=== PATIENT | male | born 1945 | race Caucasian/White ===

== ENCOUNTER 2018-01-18 04:48 | Inpatient (IN) | payer MEDICARE, SELFPAY ==
[2018-01-18] VITALS (18 sets, daily range): BP systolic 97–192; BP diastolic 70–100; PULSE 67–89; RESP 18–28; TEMP 36.4–37.2; O2SAT 95–100; BMI 31.8; BMI 35.7
--- NOTE | 2018-01-18 04:58 | NURSING ---
pt not a good historian for medications neither is the family
[2018-01-18 05:01] LABS: Bedside Glucose 143 mg/dL (70-110)
--- NOTE | 2018-01-18 05:02 | RAD_ITS ---
STUDY: X-RAY CHEST REASON FOR EXAM: Male, 72 years old. Shortness of breath and cough. TECHNIQUE: Single AP portable view of the chest. COMPARISON: None. FINDINGS: There is interstitial prominence, suggesting mild CHF. There is no demonstrated pleural abnormality. There is mild cardiac enlargement. There are sternotomy wires. Normal mediastinum and maddie. Normal visualized pulmonary arteries. Normal visualized aortic arch and descending thoracic aorta. There are diffuse degenerative changes of the visualized thoracic spine. Normal visualized ribs, clavicles, and shoulders. There is no demonstrated abnormality of the visualized soft tissue structures of the upper abdomen. RAD/Chest 1 View IMPRESSION: Cardiomegaly with mild CHF. Electronically Signed: Kenny Quintero MD at 6:15 EST , Service support ,
--- NOTE | 2018-01-18 05:02 | EKG12_ITS ---
Test Reason : Blood Pressure : / mmHG Vent. Rate : 075 BPM Atrial Rate : 066 BPM P-R Int : 000 ms QRS Dur : 088 ms QT Int : 424 ms P-R-T Axes : 000 019 126 degrees QTc Int : 473 ms Atrial fibrillation with premature ventricular or aberrantly conducted complexes Nonspecific ST and T wave abnormality Abnormal ECG Confirmed by TARYN WILSON, MANSOOR ([id number]), scientific editor SAMIA KING ([id number] on 01/20/2018 2:03:52 PM Referred By: CANDICE Confirmed By:MANSOOR CENTENO MD
--- NOTE | 2018-01-18 05:02 | CT_ITS ---
STUDY: CT BRAIN WITHOUT CONTRAST REASON FOR EXAM: Male, 72 years old. Right-sided weakness and right arm tingling. Cough and shortness of breath. Elevated blood pressure. RADIATION DOSAGE (If Supplied By Facility): CTDIvol = ( 44.99 ) mGy, DLP = ( 745.49 ) mGycm TECHNIQUE: Transaxial CT imaging of the brain was performed without administration of intravenous contrast material. Individualized dose optimization techniques were used for this CT. COMPARISON: None. FINDINGS: Normal soft tissue structures. Normal calvarium. There is mild cerebral atrophy with widening of the extra-axial spaces and ventricular dilatation. There are areas of decreased attenuation within the white matter tracts of the supratentorial brain, consistent with microvascular disease changes. Normal basal ganglia and thalami. Normal brainstem. There is mild cerebellar atrophy. There is atherosclerotic calcification of the cavernous carotid arteries. There is no intracranial hemorrhage. There are no findings of an acute ischemic infarction. Normal visualized paranasal sinuses. CT/Brain/Head without Contrast IMPRESSION: Chronic involutional changes of the brain. No demonstrated acute intracranial process. Electronically Signed: Kenny Quintero MD at 5:41 EST , Service support ,
[2018-01-18 05:15] LABS: Absolute Lymphocyte Count 1.72 X10^3/ul (0.83-4.51); Absolute Neutrophil Count 3.1 X10^3/uL (2.0-7.7); Basophil# 0.02 X10^3/uL; Basophil% 0.4 % (0-1); Eosinophil# 0.02 X10^3/uL; Eosinophils% 0.4 % (0-5); Hematocrit 37.2 % (40-54); Hemoglobin 12.8 g/dl (13.0-16.5); Lymphocyte # 1.72 X10^3/ul (4.0); Mean Corp Hgb Conc 34.4 g/gl (32-36); Mean Corpuscular Hgb 34.4 pg (27.0-32.0); Mean Platelet Vol. 10.2 fl (6.2-12.0); Monocyte# 0.36 X10^3/uL; Monocyte% 6.9 % (0-10); Neutrophil # 3.09 X10^3/uL (2.7-7.7); Neutrophil % 59.1 % (47-70); Platelet Count 218 K/mm3 (150-450); RBC Distribution Width CV 13.3 % (11.6-14.6); RBC Distribution Width SD 46.5 fl (35.1-43.9); Red Blood Count 3.72 M/mm3 (4.6-6.2); White Blood Count 5.2 K/mm3 (4.4-11.0)
[2018-01-18 05:17] LABS: International Normalized Ratio 1.2; Prothrombin Time (Protime)PT. 14.6 SECONDS (11.7-14.9)
[2018-01-18 05:18] LABS: Partial Thromboplast Time 24.8 Seconds (24.1-36.2)
[2018-01-18 05:21] LABS: POSITIVE COUNT NO; POSITIVE DIFFERENTIAL NO; POSITIVE MORPHOLOGY NO
[2018-01-18 05:27] LABS: Anion Gap 11 (5-15); BUN 12 mg/dL (7-18); BUN/Creat Ratio 10.4 RATIO (10-20); Calcium,Total 8.8 mg/dL (8.5-10.1); Chloride 106 mmol/L (98-107); Creatinine, Serum 1.15 mg/dL (0.70-1.30); EST Glomerular Filtration Rate 67 mL/min (>60); Est Glom Filt Rate - Afr Amer 81 mL/min (>60); Glucose 169 mg/dL (74-106); Potassium 3.2 mmol/L (3.5-5.1); Sodium Level 142 mmol/L (136-145)
--- NOTE | 2018-01-18 06:06 | PCM.HP.STD ---
Problem List (1) Carotid arterial disease Status: Chronic Qualifiers: Laterality: unspecified laterality Qualified Code(s): I77.9 - Disorder of arteries and arterioles, unspecified (2) CAD (coronary artery disease) Status: Chronic Qualifiers: Coronary Disease-Associated Artery/Lesion type: unspecified vessel or lesion type [place] vs. transplanted heart: unspecified whether [place] or transplanted heart Associated angina: angina presence unspecified Qualified Code(s): I25.10 - Atherosclerotic heart disease of [place] coronary artery without angina pectoris (3) HTN (hypertension) Status: Chronic Qualifiers: Hypertension type: essential hypertension Qualified Code(s): I10 - Essential (primary) hypertension (4) HLD (hyperlipidemia) Status: Chronic Qualifiers: Hyperlipidemia type: unspecified Qualified Code(s): E78.5 - Hyperlipidemia, unspecified (5) Obesity (BMI 30.0-34.9) Status: Chronic (6) Right sided weakness Status: Acute (7) New onset atrial fibrillation Status: Acute (8) CHF (congestive heart failure) Status: Acute Qualifiers: Heart failure type: unspecified Heart failure chronicity: acute Qualified Code(s): I50.9 - Heart failure, unspecified History of Present Illness Date of Admission: 01/18/18 Chief Complaint: R sided weakness, paresthesias, recent increased dyspnea, orthopnea, BL LE edema. The patient is a 72 y/o M w/ PMHx: Carotid arterial disease s/p R CEA, CAD s/p CABG, HTN, HLD, Obesity who presents to the [facility] ED on 01/18/18 with history of onset right sided weakness with paresthesias lasted ~ 10 minutes with improvement starting at ~ 4:20 am with initially noted RLE weakness severe enough per daughter to have RLE drag. In the ED upon evaluation his NIH was 0 and remained 0 during ED work-up; however, hospitalist evaluation with concern for ongoing mild R sided weakness 4/5, sensation intact. Patient also noted ~ 1 week history of increased dyspnea, orthopnea, BL LE ankle to knee pitting edema not improving. He did have recent bronchitis ~ 2 weeks prior but this seemed to have somewhat improved. In the ED work-up included T 97.5, HR 70-80s, BP 173/83, RR 22, 98% on 2L NC, CBC w/ WBC 5.2, Hgb 12.8, Plts 218 without shift, coags normal, BMP w/ K 3.2, glucose 169, trop < 0.02, CT brain with no acute findings, EKG w/ apparent new onset rate controlled atrial fibrillation without acute evidence of ischemia, CXR with mild congested appearance. Past Medical History Past Medical History (Chronic Problems): Chronic Problems Carotid arterial disease (Chronic) CAD (coronary artery disease) (Chronic) HTN (hypertension) (Chronic) HLD (hyperlipidemia) (Chronic) Obesity (BMI 30.0-34.9) (Chronic) Allergies No Known Allergies Allergy (Verified 01/18/18 04:50) Home Medications: Ambulatory Orders Medication Instructions Recorded Aspirin [Aspir-Low] 81 mg PO DAILY 01/18/18 Atenolol [Tenormin (Beta Obdulio)] 50 mg PO DAILY 01/18/18 Losartan Potassium [Cozaar] 100 mg PO DAILY 01/18/18 Pravastatin [Pravachol] 80 mg PO DAILY 01/18/18 Surgical History: - - R CEA, CABG x 4. Psychiatric History: No pertinent psych hx Lives: Spouse/ Significant Other, With Family Smoking Status: Never smoker Tobacco Use: Non-smoker Alcohol: Rare Drugs: None - *Family History Maternal History Items: Stroke Paternal History Items: Heart Disease Review of Systems Constitutional: Reports: Malaise, Weakness, Weight Change, Fatigue. Denies: Chills, Fever HEENT: Denies: Head Aches, Sinus Congestion, Sinus Drainage Cardiovascular: Reports: Edema, Orthopnea. Denies: Chest Pain, Palpitations Respiratory: Reports: Cough, Shortness of Breath, Shortness of breath at rest, Shortness of breath upon exertion. Denies: Sputum production, Wheezing Gastrointestinal: Denies: Abdominal Pain, Nausea, Vomiting Genitourinary: Denies: Dysuria Musculoskeletal: Denies: Joint Pain, Joint Tenderness Skin: Denies: Rash, Wounds Neurological: Reports: Focal weakness, Numbness, Tingling Psychiatric: Denies: Anxiety, Depression, Homicidal Ideations, Suicidal Ideations Hematologic/ Lymphatic: Denies: Easy Bruising, Easy Bleeding VTE Information - Inpt Only VTE Present on Admission: No VTE Mechan Device Prophylaxis: SCD's VTE Pharm Prophylaxis ordered?: Yes Patient Problems: Active and Suspected Problems Right sided weakness (Acute) New onset atrial fibrillation (Acute) CHF (congestive heart failure) (Acute) Subjective: Seated upright in the ED bed, mildly increased RR, denies any acute complaint, notes nearly baseline R sided strength, daughter feels still mildly weak, sensation normalized. Objective: Physical Examination: General: awake, alert, oriented x 3 and cooperative, seated upright in the ED bed in no apparent distress. Skin: normal color, turgor, no icterus, cyanosis. HEENT: AT/NC, EOMI, PERRLA, mildly dry MM, no carotid bruits or JVD noted. Lungs: Diminished BS bases, mild crackles bases, increased RR, poor effort, no ronchi or wheezing. Heart: Irregular, normal rate; no gallop, rub audible. Abdomen: soft, obese, NTTP, ND, normal BS, no HSM; however, habitus makes examination difficult. Extremities: no cyanosis, clubbing, BL LE 3+ pitting edema pedal to knee. Neurological: patient awake, alert, oriented x 3; cognitive function intact; pupils equally reactive to light and accomodation; cranial nerves II-XII grossly normal, moving all 4 extremities, R Upper and Lower 4/5, mild RUE abnml FTN, sensation intact, negative babinski. Psychiatric: affect appears normal, no acute evidence of depressive or anxiety feelings. - Physical Exam Vital Signs Temp Pulse Resp BP Pulse Ox 97.5 F L 82 22 H 173/83 H 98 01/18/18 04:50 01/18/18 06:03 01/18/18 06:03 01/18/18 06:03 01/18/18 06:03 Oxygen Flow Rate 2 Oxygen Delivery Method Nasal Cannula Weight: 209 lb 14.081 oz Body Mass Index (BMI) 31.8 Finger Stick Blood Glucose 143 Laboratory Tests Past 24 Hrs 01/18/18 01/18/18 01/18/18 04:50 04:50 04:50 WBC 5.2 RBC 3.72 L Hgb 12.8 L Hct 37.2 L MCV 100.0 H MCH 34.4 H MCHC 34.4 RDW 13.3 RDW Differential 46.5 H Plt Count 218 MPV 10.2 Immature Gran % (Auto) 0.200 Neut % (Auto) 59.1 Lymph % (Auto) 33.0 [place] % (Auto) 6.9 Eos % (Auto) 0.4 Baso % (Auto) 0.4 Absolute Neuts (auto) 3.1 Absolute Lymphs (auto) 1.72 Total Counted Not Reportable PT 14.6 INR 1.2 APTT 24.8 Sodium 142 Potassium 3.2 L Chloride 106 Carbon Dioxide 25.0 Anion Gap 11 BUN 12 Creatinine 1.15 Estim Creat Clear Calc 57.00 Est GFR (MDRD) Af Amer 81 Est GFR (MDRD) Non-Af 67 BUN/Creatinine Ratio 10.4 Glucose 169 H Calcium 8.8 Troponin I < 0.02 POC Glucose 01/18/18 04:56 POC Glucose 143 H Assessment/Plan Active and Suspected Problems Right sided weakness (Acute) New onset atrial fibrillation (Acute) CHF (congestive heart failure) (Acute) The patient is a 72 y/o M w/ PMHx: Carotid arterial disease s/p R CEA, CAD s/p CABG, HTN, HLD, Obesity who presents to the [facility] ED on 01/18/18 with history of onset right sided weakness with paresthesias lasted ~ 10 minutes in addition to ~ 1 week history of increased dyspnea, orthopnea, BL LE ankle to knee pitting edema not improving. (1) R sided Weakness, Paresthesias concerning for TIA/CVA: Will admit to PCU, will obtain MRI Brain, MRA Head and Neck, ECHO, PT/OT/Speech/Nutrition evaluation per protocol. Will allow permissive HTN, maintain on asa-->plavix, statin w/ AM FLP, fall precautions. Mag, TSH pending. Fall precautions. (2) New onset, Paroxsymal atrial fibrillation: EKG in ED w/ atrial fibrillation, rate controlled. Will maintain on telemetry, obtain cardiac enzyme serial set, obtain magnesium level, obtain ECHO, obtain TSH level. CHADs scoring appropriate for anticoagulation start, will place on lovenox given also transition ASA-->plavix for TIA/CVA, pending MRI Brain as noted above. Given rate controlled and permissive HTN currently, defer rhythm/rate regimen until MRI obtained. Cardiology consulted, pending. (3) Suspected Acute Mild Decompensated CHF: CXR obtained in the ED w/ mild congestion, ongoing dyspnea, non-productive cough, orthopnea, BL LE edema. Will maintain on cardiac telemetry obtain cardiac enzyme series, obtain serial EKGs, given #1, will only administer IV lasix 40 mg x 1 and await MRI, if MRI negative would then plan to continue IV lasix diuresis, monitor I/Os, maintain on intake restriction, continue medical therapy w/ asa-->plavix as noted, statin, holding BP regimen as noted prior, once appropriate contionue BB, ACEI. Will obtain TSH and magnesium level. ECHO pending. Cardiology consulted, pending. (4) Hypertension: Permissive. (5) Hyperlipidemia: Continue home statin regimen. AM FLP. (6) CAD: s/p CABG, follows w/ Dr. Sweeney. Will continue asa-->plavix, statin, permissive HTN thus hold on BB. (7) Hyperglycemia: Admission glucose 169, HgbA1c pending. (8) Hypokalemia: Admission K+ 3.2, supplementation given, repeat level in AM. (9) Obesity: Weight loss and lifestyle changes encouraged. (10) DVT Prophylaxis: SCDs, lovenox therapeutic. Code Visit Inpatient E&M: 36792 Init Hosp L3
--- NOTE | 2018-01-18 06:18 | ED.DCSUM_ITS ---
- ER Visit Summary Date of Service: 01/18/18 Chief Complaint: [] Numbness right arm/leg History of Present Illness: The patient is a 72 M [] of sudden onset of numbness in the right arm/leg that started approximately 4:18 AM. He reports the symptoms lasted only a few minutes. His family at the bedside reports he had difficulty ambulating in those few minutes. He denies slurred speech. He reports the symptoms have completely resolved upon arrival. Does report a previous history of carotid endarterectomy, CABG, CAD, hypertension, cholesterol. Reports taking a daily aspirin. No other complaints at this time. Denies chest pain, shortness of breath, blurred vision, headache. Physical Examination: [] NIH score upon arrival: 0. Repeat NIH score 1 hour later: 0. Plus 5 out of 5 bilateral upper and lower muscle strength. Elderly male in no acute distress, cardiovascular exam is irregularly irregular consistent with a history of atrial fibrillation. Lungs are clear to auscultation. Abdomen is soft and nontender. No lower extremity edema. Test Results: [] EKG shows atrial fibrillation with a rate in the 70s. CT head negative. Chest x-ray negative. CBC, BMP within normal limits with exception of potassium slightly low 3.2. Troponin negative. INR 1.2. Emergency Department Course and Treatment: [] This patient is high risk for cerebrovascular accident and warrants admission for MRI to evaluate posterior circulation. Patient discussed with hospitalist. Patient will be admitted for further evaluation. Patient and patient's family counseled regarding diagnostic and laboratory findings and are amenable to admission. Treatment Plan: [] Admission, general medical floor. Disposition: [] Admit, stable Impression: [] TIA This note was generated with Teleport dictation software. It may contain incorrect words, spelling, and punctuation that were not noted in review of the chart prior to signing ED Disposition - Plan for ED Patient: Disposition: Acute Care Hospital [facility] Chief Complaint: Numb/Ting
--- NOTE | 2018-01-18 06:19 | HP.PCM_ITS ---
Problem List (1) Carotid arterial disease Status: Chronic Qualifiers: Laterality: unspecified laterality Qualified Code(s): I77.9 - Disorder of arteries and arterioles, unspecified (2) CAD (coronary artery disease) Status: Chronic Qualifiers: Coronary Disease-Associated Artery/Lesion type: unspecified vessel or lesion type [place] vs. transplanted heart: unspecified whether [place] or transplanted heart Associated angina: angina presence unspecified Qualified Code(s): I25.10 - Atherosclerotic heart disease of [place] coronary artery without angina pectoris (3) HTN (hypertension) Status: Chronic Qualifiers: Hypertension type: essential hypertension Qualified Code(s): I10 - Essential (primary) hypertension (4) HLD (hyperlipidemia) Status: Chronic Qualifiers: Hyperlipidemia type: unspecified Qualified Code(s): E78.5 - Hyperlipidemia , unspecified (5) Obesity (BMI 30.0-34.9) Status: Chronic (6) Right sided weakness Status: Acute (7) New onset atrial fibrillation Status: Acute (8) CHF (congestive heart failure) Status: Acute Qualifiers: Heart failure type: unspecified Heart failure chronicity: acute Qualified Code(s): I50.9 - Heart failure, unspecified History of Present Illness Date of Admission: 01/18/18 Chief Complaint: R sided weakness, paresthesias, recent increased dyspnea, orthopnea, BL LE edema. The patient is a 72 y/o M w/ PMHx: Carotid arterial disease s/p R CEA, CAD s/p CABG, HTN, HLD, Obesity who presents to the [facility] ED on 01/18/18 with history of onset right sided weakness with paresthesias lasted ~ 10 minutes with improvement starting at ~ 4:20 am with initially noted RLE weakness severe enough per daughter to have RLE drag. In the ED upon evaluation his NIH was 0 and remained 0 during ED work-up; however, hospitalist evaluation with concern for ongoing mild R sided weakness 4/5, sensation intact. Patient also noted ~ 1 week history of increased dyspnea, orthopnea, BL LE ankle to knee pitting edema not improving. He did have recent bronchitis ~ 2 weeks prior but this seemed to have somewhat improved. In the ED work-up included T 97.5, HR 70-80s, BP 173/83 , RR 22, 98% on 2L NC, CBC w/ WBC 5.2, Hgb 12.8, Plts 218 without shift, coags normal, BMP w/ K 3.2, glucose 169, trop < 0.02, CT brain with no acute findings , EKG w/ apparent new onset rate controlled atrial fibrillation without acute evidence of ischemia, CXR with mild congested appearance. Past Medical History Past Medical History (Chronic Problems): Chronic Problems Carotid arterial disease (Chronic) CAD (coronary artery disease) (Chronic) HTN (hypertension) (Chronic) HLD (hyperlipidemia) (Chronic) Obesity (BMI 30.0-34.9) (Chronic) Allergies No Known Allergies Allergy (Verified 01/18/18 04:50) Home Medications: Ambulatory Orders Medication Instructions Recorded Aspirin [Aspir-Low] 81 mg PO DAILY 01/18/18 Atenolol [Tenormin (Beta Obdulio)] 50 mg PO DAILY 01/18/18 Losartan Potassium [Cozaar] 100 mg PO DAILY 01/18/18 Pravastatin [Pravachol] 80 mg PO DAILY 01/18/18 Surgical History: - - R CEA, CABG x 4. Psychiatric History: No pertinent psych hx Lives: Spouse/ Significant Other, With Family Smoking Status: Never smoker Tobacco Use: Non-smoker Alcohol: Rare Drugs: None - *Family History Maternal History Items: Stroke Paternal History Items: Heart Disease Review of Systems Constitutional: Reports: Malaise, Weakness, Weight Change, Fatigue. Denies: Chills, Fever HEENT: Denies: Head Aches, Sinus Congestion, Sinus Drainage Cardiovascular: Reports: Edema, Orthopnea. Denies: Chest Pain, Palpitations Respiratory: Reports: Cough, Shortness of Breath, Shortness of breath at rest, Shortness of breath upon exertion. Denies: Sputum production, Wheezing Gastrointestinal: Denies: Abdominal Pain, Nausea, Vomiting Genitourinary: Denies: Dysuria Musculoskeletal: Denies: Joint Pain, Joint Tenderness Skin: Denies: Rash, Wounds Neurological: Reports: Focal weakness, Numbness, Tingling Psychiatric: Denies: Anxiety, Depression, Homicidal Ideations, Suicidal Ideations Hematologic/ Lymphatic: Denies: Easy Bruising, Easy Bleeding VTE Information - Inpt Only VTE Present on Admission: No VTE Mechan Device Prophylaxis: SCD's VTE Pharm Prophylaxis ordered?: Yes Patient Problems: Active and Suspected Problems Right sided weakness (Acute) New onset atrial fibrillation (Acute) CHF (congestive heart failure) (Acute) Subjective: Seated upright in the ED bed, mildly increased RR, denies any acute complaint, notes nearly baseline R sided strength, daughter feels still mildly weak, sensation normalized. Objective: Physical Examination: General: awake, alert, oriented x 3 and cooperative, seated upright in the ED bed in no apparent distress. Skin: normal color, turgor, no icterus, cyanosis. HEENT: AT/NC, EOMI, PERRLA, mildly dry MM, no carotid bruits or JVD noted. Lungs: Diminished BS bases, mild crackles bases, increased RR, poor effort, no ronchi or wheezing. Heart: Irregular, normal rate; no gallop, rub audible. Abdomen: soft, obese, NTTP, ND, normal BS, no HSM; however, habitus makes examination difficult. Extremities: no cyanosis, clubbing, BL LE 3+ pitting edema pedal to knee. Neurological: patient awake, alert, oriented x 3; cognitive function intact; pupils equally reactive to light and accomodation; cranial nerves II-XII grossly normal, moving all 4 extremities, R Upper and Lower 4/5, mild RUE abnml FTN, sensation intact, negative babinski. Psychiatric: affect appears normal, no acute evidence of depressive or anxiety feelings. - Physical Exam Vital Signs Temp Pulse Resp BP Pulse Ox 97.5 F L 82 22 H 173/83 H 98 01/18/18 04:50 01/18/18 06:03 01/18/18 06:03 01/18/18 06:03 01/18/18 06:03 Oxygen Flow Rate 2 Oxygen Delivery Method Nasal Cannula Weight: 209 lb 14.081 oz Body Mass Index (BMI) 31.8 Finger Stick Blood Glucose 143 Laboratory Tests Past 24 Hrs 01/18/18 01/18/18 01/18/18 04:50 04:50 04:50 WBC 5.2 RBC 3.72 L Hgb 12.8 L Hct 37.2 L MCV 100.0 H MCH 34.4 H MCHC 34.4 RDW 13.3 RDW Differential 46.5 H Plt Count 218 MPV 10.2 Immature Gran % (Auto) 0.200 Neut % (Auto) 59.1 Lymph % (Auto) 33.0 [place] % (Auto) 6.9 Eos % (Auto) 0.4 Baso % (Auto) 0.4 Absolute Neuts (auto) 3.1 Absolute Lymphs (auto) 1.72 Total Counted Not Reportable PT 14.6 INR 1.2 APTT 24.8 Sodium 142 Potassium 3.2 L Chloride 106 Carbon Dioxide 25.0 Anion Gap 11 BUN 12 Creatinine 1.15 Estim Creat Clear Calc 57.00 Est GFR (MDRD) Af Amer 81 Est GFR (MDRD) Non-Af 67 BUN/Creatinine Ratio 10.4 Glucose 169 H Calcium 8.8 Troponin I < 0.02 POC Glucose 01/18/18 04:56 POC Glucose 143 H Assessment/Plan Active and Suspected Problems Right sided weakness (Acute) New onset atrial fibrillation (Acute) CHF (congestive heart failure) (Acute) The patient is a 72 y/o M w/ PMHx: Carotid arterial disease s/p R CEA, CAD s/p CABG, HTN, HLD, Obesity who presents to the [facility] ED on 01/18/18 with history of onset right sided weakness with paresthesias lasted ~ 10 minutes in addition to ~ 1 week history of increased dyspnea, orthopnea, BL LE ankle to knee pitting edema not improving. (1) R sided Weakness, Paresthesias concerning for TIA/CVA: Will admit to PCU, will obtain MRI Brain, MRA Head and Neck, ECHO, PT/OT/Speech/Nutrition evaluation per protocol. Will allow permissive HTN, maintain on asa-->plavix, statin w/ AM FLP, fall precautions. Mag, TSH pending. Fall precautions. (2) New onset, Paroxsymal atrial fibrillation: EKG in ED w/ atrial fibrillation , rate controlled. Will maintain on telemetry, obtain cardiac enzyme serial set , obtain magnesium level, obtain ECHO, obtain TSH level. CHADs scoring appropriate for anticoagulation start, will place on lovenox given also transition ASA-->plavix for TIA/CVA, pending MRI Brain as noted above. Given rate controlled and permissive HTN currently, defer rhythm/rate regimen until MRI obtained. Cardiology consulted, pending. (3) Suspected Acute Mild Decompensated CHF: CXR obtained in the ED w/ mild congestion, ongoing dyspnea, non-productive cough, orthopnea, BL LE edema. Will maintain on cardiac telemetry obtain cardiac enzyme series, obtain serial EKGs, given #1, will only administer IV lasix 40 mg x 1 and await MRI, if MRI negative would then plan to continue IV lasix diuresis, monitor I/Os, maintain on intake restriction, continue medical therapy w/ asa-->plavix as noted, statin , holding BP regimen as noted prior, once appropriate contionue BB, ACEI. Will obtain TSH and magnesium level. ECHO pending. Cardiology consulted, pending. (4) Hypertension: Permissive. (5) Hyperlipidemia: Continue home statin regimen. AM FLP. (6) CAD: s/p CABG, follows w/ Dr. Sweeney. Will continue asa-->plavix, statin, permissive HTN thus hold on BB. (7) Hyperglycemia: Admission glucose 169, HgbA1c pending. (8) Hypokalemia: Admission K+ 3.2, supplementation given, repeat level in AM. (9) Obesity: Weight loss and lifestyle changes encouraged. (10) DVT Prophylaxis: SCDs, lovenox therapeutic. Code Visit Inpatient E&M: 57447 Init Hosp L3
--- NOTE | 2018-01-18 06:58 | MRI_ITS ---
STUDY: MRA NECK WITHOUT CONTRAST REASON FOR EXAM: Male, 72 years old. cva, rt sided weakness, n/t. TECHNIQUE: Source images were obtained, MIPs were performed. The study was performed unenhanced. COMPARISON: None. FINDINGS: Examination is degraded by motion artifact. RIGHT CAROTID ARTERIES: There is antegrade flow of the right common carotid artery (CCA). There is signal loss of the carotid bulb and proximal internal carotid artery. It is uncertain if this is secondary to motion artifact or atherosclerotic plaque resulting in stenosis. There is antegrade flow of the right internal carotid (ICA) artery. There is antegrade flow of the right external carotid artery (ECA). LEFT CAROTID ARTERIES: There is antegrade flow of the left common carotid artery (CCA). Normal left common carotid bulb. There is antegrade flow of the left internal carotid (ICA). There is antegrade flow of the left external carotid artery (ECA). VERTEBRAL ARTERIES: Normal antegrade flow within the bilateral vertebral arteries. MRI/MRA Neck without Contrast IMPRESSION: Motion degraded examination. Atherosclerotic plaque versus artifact. Further evaluation with sonography can be obtained. Electronically Signed: Marina Conn MD at 10:16 EST Tel , Service support ,
--- NOTE | 2018-01-18 06:58 | MRI_ITS ---
STUDY: MRA OF THE HEAD WITHOUT CONTRAST REASON FOR EXAM: Male, 72 years old. cva, rt sided weakness, n/t. TECHNIQUE: 3-D jajn-ft-rddnjk (TOF) imaging was performed with MIPs. The study was performed unenhanced. COMPARISON: None. FINDINGS: Normal bilateral petrous carotid arteries. Normal right cavernous carotid artery with a normal supraclinoid bifurcation. Normal left cavernous carotid artery with a normal supraclinoid bifurcation. 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 There is non-visualization of the right A1 segment of the anterior cerebral arteries consistent with either aplastic development or an occlusion. Normal left A1 segments of the anterior cerebral artery. Normal intact anterior communicating artery (ACOM). Normal bilateral A2 segments of the anterior cerebral arteries. Normal right M1 and M2 segments of the middle cerebral arteries, with a normal M1 bifurcation. Normal left M1 and M2 segments of the middle cerebral arteries, with a normal M1 bifurcation. Normal right posterior communicating artery (PCOM). Normal left posterior communicating artery (PCOM). Normal bilateral vertebral arteries. Normal basilar artery with a normal basilar bifurcation. The visualized bilateral superior cerebellar (SCA) arteries are normal. Normal bilateral P1, P2 and visualized P3 segments of the posterior cerebral arteries. There is no demonstrated aneurysm of the [place]. There is no major vessel occlusion or hemodynamically significant stenosis. There is no demonstrated abnormality of the visualized brain. MRI/MRA Head ONLY without Contrast IMPRESSION: No occlusion or significant stenosis. Variant anatomy. Electronically Signed: Marina Conn MD at 10:05 EST Tel , Service support ,
--- NOTE | 2018-01-18 06:58 | MRI_ITS ---
STUDY: MRI BRAIN WITHOUT CONTRAST REASON FOR EXAM: Male, 72 years old. cva, rt sided weakness, n/t. TECHNIQUE: Standardized multiplanar fat and water weighted pulse sequences were obtained. COMPARISON: CT of the head dated January 18, 2018 FINDINGS: There are foci of restricted diffusion involving the left centrum semiovale measuring up to 1 cm (diffusion image #22 series 4). There is globular signal on ADC map, consistent with acute infarction. Normal size of the ventricles and extra-axial spaces for the patient's age. There are a limited number of small white matter hyperintensities, distributed throughout the deep white matter tracts of the cerebral hemispheres, consistent with mild chronic white matter ischemic changes. Normal bilateral basal ganglia. Normal thalami. There is no extra-axial fluid accumulation. Normal flow voids within the major intracranial circulation suggesting patency by spin echo criteria. Normal sella turcica, pituitary gland, infundibular stalk, optic chiasm and hypothalamus. Normal tectal plate and pineal gland. Normal midbrain, laurel and medulla. Normal cerebellum. Normal basal cisterns. Normal bilateral temporal bones. Normal bilateral internal auditory canals. MRI/Brain without Contrast IMPRESSION: Acute left centrum semiovale infarction. N.B. : The above information has been verbally conveyed by Marina Conn MD to Aminata Quintana, Sukumar, on 01/18/2018 13:03:09 (ET). Electronically Signed: Marina Conn MD at 10:08 EST Tel , Service support , N.B. : The above information has been verbally conveyed by Marina Conn MD to mAinata Quintana, Sukumar, on 01/18/2018 13:03:09 (ET).
--- NOTE | 2018-01-18 06:58 | ECHOCS_ITS ---
Reason For Study: TIA/CVA Procedure This was a 2D Doppler, Color Flow transthoracic echocardiogram. The study was technically difficult. Contrast injection was performed. Exam performed portable in patient room. Left Ventricle Normal size and thickness. The estimated ejection fraction is 40-45 %. There are regional wall motion abnormalities as specified. Anterio-Basal: Mildly hypokinetic. Mid-Anterior : Severely Hypokinetic. Anterior Hollister : Akinetic. Inferior [place] : Akinetic. Right Ventricle Normal size and thickness. Normal systolic function. Atria The left atrium is severely enlarged. Normal right atrium. Normal atrial septum. Bubble contrast study negative for right to left interatrial shunt. Mitral Valve The mitral valve is structurally normal. No prolapse or stenosis seen. Mild (1+) mitral valve insufficiency. Tricuspid Valve Normal tricuspid valve. Trivial tricuspid valve insufficiency. Right ventricular systolic pressure estimated to be 63 mmHg. Moderate pulmonary hypertension. Aortic Valve Trisinus/trileaflet aortic valve. Mild focal aortic valve thickening. Pulmonic Valve Normal pulmonic valve. Trivial eccentric pulmonic valve insufficiency. Great Vessels Normal aortic root. Normal arch. Normal inferior vena cava. Inferior vena cava collapse with sniff. Pericardium/Pleural No pericardial effusion. Medication Performed a rapid injection of agitated mix of 9 cc saline and 1cc air to assess for atrial septal defect. Diluted definity 3.0ml given slow IV push to enhance endocardial definition. MMode/2D Measurements & Calculations LVIDd: 4.8 cm IVSd: 0.94 cm Ao root diam: 3.1 cm LVIDs: 3.7 cm LVPWd: 0.91 cm LA dimension: 4.8 cm FS: 23.3 % LAV(MOD-bp): 101.8 ml EDV(MOD-sp4): 82.3 ml EDV(MOD-sp2): 77.5 ml LAV(MOD-bp) Indexed: 48.9 ml/m2 ESV(MOD-sp4): 48.9 ml EF(MOD-sp2): 46.1 % LAV(MOD-sp2): 87.2 ml EF(MOD-sp4): 40.6 % LAV(MOD-sp4): 97.3 ml SV(MOD-sp4): 33.4 ml SV(MOD-sp2): 35.7 ml LA A4 area: 28.6 cm2 Doppler Measurements & Calculations MV E max milton: 123.7 cm/sec Ao V2 max: 111.9 cm/sec LV V1 max: 86.2 cm/sec Ao max P.0 mmHg LV V1 max P.0 mmHg PA V2 max: 194.1 cm/sec PI end-d milton: 133.3 cm/sec TR max milton: 338.6 cm/sec TR max P.9 mmHg Interpretation Summary The estimated ejection fraction is 40-45 %. There are regional wall motion abnormalities as specified. The left atrium is severely enlarged. Mild (1+) mitral valve insufficiency. Trivial tricuspid valve insufficiency. Right ventricular systolic pressure estimated to be 63 mmHg. Moderate pulmonary hypertension. Bubble contrast study negative for right to left interatrial shunt. Pt appears to be in atrial fibrillation. Compared to echo report dated 04/30/2005, LV function has gone from 55 to 40% with new evidence of antrerior/apical hypokinesis, as well as new moderate pulmonary HTN. The study was technically difficult. Ordering Physician: Sally Gates Referring Physician: Herson Terrell Performed By: Carly Vidal RDCS, RVT
[2018-01-18 07:37] LABS: Magnesium 1.9 mg/dL (1.6-2.6); Thyroid Stim Hormone (TSH) 1.88 uIU/mL (0.358-3.74)
[2018-01-18] MEDS: Enoxaparin 100 MG/ML Syringe SC ×2 (10:12→17:55)
[2018-01-18] MEDS: Furosemide 40 MG/4 ML Vial IV (10:12)
[2018-01-18] MEDS: Clopidogrel Bisulfate 75 MG Tablet PO (10:13)
[2018-01-18] MEDS: Pravastatin 80 MG Tablet PO (10:13)
[2018-01-18] MEDS: Famotidine 20 MG Tablet PO ×2 (10:13→20:38)
--- NOTE | 2018-01-18 10:46 | PCM.CONS.C ---
Problem List (1) Carotid arterial disease Status: Chronic Qualifiers: Laterality: unspecified laterality Qualified Code(s): I77.9 - Disorder of arteries and arterioles, unspecified (2) CAD (coronary artery disease) Status: Chronic Qualifiers: Coronary Disease-Associated Artery/Lesion type: unspecified vessel or lesion type [place] vs. transplanted heart: unspecified whether [place] or transplanted heart Associated angina: angina presence unspecified Qualified Code(s): I25.10 - Atherosclerotic heart disease of [place] coronary artery without angina pectoris (3) HTN (hypertension) Status: Chronic Qualifiers: Hypertension type: essential hypertension Qualified Code(s): I10 - Essential (primary) hypertension (4) HLD (hyperlipidemia) Status: Chronic Qualifiers: Hyperlipidemia type: unspecified Qualified Code(s): E78.5 - Hyperlipidemia, unspecified (5) Right sided weakness Status: Acute (6) New onset atrial fibrillation Status: Acute (7) CHF (congestive heart failure) Status: Acute Qualifiers: Heart failure type: unspecified Heart failure chronicity: acute Qualified Code(s): I50.9 - Heart failure, unspecified Reason for Consult Date of Consultation: 01/18/18 Reason for Consultation: Acute CVA, hypertension, hypercholesterolemia, coronary artery disease status post bypass surgery, atrial fibrillation. History of Present Illness: The patient is a 72 year old M with a history of hypertension, hypercholesterolemia, coronary artery disease status post multivessel bypass surgery in 1999 at the [facility] receiving a TIMBO to the LAD, and a saphenous vein graft to the PDA. He follows with Dr. Sweeney and was last seen in the office on 02/20/17 at that time he was doing relatively well. Apparently has no history of atrial fibrillation. Patient was doing well up until his day of admission when he developed right-sided tingling and numbness which has subsequently resolved with associated upper and lower extremity weakness which has not yet improved. Patient also complains of worsening lower extremity edema, shortness of breath, dyspnea on exertion which has been going on for the last several days to weeks. He also complains of being bloated and decreased appetite. He has had no change in his medications. Although the patient has no history of atrial fibrillation his telemetry has demonstrated atrial fibrillation with controlled ventricular response. CT scan of his brain on admission showed no overt changes. MRI today with results pending. Carotid ultrasound is pending. Cardiogram is pending. Currently the patient is stable, no acute distress, EKG on admission showed atrial fibrillation with controlled ventricular response, rare PVC, nonspecific ST and T-wave changes. [] Past Medical History Allergies/Adverse Reactions: Allergies No Known Allergies Allergy (Verified 01/18/18 04:50) Home Medications: Ambulatory Orders Medication Instructions Recorded Aspirin [Aspir-Low] 81 mg PO DAILY 01/18/18 Atenolol [Tenormin (Beta Obdulio)] 50 mg PO DAILY 01/18/18 Losartan Potassium [Cozaar] 100 mg PO DAILY 01/18/18 Pravastatin [Pravachol] 80 mg PO DAILY 01/18/18 Past Medical History (Chronic Problems): Chronic Problems Carotid arterial disease (Chronic) CAD (coronary artery disease) (Chronic) HTN (hypertension) (Chronic) HLD (hyperlipidemia) (Chronic) Obesity (BMI 30.0-34.9) (Chronic) Surgical History: - - R CEA, CABG x 4. Psychiatric History: No pertinent psych hx - *Family History Maternal History Items: Stroke Paternal History Items: Heart Disease Lives: Spouse/ Significant Other, With Family Smoking Status: Never smoker Tobacco Use: Non-smoker Alcohol: Rare Drugs: None Review of Systems - Review of Systems General: Denies: Fever, Night Sweats, Fatigue Cardiovascular: Reports: Shortness of Breath, Shortness of Breath with Exertion, Peripheral Edema. Denies: Chest Discomfort, Orthopnea, PND, Palpitations, Lightheadedness, Dizziness, Near Syncope, Syncope Respiratory: Denies: Cough, Sputum Production, Hemoptysis Gastrointestinal: Denies: Hematemesis, Hematochezia, Melena Genitourinary: Denies: Dysuria, Hematuria Skin: Denies: Rash Subjectve: Patient laying in bed, no acute distress. Objective: Vital Signs Temp Pulse Resp BP Pulse Ox 97.8 F 72 27 H 153/71 H 96 01/18/18 08:15 01/18/18 08:15 01/18/18 08:15 01/18/18 08:15 01/18/18 08:15 Oxygen Flow Rate 2 Oxygen Delivery Method Nasal Cannula Weight: 208 lb 1.862 oz Body Mass Index (BMI) 35.7 General: Awake, Alert, Oriented x 3 HEENT: PERRL, EOMI, Sclera Non Icteric Neck: Supple, Good ROM, No Lymph Node Enlargement Lungs: Clear to auscultation Cardiovascular: Irregular Rhythm, Normal S1, Normal S2, No Murmurs, No Rubs, No Gallops Vascular: No Carotid Bruits, Normal Femoral Pulses, Normal Radial Pulses, Normal Dorsalis Pedal Pulse, Normal Posterior Tibial Pulses Abdomen: Bowel Sounds Present, Soft, Non Tender, No HSM, No Organomegaly Extremities: No Cyanosis, No Clubbing, Bilateral Edema +1 Neurological: No Focal Motor or Sensory Deficit 01/18/18 09:50: Troponin I < 0.02 Rhythm: As above EKG: As above ECHO: Pending Stress Test: Pending Cardiac Cath: PCI: CT Surgery: Holter monitor: EPS: PPM: CXR: Chest CT Scan: Assessment/Plan 1. Atrial fibrillation: The patient apparently has had a CVA with right upper and lower extremity weakness, as well as numbness and tingling, with evidence of atrial fibrillation on his telemetry strip. He has had no chest pain but has evidence of heart failure on physical exam as well as by description of shortness of breath, dyspnea on exertion, and early satiety. I recommend the patient undergo a 2D echo with Doppler, to determine his LV function, and pulmonary pressures. In addition we are awaiting the results of his MRI/MRA and are awaiting guidance regarding his anticoagulation going forward. Given the patient's CVA and atrial fibrillation he will most likely require lifelong anticoagulation therapy. His most recent echocardiogram in 2004 showed normal LV function, with an EF of 55%, unable to quantitate RVSP at that time. 2. Coronary artery disease: Patient has had bypass surgery ?2 approximately 18 years ago, and has never had a repeat catheterization. Once the patient stabilized from a neurological standpoint I would recommend a non-walking nuclear stress test perhaps tomorrow. If this is grossly abnormal for ischemia, the patient may require diagnostic coronary angiogram. In the meantime we will continue his Plavix, Lovenox if okay with neurology, and would recommend starting him on either Coumadin or Eliquis. 3. Hyperlipidemia: Given the patient's risk factors, I recommend that he undergo a lipid profile. His LDL should be less than 70. He is currently taking pravastatin at this time. 4. Thank you very much for the opportunity to precipitate in the cardiac care of your patient. Patient time took place between 8 AM and 8:30 AM. Code Visit Inpatient E&M: 48056 Init Hosp L2
--- NOTE | 2018-01-18 10:59 | PCM.CONS.GEN ---
Reason for Consult Date of Consultation: 01/18/18 Reason for Consultation: cva History of Present Illness: The patient is a 72 year old M who awoke with right sided weakness, noted by his family. denies pain, no previous history of cva. per h&p:The patient is a 72 y/o M w/ PMHx: Carotid arterial disease s/p R CEA, CAD s/p CABG, HTN, HLD, Obesity who presents to the [facility] ED on 01/18/18 with history of onset right sided weakness with paresthesias lasted ~ 10 minutes with improvement starting at ~ 4:20 am with initially noted RLE weakness severe enough per daughter to have RLE drag. In the ED upon evaluation his NIH was 0 and remained 0 during ED work-up; however, hospitalist evaluation with concern for ongoing mild R sided weakness 4/5, sensation intact. Patient also noted ~ 1 week history of increased dyspnea, orthopnea, BL LE ankle to knee pitting edema not improving. He did have recent bronchitis ~ 2 weeks prior but this seemed to have somewhat improved. In the ED work-up included T 97.5, HR 70-80s, BP 173/83, RR 22, 98% on 2L NC, CBC w/ WBC 5.2, Hgb 12.8, Plts 218 without shift, coags normal, BMP w/ K 3.2, glucose 169, trop < 0.02, CT brain with no acute findings, EKG w/ apparent new onset rate controlled atrial fibrillation without acute evidence of ischemia, CXR with mild congested appearance. Past Medical History Past Medical History (Chronic Problems): Chronic Problems Carotid arterial disease (Chronic) CAD (coronary artery disease) (Chronic) HTN (hypertension) (Chronic) HLD (hyperlipidemia) (Chronic) Obesity (BMI 30.0-34.9) (Chronic) Allergies No Known Allergies Allergy (Verified 01/18/18 04:50) Home Medications: Ambulatory Orders Medication Instructions Recorded Aspirin [Aspir-Low] 81 mg PO DAILY 01/18/18 Atenolol [Tenormin (Beta Obdulio)] 50 mg PO DAILY 01/18/18 Losartan Potassium [Cozaar] 100 mg PO DAILY 01/18/18 Pravastatin [Pravachol] 80 mg PO DAILY 01/18/18 Surgical History: - - R CEA, CABG x 4. Psychiatric History: No pertinent psych hx Lives: Spouse/ Significant Other, With Family Smoking Status: Never smoker Tobacco Use: Non-smoker Alcohol: Rare Drugs: None - *Family History Maternal History Items: Stroke Paternal History Items: Heart Disease Review of Systems Constitutional: Denies: Chills, Fever, Weight Change HEENT: Denies: Head Aches, Sinus Congestion, Sinus Drainage Cardiovascular: Denies: Chest Pain, Palpitations Respiratory: Denies: Cough, Shortness of breath at rest, Sputum production Gastrointestinal: Denies: Abdominal Pain, Nausea, Vomiting Genitourinary: Denies: Dysuria Musculoskeletal: Denies: Joint Pain, Joint Tenderness Skin: Denies: Rash, Wounds Neurological: Denies: Numbness, Tingling, Focal weakness Psychiatric: Denies: Anxiety, Depression, Homicidal Ideations, Suicidal Ideations Hematologic/ Lymphatic: Denies: Easy Bruising, Easy Bleeding Patient Problems: Active and Suspected Problems Right sided weakness (Acute) New onset atrial fibrillation (Acute) CHF (congestive heart failure) (Acute) Objective: Mentation he is awake and alert. Oriented ?3 Mild dysarthria No field cut No facial asymmetry Right arm drifts Right sensory extinction Gait is severely ataxic NIH stroke scale score is 7 - Physical Exam Vital Signs Temp Pulse Resp BP Pulse Ox 36.6 C 72 27 H 153/71 H 96 01/18/18 08:15 01/18/18 08:15 01/18/18 08:15 01/18/18 08:15 01/18/18 08:15 Oxygen Flow Rate 2.5 Oxygen Delivery Method Nasal Cannula Weight: 94.4 kg Body Mass Index (BMI) 35.7 Laboratory Tests Past 24 Hrs 01/18/18 09:50 Troponin I < 0.02 Current Home Med List Medication Instructions Recorded Confirmed Type Aspirin [Aspir-Low] 81 mg PO DAILY 01/18/18 01/18/18 History Atenolol [Tenormin (Beta Obdulio)] 50 mg PO DAILY 01/18/18 01/18/18 History Losartan Potassium [Cozaar] 100 mg PO DAILY 01/18/18 01/18/18 History Pravastatin [Pravachol] 80 mg PO DAILY 01/18/18 01/18/18 History Current Medications Generic Name Dose Route Start Last Admin Trade Name Freq PRN Reason Stop Dose Admin Acetaminophen 650 mg 01/18/18 06:58 Tylenol PO Q4H PRN PRN Headache/Temp>99F Acetaminophen 650 mg 01/18/18 06:58 Tylenol RECTAL Q4H PRN PRN Headache/Temp>99F Acetaminophen 650 mg 01/18/18 06:58 Tylenol Liquid NG Q4H PRN PRN Headache/Temp>99F Al Hydroxide/Mg Hydroxide 30 ml 01/18/18 06:58 Mylanta Ii PO Q6H PRN PRN Gastric burning Clopidogrel Bisulfate 75 mg 01/18/18 10:00 01/18/18 10:13 Plavix PO 75 mg DAILY LEEANNA Administration Enoxaparin Sodium 100 mg 01/18/18 07:30 01/18/18 10:12 Lovenox 1 mg/kg (100 mg) 100 mg SC Administration Q12@0600,1800 LEEANNA Famotidine 20 mg 01/18/18 10:00 01/18/18 10:13 Pepcid PO 20 mg BID LEEANNA Administration Influenza Virus Vaccine Quadrival 0.5 ml 01/19/18 10:00 Fluarix/Fluzone IM 01/19/18 10:01 .ONCE ONE Labetalol HCl 10 mg 01/18/18 06:58 Trandate IV 01/19/18 06:59 Q10M PRN MAINTAIN SBP GOALS Magnesium Hydroxide 30 ml 01/18/18 06:58 Milk Of Magnesia PO DAILY PRN Constipation Ondansetron HCl 4 mg 01/18/18 06:58 Zofran IV Q8H PRN PRN NAUSEA Pravastatin Sodium 80 mg 01/18/18 10:00 01/18/18 10:13 Pravachol PO 80 mg DAILY LEEANNA Administration Promethazine HCl 12.5 mg 01/18/18 06:58 Phenergan (Ll) IV Q6H PRN PRN NAUSEA/VOMITING MRI was reviewed. This shows a acute left watershed distribution infarct. MRA reviewed. There is also carotid stenosis but on the source images this does not appear to be severe. Assessment/Plan Active and Suspected Problems Right sided weakness (Acute) New onset atrial fibrillation (Acute) CHF (congestive heart failure) (Acute) Due to left watershed distribution infarct, possible carotid stenosis although by the report this is on the right side. Agree with Plavix for now Echo CTA of the head and neck High-dose statin therapy Telemetry monitoring PT/OT Consider rehab
--- NOTE | 2018-01-18 11:09 | CON.PCM_ITS ---
Problem List (1) Carotid arterial disease Status: Chronic Qualifiers: Laterality: unspecified laterality Qualified Code(s): I77.9 - Disorder of arteries and arterioles, unspecified (2) CAD (coronary artery disease) Status: Chronic Qualifiers: Coronary Disease-Associated Artery/Lesion type: unspecified vessel or lesion type [place] vs. transplanted heart: unspecified whether [place] or transplanted heart Associated angina: angina presence unspecified Qualified Code(s): I25.10 - Atherosclerotic heart disease of [place] coronary artery without angina pectoris (3) HTN (hypertension) Status: Chronic Qualifiers: Hypertension type: essential hypertension Qualified Code(s): I10 - Essential (primary) hypertension (4) HLD (hyperlipidemia) Status: Chronic Qualifiers: Hyperlipidemia type: unspecified Qualified Code(s): E78.5 - Hyperlipidemia , unspecified (5) Right sided weakness Status: Acute (6) New onset atrial fibrillation Status: Acute (7) CHF (congestive heart failure) Status: Acute Qualifiers: Heart failure type: unspecified Heart failure chronicity: acute Qualified Code(s): I50.9 - Heart failure, unspecified Reason for Consult Date of Consultation: 01/18/18 Reason for Consultation: Acute CVA, hypertension, hypercholesterolemia, coronary artery disease status post bypass surgery, atrial fibrillation. History of Present Illness: The patient is a 72 year old M with a history of hypertension, hypercholesterolemia, coronary artery disease status post multivessel bypass surgery in 1999 at the [facility] receiving a TIMBO to the LAD, and a saphenous vein graft to the PDA. He follows with Dr. Sweeney and was last seen in the office on 02/20/17 at that time he was doing relatively well. Apparently has no history of atrial fibrillation. Patient was doing well up until his day of admission when he developed right- sided tingling and numbness which has subsequently resolved with associated upper and lower extremity weakness which has not yet improved. Patient also complains of worsening lower extremity edema, shortness of breath, dyspnea on exertion which has been going on for the last several days to weeks. He also complains of being bloated and decreased appetite. He has had no change in his medications. Although the patient has no history of atrial fibrillation his telemetry has demonstrated atrial fibrillation with controlled ventricular response. CT scan of his brain on admission showed no overt changes. MRI today with results pending. Carotid ultrasound is pending. Cardiogram is pending. Currently the patient is stable, no acute distress, EKG on admission showed atrial fibrillation with controlled ventricular response, rare PVC, nonspecific ST and T-wave changes. [] Past Medical History Allergies/Adverse Reactions: Allergies No Known Allergies Allergy (Verified 01/18/18 04:50) Home Medications: Ambulatory Orders Medication Instructions Recorded Aspirin [Aspir-Low] 81 mg PO DAILY 01/18/18 Atenolol [Tenormin (Beta Obdulio)] 50 mg PO DAILY 01/18/18 Losartan Potassium [Cozaar] 100 mg PO DAILY 01/18/18 Pravastatin [Pravachol] 80 mg PO DAILY 01/18/18 Past Medical History (Chronic Problems): Chronic Problems Carotid arterial disease (Chronic) CAD (coronary artery disease) (Chronic) HTN (hypertension) (Chronic) HLD (hyperlipidemia) (Chronic) Obesity (BMI 30.0-34.9) (Chronic) Surgical History: - - R CEA, CABG x 4. Psychiatric History: No pertinent psych hx - *Family History Maternal History Items: Stroke Paternal History Items: Heart Disease Lives: Spouse/ Significant Other, With Family Smoking Status: Never smoker Tobacco Use: Non-smoker Alcohol: Rare Drugs: None Review of Systems - Review of Systems General: Denies: Fever, Night Sweats, Fatigue Cardiovascular: Reports: Shortness of Breath, Shortness of Breath with Exertion , Peripheral Edema. Denies: Chest Discomfort, Orthopnea, PND, Palpitations, Lightheadedness, Dizziness, Near Syncope, Syncope Respiratory: Denies: Cough, Sputum Production, Hemoptysis Gastrointestinal: Denies: Hematemesis, Hematochezia, Melena Genitourinary: Denies: Dysuria, Hematuria Skin: Denies: Rash Subjectve: Patient laying in bed, no acute distress. Objective: Vital Signs Temp Pulse Resp BP Pulse Ox 97.8 F 72 27 H 153/71 H 96 01/18/18 08:15 01/18/18 08:15 01/18/18 08:15 01/18/18 08:15 01/18/18 08:15 Oxygen Flow Rate 2 Oxygen Delivery Method Nasal Cannula Weight: 208 lb 1.862 oz Body Mass Index (BMI) 35.7 General: Awake, Alert, Oriented x 3 HEENT: PERRL, EOMI, Sclera Non Icteric Neck: Supple, Good ROM, No Lymph Node Enlargement Lungs: Clear to auscultation Cardiovascular: Irregular Rhythm, Normal S1, Normal S2, No Murmurs, No Rubs, No Gallops Vascular: No Carotid Bruits, Normal Femoral Pulses, Normal Radial Pulses, Normal Dorsalis Pedal Pulse, Normal Posterior Tibial Pulses Abdomen: Bowel Sounds Present, Soft, Non Tender, No HSM, No Organomegaly Extremities: No Cyanosis, No Clubbing, Bilateral Edema +1 Neurological: No Focal Motor or Sensory Deficit 01/18/18 09:50: Troponin I < 0.02 Rhythm: As above EKG: As above ECHO: Pending Stress Test: Pending Cardiac Cath: PCI: CT Surgery: Holter monitor: EPS: PPM: CXR: Chest CT Scan: Assessment/Plan 1. Atrial fibrillation: The patient apparently has had a CVA with right upper and lower extremity weakness, as well as numbness and tingling, with evidence of atrial fibrillation on his telemetry strip. He has had no chest pain but has evidence of heart failure on physical exam as well as by description of shortness of breath, dyspnea on exertion, and early satiety. I recommend the patient undergo a 2D echo with Doppler, to determine his LV function, and pulmonary pressures. In addition we are awaiting the results of his MRI/MRA and are awaiting guidance regarding his anticoagulation going forward. Given the patient's CVA and atrial fibrillation he will most likely require lifelong anticoagulation therapy. His most recent echocardiogram in 2004 showed normal LV function, with an EF of 55%, unable to quantitate RVSP at that time. 2. Coronary artery disease: Patient has had bypass surgery ?2 approximately 18 years ago, and has never had a repeat catheterization. Once the patient stabilized from a neurological standpoint I would recommend a non-walking nuclear stress test perhaps tomorrow. If this is grossly abnormal for ischemia , the patient may require diagnostic coronary angiogram. In the meantime we will continue his Plavix, Lovenox if okay with neurology, and would recommend starting him on either Coumadin or Eliquis. 3. Hyperlipidemia: Given the patient's risk factors, I recommend that he undergo a lipid profile. His LDL should be less than 70. He is currently taking pravastatin at this time. 4. Thank you very much for the opportunity to precipitate in the cardiac care of your patient. Patient time took place between 8 AM and 8:30 AM. Code Visit Inpatient E&M: 57661 Init Hosp L2
--- NOTE | 2018-01-18 11:11 | CT_ITS ---
STUDY: CTA NECK WITH CONTRAST REASON FOR EXAM: Male, 72 years old. CVA, right sided weakness, hypertension, CHF, afib.. RADIATION DOSAGE (If Supplied By Facility): CTDIvol = ( 24.91 ) mGy, DLP = ( 823.77 ) mGycm TECHNIQUE: CT angiography with multi-detector data acquisition was performed from the aortic arch to the skull base following intravenous administration of 100mL ml of Isovue 370 contrast. MIP images were reconstructed from the axial data set. Post-processing of the angiographic images was performed, with multiplanar reformation and 3D reconstruction. Individualized dose optimization techniques were used for this CT. COMPARISON: None. FINDINGS: AORTIC ARCH: There is mild calcification of the aortic arch. RIGHT CAROTID ARTERIES: There is a patent distal CCA stent. There is mild atherosclerotic plaque formation with minimal narrowing of the right carotid bulb. There is mild atherosclerotic plaque formation of the origin of the right internal carotid artery with approximately 50% cross sectional diameter stenosis. Normal visualized cervical portion of the right internal carotid artery. Normal origin of the right external carotid artery (ECA). LEFT CAROTID ARTERIES: Normal left common carotid artery (CCA). There is moderate atherosclerotic plaque formation with moderate narrowing of the carotid bulb. There is moderate atherosclerotic plaque formation of the origin of the left internal carotid artery with an estimated stenosis of 50-69% stenosis. Normal visualized cervical portion of the left internal carotid artery. Normal origin of the left external carotid artery (ECA). VERTEBRAL ARTERIES: Normal bilateral vertebral arteries. CT/CTA Neck W/WO Contrast IMPRESSION: Right carotid stent. 50% stenosis of the right ICA. 50-69% stenosis of the left ICA. Electronically Signed: Marina Conn MD at 13:03 EST Tel , Service support ,
--- NOTE | 2018-01-18 11:12 | CDU_ITS ---
Reason For Study: CVA Rt. Velocities/BP Lt. Velocities/BP Prox CCA 96/21 cm/sec. Prox CCA 115/17 cm/sec. Mid CCA 77/13 cm/sec. Mid CCA 123/31 cm/sec. Dist CCA 83/14 cm/sec. Dist CCA 133/20 cm/sec. Prox ICA 146/30 cm/sec. Prox ICA 247/54 cm/sec. Mid ICA 111/21 cm/sec. Mid ICA 147/39 cm/sec. Dist ICA 69/21 cm/sec. Dist ICA 151/35 cm/sec. Rt. ICA/CCA = 1.9. Lt. ICA/CCA = 2.0. Prox ECA 296/22 cm/sec. Prox ECA 192/20 cm/sec. Rt. Vert. 65/10 cm/sec. Lt. Vert. 42/12 cm/sec. Right Extracranial There is heterogeneous, smooth atherosclerotic plaque noted in the right common carotid artery. There is heterogeneous, irregular atherosclerotic plaque noted in the right internal carotid artery. There is heterogeneous, irregular atherosclerotic plaque noted in the right external carotid artery. Antegrade flow is noted in the right vertebral artery. Left Extracranial There is intimal thickening but no significant atherosclerotic plaque noted in the left common carotid artery. There is heterogeneous, irregular atherosclerotic plaque noted in the left internal carotid artery. There is heterogeneous, irregular atherosclerotic plaque noted in the left external carotid artery. Antegrade flow is noted in the left vertebral artery. Procedure Carotid Duplex 68416. Technicqally difficult due to SOB and positioning during exam. Exam performed portable in patient room. Interpretation Summary Moderate (50-69%) stenosis right extracranial internal carotid. Severe (>70%) stenosis left extracranial internal carotid. Flow within the vertebral arteries is antegrade bilaterally. Elevated velocities within the right external carotid artery are suggestive of stenosis. Ordering Physician: Hao Felix Referring Physician: MANSOOR WEST Performed By: Miroslava Wilson RDCS, RVT
--- NOTE | 2018-01-18 11:12 | CT_ITS ---
STUDY: CTA OF THE BRAIN REASON FOR EXAM: Male, 72 years old. CVA, right sided weakness, hypertension, CHF, afib.. The RADIATION DOSAGE (If Supplied By Facility): CTDIvol = ( 24.91 ) mGy, DLP = ( 823.77 ) mGycm TECHNIQUE: CT angiography was performed with a multi-detector CT scanner. Data acquisition was obtained from the skull base through the vertex following intravenous administration of ml of . MIP images were reconstructed from the axial data set. Post-processing of the angiographic images was performed, with multiplanar reformation and 3D reconstruction. Individualized dose optimization techniques were used for this CT. COMPARISON: None. FINDINGS: Normal bilateral petrous carotid arteries. Normal right cavernous carotid artery with a normal supraclinoid bifurcation. Normal left cavernous carotid artery with a normal supraclinoid bifurcation. 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 There is non-visualization of the right A1 segment of the anterior cerebral arteries consistent with either aplastic development or an occlusion. Normal left A1 segments of the anterior cerebral artery. Normal intact anterior communicating artery (ACOM). Normal bilateral A2 segments of the anterior cerebral arteries. Normal right M1 and M2 segments of the middle cerebral arteries, with a normal M1 bifurcation. Normal left M1 and M2 segments of the middle cerebral arteries, with a normal M1 bifurcation. Normal right posterior communicating artery (PCOM). Normal left posterior communicating artery (PCOM). Normal bilateral vertebral arteries. Normal basilar artery with a normal basilar bifurcation. The visualized bilateral superior cerebellar (SCA) arteries are normal. Normal bilateral P1, P2 and visualized P3 segments of the posterior cerebral arteries. There is no demonstrated aneurysm of the [place] of [place]. There is no demonstrated abnormality of the visualized brain. CT/CTA Head W/WO Contrast IMPRESSION: No demonstrated aneurysm or hemodynamically significant stenosis. Electronically Signed: Marina Conn MD at 12:56 EST Tel , Service support ,
--- NOTE | 2018-01-18 12:16 | PN_ITS ---
Patient Problems: Active and Suspected Problems Right sided weakness (Acute) New onset atrial fibrillation (Acute) CHF (congestive heart failure) (Acute) Subjective: CC: Right-sided weakness This is 72-year-old male with history of coronary artery disease, TIA/CVA, essential hypertension and dyslipidemia who presented with right-sided weakness , brain MRI showed acute Acute left centrum semiovale, patient was also found to have atrial fibrillation ,his heart rate is under control. Patient reports no new symptoms. Vitals/I&O's: Vital Signs Temp Pulse Resp BP Pulse Ox 97.8 F 72 27 H 153/71 H 96 01/18/18 08:15 01/18/18 08:15 01/18/18 08:15 01/18/18 08:15 01/18/18 08:15 Oxygen Flow Rate 2.5 Oxygen Delivery Method Nasal Cannula Weight: 94.4 kg Body Mass Index (BMI) 35.7 General: Alert, Oriented x3 HEENT: Atraumatic Oral: Moist Mucosa Neck: Supple Lungs: Clear to auscultation, No rhonchi, No wheeze Cardiovascular: Regular rate, Normal S1, Normal S2 Abdomen: Bowel Sounds Present, Soft, Non Tender Neurological: Cranial nerves II-XII grossly intact, Deep Tendon Reflexes 2+/4 and Symmetrical, Motor Exam 5/5 strength throughout Psych/Mental Status: Normal Affect Laboratory Results 01/18/18 09:50: Troponin I < 0.02 Current Medications Acetaminophen (Tylenol) 650 mg PO Q4H PRN PRN PRN Reason: Headache/Temp>99F Acetaminophen (Tylenol) 650 mg RECTAL Q4H PRN PRN PRN Reason: Headache/Temp>99F Acetaminophen (Tylenol Liquid) 650 mg NG Q4H PRN PRN PRN Reason: Headache/Temp>99F Al Hydroxide/Mg Hydroxide (Mylanta Ii) 30 ml PO Q6H PRN PRN PRN Reason: Gastric burning Clopidogrel Bisulfate (Plavix) 75 mg PO DAILY [facility] Last Admin: 01/18/18 10:13 Dose: 75 mg Enoxaparin Sodium (Lovenox) 100 mg 1 mg/kg (100 mg) SC Q12@0600,1800 [facility] Last Admin: 01/18/18 10:12 Dose: 100 mg Famotidine (Pepcid) 20 mg PO BID [facility] Last Admin: 01/18/18 10:13 Dose: 20 mg Influenza Virus Vaccine Quadrival (Fluarix/Fluzone) 0.5 ml IM .ONCE ONE Stop: 01/19/18 10:01 Labetalol HCl (Trandate) 10 mg IV Q10M PRN PRN Reason: MAINTAIN SBP GOALS Stop: 01/19/18 06:59 Magnesium Hydroxide (Milk Of Magnesia) 30 ml PO DAILY PRN PRN Reason: Constipation Ondansetron HCl (Zofran) 4 mg IV Q8H PRN PRN PRN Reason: NAUSEA Pravastatin Sodium (Pravachol) 80 mg PO DAILY [facility] Last Admin: 01/18/18 10:13 Dose: 80 mg Promethazine HCl (Phenergan (Ll)) 12.5 mg IV Q6H PRN PRN PRN Reason: NAUSEA/VOMITING Assessment/Plan Active and Suspected Problems Right sided weakness (Acute) New onset atrial fibrillation (Acute) CHF (congestive heart failure) (Acute) 1. Right-sided weakness due to acute infarct; judi continue, Plavix , statin , PT/OT. 2. New onset, Paroxysmal atrial fibrillation; cardiogram has been ordered. The patient would need to be started on oral anticoagulation whenever okay with neurologist. 3. CAD s/p CABG; she reports no symptoms of angina or heart failure, will continue her cardioprotective medications as they are. 4. Essential hypertension; continue current medications without change. 5. Hyperlipidemia; he is on a statin. 6. Continue weight loss recommended. 7. Hypokalemia; the patient was given potassium chloride in the morning , we will repeat levels in a.m. 8. DVT prophylaxis with Lovenox. Code Visit Inpatient E&M: 53811 Subs Hosp L3
--- NOTE | 2018-01-18 12:40 | CASEMGMT ---
PT/OT told SW they recommend inpatient rehab unit. SW spoke with patient and his daughter, introduced self as well as role at [facility]. SW explained inpatient rehab unit briefly. Patient's was going to be coming in so he will talk with her about it. SW to check back. Plan; Possibly 4th floor rehab Diana DAVIS
[2018-01-18 13:25] LABS: Cholesterol 140 mg/dL (200); High Density Lipoprotein 34 mg/dL; Triglycerides 90 mg/dL; Very Low Density Lipoprotein 18 mg/dL (5-40)
--- NOTE | 2018-01-18 14:37 | CASEMGMT ---
SW spoke with patient's . She had some insurance questions. SW answered them as best as able. VERNON then discussed [facility] 4th floor rehab unit. She said they would be interested depending on what the insurance coverage. VERNON will work on checking insurance coverage. Diana MONTILLA MSW
[2018-01-19] VITALS (14 sets, daily range): BP systolic 134–146; BP diastolic 58–83; PULSE 60–105; RESP 18; TEMP 36.3–37; O2SAT 98–100; BMI 35.7
[2018-01-19] MEDS: Clopidogrel Bisulfate 75 MG Tablet PO (05:23)
--- NOTE | 2018-01-19 05:55 | EKG12_ITS ---
Test Reason : AM EKG Blood Pressure : / mmHG Vent. Rate : 082 BPM Atrial Rate : 080 BPM P-R Int : 000 ms QRS Dur : 096 ms QT Int : 408 ms P-R-T Axes : 000 020 168 degrees QTc Int : 476 ms Atrial fibrillation with premature ventricular or aberrantly conducted complexes ST & T wave abnormality, consider lateral ischemia Abnormal ECG When compared with ECG of 18-JAN-2018 04:57, MANUAL COMPARISON REQUIRED, DATA IS UNCONFIRMED Confirmed by MALVIN RUTHERFORD ([id number]), magazine editor SAMIA KING ([id number]) on 01/21/2018 3:17:23 PM Referred By: DR COTA Confirmed By:MALVIN RUTHERFORD
[2018-01-19 06:38] LABS: International Normalized Ratio 1.2; Prothrombin Time (Protime)PT. 14.8 SECONDS (11.7-14.9)
[2018-01-19 06:39] LABS: Hematocrit 36.5 % (40-54); Hemoglobin 12.3 g/dl (13.0-16.5); Mean Corp Hgb Conc 33.7 g/gl (32-36); Mean Corpuscular Hgb 34.1 pg (27.0-32.0); Mean Corpuscular Volume 101.1 fL (80-94); Mean Platelet Vol. 10.4 fl (6.2-12.0); Partial Thromboplast Time 31.4 Seconds (24.1-36.2); Platelet Count 187 K/mm3 (150-450); RBC Distribution Width CV 13.3 % (11.6-14.6); RBC Distribution Width SD 47.5 fl (35.1-43.9); Red Blood Count 3.61 M/mm3 (4.6-6.2); White Blood Count 4.1 K/mm3 (4.4-11.0)
[2018-01-19 06:47] LABS: Scan Indicated on CBC? Y/N NO
[2018-01-19 06:54] LABS: Anion Gap 8 (5-15); BUN 10 mg/dL (7-18); Calcium,Total 8.7 mg/dL (8.5-10.1); Chloride 104 mmol/L (98-107); Cholesterol 147 mg/dL (200); EST Glomerular Filtration Rate 78 mL/min (>60); Est Glom Filt Rate - Afr Amer 95 mL/min (>60); Estimated Creatinine Clearance 56.73 ml/min; Glucose 127 mg/dL (74-106); High Density Lipoprotein 34 mg/dL; Sodium Level 141 mmol/L (136-145); Triglycerides 97 mg/dL; Very Low Density Lipoprotein 19 mg/dL (5-40)
[2018-01-19] MEDS: Famotidine 20 MG Tablet PO ×2 (14:11→21:45)
[2018-01-19] MEDS: Pravastatin 80 MG Tablet PO (14:11)
--- NOTE | 2018-01-19 14:24 | STRESSREP_ITS ---
Stress Test Report Date: 01/19/2018 Procedure: Pharmacologic stress nuclear imaging study Indications: Atrial fibrillation; CAD Consent: Per the patient Procedure: The patient underwent pharmacologic (Regadenoson) evaluation with a peak heart rate of 127 bpm (85% predicted maximal heart rate) with a peak blood pressure 164/72 mmHg. The baseline ECG demonstrated atrial fibrillation. The peak pharmacologic ECG demonstrated no obvious ECG changes. There was an occasional PVC pretest, during infusion, and recovery. There was an isolated ventricular couplet during infusion and recovery. There was no complaint of chest discomfort during pharmacologic infusion or recovery. The examination was discontinued secondary to completion of protocol. Impression: 1. Pharmacologic (Regadenoson) evaluation 2. Peak pharmacologic ECG with no obvious ECG changes 3. Occasional PVC pretest, during infusion, and recovery 4. Isolated ventricular couplet during infusion and recovery 5. Nuclear images pending Myocardial perfusion imaging study: Technique: The patient was injected with 11.0 mCi of technetium 99m Cardiolite and subsequently rest SPECT Cardiolite nuclear imaging was obtained in the horizontal long, vertical long, and short axis views. The patient underwent pharmacologic (Regadenoson) evaluation with a peak heart rate of 127 bpm (85% predicted maximal heart rate) with a peak blood pressure 164/72 mmHg and the patient was injected with 33.9 mCi of technetium 99m Cardiolite and subsequently stress SPECT Cardiolite nuclear imaging was obtained in the horizontal long, vertical long, and short axis views. A gated Cardiolite study at peak stress was obtained. Interpretation: Rest and stress SPECT Cardiolite nuclear imaging status post realignment, normalization, and attenuation correction, demonstrates the appearance at rest of an area of diminished tracer uptake in the distal anterior and distal anteroseptal segments. Status post stress there is notation of additional diminished myocardial perfusion stress tracer uptake in portions of the mid anterior, mid anteroseptal, mid inferoseptal, and inferior apical segments. There are similar type findings on the resting and stress polar map images. There appears to be diminished end systolic thickening and brightening and diminished myocardial thickening and inward wall motion in portions of the apex. The gated Cardiolite study reports an LVEF of 52%. Impression: 1. Rest and stress SPECT current nuclear imaging demonstrate myocardial perfusion changes concerning for an area of stress-induced myocardial ischemia and portions of the mid anterior, mid anteroseptal, mid inferoseptal, and inferoapical segments per imposed upon an area potentially compatible with previous myocardial injury/infarction in portions of the distal anterior and distal anteroseptal segments. 2. The gated Cardiolite study reports an LVEF of 52%. This note was generated with [employer] Dictation software. Every effort was made to ensure accuracy, however, computerized paper reel operator mistakes may persist.
--- NOTE | 2018-01-19 16:09 | PN_ITS ---
Patient Problems: Active and Suspected Problems Right sided weakness (Acute) New onset atrial fibrillation (Acute) CHF (congestive heart failure) (Acute) Subjective: CC: Right-sided weakness This is 72-year-old male with history of coronary artery disease, TIA/CVA, essential hypertension and dyslipidemia who presented with right-sided weakness , brain MRI showed acute Acute left centrum semiovale, patient was also found to have atrial fibrillation ,his heart rate is under control. The patient underwent a stress test today did not reveal evidence of ischemia. He currently reports no chest pain shortness of breath or palpitations. Vitals/I&O's: Vital Signs Temp Pulse Resp BP Pulse Ox 97.4 F L 95 18 134/77 H 99 01/19/18 15:57 01/19/18 15:57 01/19/18 15:57 01/19/18 15:57 01/19/18 15:57 Oxygen Flow Rate 2 Oxygen Delivery Method Nasal Cannula Weight: 94.4 kg Body Mass Index (BMI) 35.7 Intake and Output for Last 24 Hours 01/17/18 01/18/18 01/19/18 23:59 23:59 23:59 Intake Total 730 / 730 400 / 400 Output Total 1800 / 1800 275 / 275 Balance -1070 / -1070 125 / 125 General: Alert, Oriented x3 Lungs: Clear to auscultation Cardiovascular: Regular rate, Normal S1, Normal S2 Abdomen: Bowel Sounds Present, Soft, Non Tender Extremities: No clubbing Skin: No rashes Neurological: Cranial nerves II-XII grossly intact, Neuro grossly intact, Motor Exam 5/5 strength throughout Psych/Mental Status: Normal Affect Laboratory Results 01/18/18 19:20: Troponin I 0.02 01/19/18 05:53: WBC 4.1 L, RBC 3.61 L, Hgb 12.3 L, Hct 36.5 L, MCV 101.1 H, MCH 34.1 H, MCHC 33.7, RDW 13.3, RDW Differential 47.5 H, Plt Count 187, MPV 10.4 01/19/18 05:53: Sodium 141, Potassium 3.0 L, Chloride 104, Carbon Dioxide 29.0, Anion Gap 8, BUN 10, Creatinine 1.00, Estim Creat Clear Calc 56.73, Est GFR ( MDRD) Af Amer 95, Est GFR (MDRD) Non-Af 78, BUN/Creatinine Ratio 10.0, Glucose 127 H, Calcium 8.7, Triglycerides 97, Cholesterol 147, LDL Cholesterol 94, VLDL Cholesterol 19, HDL Cholesterol 34 L 01/19/18 05:53: PT 14.8, INR 1.2, APTT 31.4 Current Medications Acetaminophen (Tylenol) 650 mg PO Q4H PRN PRN PRN Reason: Headache/Temp>99F Acetaminophen (Tylenol) 650 mg RECTAL Q4H PRN PRN PRN Reason: Headache/Temp>99F Acetaminophen (Tylenol Liquid) 650 mg NG Q4H PRN PRN PRN Reason: Headache/Temp>99F Al Hydroxide/Mg Hydroxide (Mylanta Ii) 30 ml PO Q6H PRN PRN PRN Reason: Gastric burning Clopidogrel Bisulfate (Plavix) 75 mg PO DAILY [facility] Last Admin: 01/19/18 05:23 Dose: 75 mg Enoxaparin Sodium (Lovenox) 100 mg 1 mg/kg (100 mg) SC Q12@0600,1800 [facility] Last Admin: 01/18/18 23:50 Dose: Not Given Famotidine (Pepcid) 20 mg PO BID [facility] Last Admin: 01/19/18 14:11 Dose: 20 mg Magnesium Hydroxide (Milk Of Magnesia) 30 ml PO DAILY PRN PRN Reason: Constipation Ondansetron HCl (Zofran) 4 mg IV Q8H PRN PRN PRN Reason: NAUSEA Pravastatin Sodium (Pravachol) 80 mg PO DAILY [facility] Last Admin: 01/19/18 14:11 Dose: 80 mg Promethazine HCl (Phenergan (Ll)) 12.5 mg IV Q6H PRN PRN PRN Reason: NAUSEA/VOMITING Assessment/Plan Active and Suspected Problems Right sided weakness (Acute) New onset atrial fibrillation (Acute) CHF (congestive heart failure) (Acute) 1. Right-sided weakness due to acute infarct; judi continue, Plavix , statin , PT/OT. 2. New onset, Paroxysmal atrial fibrillation; cardiogram has been ordered. The patient would need to be started on oral anticoagulation whenever okay with neurologist. 3. CAD s/p CABG; stress test that showed concerning for an area of stress- induced myocardial ischemia, will be evaluated by cardiology for left heart catheterization. 4. Essential hypertension; continue current medications. 5. Hyperlipidemia; he is on a statin. 6. Continue weight loss recommended. 7. Hypokalemia; this will be replaced with KCl as needed. 8. DVT prophylaxis with Lovenox. Code Visit Inpatient E&M: 31457 Subs Hosp L3
--- NOTE | 2018-01-19 17:22 | PCM.PN.CARD ---
Subjectve: Patient continues to improve, with marked improvement of his right upper and lower extremity weakness. Telemetry still maintains atrial fibrillation with rapid ventricular response. Stress test this morning demonstrated anterior ischemia. Brain MRI demonstrated Acute left centrum semiovale infarction. Carotid Dopplers demonstrated significant bilateral carotid obstruction. Objective: Vital Signs Temp Pulse Resp BP Pulse Ox 97.4 F L 105 H 18 134/77 H 99 01/19/18 15:57 01/19/18 16:00 01/19/18 15:57 01/19/18 15:57 01/19/18 15:57 Oxygen Flow Rate 2 Oxygen Delivery Method Nasal Cannula Weight: 208 lb 1.862 oz Body Mass Index (BMI) 35.7 Intake and Output for Last 24 Hours 01/17/18 01/18/18 01/19/18 23:59 23:59 23:59 Intake Total 730 / 730 400 / 400 Output Total 1800 / 1800 275 / 275 Balance -1070 / -1070 125 / 125 General: Awake, Alert, Oriented x 3 HEENT: PERRL, EOMI, Sclera Non Icteric Neck: Supple, Good ROM, No Lymph Node Enlargement Lungs: Clear to auscultation Cardiovascular: Irregular Rhythm, Normal S1, Normal S2, No Murmurs, No Rubs, No Gallops Vascular: No Carotid Bruits, Normal Femoral Pulses, Normal Radial Pulses, Normal Dorsalis Pedal Pulse, Normal Posterior Tibial Pulses Abdomen: Bowel Sounds Present, Soft, Non Tender, No HSM, No Organomegaly Extremities: No Cyanosis, No Clubbing, No edema Neurological: No Focal Motor or Sensory Deficit 01/18/18 19:20: Troponin I 0.02 01/19/18 05:53: WBC 4.1 L, RBC 3.61 L, Hgb 12.3 L, Hct 36.5 L, MCV 101.1 H, MCH 34.1 H, MCHC 33.7, RDW 13.3, RDW Differential 47.5 H, Plt Count 187, MPV 10.4 01/19/18 05:53: Sodium 141, Potassium 3.0 L, Chloride 104, Carbon Dioxide 29.0, Anion Gap 8, BUN 10, Creatinine 1.00, Est GFR (MDRD) Af Amer 95, Est GFR (MDRD) Non-Af 78, BUN/Creatinine Ratio 10.0, Glucose 127 H, Calcium 8.7, Triglycerides 97, Cholesterol 147, LDL Cholesterol 94, VLDL Cholesterol 19, HDL Cholesterol 34 L 01/19/18 05:53: PT 14.8, INR 1.2, APTT 31.4 Rhythm: EKG: ECHO: Significant anterior wall motion abnormality, RVSP of 62 mmHg consistent with at least moderate pulmonary hypertension, atrial fibrillation, LVEF of approximately 40-45%. Stress Test: Cardiac Cath: PCI: CT Surgery: Holter monitor: EPS: PPM: CXR: Chest CT Scan: Assessment/Plan 1. Atrial fibrillation: The patient apparently has had a CVA with right upper and lower extremity weakness, as well as numbness and tingling, with evidence of atrial fibrillation on his telemetry strip. He has had no chest pain but has evidence of heart failure on physical exam as well as by description of shortness of breath, dyspnea on exertion, and early satiety. Patient's echocardiogram demonstrates new anterior wall motion abnormality, with an EF around 40-45%, and at least moderate pulmonary hypertension with an RVSP of approximately 62 mmHg. In addition his brain MRI demonstrated acute CVA. In addition his stress test demonstrated possible anterior ischemia. Given the patient's CVA and atrial fibrillation he will most likely require lifelong anticoagulation therapy. His most recent echocardiogram in 2004 showed normal LV function, with an EF of 55%, unable to quantitate RVSP at that time. In addition his carotid ultrasounds demonstrate significant carotid disease despite his right CEA. Reconsultation with surgery may be indicated given his recent CVA. He may require either redo CEA on the right, or CEA on the left. 2. Coronary artery disease: Patient has had bypass surgery ?2 approximately 18 years ago, and has never had a repeat catheterization. Once the patient stabilized from a neurological standpoint, and given his abnormal stress test, he would require a diagnostic coronary angiogram with graft angiography. I would not recommend doing this until his CVA symptoms have completely resolved, perhaps in 3-4 weeks from now. In the meantime, assuming neurology agrees, we can transition him to baby aspirin and anticoagulation, or if concern over hemorrhagic transformation we can simply continue baby aspirin and Plavix for now. Given his atrial fibrillation he will most likely require long-term anticoagulation in the future. In the meantime we will continue his Plavix, Lovenox if okay with neurology, and would recommend starting him on either Coumadin or Eliquis. 3. Hyperlipidemia: Given the patient's risk factors, I recommend that he undergo a lipid profile. His LDL should be less than 70. He is currently taking pravastatin at this time. 4. Pulmonary hypertension: The patient has evidence of moderate LV dysfunction with pulmonary hypertension. Recommend starting Lasix 40 mg p.o. daily for afterload reduction, hypertension control, and decompression of his pulmonary hypertension. Hopefully this will improve his shortness of breath as well. In addition, recommend starting him on Cozaar 25 mg p.o. daily for afterload reduction and titrating up this as he tolerates it. Code Visit Inpatient E&M: 62054 Subs Hosp L2
[2018-01-19] MEDS: Furosemide 40 MG Tablet PO (17:46)
[2018-01-19] MEDS: Losartan Potassium 25 MG Tablet PO (17:47)
[2018-01-19] MEDS: Enoxaparin 100 MG/ML Syringe SC (17:48)
[2018-01-19] MEDS: Carvedilol 3.125 MG TABLET PO (21:45)
[2018-01-20] VITALS (13 sets, daily range): BP systolic 118–155; BP diastolic 75–86; PULSE 68–140; RESP 16–18; TEMP 36.6–37.2; O2SAT 98–99; BMI 35.7
[2018-01-20] MEDS: Enoxaparin 100 MG/ML Syringe SC ×2 (06:07→17:16)
[2018-01-20] MEDS: Carvedilol 3.125 MG TABLET PO ×2 (09:40→20:27)
[2018-01-20] MEDS: Famotidine 20 MG Tablet PO ×2 (09:41→20:27)
[2018-01-20] MEDS: Losartan Potassium 25 MG Tablet PO (09:41)
[2018-01-20] MEDS: Pravastatin 80 MG Tablet PO (09:41)
[2018-01-20] MEDS: Furosemide 40 MG Tablet PO (09:41)
[2018-01-20] MEDS: Clopidogrel Bisulfate 75 MG Tablet PO (09:41)
--- NOTE | 2018-01-20 10:58 | PCM.PN.NEU ---
Patient Problems: Active and Suspected Problems Right sided weakness (Acute) New onset atrial fibrillation (Acute) CHF (congestive heart failure) (Acute) Subjective: denies pain, doing well, po ok, no gi or gu complaints - Physical Exam General: Alert, Oriented x3, Cooperative, No apparent distress Neurological: Cranial nerves II-XII grossly intact, Deep Tendon Reflexes 2+/4 and Symmetrical, - - mild rue discoord Vital Signs Temp Pulse Resp BP Pulse Ox 37.0 C 98 16 142/78 H 98 01/20/18 08:00 01/20/18 08:00 01/20/18 08:00 01/20/18 08:00 01/20/18 08:00 Oxygen Flow Rate 1 Oxygen Delivery Method Room Air Weight: 90.4 kg Body Mass Index (BMI) 35.7 Intake and Output for Last 24 Hours 01/18/18 01/19/18 01/20/18 23:59 23:59 23:59 Intake Total 730 / 730 640 / 640 Output Total 1800 / 1800 775 / 775 425 / 425 Balance -1070 / -1070 -135 / -135 -425 / -425 cta reviewed, by my estimation he has less then 70% stenosis at left ica, no significant stenosis on right Current Medications Generic Name Dose Route Start Last Admin Trade Name Freq PRN Reason Stop Dose Admin Acetaminophen 650 mg 01/18/18 06:58 Tylenol PO Q4H PRN PRN Headache/Temp>99F Acetaminophen 650 mg 01/18/18 06:58 Tylenol RECTAL Q4H PRN PRN Headache/Temp>99F Acetaminophen 650 mg 01/18/18 06:58 Tylenol Liquid NG Q4H PRN PRN Headache/Temp>99F Al Hydroxide/Mg Hydroxide 30 ml 01/18/18 06:58 Mylanta Ii PO Q6H PRN PRN Gastric burning Carvedilol 3.125 mg 01/19/18 22:00 01/20/18 09:40 Coreg PO 3.125 mg BID LEEANNA Administration Clopidogrel Bisulfate 75 mg 01/18/18 10:00 01/20/18 09:41 Plavix PO 75 mg DAILY LEEANNA Administration Enoxaparin Sodium 100 mg 01/18/18 07:30 01/20/18 06:07 Lovenox 1 mg/kg (100 mg) 100 mg SC Administration Q12@0600,1800 [facility] Famotidine 20 mg 01/18/18 10:00 01/20/18 09:41 Pepcid PO 20 mg BID LEEANNA Administration Furosemide 40 mg 01/20/18 10:00 01/20/18 09:41 Lasix PO 40 mg DAILY LEEANNA Administration Losartan Potassium 25 mg 01/20/18 10:00 01/20/18 09:41 Cozaar PO 25 mg DAILY LEEANNA Administration Magnesium Hydroxide 30 ml 01/18/18 06:58 Milk Of Magnesia PO DAILY PRN Constipation Ondansetron HCl 4 mg 01/18/18 06:58 Zofran IV Q8H PRN PRN NAUSEA Pravastatin Sodium 80 mg 01/18/18 10:00 01/20/18 09:41 Pravachol PO 80 mg DAILY LEEANNA Administration Promethazine HCl 12.5 mg 01/18/18 06:58 Phenergan (Ll) IV Q6H PRN PRN NAUSEA/VOMITING Assessment/Plan Active and Suspected Problems Right sided weakness (Acute) New onset atrial fibrillation (Acute) CHF (congestive heart failure) (Acute) Due to left watershed distribution infarct, possible carotid stenosis although by the report this is on the right side. Agree with Plavix for now, [facility]ag [facility], previously on oac but unclear reason for discontinuation Echo: ef 40-45%, left atrium dilated, afib CTA of the head and neck: no significant stenosis on my review, carotid u/s velocities do not appear significant High-dose statin therapy Telemetry monitoring PT/OT Consider rehab: pt considering, lives with , one story,one step occasionally accesses basement.
--- NOTE | 2018-01-20 17:50 | PCM.PN.HOSP ---
Patient Problems: Active and Suspected Problems Right sided weakness (Acute) New onset atrial fibrillation (Acute) CHF (congestive heart failure) (Acute) Subjective: CC: Right-sided weakness This is 72-year-old male with history of coronary artery disease, TIA/CVA, essential hypertension and dyslipidemia who presented with right-sided weakness, brain MRI showed acute Acute left centrum semiovale, patient was also found to have atrial fibrillation ,his heart rate is under control. The patient underwent a stress test and it reveal evidence of ischemia. No acute events reported overnight, the patient reports no new symptoms. Vitals/I&O's: Vital Signs Temp Pulse Resp BP Pulse Ox 98.2 F 85 18 151/75 H 99 01/20/18 16:00 01/20/18 16:00 01/20/18 16:00 01/20/18 16:00 01/20/18 16:00 Oxygen Flow Rate 1 Oxygen Delivery Method Nasal Cannula Weight: 90.4 kg Body Mass Index (BMI) 35.7 Intake and Output for Last 24 Hours 01/18/18 01/19/18 01/20/18 23:59 23:59 23:59 Intake Total 730 / 730 640 / 640 360 / 360 Output Total 1800 / 1800 775 / 775 425 / 425 Balance -1070 / -1070 -135 / -135 -65 / -65 General: Alert, Oriented x3 HEENT: Atraumatic Oral: Moist Mucosa, Dry Mucosa Neck: Supple, No JVD Lungs: Clear to auscultation Cardiovascular: Regular rate Abdomen: Bowel Sounds Present, Soft Neurological: Motor Exam 5/5 strength throughout Current Medications Acetaminophen (Tylenol) 650 mg PO Q4H PRN PRN PRN Reason: Headache/Temp>99F Acetaminophen (Tylenol) 650 mg RECTAL Q4H PRN PRN PRN Reason: Headache/Temp>99F Acetaminophen (Tylenol Liquid) 650 mg NG Q4H PRN PRN PRN Reason: Headache/Temp>99F Al Hydroxide/Mg Hydroxide (Mylanta Ii) 30 ml PO Q6H PRN PRN PRN Reason: Gastric burning Carvedilol (Coreg) 3.125 mg PO BID [facility] Last Admin: 01/20/18 09:40 Dose: 3.125 mg Clopidogrel Bisulfate (Plavix) 75 mg PO DAILY [facility] Last Admin: 01/20/18 09:41 Dose: 75 mg Enoxaparin Sodium (Lovenox) 100 mg 1 mg/kg (100 mg) SC Q12@0600,1800 [facility] Last Admin: 01/20/18 17:16 Dose: 100 mg Famotidine (Pepcid) 20 mg PO BID [facility] Last Admin: 01/20/18 09:41 Dose: 20 mg Furosemide (Lasix) 40 mg PO DAILY [facility] Last Admin: 01/20/18 09:41 Dose: 40 mg Losartan Potassium (Cozaar) 25 mg PO DAILY [facility] Last Admin: 01/20/18 09:41 Dose: 25 mg Magnesium Hydroxide (Milk Of Magnesia) 30 ml PO DAILY PRN PRN Reason: Constipation Ondansetron HCl (Zofran) 4 mg IV Q8H PRN PRN PRN Reason: NAUSEA Pravastatin Sodium (Pravachol) 80 mg PO DAILY [facility] Last Admin: 01/20/18 09:41 Dose: 80 mg Promethazine HCl (Phenergan (Ll)) 12.5 mg IV Q6H PRN PRN PRN Reason: NAUSEA/VOMITING Assessment/Plan Active and Suspected Problems Right sided weakness (Acute) New onset atrial fibrillation (Acute) CHF (congestive heart failure) (Acute) 1. Right-sided weakness due to acute infarct; we will continue Plavix , statin , PT/OT. 2. New onset, Paroxysmal atrial fibrillation; will start on oral anticoagulation if hemorrhagic transformation is not a concern at this time. 3. CAD s/p CABG; stress test that showed concerning for an area of stress-induced myocardial ischemia, left heart catheterization after 4 weeks. 4. Essential hypertension; continue current medications. 5. Hyperlipidemia; he is on a statin. 6. Obesity; weight loss recommended. 7. Hypokalemia; this will be replaced with KCl as needed. 8. DVT prophylaxis with Lovenox. 9. disposition; to inpatient rehab pending precert. Code Visit Inpatient E&M: 47500 [facility] Hosp L2
--- NOTE | 2018-01-20 18:01 | PN_ITS ---
Patient Problems: Active and Suspected Problems Right sided weakness (Acute) New onset atrial fibrillation (Acute) CHF (congestive heart failure) (Acute) Subjective: CC: Right-sided weakness This is 72-year-old male with history of coronary artery disease, TIA/CVA, essential hypertension and dyslipidemia who presented with right-sided weakness , brain MRI showed acute Acute left centrum semiovale, patient was also found to have atrial fibrillation ,his heart rate is under control. The patient underwent a stress test and it reveal evidence of ischemia. No acute events reported overnight, the patient reports no new symptoms. Vitals/I&O's: Vital Signs Temp Pulse Resp BP Pulse Ox 98.2 F 85 18 151/75 H 99 01/20/18 16:00 01/20/18 16:00 01/20/18 16:00 01/20/18 16:00 01/20/18 16:00 Oxygen Flow Rate 1 Oxygen Delivery Method Nasal Cannula Weight: 90.4 kg Body Mass Index (BMI) 35.7 Intake and Output for Last 24 Hours 01/18/18 01/19/18 01/20/18 23:59 23:59 23:59 Intake Total 730 / 730 640 / 640 360 / 360 Output Total 1800 / 1800 775 / 775 425 / 425 Balance -1070 / -1070 -135 / -135 -65 / -65 General: Alert, Oriented x3 HEENT: Atraumatic Oral: Moist Mucosa, Dry Mucosa Neck: Supple, No JVD Lungs: Clear to auscultation Cardiovascular: Regular rate Abdomen: Bowel Sounds Present, Soft Neurological: Motor Exam 5/5 strength throughout Current Medications Acetaminophen (Tylenol) 650 mg PO Q4H PRN PRN PRN Reason: Headache/Temp>99F Acetaminophen (Tylenol) 650 mg RECTAL Q4H PRN PRN PRN Reason: Headache/Temp>99F Acetaminophen (Tylenol Liquid) 650 mg NG Q4H PRN PRN PRN Reason: Headache/Temp>99F Al Hydroxide/Mg Hydroxide (Mylanta Ii) 30 ml PO Q6H PRN PRN PRN Reason: Gastric burning Carvedilol (Coreg) 3.125 mg PO BID [facility] Last Admin: 01/20/18 09:40 Dose: 3.125 mg Clopidogrel Bisulfate (Plavix) 75 mg PO DAILY [facility] Last Admin: 01/20/18 09:41 Dose: 75 mg Enoxaparin Sodium (Lovenox) 100 mg 1 mg/kg (100 mg) SC Q12@0600,1800 [facility] Last Admin: 01/20/18 17:16 Dose: 100 mg Famotidine (Pepcid) 20 mg PO BID [facility] Last Admin: 01/20/18 09:41 Dose: 20 mg Furosemide (Lasix) 40 mg PO DAILY [facility] Last Admin: 01/20/18 09:41 Dose: 40 mg Losartan Potassium (Cozaar) 25 mg PO DAILY [facility] Last Admin: 01/20/18 09:41 Dose: 25 mg Magnesium Hydroxide (Milk Of Magnesia) 30 ml PO DAILY PRN PRN Reason: Constipation Ondansetron HCl (Zofran) 4 mg IV Q8H PRN PRN PRN Reason: NAUSEA Pravastatin Sodium (Pravachol) 80 mg PO DAILY [facility] Last Admin: 01/20/18 09:41 Dose: 80 mg Promethazine HCl (Phenergan (Ll)) 12.5 mg IV Q6H PRN PRN PRN Reason: NAUSEA/VOMITING Assessment/Plan Active and Suspected Problems Right sided weakness (Acute) New onset atrial fibrillation (Acute) CHF (congestive heart failure) (Acute) 1. Right-sided weakness due to acute infarct; we will continue Plavix , statin , PT/OT. 2. New onset, Paroxysmal atrial fibrillation; will start on oral anticoagulation if hemorrhagic transformation is not a concern at this time. 3. CAD s/p CABG; stress test that showed concerning for an area of stress- induced myocardial ischemia, left heart catheterization after 4 weeks. 4. Essential hypertension; continue current medications. 5. Hyperlipidemia; he is on a statin. 6. Obesity; weight loss recommended. 7. Hypokalemia; this will be replaced with KCl as needed. 8. DVT prophylaxis with Lovenox. 9. disposition; to inpatient rehab pending precert. Code Visit Inpatient E&M: [id number] [facility] Hosp L2
[2018-01-21] VITALS (9 sets, daily range): BP systolic 130–154; BP diastolic 77–84; PULSE 80–101; RESP 16–18; TEMP 36.8–36.9; O2SAT 95–98; BMI 35.7
[2018-01-21] MEDS: Enoxaparin 100 MG/ML Syringe SC (05:55)
--- NOTE | 2018-01-21 09:30 | CASEMGMT ---
VERNON spoke with patient's and told her the benefits for inpatient rehab unit. SW also told her the benefits for SNF. She spoke with her daughter and they do want inpatient rehab unit. VERNON then received a call from Shelley in rehab and patient was approved. Diana MONTILLA MSW
[2018-01-21] MEDS: Pravastatin 80 MG Tablet PO (09:46)
[2018-01-21] MEDS: Famotidine 20 MG Tablet PO (09:46)
[2018-01-21] MEDS: Losartan Potassium 25 MG Tablet PO (09:46)
[2018-01-21] MEDS: Carvedilol 3.125 MG TABLET PO (09:46)
[2018-01-21] MEDS: Clopidogrel Bisulfate 75 MG Tablet PO (09:46)
[2018-01-21] MEDS: Furosemide 40 MG Tablet PO (09:46)
--- NOTE | 2018-01-21 10:53 | PCM.PN.CARD ---
Subjectve: Patient continues to do well. No 24 hour events. Telemetry atrial fibrillation with controlled ventricular response. Objective: Vital Signs Temp Pulse Resp BP Pulse Ox 98.5 F 82 16 144/81 H 97 01/21/18 08:41 01/21/18 08:41 01/21/18 08:41 01/21/18 08:41 01/21/18 08:41 Oxygen Flow Rate 1 Oxygen Delivery Method Nasal Cannula Weight: 199 lb 4.766 oz Body Mass Index (BMI) 35.7 Intake and Output for Last 24 Hours 01/19/18 01/20/18 01/21/18 23:59 23:59 23:59 Intake Total 640 / 640 360 / 360 Output Total 775 / 775 550 / 550 200 / 200 Balance -135 / -135 -190 / -190 -200 / -200 General: Awake, Alert, Oriented x 3 HEENT: PERRL, EOMI, Sclera Non Icteric Neck: Supple, Good ROM, No Lymph Node Enlargement Lungs: Clear to auscultation Cardiovascular: Irregular Rhythm, Normal S1, Normal S2, No Murmurs, No Rubs, No Gallops Vascular: No Carotid Bruits, Normal Femoral Pulses, Normal Radial Pulses, Normal Dorsalis Pedal Pulse, Normal Posterior Tibial Pulses Abdomen: Bowel Sounds Present, Soft, Non Tender, No HSM, No Organomegaly Extremities: No Cyanosis, No Clubbing, No edema Neurological: No Focal Motor or Sensory Deficit Rhythm: EKG: ECHO: Stress Test: Cardiac Cath: PCI: CT Surgery: Holter monitor: EPS: PPM: CXR: Chest CT Scan: Assessment/Plan 1. Atrial fibrillation: The patient apparently has had a CVA with right upper and lower extremity weakness, as well as numbness and tingling, with evidence of atrial fibrillation on his telemetry strip. He has had no chest pain but has evidence of heart failure on physical exam as well as by description of shortness of breath, dyspnea on exertion, and early satiety. Patient's echocardiogram demonstrates new anterior wall motion abnormality, with an EF around 40-45%, and at least moderate pulmonary hypertension with an RVSP of approximately 62 mmHg. In addition his brain MRI demonstrated acute CVA. In addition his stress test demonstrated possible anterior ischemia. Given the patient's CVA and atrial fibrillation he will most likely require lifelong anticoagulation therapy. His most recent echocardiogram in 2004 showed normal LV function, with an EF of 55%, unable to quantitate RVSP at that time. In addition his carotid ultrasounds demonstrate significant carotid disease despite his right CEA. Reconsultation with surgery may be indicated given his recent CVA. He may require either redo CEA on the right, or CEA on the left. His heart rate is still not optimized, and would recommend increasing his Coreg to 6.25 mg p.o. twice daily. 2. Coronary artery disease: Patient has had bypass surgery ?2 approximately 18 years ago, and has never had a repeat catheterization. Once the patient stabilized from a neurological standpoint, and given his abnormal stress test, he would require a diagnostic coronary angiogram with graft angiography. I would not recommend doing this until his CVA symptoms have completely resolved, perhaps in 3-4 weeks from now. In the meantime, assuming neurology agrees, we can transition him to baby aspirin and anticoagulation, or if concern over hemorrhagic transformation we can simply continue baby aspirin and Plavix for now. Given his atrial fibrillation he will most likely require long-term anticoagulation in the future. In the meantime we will continue his Plavix, Lovenox if okay with neurology, and would recommend starting him on either Coumadin or Eliquis. She may be transferred to rehab center if indicated. 3. Hyperlipidemia: Given the patient's risk factors, I recommend that he undergo a lipid profile. His LDL should be less than 70. He is currently taking pravastatin at this time. 4. Pulmonary hypertension: The patient has evidence of moderate LV dysfunction with pulmonary hypertension. Recommend starting Lasix 40 mg p.o. daily for afterload reduction, hypertension control, and decompression of his pulmonary hypertension. Hopefully this will improve his shortness of breath as well. In addition, recommend starting him on Cozaar 25 mg p.o. daily for afterload reduction and titrating up this as he tolerates it. Code Visit Inpatient E&M: 49860 Subs Hosp L2
--- NOTE | 2018-01-21 12:24 | DCINST_ITS ---
- Discharge Diagnoses Current Active Problems: Current Active and Chronic Problems Carotid arterial disease (Chronic) CAD (coronary artery disease) (Chronic) HTN (hypertension) (Chronic) HLD (hyperlipidemia) (Chronic) Obesity (BMI 30.0-34.9) (Chronic) Right sided weakness (Acute) New onset atrial fibrillation (Acute) CHF (congestive heart failure) (Acute) You will use the following diet at home:: Calorie/Carbohydrate Controlled ( specify 1200, 1400, etc) Discharge Activity: Return to Normal Activity Allergies/Adverse Reactions: Allergies No Known Allergies Allergy (Verified 01/18/18 04:50) Medications to take at Discharge Amlodipine/Benazepril [Lotrel 10-20 MG Capsule] 1 capsule PO DAILY 01/18/18 Aspirin [Aspir-Low] 81 mg PO DAILY 01/18/18 Atenolol [Tenormin (beta obdulio)] 75 mg PO BID 01/18/18 Losartan Potassium [Cozaar] 100 mg PO DAILY 01/18/18 Pravastatin [Pravachol] 80 mg PO DAILY 01/18/18 Apixaban [Eliquis] 5 mg PO BID tablet 01/21/18 Carvedilol [Coreg (Beta Obdulio)] 6.25 mg PO BID tablet 01/21/18 Clopidogrel Bisulfate [Plavix] 75 mg PO DAILY tablet 01/21/18 Furosemide [Lasix] 40 mg PO DAILY tablet 01/21/18 Losartan Potassium [Cozaar] 25 mg PO DAILY tablet 01/21/18 Primary Care Physician: Herson Terrell MD [Primary Care Provider] - Within 2 Weeks Proposed Discharge Date: 01/21/18
--- NOTE | 2018-01-21 12:25 | DS.PCM_ITS ---
Discharge Date and Diagnosis Date of Admission: 01/18/18 Date of Discharge: 01/21/18 - Primary Discharge Diagnosis Active and Suspected Problems Right sided weakness (Acute) New onset atrial fibrillation (Acute) CHF (congestive heart failure) (Acute) - Secondary Discharge Diagnosis Chronic Problems Carotid arterial disease (Chronic) CAD (coronary artery disease) (Chronic) HTN (hypertension) (Chronic) HLD (hyperlipidemia) (Chronic) Obesity (BMI 30.0-34.9) (Chronic) Hospital Course and Treatment Summary of Care Provided: This is 72-year-old male with history of coronary artery disease, TIA/CVA, essential hypertension and dyslipidemia who presented with right-sided weakness , brain MRI showed acute Acute left centrum semiovale, patient was also found to have atrial fibrillation ,his heart rate is under control. The patient underwent a stress test and it reveal evidence of ischemia. Cardiology was consulted it was recommended for patient to undergo a left heart catheterization not earlier 4 weeks after his acute stroke. He is doing well in physical therapy and occupational therapy and was then discharged to inpatient rehabilitation for further management. 1. Right-sided weakness due to acute infarct; we will continue Plavix , statin , PT/OT. 2. New onset, Paroxysmal atrial fibrillation; started on on Eliquis. 3. CAD s/p CABG; stress test that showed concerning for an area of stress- induced myocardial ischemia, left heart catheterization after 4 weeks of his acute CVA. 4. Essential hypertension; controlled. 5. Hyperlipidemia; he is on a statin. 6. Obesity; weight loss recommended. 7. Hypokalemia; this was replaced with KCl as needed. Exam at the time of discharge; vital signs were stable. He was alert and oriented to time place and person. He did not appear to be any form of distress. S1 and S2 heard no murmur or gallop Lung exam was clear to auscultation with no adventitious sounds. Abdomen was soft nontender with normal bowel sounds. extremity exam did not reveal any edema, palpable pulses bilaterally. Neurologic exam was grossly intact. Discharge Diet: No Restrictions Discharge Activity: Return to Normal Activity Home Medications: Medications to take at Discharge Amlodipine/Benazepril [Lotrel 10-20 MG Capsule] 1 capsule PO DAILY 01/18/18 Aspirin [Aspir-Low] 81 mg PO DAILY 01/18/18 Atenolol [Tenormin (beta obdulio)] 75 mg PO BID 01/18/18 Pravastatin [Pravachol] 80 mg PO DAILY 01/18/18 Apixaban [Eliquis] 5 mg PO BID 01/21/18 Carvedilol [Coreg (Beta Obdulio)] 6.25 mg PO BID 01/21/18 Clopidogrel Bisulfate [Plavix] 75 mg PO DAILY 01/21/18 Furosemide [Lasix] 40 mg PO DAILY 01/21/18 Primary Care Physician: Herson Terrell MD [Primary Care Provider] - Within 2 Weeks Disposition: Inpt Rehab Unit/Facility Patient Condition:: Good Meaningful Use Info Meaningful Use Diagnoses (Choose all that apply): None applicable Code Visit Inpatient E&M: 88748 Disch Hosp
--- NOTE | 2018-01-21 12:57 | CASEMGMT ---
Physician completed orders for rehab. SW called patient's and left her a voice mail letting her know patient will be moved to Inpatient Rehab today. SW also left SW's phone number. All in agreement with d/c plan. Plan: [facility] 4th floor rehab unit Diana DAVIS
[2018-01-21] MEDS: APIXABAN 5 MG TABLET PO (13:17)
--- NOTE | 2018-01-21 13:31 | NURSING ---
Report given to Diana in Rehab
== END 2018-01-21 13:54 | DRG 65 ==
LOC: ED 06:19 → PCU 07:41
PROVIDERS: Admitting Provider Family Medicine; Emergency Provider Emergency Medicine; Family Provider Family Medicine; PCP Family Medicine; Visit Provider Internal Medicine
DX: I63.9 Cerebral infarction, unspecified (principal); G81.91 Hemiplegia, unspecified affecting right dominant side; I48.0 Paroxysmal atrial fibrillation; I27.20 Pulmonary hypertension, unspecified; I50.9 Heart failure, unspecified; I11.0 Hypertensive heart disease with heart failure; E66.9 Obesity, unspecified; E78.5 Hyperlipidemia, unspecified; Z68.34 Body mass index [BMI] 34.0-34.9, adult; I25.10 Atherosclerotic heart disease of native coronary artery without angina pectoris; Z95.1 Presence of aortocoronary bypass graft; E87.6 Hypokalemia; Z23 Encounter for immunization
CPT/HCPCS: 36415; 70450; 70496; 70498; 70544; 70547; 70551; 71045; 78452; 80048; 80061; 82962; 83036; 83735; 84443; 84484; 85025; 85027; 85610; 85730; 93005; 93017; 93306; 93880; 97110; 97116; 97162; 97166; 97530; 97802; 99285; A9500; Q9957; Q9967; 90686; A4216; C8929; J1940; J2785

== ENCOUNTER 2018-01-21 14:17 | Inpatient (IN) | payer MEDICARE, SELFPAY ==
[2018-01-21 15:06] VITALS: BP 141/74; PULSE 97; RESP 18; TEMP 36.9; O2SAT 98; BMI 34.2
--- NOTE | 2018-01-21 18:15 | NURSING ---
Aware of being a fall risk and must ask for staff assistance and verbalized understanding.
[2018-01-21 21:06] VITALS: BP 131/76; PULSE 87; RESP 18; TEMP 36.7; O2SAT 95
[2018-01-21] MEDS: Atenolol 50 MG Tablet 75 MG PO (21:08)
[2018-01-21] MEDS: Carvedilol 6.25 MG Tablet PO (21:09)
[2018-01-21] MEDS: Pravastatin 80 MG Tablet PO (21:09)
[2018-01-21] MEDS: APIXABAN 5 MG TABLET PO (21:09)
[2018-01-22 05:55] LABS: Hematocrit 34.7 % (40-54); Hemoglobin 11.9 g/dl (13.0-16.5); Mean Corp Hgb Conc 34.3 g/gl (32-36); Mean Corpuscular Hgb 34.1 pg (27.0-32.0); Mean Corpuscular Volume 99.4 fL (80-94); Mean Platelet Vol. 9.7 fl (6.2-12.0); Platelet Count 187 K/mm3 (150-450); RBC Distribution Width CV 12.9 % (11.6-14.6); RBC Distribution Width SD 44.7 fl (35.1-43.9); Red Blood Count 3.49 M/mm3 (4.6-6.2); White Blood Count 3.8 K/mm3 (4.4-11.0)
[2018-01-22 06:03] LABS: Scan Indicated on CBC? Y/N NO
[2018-01-22 06:11] LABS: Anion Gap 8 (5-15); BUN 11 mg/dL (7-18); BUN/Creat Ratio 13.1 RATIO (10-20); Chloride 102 mmol/L (98-107); Cholesterol 131 mg/dL (200); Creatinine, Serum 0.84 mg/dL (0.70-1.30); EST Glomerular Filtration Rate 96 mL/min (>60); Est Glom Filt Rate - Afr Amer 116 mL/min (>60); Estimated Creatinine Clearance 67.54 ml/min; Glucose 123 mg/dL (74-106); High Density Lipoprotein 30 mg/dL; Magnesium 1.7 mg/dL (1.6-2.6); Sodium Level 140 mmol/L (136-145); Triglycerides 113 mg/dL; Very Low Density Lipoprotein 23 mg/dL (5-40)
[2018-01-22 07:04] VITALS: O2SAT 97
[2018-01-22 08:30] VITALS: BP 143/82; PULSE 79; RESP 16; TEMP 36.6; O2SAT 98
[2018-01-22] MEDS: Furosemide 40 MG Tablet PO (08:30)
[2018-01-22] MEDS: Aspirin E.C. 81 MG Tablet PO (08:30)
[2018-01-22] MEDS: Carvedilol 6.25 MG Tablet PO ×2 (08:30→20:35)
[2018-01-22] MEDS: Losartan Potassium 25 MG Tablet PO (08:30)
[2018-01-22] MEDS: Atenolol 50 MG Tablet 75 MG PO ×2 (08:30→20:35)
[2018-01-22] MEDS: Clopidogrel Bisulfate 75 MG Tablet PO (08:31)
[2018-01-22] MEDS: amLODIPine 10 MG Tablet PO (08:31)
[2018-01-22] MEDS: Lisinopril 20 MG Tablet PO (08:32)
[2018-01-22] MEDS: APIXABAN 5 MG TABLET PO ×2 (08:32→20:35)
--- NOTE | 2018-01-22 09:07 | HP.PCM.COS_ITS ---
Addendum entered and electronically signed by Boo Stephens MD 01/22/18 11: 27: Code Visit Patient interviewed and examined. Agree with nurse practitioner notes and plan. He is improved at this point, on examination his gait is stable and going right sided discoordination. Agree with plan as below. Original Note: <Boo Stephens - Last Filed: 01/22/18 11:26> History of Present Illness The patient is a 72 year old M [] Past Medical History Past Medical History (Chronic Problems): Chronic Problems Carotid arterial disease (Chronic) CAD (coronary artery disease) (Chronic) HTN (hypertension) (Chronic) HLD (hyperlipidemia) (Chronic) Obesity (BMI 30.0-34.9) (Chronic) Allergies No Known Allergies Allergy (Verified 01/18/18 04:50) Home Medications: Ambulatory Orders Medication Instructions Recorded Amlodipine/Benazepril [Lotrel 1 capsule PO DAILY 01/18/18 10-20 MG Capsule] Aspirin [Aspir-Low] 81 mg PO DAILY 01/18/18 Atenolol [Tenormin (beta obdulio)] 75 mg PO BID 01/18/18 Pravastatin [Pravachol] 80 mg PO DAILY 01/18/18 Apixaban [Eliquis] 5 mg PO BID 01/21/18 Carvedilol [Coreg (Beta Obdulio)] 6.25 mg PO BID 01/21/18 Clopidogrel Bisulfate [Plavix] 75 mg PO DAILY 01/21/18 Furosemide [Lasix] 40 mg PO DAILY 01/21/18 - Physical Exam Vital Signs Temp Pulse Resp BP Pulse Ox 36.6 C 79 16 143/82 H 98 01/22/18 08:30 01/22/18 08:30 01/22/18 08:30 01/22/18 08:30 01/22/18 08:30 Oxygen Delivery Method Room Air Weight: 90.5 kg Body Mass Index (BMI) 34.2 Finger Stick Blood Glucose 143 Intake and Output for Last 24 Hours 01/20/18 01/21/18 01/22/18 23:59 23:59 23:59 Intake Total 480 / 480 240 / 240 Output Total 475 / 475 Balance 5 / 5 240 / 240 Laboratory Tests Past 24 Hrs 01/22/18 01/22/18 05:20 05:20 WBC 3.8 L RBC 3.49 L Hgb 11.9 L Hct 34.7 L MCV 99.4 H MCH 34.1 H MCHC 34.3 RDW 12.9 RDW Differential 44.7 H Plt Count 187 MPV 9.7 Sodium 140 Potassium 3.0 L Chloride 102 Carbon Dioxide 30.0 Anion Gap 8 BUN 11 Creatinine 0.84 Estim Creat Clear Calc 67.54 Est GFR (MDRD) Af Amer 116 Est GFR (MDRD) Non-Af 96 BUN/Creatinine Ratio 13.1 Glucose 123 H Calcium 8.0 L Phosphorus 3.0 Magnesium 1.7 Triglycerides 113 Cholesterol 131 LDL Cholesterol 78 VLDL Cholesterol 23 HDL Cholesterol 30 L <Nimo Frero - Last Filed: 01/22/18 17:27> History of Present Illness Date of Admission: 01/21/18 Chief Complaint: CVA This is 72-year-old old right-handed male who was admitted to the rehab unit for rehabilitation after suffering a left watershed distribution infarct. He has a history of coronary artery disease, TIA/CVA, essential hypertension and dyslipidemia who presented with right-sided weakness, brain MRI showed acute Acute left centrum semiovale, patient was also found to have atrial fibrillation , his heart rate is currently under control on Coreg, he was started on Eliquis in addition to the Plavix and ASA. The patient underwent a stress test and it reveal evidence of ischemia. Cardiology was consulted it was recommended for patient to undergo a left heart catheterization not earlier than 4 weeks after his acute stroke. Echocardiogram demonstrates new anterior wall motion abnormality, with an EF around 40-45%, and at least moderate pulmonary hypertension with an RVSP of approximately 62 mmHg. He lives with his in a one story, with one step to get into the house, he occasionally accesses the basement. He is previously completely functionally independent and is admitted to the rehab unit in order to restore his previous level of functional independence. Past Medical History Allergies No Known Allergies Allergy (Verified 01/18/18 04:50) Surgical History: - - R CEA, CABG x 4. Psychiatric History: No pertinent psych hx Lives: Spouse/ Significant Other Smoking Status: Never smoker Alcohol: Occasional Drugs: None - *Family History Maternal History Items: Stroke Paternal History Items: Heart Disease Review of Systems Constitutional: Denies: Chills, Fever, Weight Change HEENT: Denies: Head Aches, Sinus Congestion, Sinus Drainage Cardiovascular: Denies: Chest Pain, Palpitations Respiratory: Denies: Cough, Shortness of breath at rest, Sputum production Gastrointestinal: Denies: Abdominal Pain, Nausea, Vomiting Genitourinary: Denies: Dysuria Musculoskeletal: Denies: Joint Pain, Joint Tenderness Skin: Denies: Rash, Wounds Neurological: Denies: Numbness, Tingling, Focal weakness Psychiatric: Denies: Anxiety, Depression, Homicidal Ideations, Suicidal Ideations Hematologic/ Lymphatic: Denies: Easy Bruising, Easy Bleeding VTE Information - Inpt Only VTE Present on Admission: No VTE Mechan Device Prophylaxis: SCD's, Knee High LEXI Hose VTE Pharm Prophylaxis ordered?: Yes - Physical Exam General: Alert, Oriented x3, Cooperative HEENT: Atraumatic, PERRLA, EOMI, Normocephalic Neck: Supple, No JVD, Negative Carotid Bruits Lungs: Clear to auscultation, Normal air movement Cardiovascular: Regular rate, No murmurs Abdomen: Bowel Sounds Present, Soft, Non Tender Extremities: No edema, Capillary Refill Less than 3 Seconds Skin: No rashes, No breakdown Musculoskeletal: No Tenderness to Palpation of Joints or Extremities, - - Mild weakness on the right upper extremity Neurological: Cranial nerves II-XII grossly intact, Neuro grossly intact Psych/Mental Status: Normal Affect, Appropriate, Alert and oriented to time, place, person, mood and affect Vital Signs Temp Pulse Resp BP Pulse Ox 97.9 F 79 16 143/82 H 98 01/22/18 08:30 01/22/18 08:30 01/22/18 08:30 01/22/18 08:30 01/22/18 08:30 Oxygen Delivery Method Room Air Weight: 90.5 kg Body Mass Index (BMI) 34.2 Finger Stick Blood Glucose 143 Intake and Output for Last 24 Hours 01/20/18 01/21/18 01/22/18 23:59 23:59 23:59 Intake Total 480 / 480 240 / 240 Output Total 475 / 475 Balance 5 / 5 240 / 240 Laboratory Tests Past 24 Hrs 01/22/18 01/22/18 05:20 05:20 WBC 3.8 L RBC 3.49 L Hgb 11.9 L Hct 34.7 L MCV 99.4 H MCH 34.1 H MCHC 34.3 RDW 12.9 RDW Differential 44.7 H Plt Count 187 MPV 9.7 Sodium 140 Potassium 3.0 L Chloride 102 Carbon Dioxide 30.0 Anion Gap 8 BUN 11 Creatinine 0.84 Estim Creat Clear Calc 67.54 Est GFR (MDRD) Af Amer 116 Est GFR (MDRD) Non-Af 96 BUN/Creatinine Ratio 13.1 Glucose 123 H Calcium 8.0 L Phosphorus 3.0 Magnesium 1.7 Triglycerides 113 Cholesterol 131 LDL Cholesterol 78 VLDL Cholesterol 23 HDL Cholesterol 30 L Active Medications Amlodipine Besylate (Norvasc) 10 mg PO DAILY [facility] Last Admin: 01/22/18 08:31 Dose: 10 mg Apixaban (Eliquis) 5 mg PO BID [facility] Last Admin: 01/22/18 08:32 Dose: 5 mg [facility] Admin: 01/22/18 08:30 Dose: 81 mg Atenolol (Tenormin (Beta Obdulio)) 75 mg PO BID [facility] Last Admin: 01/22/18 08:30 Dose: 75 mg Bisacodyl (Dulcolax) 10 mg RECTAL .PRN X 1 PRN PRN Reason: Constipation Carvedilol (Coreg) 6.25 mg PO BID [facility] Last Admin: 01/22/18 08:30 Dose: 6.25 mg Clopidogrel Bisulfate (Plavix) 75 mg PO DAILY [facility] Last Admin: 01/22/18 08:31 Dose: 75 mg Furosemide (Lasix) 40 mg PO DAILY [facility] Last Admin: 01/22/18 08:30 Dose: 40 mg Lisinopril (Zestril) 20 mg PO DAILY [facility] Last Admin: 01/22/18 08:32 Dose: 20 mg Losartan Potassium (Cozaar) 25 mg PO DAILY [facility] Last Admin: 01/22/18 08:30 Dose: 25 mg Magnesium Hydroxide (Milk Of Magnesia) 30 ml PO .PRN X 1 PRN PRN Reason: Constipation Pravastatin Sodium (Pravachol) 80 mg PO QHS [facility] Last Admin: 01/21/18 21:09 Dose: 80 mg Senna/Docusate Sodium (Senokot-S, Amisha-Colace) 2 tablet PO BID [facility] Last Admin: 01/22/18 08:30 Dose: Not Given Assessment/Plan 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 Goal of rehab is spiritism of prior level of functional independence. Plan: - Physical therapy for gait and balance - Occupational Therapy for ADLs - Speech therapy - As needed analgesics - Bowel protocol - Stroke prevention on ASA, Statin Plavix and Eliquis which started yesterday afternoon, will obtain CT head - DVT prophylaxis: SCDs, ASA, Eliquis - Hypertension: Stable with good control, Keep BP < 130/80 mmHg - Echo cardiogram => demonstrates new anterior wall motion abnormality, with an EF around 40-45%, and at least moderate pulmonary hypertension with an RVSP of approximately 62 mmHg. - Hyperlipidemia; continue statin at 80mg. - New onset, Paroxysmal atrial fibrillation; started on on Eliquis. - CAD s/p CABG; stress test that showed concerning for an area of stress- induced myocardial ischemia, left heart catheterization s/p 4 weeks after his acute CVA. - Hypokalemia 2/2 Lasix, started on 40meq potassium recheck K+ in three days
--- NOTE | 2018-01-22 10:13 | CT_ITS ---
STUDY: CT BRAIN WITHOUT CONTRAST REASON FOR EXAM: Male, 72 years old. History of stroke. RADIATION DOSAGE (If Supplied By Facility): CTDIvol = ( 44.99 ) mGy, DLP = ( 745.49 ) mGycm TECHNIQUE: Transaxial CT imaging of the brain was performed without administration of intravenous contrast material. Individualized dose optimization techniques were used for this CT. COMPARISON: 01/18/2018. FINDINGS: Normal soft tissue structures. Normal calvarium. There is mild cerebral atrophy with widening of the extra-axial spaces and ventricular dilatation. There is a small low-density area in the left centrum semiovale corresponding to the known infarct in this region. Normal basal ganglia and thalami. Normal brainstem. Normal cerebellum. There is no intracranial hemorrhage. Normal visualized paranasal sinuses. CT/Brain/Head without Contrast IMPRESSION: Small infarct in the left centrum semiovale. No evidence of bleeding. Electronically Signed: Quang Banks MD at 10:16 EST Tel , Service support ,
--- NOTE | 2018-01-22 11:25 | PCM.RU.PYE ---
Admission Information Status Changes from Prescreening?: No changes Identified Actual Problem List:: Mobility Impaired, Self Care Deficit, Diabetes, Hyperglycemia, BP, Hypertension, Ineffect.D/C Plan r/t Psy Potential Problem List:: DVT, Bleeding, Infection, UTI, Aspiration, Falls, Skin Integrity, Depression Risk of Complications DVT: LMWH, LEXI Hose, Sequential Compression Device Bleeding: Monitor Lab Values, Nursing to Teach Precautions for anti-coagulation therapy., Wound, if applicable, to be assessed every shift., Stroke patients assessed for lethargy or change in status. Infection: Clinical Staff to Monitor for S/S of infection:, S/S of infection include fever, redness, warmth, etc. Urinary Tract Infection: Monitor for frequency, burning, discomfort, or incontinence., Nursing will obtain urine sample for urinalysis and C&S when ordered. Aspiration: Clinical staff will monitor for coughing, drooling, congestion., Speech will evaluate swallowing and dsyphasia., Nursing will monitor patient swallowing during meals. Falls: Patient will be evaluated for Fall Precautions, Patient will be placed on Fall Precautions as indicated per protocol. Skin Breakdown: Nursing will assess skin daily using assessment tool., Nursing will place on Skin Breakdown Precautions as indicated. Pain: Clinical staff will assess patient's pain level per protocol., Medications will be given, if needed, and the pain level reassessed., Other methods: Massage, distraction, decrease stimulus, etc. used PRN. Plan of Care Patient requires physician specializing in physical medicine and rehab oversight to provide close medical supervision of rehab issues including: Pain Management, Sleep Problems, Bowel and Bladder, Medical and co-morbidity Management, DVT prophylaxis, Rehabilitation Leadership, Coordination of treatment team Patient needs Physical Therapy: For a minimum of 1 hour, At least 5 out of 7 days Patient needs Physical Therapy to improve:: Mobility, Mobility, Mobility, Strengthening, Transfers, Stretching, ROM, Endurance, Stairs, Gait, Balance Patient needs Occupational Therapy: For a minimum of 1 hour, At least 5 out of 7 days Patient needs Occupational Therapy to improve ADL's incl.: Eating, Grooming, Bathing, Dressing, Toileting, Toilet transfers, Community Reintegration, Higher functioning activities, Household tasks, Adaptive Equipment, Splinting, Other activities as determined Patient requires 24/ Rehabilitation Nursing for: Pain Issues, Identifying and preventing risk factors, Monitoring and reporting current medical conditions, Assisting with ambulation, transfer, and all ADL's, Teaching patients about disease process and medications, Family teaching, Providing safe environment, Bowel and Bladder Issues, Skin integrity, Medication Management Patient needs Research Affiliate/ Case Management for: Discharge Planning, Arranging Home Equipment or Services, Family Interventions Patient needs Dietary and Nutrition Services for: Adequate Nutrition, Nutritional Supplements, Nutritional Education Goals Patient will remain: free from falls, or injury at time of discharge. Patient will perform bed mobility at: MOD I level of assist. Patient will complete transfers from bed to chair at: MOD I level of assist. Patient will ambulate: 100 feet, with MOD I assist, with LRD Patient will complete upper body dressing at: MOD I level of assist. Patient will complete lower body dressing at: MOD I level of assist. Patient will complete toileting at: MOD I level of assist. Patient will perform bathing at: MOD I level of assist. Patient will complete grooming at: MOD I level of assist. Patient will complete home management skills at: MOD I level of assist. Patient will achieve: 12 stairs, at MOD I assist Patient will have pain level of: of 3 or less Patient's skin will: remain intact, free from infection. Patient will receive: adequate nutrition. Discharge Planning Pt Prognosis for Sig. Practical Improv. w/in Reasonable Time: Good Anticipated D/C Destination: Home with Outpt Therapy Was Preadmission Assessment Accurate?: Yes
--- NOTE | 2018-01-22 11:55 | CASEMGMT ---
Social Work Spoke with patient in room. Patient aware that team meeting has been changed to Thursday versus due to patient insurance update being due on 01/27/18. This social service liaison notifying patient spouse of change in team meeting days as well. Support given. Diana GUTIERREZ, AUTOMATION CONTROL INTEGRATOR
--- NOTE | 2018-01-22 16:56 | PN_ITS ---
Objective: CC: s/p CVA This is 72-year-old male with history of coronary artery disease, TIA/CVA, essential hypertension and dyslipidemia who discharged from the acute care to inpatient rehabilitation after he presented with right-sided weakness and found to acute Acute left centrum semiovale, patient was also found to have atrial fibrillation ,his heart rate is under control. The patient underwent a stress test and it reveal evidence of ischemia. He is doing well at the rehab unit undergoing physical and outpatient therapy. Vitals/I&O's: Vital Signs Temp Pulse Resp BP Pulse Ox 97.9 F 79 16 143/82 H 98 01/22/18 08:30 01/22/18 08:30 01/22/18 08:30 01/22/18 08:30 01/22/18 08:30 Oxygen Delivery Method Room Air Weight: 90.5 kg Body Mass Index (BMI) 34.2 Finger Stick Blood Glucose 143 Intake and Output for Last 24 Hours 01/20/18 01/21/18 01/22/18 23:59 23:59 23:59 Intake Total 480 / 480 240 / 240 Output Total 475 / 475 Balance 5 / 5 240 / 240 General: Alert, Oriented x3 HEENT: Atraumatic Oral: Moist Mucosa Neck: Supple, No JVD Lungs: Clear to auscultation Cardiovascular: Regular rate, Normal S1, Normal S2 Abdomen: Bowel Sounds Present Extremities: No clubbing Neurological: Cranial nerves II-XII grossly intact Laboratory Results 01/22/18 05:20: WBC 3.8 L, RBC 3.49 L, Hgb 11.9 L, Hct 34.7 L, MCV 99.4 H, MCH 34.1 H, MCHC 34.3, RDW 12.9, RDW Differential 44.7 H, Plt Count 187, MPV 9.7 01/22/18 05:20: Sodium 140, Potassium 3.0 L, Chloride 102, Carbon Dioxide 30.0, Anion Gap 8, BUN 11, Creatinine 0.84, Estim Creat Clear Calc 67.54, Est GFR ( MDRD) Af Amer 116, Est GFR (MDRD) Non-Af 96, BUN/Creatinine Ratio 13.1, Glucose 123 H, Calcium 8.0 L, Phosphorus 3.0, Magnesium 1.7, Triglycerides 113, Cholesterol 131, LDL Cholesterol 78, VLDL Cholesterol 23, HDL Cholesterol 30 L Current Medications Amlodipine Besylate (Norvasc) 10 mg PO DAILY [facility] Last Admin: 01/22/18 08:31 Dose: 10 mg Apixaban (Eliquis) 5 mg PO BID [facility] Last Admin: 01/22/18 08:32 Dose: 5 mg Aspirin (Ecotrin) 81 mg PO DAILYCM [facility] Last Admin: 01/22/18 08:30 Dose: 81 mg Atenolol (Tenormin (Beta Obdulio)) 75 mg PO BID [facility] Last Admin: 01/22/18 08:30 Dose: 75 mg Bisacodyl (Dulcolax) 10 mg RECTAL .PRN X 1 PRN PRN Reason: Constipation Carvedilol (Coreg) 6.25 mg PO BID [facility] Last Admin: 01/22/18 08:30 Dose: 6.25 mg Clopidogrel Bisulfate (Plavix) 75 mg PO DAILY [facility] Last Admin: 01/22/18 08:31 Dose: 75 mg Furosemide (Lasix) 40 mg PO DAILY [facility] Last Admin: 01/22/18 08:30 Dose: 40 mg Lisinopril (Zestril) 20 mg PO DAILY [facility] Last Admin: 01/22/18 08:32 Dose: 20 mg Losartan Potassium (Cozaar) 25 mg PO DAILY [facility] Last Admin: 01/22/18 08:30 Dose: 25 mg Magnesium Hydroxide (Milk Of Magnesia) 30 ml PO .PRN X 1 PRN PRN Reason: Constipation Potassium Chloride (K-Dur) 40 meq PO DAILYCM [facility] Last Admin: 01/22/18 12:36 Dose: 40 meq Pravastatin Sodium (Pravachol) 80 mg PO QHS [facility] Last Admin: 01/21/18 21:09 Dose: 80 mg Assessment/Plan 1. Right-sided weakness due to acute CVA; we will continue Plavix , statin , PT /OT. 2. New onset, Paroxysmal atrial fibrillation; he is on a beta-obdulio for rate control and Eliquis for stroke prevention. 3. CAD s/p CABG; stress test that showed concerning for an area of stress- induced myocardial ischemia, left heart catheterization after 4 weeks. 4. Essential hypertension; continue current medications. 5. Hyperlipidemia; he is on a statin. 6. Obesity; weight loss recommended. 7. Hypokalemia; this will be replaced with KCl as needed. 8. DVT prophylaxis ; he is on Eliquis.
[2018-01-22 20:33] VITALS: BP 125/65; PULSE 71; RESP 18; TEMP 36.8; O2SAT 98
[2018-01-22] MEDS: Pravastatin 80 MG Tablet PO (20:35)
[2018-01-23 07:08] VITALS: O2SAT 98
[2018-01-23 10:00] VITALS: BP 145/78; PULSE 57; RESP 17; TEMP 36.9; O2SAT 95
[2018-01-23] MEDS: APIXABAN 5 MG TABLET PO ×2 (10:47→21:40)
[2018-01-23] MEDS: Aspirin E.C. 81 MG Tablet PO (10:47)
[2018-01-23] MEDS: Atenolol 50 MG Tablet 75 MG PO ×2 (10:48→21:39)
[2018-01-23] MEDS: Losartan Potassium 25 MG Tablet PO (10:48)
[2018-01-23] MEDS: Lisinopril 20 MG Tablet PO (10:48)
[2018-01-23] MEDS: Carvedilol 6.25 MG Tablet PO ×2 (10:48→21:40)
[2018-01-23] MEDS: Furosemide 40 MG Tablet PO (10:48)
[2018-01-23] MEDS: Clopidogrel Bisulfate 75 MG Tablet PO (10:53)
[2018-01-23] MEDS: amLODIPine 10 MG Tablet PO (10:54)
[2018-01-23 11:41] VITALS: BMI 34.2
[2018-01-23 20:35] VITALS: BP 143/66; PULSE 69; RESP 16; TEMP 36.8; O2SAT 96
[2018-01-23 21:08] VITALS: BMI 34.2
[2018-01-23] MEDS: Pravastatin 80 MG Tablet PO (21:40)
[2018-01-24 07:02] VITALS: O2SAT 99
[2018-01-24 07:32] VITALS: BP 159/73; PULSE 67; RESP 16; O2SAT 99
[2018-01-24] MEDS: Aspirin E.C. 81 MG Tablet PO (07:36)
[2018-01-24] MEDS: Atenolol 50 MG Tablet 75 MG PO ×2 (07:36→20:24)
[2018-01-24] MEDS: Furosemide 40 MG Tablet PO (07:38)
[2018-01-24] MEDS: APIXABAN 5 MG TABLET PO ×2 (07:38→20:23)
[2018-01-24] MEDS: Lisinopril 20 MG Tablet PO (07:38)
[2018-01-24] MEDS: Clopidogrel Bisulfate 75 MG Tablet PO (07:38)
[2018-01-24] MEDS: Carvedilol 6.25 MG Tablet PO ×2 (07:38→20:23)
[2018-01-24] MEDS: amLODIPine 10 MG Tablet PO (07:38)
[2018-01-24] MEDS: Losartan Potassium 25 MG Tablet PO (07:40)
--- NOTE | 2018-01-24 10:49 | NURSING ---
patient ambulated supervision level without device > 150 ft this shift multiple times.
[2018-01-24 11:01] VITALS: BMI 34.2
--- NOTE | 2018-01-24 12:53 | PN.NEURO_ITS ---
Subjective: No complaints. Doing well. Family members are present. Tolerating therapies. No GI or complaints. - Physical Exam General: Alert, Oriented x3, Cooperative HEENT: Atraumatic, PERRLA, EOMI, Normocephalic Neck: Supple, No JVD, Negative Carotid Bruits Lungs: Clear to auscultation, Normal air movement Cardiovascular: Regular rate, No murmurs Abdomen: Bowel Sounds Present, Soft, Non Tender Extremities: No edema, Capillary Refill Less than 3 Seconds Skin: No rashes, No breakdown Musculoskeletal: No Tenderness to Palpation of Joints or Extremities Neurological: Cranial nerves II-XII grossly intact Psych/Mental Status: Normal Affect, Appropriate Vital Signs Temp Pulse Resp BP Pulse Ox 36.8 C 67 16 159/73 H 99 01/23/18 20:35 01/24/18 07:32 01/24/18 07:32 01/24/18 07:32 01/24/18 07:32 Oxygen Delivery Method Room Air Weight: 90.5 kg Body Mass Index (BMI) 34.2 Finger Stick Blood Glucose 143 Intake and Output for Last 24 Hours 01/22/18 01/23/18 01/24/18 23:59 23:59 23:59 Intake Total 480 / 480 1000 / 1000 560 / 560 Balance 480 / 480 1000 / 1000 560 / 560 Current Medications Generic Name Dose Route Start Last Admin Trade Name Freq PRN Reason Stop Dose Admin Amlodipine Besylate 10 mg 01/22/18 10:00 01/24/18 07:38 Norvasc PO 10 mg DAILY [facility] Administration Apixaban 5 mg 01/21/18 22:00 01/24/18 07:38 Eliquis PO 5 mg BID [facility] Administration Aspirin 81 mg 01/22/18 08:00 01/24/18 07:36 Ecotrin PO 81 mg DAILYCM [facility] Administration Atenolol 75 mg 01/21/18 22:00 01/24/18 07:36 Tenormin (Beta Obdulio) PO 75 mg BID [facility] Administration Bisacodyl 10 mg 01/21/18 17:02 Dulcolax RECTAL .PRN X 1 PRN Constipation Carvedilol 6.25 mg 01/21/18 22:00 01/24/18 07:38 Coreg PO 6.25 mg BID [facility] Administration Clopidogrel Bisulfate 75 mg 01/22/18 10:00 01/24/18 07:38 Plavix PO 75 mg DAILY [facility] Administration Furosemide 40 mg 01/22/18 10:00 01/24/18 07:38 Lasix PO 40 mg DAILY [facility] Administration Lisinopril 20 mg 01/22/18 10:00 01/24/18 07:38 Zestril PO 20 mg DAILY [facility] Administration Losartan Potassium 25 mg 01/22/18 10:00 01/24/18 07:40 Cozaar PO 25 mg DAILY [facility] Administration Magnesium Hydroxide 30 ml 01/21/18 17:02 Milk Of Magnesia PO .PRN X 1 PRN Constipation Potassium Chloride 40 meq 01/22/18 10:15 01/24/18 07:36 K-Dur PO 40 meq DAILYCM [facility] Administration Pravastatin Sodium 80 mg 01/21/18 22:00 01/23/18 21:40 Pravachol PO 80 mg QHS [facility] Administration Assessment/Plan 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 Goal of rehab is latter day of prior level of functional independence. Plan: - Physical therapy for gait and balance - Occupational Therapy for ADLs - Speech therapy - As needed analgesics - Bowel protocol - Stroke prevention on ASA, Statin Plavix and Eliquis which started yesterday afternoon, will obtain CT head. 01/24: CT negative by her report for bleed - DVT prophylaxis: SCDs, ASA, Eliquis - Hypertension: Stable with good control, Keep BP < 130/80 mmHg - Echo cardiogram => demonstrates new anterior wall motion abnormality, with an EF around 40-45%, and at least moderate pulmonary hypertension with an RVSP of approximately 62 mmHg. - Hyperlipidemia; continue statin at 80mg. - New onset, Paroxysmal atrial fibrillation; started on on Eliquis. - CAD s/p CABG; stress test that showed concerning for an area of stress- induced myocardial ischemia, left heart catheterization s/p 4 weeks after his acute CVA. - Hypokalemia 2/2 Lasix, started on 40meq potassium recheck K+ in three days
[2018-01-24 20:11] VITALS: BP 155/65; PULSE 67; RESP 18; TEMP 36.3; O2SAT 99
[2018-01-24] MEDS: Pravastatin 80 MG Tablet PO (20:24)
--- NOTE | 2018-01-24 20:45 | NURSING ---
Pt requested early bedtime and early HS meds to enable uninterupted rest.
[2018-01-25 06:11] LABS: Anion Gap 8 (5-15); BUN 14 mg/dL (7-18); BUN/Creat Ratio 13.9 RATIO (10-20); Chloride 103 mmol/L (98-107); Creatinine, Serum 1.01 mg/dL (0.70-1.30); EST Glomerular Filtration Rate 77 mL/min (>60); Est Glom Filt Rate - Afr Amer 94 mL/min (>60); Estimated Creatinine Clearance 56.17 ml/min; Glucose 136 mg/dL (74-106); Sodium Level 140 mmol/L (136-145)
[2018-01-25] MEDS: Lisinopril 20 MG Tablet PO (08:13)
[2018-01-25] MEDS: APIXABAN 5 MG TABLET PO ×2 (08:14→20:27)
[2018-01-25] MEDS: Losartan Potassium 25 MG Tablet PO (08:14)
[2018-01-25] MEDS: Clopidogrel Bisulfate 75 MG Tablet PO (08:14)
[2018-01-25] MEDS: amLODIPine 10 MG Tablet PO (08:14)
[2018-01-25] MEDS: Aspirin E.C. 81 MG Tablet PO (08:14)
[2018-01-25] MEDS: Carvedilol 6.25 MG Tablet PO ×2 (08:14→20:26)
[2018-01-25] MEDS: Furosemide 40 MG Tablet PO (08:14)
[2018-01-25 08:16] VITALS: BP 151/74; PULSE 60; RESP 16; TEMP 36.8; O2SAT 99
[2018-01-25 10:52] VITALS: BMI 34.2
--- NOTE | 2018-01-25 11:00 | CASEMGMT ---
Team meeting held. Patient present as well as patient family. Collaborating with team, discharge date has been set for 01/27/18. Patient plans to discharge home with spouse. Therapy not recommending any continued therapy services but are providing patient with a home exercise program. Patient family plans to provide transportation home for patient at time of discharge. Patient currently not utilizing any durable medical equipment at this time. Support given. Proposed discharge date: 01/27/18 PLAN: Discharge home with family. Diana GUTIERREZ, PROCESS AUTOMATION ENGINEER
--- NOTE | 2018-01-25 12:48 | PCM.PN.NEU ---
Subjective: Staffed in Team meeting. Family at bedside. With Physical therapy, the patient is able to walk greater than 400 feet, with out a cane or walker. He is able to stand and transfer from the bed to the bedside recliner at stand by assist. With Occupational therapy, he is supervision for personal care, he continues to have some mild coordination issues with his right hand, it is improving. Will be discharged on Saturday 01/27 without outpatient Physical therapy and Occupational therapy, will be given exercises to do at home. Will have follow up appointment with a Vascular Surgeon, a Reinforcing Steel Machine Operator and Neurologist on discharge. - Physical Exam General: Alert, Oriented x3, Cooperative HEENT: Atraumatic, PERRLA, EOMI, Normocephalic Neck: Supple, No JVD, Negative Carotid Bruits Lungs: Clear to auscultation, Normal air movement Cardiovascular: Regular rate, No murmurs Abdomen: Bowel Sounds Present, Soft, Non Tender Extremities: No edema, Capillary Refill Less than 3 Seconds Skin: No rashes, No breakdown Musculoskeletal: No Tenderness to Palpation of Joints or Extremities Neurological: Cranial nerves II-XII grossly intact Psych/Mental Status: Normal Affect, Appropriate Vital Signs Temp Pulse Resp BP Pulse Ox 98.2 F 60 16 151/74 H 99 01/25/18 08:16 01/25/18 08:16 01/25/18 08:16 01/25/18 08:16 01/25/18 08:16 Oxygen Delivery Method Room Air Weight: 90.5 kg Body Mass Index (BMI) 34.2 Finger Stick Blood Glucose 143 Intake and Output for Last 24 Hours 01/23/18 01/24/18 01/25/18 23:59 23:59 23:59 Intake Total 1000 / 1000 560 / 560 260 / 260 Balance 1000 / 1000 560 / 560 260 / 260 Laboratory Tests Past 24 Hrs 01/25/18 05:15 Sodium 140 Potassium 4.0 Chloride 103 Carbon Dioxide 29.0 Anion Gap 8 BUN 14 Creatinine 1.01 Estim Creat Clear Calc 56.17 Est GFR (MDRD) Af Amer 94 Est GFR (MDRD) Non-Af 77 BUN/Creatinine Ratio 13.9 Glucose 136 H Calcium 9.0 Active Medications Amlodipine Besylate (Norvasc) 10 mg PO DAILY [facility] Last Admin: 01/25/18 08:14 Dose: 10 mg Apixaban (Eliquis) 5 mg PO BID [facility] Last Admin: 01/25/18 08:14 Dose: [facility] Last Admin: 01/25/18 08:14 Dose: 81 mg Atenolol (Tenormin (Beta Obdulio)) 75 mg PO BID [facility] Last Admin: 01/25/18 11:08 Dose: Not Given Bisacodyl (Dulcolax) 10 mg RECTAL .PRN X 1 PRN PRN Reason: Constipation Carvedilol (Coreg) 6.25 mg PO BID [facility] Last Admin: 01/25/18 08:14 Dose: 6.25 mg Furosemide (Lasix) 40 mg PO DAILY [facility] Last Admin: 01/25/18 08:14 Dose: 40 mg Lisinopril (Zestril) 20 mg PO DAILY [facility] Last Admin: 01/25/18 08:13 Dose: 20 mg Losartan Potassium (Cozaar) 25 mg PO DAILY [facility] Last Admin: 01/25/18 08:14 Dose: 25 mg Magnesium Hydroxide (Milk Of Magnesia) 30 ml PO .PRN X 1 PRN PRN Reason: Constipation Potassium Chloride (K-Dur) [facility] Last Admin: 01/25/18 08:14 Dose: 40 meq Pravastatin Sodium (Pravachol) 80 mg PO QHS [facility] Last Admin: 01/24/18 20:24 Dose: 80 mg Assessment/Plan 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 Goal of rehab is gnosticist of prior level of functional independence. Plan: - Physical therapy for gait and balance - Occupational Therapy for ADLs - Speech therapy - As needed analgesics - Bowel protocol - Stroke prevention on ASA, Statin, and Eliquis - DVT prophylaxis: SCDs, Garry mejia, Eliquis - Hypertension: Stable with good control, Keep BP < 130/80 mmHg - Echo cardiogram => demonstrates new anterior wall motion abnormality, with an EF around 40-45%, and at least moderate pulmonary hypertension with an RVSP of approximately 62 mmHg. - Hyperlipidemia; continue statin at 80mg. - New onset, Paroxysmal atrial fibrillation; started on on Eliquis. - CAD s/p CABG; stress test that showed concerning for an area of stress-induced myocardial ischemia, left heart catheterization s/p 4 weeks after his acute CVA. - Hypokalemia 01/01 Lasix, started on 40meq potassium recheck K+ in three days - Discharge home on 01/27
--- NOTE | 2018-01-25 12:59 | PN.NEURO_ITS ---
Subjective: Staffed in Team meeting. Family at bedside. With Physical therapy, the patient is able to walk greater than 400 feet, with out a cane or walker. He is able to stand and transfer from the bed to the bedside recliner at stand by assist. With Occupational therapy, he is supervision for personal care, he continues to have some mild coordination issues with his right hand, it is improving. Will be discharged on Saturday 01/27 without outpatient Physical therapy and Occupational therapy, will be given exercises to do at home. Will have follow up appointment with a Vascular Surgeon, a Rim Roller Operator and Neurologist on discharge. - Physical Exam General: Alert, Oriented x3, Cooperative HEENT: Atraumatic, PERRLA, EOMI, Normocephalic Neck: Supple, No JVD, Negative Carotid Bruits Lungs: Clear to auscultation, Normal air movement Cardiovascular: Regular rate, No murmurs Abdomen: Bowel Sounds Present, Soft, Non Tender Extremities: No edema, Capillary Refill Less than 3 Seconds Skin: No rashes, No breakdown Musculoskeletal: No Tenderness to Palpation of Joints or Extremities Neurological: Cranial nerves II-XII grossly intact Psych/Mental Status: Normal Affect, Appropriate Vital Signs Temp Pulse Resp BP Pulse Ox 98.2 F 60 16 151/74 H 99 01/25/18 08:16 01/25/18 08:16 01/25/18 08:16 01/25/18 08:16 01/25/18 08:16 Oxygen Delivery Method Room Air Weight: 90.5 kg Body Mass Index (BMI) 34.2 Finger Stick Blood Glucose 143 Intake and Output for Last 24 Hours 01/23/18 01/24/18 01/25/18 23:59 23:59 23:59 Intake Total 1000 / 1000 560 / 560 260 / 260 Balance 1000 / 1000 560 / 560 260 / 260 Laboratory Tests Past 24 Hrs 01/25/18 05:15 Sodium 140 Potassium 4.0 Chloride 103 Carbon Dioxide 29.0 Anion Gap 8 BUN 14 Creatinine 1.01 Estim Creat Clear Calc 56.17 Est GFR (MDRD) Af Amer 94 Est GFR (MDRD) Non-Af 77 BUN/Creatinine Ratio 13.9 Glucose 136 H Calcium 9.0 Active Medications Amlodipine Besylate (Norvasc) 10 mg PO DAILY [facility] Last Admin: 01/25/18 08:14 Dose: 10 mg Apixaban (Eliquis) 5 mg PO BID [facility] Last Admin: 01/25/18 08:14 Dose: 5 mg [facility] Admin: 01/25/18 08:14 Dose: 81 mg Atenolol (Tenormin (Beta Obdulio)) 75 mg PO BID [facility] Last Admin: 01/25/18 11:08 Dose: Not Given Bisacodyl (Dulcolax) 10 mg RECTAL .PRN X 1 PRN PRN Reason: Constipation Carvedilol (Coreg) 6.25 mg PO BID [facility] Last Admin: 01/25/18 08:14 Dose: 6.25 mg Furosemide (Lasix) 40 mg PO DAILY [facility] Last Admin: 01/25/18 08:14 Dose: 40 mg Lisinopril (Zestril) 20 mg PO DAILY [facility] Last Admin: 01/25/18 08:13 Dose: 20 mg Losartan Potassium (Cozaar) 25 mg PO DAILY [facility] Last Admin: 01/25/18 08:14 Dose: 25 mg Magnesium Hydroxide (Milk Of Magnesia) 30 ml PO .PRN X 1 PRN PRN Reason: Constipation Potassium Chloride (K-Dur) [facility] Last Admin: 01/25/18 08:14 Dose: 40 meq Pravastatin Sodium (Pravachol) 80 mg PO QHS [facility] Last Admin: 01/24/18 20:24 Dose: 80 mg Assessment/Plan 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 Goal of rehab is taoism of prior level of functional independence. Plan: - Physical therapy for gait and balance - Occupational Therapy for ADLs - Speech therapy - As needed analgesics - Bowel protocol - Stroke prevention on ASA, Statin, and Eliquis - DVT prophylaxis: SCDs, Garry mejia, Eliquis - Hypertension: Stable with good control, Keep BP < 130/80 mmHg - Echo cardiogram => demonstrates new anterior wall motion abnormality, with an EF around 40-45%, and at least moderate pulmonary hypertension with an RVSP of approximately 62 mmHg. - Hyperlipidemia; continue statin at 80mg. - New onset, Paroxysmal atrial fibrillation; started on on Eliquis. - CAD s/p CABG; stress test that showed concerning for an area of stress- induced myocardial ischemia, left heart catheterization s/p 4 weeks after his acute CVA. - Hypokalemia 01/01 Lasix, started on 40meq potassium recheck K+ in three days - Discharge home on 01/27
[2018-01-25 19:48] VITALS: BMI 34.2
[2018-01-25 20:09] VITALS: BP 142/74; PULSE 75; RESP 18; TEMP 36.9; O2SAT 97
[2018-01-25] MEDS: Pravastatin 80 MG Tablet PO (20:28)
[2018-01-26 07:26] VITALS: BP 153/76; PULSE 67; RESP 17; TEMP 36.6; O2SAT 99
[2018-01-26] MEDS: Losartan Potassium 50 MG Tablet PO (07:44)
[2018-01-26] MEDS: APIXABAN 5 MG TABLET PO ×2 (07:44→21:20)
[2018-01-26] MEDS: amLODIPine 10 MG Tablet PO (07:44)
[2018-01-26] MEDS: Carvedilol 6.25 MG Tablet PO (07:45)
[2018-01-26] MEDS: Aspirin E.C. 81 MG Tablet PO (07:45)
[2018-01-26] MEDS: Furosemide 40 MG Tablet PO (07:45)
[2018-01-26 10:35] VITALS: BMI 34.2
--- NOTE | 2018-01-26 16:28 | PCM.PN.HOSP ---
Subjective: Patient with no acute events since last evaluation per self and per nursing report. He is progressing well with physical therapy and both himself and family note intention for discharge to home, per his report likely tomorrow. He notes his strength has nearly returned to baseline although he still has some mild residual upper extremity weakness and mild R hand coordination issues but this has continued to improve. Patient denies fevers, chills, nausea, emesis, abdominal pain, chest pain or dyspnea. Objective: Physical Examination: General: awake, alert, oriented x 3 and cooperative, seated upright in bedside chair, in no apparent distress. Skin: normal color, turgor, no icterus, cyanosis. HEENT: AT/NC, EOMI, PERRLA, MMM. Lungs: CTA bilaterally, moderate effort, mild decrease BL bases, no rales, ronchi or wheezing. Heart: Regular rate and rhythm; no gallop, rub audible. Abdomen: soft, obese, NTTP, ND. Extremities: no cyanosis, clubbing, or edema. Neurological: patient awake, alert, oriented x 3; cognitive function intact; pupils equally reactive to light and accomodation; cranial nerves II-XII grossly normal, moving all 4 extremities, sensation intact, mild RUE 4/5 otherwise strength improved, preserved. Psychiatric: affect appears normal, no acute evidence of depressive or anxiety feelings. Vitals/I&O's: Vital Signs Temp Pulse Resp BP Pulse Ox 97.8 F 67 17 153/76 H 99 01/26/18 07:26 01/26/18 07:26 01/26/18 07:26 01/26/18 07:26 01/26/18 07:26 Oxygen Delivery Method Room Air Weight: 199 lb 8.293 oz Body Mass Index (BMI) 34.2 Finger Stick Blood Glucose 143 Intake and Output for Last 24 Hours 01/24/18 01/25/18 01/26/18 23:59 23:59 23:59 Intake Total 560 / 560 760 / 760 Balance 560 / 560 760 / 760 Current Medications Amlodipine Besylate (Norvasc) 10 mg PO DAILY [facility] Last Admin: 01/26/18 07:44 Dose: 10 mg Apixaban (Eliquis) 5 mg PO BID [facility] Last Admin: 01/26/18 07:44 Dose: 5 mg [facility] ([facility]) [facility] Last Admin: 01/26/18 07:45 Dose: 81 mg Bisacodyl (Dulcolax) 10 mg RECTAL .PRN X 1 PRN PRN Reason: Constipation Carvedilol (Coreg) 12.5 mg PO BID [facility] Furosemide (Lasix) 40 mg PO DAILY [facility] Last Admin: 01/26/18 07:45 Dose: 40 mg Losartan Potassium (Cozaar) 50 mg PO DAILY [facility] Last Admin: 01/26/18 07:44 Dose: 50 mg Magnesium Hydroxide (Milk Of Magnesia) 30 ml PO .PRN X 1 PRN PRN Reason: Constipation Potassium Chloride (K-Dur) [facility] Last Admin: 01/26/18 07:45 Dose: 40 meq Pravastatin Sodium (Pravachol) 80 mg PO QHS [facility] Last Admin: 01/25/18 20:28 Dose: 80 mg Assessment/Plan The patient is a 72 y/o M w/ PMHx: Carotid arterial disease s/p R CEA, CAD s/p CABG, HTN, HLD, Obesity who presents to the [facility] Acute Rehabilitation on 01/21/18 following history of initial ED presentation on 01/18/18 with history of onset right sided weakness with paresthesias lasted ~ 10 minutes with improvement starting at ~ 4:20 am with initially noted RLE weakness severe enough per daughter to have RLE drag secondary to eventually noted acute left centrum semiovale infarction. (1) R sided Weakness, Paresthesias concerning for TIA/CVA: MRI Brain w/ acute left centrum semiovale infarction, MRA Head unremarkable, MRA neck with motion artifact notable w/ follow-up CTA Neck w/ R carotid stent present with 50% stenosis of the R ICA and 50-69% on of the L ICA and BL Carotid US w/ moderate (50-69%) stenosis right extracranial internal carotid, severe (>70%) stenosis left extracranial internal carotid, vertebral arteries antegrade bilaterally, elevated velocities within the right external carotid artery are suggestive of stenosis. Patient continued on treatment with aspirin, plavix as well as eliquis, statin and BP regimen. PT, OT continued. Planned discharge to home likely on 01/27/18. (2) Recent, New Onset, Paroxsymal atrial fibrillation: Maintain on regimen atenolol, eliquis continued. Given CAD and new onset atrial fibrillation, cardiac stress testing recently preformed during inpatient admission w/ abnormal stress testing with plan for follow-up cardiac catheterization, noted from prior Cardiology note in 4 weeks following discharge, but likely once Neurology amenable. (3) Hypertension: Maintain on regimen Norvasc, Coreg, Lasix, losartan. Will need repeat BMP with PCP secondary to noted hypokalemia. (4) Hyperlipidemia: Continue home statin regimen. (5) CAD: s/p CABG, follows w/ Dr. Sweeney, maintained on asa, plavix, statin, BB. (6) Obesity: Weight loss and lifestyle changes encouraged. (7) Pulmonary HTN: Recent ECHO w/ new anterior wall motion abnormality, EF around 40-45%, moderate pulmonary hypertension with an RVSP of approximately 62 mmHg. (8) DVT Prophylaxis: SCDs, eliquis. Code Visit Inpatient E&M: 89412 Subs Hosp L2
--- NOTE | 2018-01-26 16:40 | PN_ITS ---
Subjective: Patient with no acute events since last evaluation per self and per nursing report. He is progressing well with physical therapy and both himself and family note intention for discharge to home, per his report likely tomorrow. He notes his strength has nearly returned to baseline although he still has some mild residual upper extremity weakness and mild R hand coordination issues but this has continued to improve. Patient denies fevers, chills, nausea, emesis , abdominal pain, chest pain or dyspnea. Objective: Physical Examination: General: awake, alert, oriented x 3 and cooperative, seated upright in bedside chair, in no apparent distress. Skin: normal color, turgor, no icterus, cyanosis. HEENT: AT/NC, EOMI, PERRLA, MMM. Lungs: CTA bilaterally, moderate effort, mild decrease BL bases, no rales, ronchi or wheezing. Heart: Regular rate and rhythm; no gallop, rub audible. Abdomen: soft, obese, NTTP, ND. Extremities: no cyanosis, clubbing, or edema. Neurological: patient awake, alert, oriented x 3; cognitive function intact; pupils equally reactive to light and accomodation; cranial nerves II-XII grossly normal, moving all 4 extremities, sensation intact, mild RUE 4/5 otherwise strength improved, preserved. Psychiatric: affect appears normal, no acute evidence of depressive or anxiety feelings. Vitals/I&O's: Vital Signs Temp Pulse Resp BP Pulse Ox 97.8 F 67 17 153/76 H 99 01/26/18 07:26 01/26/18 07:26 01/26/18 07:26 01/26/18 07:26 01/26/18 07:26 Oxygen Delivery Method Room Air Weight: 199 lb 8.293 oz Body Mass Index (BMI) 34.2 Finger Stick Blood Glucose 143 Intake and Output for Last 24 Hours 01/24/18 01/25/18 01/26/18 23:59 23:59 23:59 Intake Total 560 / 560 760 / 760 Balance 560 / 560 760 / 760 Current Medications Amlodipine Besylate (Norvasc) 10 mg PO DAILY [facility] Last Admin: 01/26/18 07:44 Dose: 10 mg Apixaban (Eliquis) 5 mg PO BID [facility] Last Admin: 01/26/18 07:44 Dose: 5 mg [facility] Admin: 01/26/18 07:45 Dose: 81 mg Bisacodyl (Dulcolax) 10 mg RECTAL .PRN X 1 PRN PRN Reason: Constipation Carvedilol (Coreg) 12.5 mg PO BID [facility] Furosemide (Lasix) 40 mg PO DAILY [facility] Last Admin: 01/26/18 07:45 Dose: 40 mg Losartan Potassium (Cozaar) 50 mg PO DAILY [facility] Last Admin: 01/26/18 07:44 Dose: 50 mg Magnesium Hydroxide (Milk Of Magnesia) 30 ml PO .PRN X 1 PRN PRN Reason: Constipation Potassium Chloride (K-Dur) [facility] Last Admin: 01/26/18 07:45 Dose: 40 meq Pravastatin Sodium (Pravachol) 80 mg PO QHS [facility] Last Admin: 01/25/18 20:28 Dose: 80 mg Assessment/Plan The patient is a 72 y/o M w/ PMHx: Carotid arterial disease s/p R CEA, CAD s/p CABG, HTN, HLD, Obesity who presents to the [facility] Acute Rehabilitation on 01/21/18 following history of initial ED presentation on 01/18/18 with history of onset right sided weakness with paresthesias lasted ~ 10 minutes with improvement starting at ~ 4:20 am with initially noted RLE weakness severe enough per daughter to have RLE drag secondary to eventually noted acute left centrum semiovale infarction. (1) R sided Weakness, Paresthesias concerning for TIA/CVA: MRI Brain w/ acute left centrum semiovale infarction, MRA Head unremarkable, MRA neck with motion artifact notable w/ follow-up CTA Neck w/ R carotid stent present with 50% stenosis of the R ICA and 50-69% on of the L ICA and BL Carotid US w/ moderate ( 50-69%) stenosis right extracranial internal carotid, severe (>70%) stenosis left extracranial internal carotid, vertebral arteries antegrade bilaterally, elevated velocities within the right external carotid artery are suggestive of stenosis. Patient continued on treatment with aspirin, plavix as well as eliquis , statin and BP regimen. PT, OT continued. Planned discharge to home likely on . (2) Recent, New Onset, Paroxsymal atrial fibrillation: Maintain on regimen atenolol, eliquis continued. Given CAD and new onset atrial fibrillation, cardiac stress testing recently preformed during inpatient admission w/ abnormal stress testing with plan for follow-up cardiac catheterization, noted from prior Cardiology note in 4 weeks following discharge, but likely once Neurology amenable. (3) Hypertension: Maintain on regimen Norvasc, Coreg, Lasix, losartan. Will need repeat BMP with PCP secondary to noted hypokalemia. (4) Hyperlipidemia: Continue home statin regimen. (5) CAD: s/p CABG, follows w/ Dr. Sweeney, maintained on asa, plavix, statin, BB. (6) Obesity: Weight loss and lifestyle changes encouraged. (7) Pulmonary HTN: Recent ECHO w/ new anterior wall motion abnormality, EF around 40-45%, moderate pulmonary hypertension with an RVSP of approximately 62 mmHg. (8) DVT Prophylaxis: SCDs, eliquis. Code Visit Inpatient E&M: 30894 Subs Hosp L2
[2018-01-26 20:52] VITALS: BP 132/67; PULSE 73; RESP 24; TEMP 36.6; O2SAT 97
[2018-01-26] MEDS: Carvedilol 12.5 MG Tablet PO (21:20)
[2018-01-26] MEDS: Pravastatin 80 MG Tablet PO (21:20)
[2018-01-27 05:00] VITALS: BMI 34.2
[2018-01-27] MEDS: Furosemide 40 MG Tablet PO (08:40)
[2018-01-27] MEDS: amLODIPine 10 MG Tablet PO (08:40)
[2018-01-27] MEDS: Losartan Potassium 50 MG Tablet PO (08:40)
[2018-01-27] MEDS: Carvedilol 12.5 MG Tablet PO (08:41)
[2018-01-27] MEDS: APIXABAN 5 MG TABLET PO (08:41)
[2018-01-27] MEDS: Aspirin E.C. 81 MG Tablet PO (08:41)
--- NOTE | 2018-01-27 08:43 | PCM.RU.DC ---
Rehab Discharge Summary DATE OF ADMISSION: 01/21/18 DATE OF DISCHARGE: 01/27/18 - Rehab Diagnosis CVA Discharge Diet: No Restrictions Discharge Activity: May Not Drive, May Shower, May Take a Tub Bath, Use Walker Weight Bearing Status: Weight bearing as tolerated Call your doctor if you observe: Fever of 101 or Higher, Coldness, Increased Pain, Numbness or Tingling, Change in Color, Inability to urinate, Inability to have a bowel movement, Using more than one pad per hour, Shortness of breath, Dizziness, Fainting spells, Swelling in the ankles, Chest pain, Prolonged hiccoughing, Increased palpitations (irregular heartbeat), Calf discomfort, Uncontrolled pain Home Medications: Medications to take at Discharge Aspirin [Aspir-Low] 81 mg PO DAILY 01/18/18 Amlodipine [Norvasc] 10 mg PO DAILY #30 tab 01/27/18 Apixaban [Eliquis] 5 mg PO BID #60 tab 01/27/18 Carvedilol [Coreg (Beta Obdulio)] 12.5 mg PO BID #60 tab 01/27/18 Furosemide [Lasix] 40 mg PO DAILY #30 tab 01/27/18 Losartan Potassium [Cozaar] 50 mg PO DAILY #30 tab 01/27/18 Potassium Chloride [K-Dur] 40 meq PO DAILYCM #30 tab 01/27/18 Pravastatin [Pravachol] 80 mg PO DAILY #30 tab 01/27/18 Following Prescrptions Were Given to Patient: Amlodipine [Norvasc] 10 mg PO DAILY #30 tab Furosemide [Lasix] 40 mg PO DAILY #30 tab Losartan Potassium [Cozaar] 50 mg PO DAILY #30 tab Potassium Chloride [K-Dur] 40 meq PO DAILYCM #30 tab Pravastatin [Pravachol] 80 mg PO DAILY #30 tab Apixaban [Eliquis] 5 mg PO BID #60 tab Carvedilol [Coreg (Beta Obdulio)] 12.5 mg PO BID #60 tab Primary Care Physician: Herson Terrell MD [Primary Care Provider] - Please Follow Up With: Melvi bucio neurology Please Follow Up With: Dr Bravo Please Follow Up With: Dr Sweeney Disposition: Home Minutes spent on discharge:: 40 Patient Condition:: Good Rehab Course This is 72-year-old old right-handed male who was admitted to the rehab unit for rehabilitation after suffering a left watershed distribution infarct. He has a history of coronary artery disease, TIA/CVA, essential hypertension and dyslipidemia who presented with right-sided weakness, brain MRI showed acute Acute left centrum semiovale, patient was also found to have atrial fibrillation, his heart rate is currently under control on Coreg, he was started on Eliquis in addition to the Plavix and ASA. The patient underwent a stress test and it reveal evidence of ischemia. Cardiology was consulted it was recommended for patient to undergo a left heart catheterization not earlier than 4 weeks after his acute stroke. Echocardiogram demonstrates new anterior wall motion abnormality, with an EF around 40-45%, and at least moderate pulmonary hypertension with an RVSP of approximately 62 mmHg. With Physical therapy, the patient is able to walk greater than 400 feet, with out a cane or walker. He is able to stand and transfer from the bed to the bedside recliner at stand by assist. With Occupational therapy, he is supervision for personal care, he continues to have some mild coordination issues with his right hand, it is improving. Will be discharged on Saturday 01/27 without outpatient Physical therapy and Occupational therapy, will be given exercises to do at home. Will have follow up appointment with a Vascular Surgeon, a Utilization Specialist and Neurologist on discharge. Meaningful Use Info Meaningful Use Diagnoses (Choose all that apply): Ischemic CVA - CVA Therapy Assessed for PT,OT and/or ST?: Yes - Ischemic Stroke Antithrombotic order at d/c?: Yes Dx of Atrial fib/flutter?: Yes Anticoagulant at discharge?: Yes Statins at discharge?: Yes Primary Dx Acute Ischemic CVA?: Yes IV tPA ordered during stay?: No Reason IV t-PA not ordered: Medical Contraindication
--- NOTE | 2018-01-27 08:48 | PCM.DC ---
- Discharge Diagnoses Reason(s) for Visit for Discharge Instructions: CVA You will use the following diet at home:: Regular, Cardiac Your food should be the consistency of: Regular Your liquids should be the consistency of: Regular/Thin Discharge Activity: May Not Drive, May Shower, May Take a Tub Bath, Use Walker Weight Bearing Status: Weight bearing as tolerated Call your doctor if you observe: Fever of 101 or Higher, Coldness, Increased Pain, Numbness or Tingling, Change in Color, Inability to urinate, Inability to have a bowel movement, Using more than one pad per hour, Shortness of breath, Dizziness, Fainting spells, Swelling in the ankles, Chest pain, Prolonged hiccoughing, Increased palpitations (irregular heartbeat), Calf discomfort, Uncontrolled pain Allergies/Adverse Reactions: Allergies No Known Allergies Allergy (Verified 01/18/18 04:50) Medications to take at Discharge Aspirin [Aspir-Low] 81 mg PO DAILY 01/18/18 Amlodipine [Norvasc] 10 mg PO DAILY #30 tab 01/27/18 Apixaban [Eliquis] 5 mg PO BID #60 tab 01/27/18 Carvedilol [Coreg (Beta Obdulio)] 12.5 mg PO BID #60 tab 01/27/18 Furosemide [Lasix] 40 mg PO DAILY #30 tab 01/27/18 Losartan Potassium [Cozaar] 50 mg PO DAILY #30 tab 01/27/18 Potassium Chloride [K-Dur] 40 meq PO DAILYCM #30 tab 01/27/18 Pravastatin [Pravachol] 80 mg PO DAILY #30 tab 01/27/18 The following prescriptions were given: Amlodipine [Norvasc] 10 mg PO DAILY #30 tab Furosemide [Lasix] 40 mg PO DAILY #30 tab Losartan Potassium [Cozaar] 50 mg PO DAILY #30 tab Potassium Chloride [K-Dur] 40 meq PO DAILYCM #30 tab Pravastatin [Pravachol] 80 mg PO DAILY #30 tab Apixaban [Eliquis] 5 mg PO BID #60 tab Carvedilol [Coreg (Beta Obdulio)] 12.5 mg PO BID #60 tab Primary Care Physician: Herson Terrell MD [Primary Care Provider] - Please Follow Up With: Melvi bucio neurology Please Follow Up With: Dr Bravo Please Follow Up With: Dr Sweeney Proposed Discharge Date: 01/27/18
[2018-01-27 08:49] VITALS: BP 146/71; PULSE 82; RESP 16; TEMP 37.1; O2SAT 100
[2018-01-27 15:00] VITALS: BMI 34.2
--- NOTE | 2018-01-27 17:00 | NURSING ---
DC instruct given to patient and family and verbalized understanding.
[2018-01-27 17:45] VITALS: BP 146/71; PULSE 82; RESP 16; TEMP 37.1; O2SAT 100
--- NOTE | 2018-01-28 15:30 | CASEMGMT ---
Insurance Notified insurance of patient discharge date on 01/27/18. Auth#[id number] Diana GUTIERREZ, [employer]INEERING [employer]
== END 2018-01-27 17:00 | disposition home or self-care (01) | DRG 57 ==
PROVIDERS: Nurse Practitioner Acute Care; Admitting Provider Psychiatry & Neurology Neurology; Family Provider Family Medicine; PCP Family Medicine; Visit Provider Family Medicine
DX: I69.351 Hemiplegia and hemiparesis following cerebral infarction affecting right dominant side (principal); I27.20 Pulmonary hypertension, unspecified; I48.0 Paroxysmal atrial fibrillation; E66.9 Obesity, unspecified; E78.5 Hyperlipidemia, unspecified; I10 Essential (primary) hypertension; I25.10 Atherosclerotic heart disease of native coronary artery without angina pectoris; Z95.1 Presence of aortocoronary bypass graft; Z68.34 Body mass index [BMI] 34.0-34.9, adult; Z71.3 Dietary counseling and surveillance; Z79.01 Long term (current) use of anticoagulants; Z79.02 Long term (current) use of antithrombotics/antiplatelets; Z79.899 Other long term (current) drug therapy; Z79.82 Long term (current) use of aspirin
CPT/HCPCS: 36415; 70450; 80048; 80061; 83735; 84100; 85027; 92523; 97110; 97112; 97116; 97162; 97166; 97530; 97535; 97802; H0035; H2012; 90832

== ENCOUNTER → 2018-06-07 13:20 | Outpatient (CLI) | payer MEDICARE, SELFPAY ==
--- NOTE | 2018-06-07 13:22 | STEWCON_ITS ---
Reason For Study: Arrhythmia Stress Results Protocol: Dobutamine Stress Echo Maximum Predicted HR: 149 bpm Target HR: 127 bpm% Maximum Pre dicted HR: 85 % DurationHeart Rate Stage (mm:ss) (bpm) BPComm ent Baseline 81 145/77 No Chest Pain; Definity 2.5 ML Diluted Given Throughout Test DSE 10 MCG 3:00 81 145/77No Chest Pain DSE 20 MCG 3:00 10 9 172/75No Chest Pain DSE 30 MCG 3:00 11 6 184/102No Chest Pain DSE 40 MCg 2:02 12 7 197/111No Chest Pain Recovery 98 147/84 No Chest Pain Stress Duration: 11:02 mm:ss Maximum Stress HR: 127 bpmME TS: 1 Baseline Echocardiogram Findings Stress Echo Wall motion Data Resting WMIntermediate WMStress WM Resting Wall Motion Wall Motion Stress Mid-Anterior : Severely Mid-Anterior : Hypokinetic. Hypokinetic. Ejection Fraction 45 %. Rest of thewalls globally hypokinetic. Ejection Fraction 40 %. EKG Data Atrial fibrillation with rate of 87. The patient was titrated from 10 mcg to a maximum of 40 mcg of dobutamine during the stress. The maximum heart rate attained was 146 beats per minute. This was 97% of maximum predicted heart rate. During dobutamine infusion, there were no ST or T wave changes noted to suggest ischemia. At peak infusion, upsloping ST changes only were noted, which did not meet the criteria for ischemia. The peak blood pressure was 197/111. No arrhythmias noted. No clinical angina was noted. Interpretation Summary Abnormal resting LV systolic function with EF 45% and hypokinetic. Nonstenotic valves. With stress, the LV size decreased and all segments augmented normally. The LVEF increased from 40% to 45%. Conclusion: Exercise the anterior wall appeared to be more hypokinetic with dobutamine infusion and the inferior wall did not appear to augment as normally. Mildly abnormal dobutamine stress echo with mild anterior and inferior ischemia. Atrial fibrillation noted. Hypertensive response to dobutamine infusion. Ordering Physician: Ángel Sweeney Referring Physician: Ángel Sweeney Performed By: Carly Vidal, EDA, RVT
== END ==
PROVIDERS: Family Provider Family Medicine; PCP Family Medicine; Visit Provider Internal Medicine Cardiovascular Disease
DX: I49.9 Cardiac arrhythmia, unspecified (principal); Z95.1 Presence of aortocoronary bypass graft
CPT/HCPCS: 93017; 93350; J7030; Q9957; A4216; C8928

== ENCOUNTER → 2018-06-14 07:02 | Day surgery (SDC) | payer MEDICARE, SELFPAY ==
[2018-06-10 08:12] LABS: Absolute Lymphocyte Count 1.38 X10^3/ul (0.83-4.51); Absolute Neutrophil Count 3.2 X10^3/uL (2.0-7.7); Basophil# 0.01 X10^3/uL; Basophil% 0.2 % (0-1); Eosinophil# 0.12 X10^3/uL; Eosinophils% 2.4 % (0-5); Hematocrit 40.4 % (40-54); Hemoglobin 14.3 g/dl (13.0-16.5); Lymphocyte # 1.38 X10^3/ul (4.0); Lymphocyte % 27.7 % (19-41); Mean Corp Hgb Conc 35.4 g/gl (32-36); Mean Corpuscular Hgb 35.5 pg (27.0-32.0); Mean Corpuscular Volume 100.2 fL (80-94); Mean Platelet Vol. 10.7 fl (6.2-12.0); Monocyte# 0.28 X10^3/uL; Monocyte% 5.6 % (0-10); Neutrophil # 3.19 X10^3/uL (2.7-7.7); Neutrophil % 63.9 % (47-70); POSITIVE COUNT NO; POSITIVE DIFFERENTIAL NO; POSITIVE MORPHOLOGY NO; Platelet Count 155 K/mm3 (150-450); RBC Distribution Width CV 12.2 % (11.6-14.6); RBC Distribution Width SD 43.7 fl (35.1-43.9); Red Blood Count 4.03 M/mm3 (4.6-6.2)
[2018-06-10 08:30] LABS: Anion Gap 6 (5-15); BUN 24 mg/dL (7-18); BUN/Creat Ratio 20.9 RATIO (10-20); Calcium,Total 8.6 mg/dL (8.5-10.1); Chloride 105 mmol/L (98-107); Creatinine, Serum 1.15 mg/dL (0.70-1.30); EST Glomerular Filtration Rate 67 mL/min (>60); Est Glom Filt Rate - Afr Amer 80 mL/min (>60); Glucose 156 mg/dL (74-106); Potassium 4.6 mmol/L (3.5-5.1); Sodium Level 139 mmol/L (136-145)
[2018-06-10 08:39] LABS: International Normalized Ratio 1.1; Prothrombin Time (Protime)PT. 14.1 SECONDS (11.7-14.9)
[2018-06-10 08:40] LABS: Partial Thromboplast Time 26.9 Seconds (24.1-36.2)
[2018-06-11 10:11] VITALS: BMI 36.0
--- NOTE | 2018-06-14 09:14 | CL.D_ITS ---
Patient Name: HOLLIE ODEN Study Date: 06/14/2018 Performing: Ángel Sweeney MD Ht: 64.17 inches 163 cm : 1945 Wt: 209.44 lbs 95 kg Age: 72 Gender: male BSA: 2 PROCEDURE(S) PERFORMED LC10-TES/COR/LV/CABG CLINICAL PROFILE AND INDICATIONS Indications: Other Heart Failure: None Stress/Imaging Stress Echocardiogram: Yes Result: Positive Intermediate RiskStress Echocardiogram : Positive Intermediate Risk Angina Classification Anginal Classification w/in 2 Weeks: No symptoms CAD Presentations: Symptom unlikely to be ischemic. CONCLUSIONS Patent bypass grafts with the left internal mammary artery to the left circumflex artery patent and t he right internal mammary artery to the left anterior descending artery patent. The saphenous vein g raft to the circumflex right posterolateral vessel is patent with moderate disease but is immobile an d appears to be attached to the pericardium. RECOMMENDATIONS Medical therapy DESCRIPTION OF PROCEDURE The patient arrived to the procedure lab. The risks and benefits of the procedure as well as a full d escription of our services here and current unavailability of surgical backup were fully explained to the patient and/or their significant other prior to the catheterization. The Timeout was completed, verifying the correct patient and procedure. The patient's procedural site was prepped and draped in the usual fashion. Local anesthetic was given subcutaneously to right radial region with Lidocaine 2% . Using a modified Seldinger technique, arterial access was obtained via the right radial artery, a 6 Fr sheath was inserted. Saphenous Vein graft to the RPDA selective angiography was performed in mult iple views using a 5 Fr. 4.0 [place] catheter. Right Coronary Artery selective angiography was then per formed in multiple views using a 5 Fr. 4.0 [place] catheter. Left Coronary Artery selective angiography was performed in multiple views using a 5 Fr. 4.0 [place] catheter. Left internal mammary artery graft to the Circumflex selective angiography was performed in multiple views using a 5 Fr. IM catheter. R ight internal mammary artery graft to the LAD selective angiography was performed in multiple views u sing a 5 Fr. IM catheter. Left Ventriculography was performed in [place] projection using a 5 Fr. Pig[place] catheter. LV to AO pullback pressures were then recorded.The arterial sheath was pulled and a TR Ban d was applied for hemostasis CORONARY ANGIOGRAPHY DOMINANCE: Right Dominant LEFT HEART ASSESSMENT Left Ventricular Ejection Fraction: by LV Gram 45 % Depressed Left Ventricular systolic function LEFT MAIN: Angiographically normal LEFT ANTERIOR DECENDING ARTERY: PROX LAD: is occluded CIRCUMFLEX ARTERY: MID CIRC: Mild luminal irregularities OM 1: Proximal - Mild luminal irregularities OTHER LCX BRANCH: Sidebranch of the first obtuse marginal branch is patent Sidebranch of the first ob tuse marginal branch is patent RIGHT CORONARY ARTERY: is occluded GRAFTS: MACIEL graft to the 2nd OM is patent TIMBO graft to the LAD is patent Saphenous Vein graft to the Acute Marginal has a mid lesion of 65 % COMPLICATIONS No Complications PROCEDURE MEDICATIONS Fentanyl 50 mcg IV Versed 1 mg IV Versed 1 mg IV Oxygen: 2 L/min via nasal cannula Heparin diluted in 23cc Heparinized saline. Patient given 10cc IA of this solution. 06/14/2018 08:11: 43 Verapamil 2.5mg, Ntg 100mcgs, 2000 units of Heparin diluted in 23cc Heparinized saline. Patient give n 10cc IA of this solution. 06/14/2018 08:11:43 SUMMARY OF HEMODYNAMIC DATA Time AIR REST ECG 07:49:30 AO 117/65 (87) SA 08:13:31 LV 145/6, 15 08:36:58 LV 129/2, 14 08:37:06 LV 121/7, 15 08:38:26 LVp 126/7, 15 08:38:35 AOp 129/56 (84) 08:38:40 Signed By Ángel Sweeney MD On 06/14/2018 09:17:57 Signed By Ángel Sweeney MD On 06/14/2018 09:13:47 Ángel Sweeney MD
== END ==
PROVIDERS: Family Provider Family Medicine; PCP Family Medicine; Visit Provider Internal Medicine Cardiovascular Disease
DX: I27.21 Secondary pulmonary arterial hypertension (principal); I48.1 Persistent atrial fibrillation; I50.22 Chronic systolic (congestive) heart failure; I43 Cardiomyopathy in diseases classified elsewhere; I63.9 Cerebral infarction, unspecified; I25.10 Atherosclerotic heart disease of native coronary artery without angina pectoris; I77.9 Disorder of arteries and arterioles, unspecified; I10 Essential (primary) hypertension; E78.5 Hyperlipidemia, unspecified; Z95.1 Presence of aortocoronary bypass graft
CPT/HCPCS: 36415; 80048; 85025; 85610; 85730; 93459; 99152; 99153; J7040; Q9967; C1769; C1894

== ENCOUNTER → 2019-05-31 09:32 | Outpatient (CLI) | payer BC, SELFPAY ==
[2018-11-19 09:50] VITALS: BMI 36.7
[2019-05-31 12:24] LABS: Anion Gap 8 (5-15); BUN 26 mg/dL (7-18); BUN/Creat Ratio 23.4 RATIO (10-20); Chloride 107 mmol/L (98-107); Cholesterol 156 mg/dL (200); Creatinine, Serum 1.11 mg/dL (0.70-1.30); EST Glomerular Filtration Rate 69 mL/min (>60); Est Glom Filt Rate - Afr Amer 84 mL/min (>60); Glucose 131 mg/dL (74-106); High Density Lipoprotein 40 mg/dL; Potassium 4.2 mmol/L (3.5-5.1); Sodium Level 144 mmol/L (136-145); Triglycerides 65 mg/dL; Very Low Density Lipoprotein 13 mg/dL (5-40)
[2019-05-31 13:00] LABS: Hepatitis C Antibody Non-Reactive (Nonreactive)
[2019-06-01 10:16] LABS: Hemoglobin A1c 6.6 % (4.2-6.3)
== END ==
PROVIDERS: Family Provider Family Medicine; PCP Family Medicine; Referring Provider Family Medicine; Visit Provider Family Medicine
DX: Z00.00 Encounter for general adult medical examination without abnormal findings (principal); E78.5 Hyperlipidemia, unspecified; R73.09 Other abnormal glucose
CPT/HCPCS: 36415; 80048; 80061; 83036; 86803

== ENCOUNTER → 2019-08-26 09:46 | Outpatient (CLI) | payer MEDICARE, SELFPAY ==
[2018-11-19 09:50] VITALS: BMI 36.7
--- NOTE | 2019-08-26 09:59 | CDU_ITS ---
Rt. Velocities/BP Lt. Velocities/BP Prox CCA 88/13 cm/sec. Prox CCA 89/19 cm/sec. Mid CCA 74/13 cm/sec. Mid CCA 74/16 cm/sec. Dist CCA 79/19 cm/sec. Dist CCA 79/14 cm/sec. Prox ICA 1748/37 cm/sec. Prox ICA 239/58 cm/sec. Mid ICA 71/18 cm/sec. Mid ICA 125/23 cm/sec. Dist ICA 78/20 cm/sec. Dist ICA 129/31 cm/sec. Rt. ICA/CCA = 2.0. Lt. ICA/CCA = 2.7. Prox ECA 289/20 cm/sec. Prox ECA 135/16 cm/sec. Rt. Vert. 32/4 cm/sec. Lt. Vert. 62/21 cm/sec. Right Extracranial There is heterogeneous, smooth atherosclerotic plaque noted in the right common carotid artery. There is heterogeneous, irregular atherosclerotic plaque noted in the right internal carotid artery. There is heterogeneous, irregular atherosclerotic plaque noted in the right external carotid artery. Antegrade flow is noted in the right vertebral artery. There is heterogeneous, irregular atherosclerotic plaque noted in the right bulb. Left Extracranial There is heterogeneous, irregular atherosclerotic plaque noted in the left common carotid artery. There is heterogeneous, irregular atherosclerotic plaque noted in the left internal carotid artery. There is heterogeneous, irregular atherosclerotic plaque noted in the left external carotid artery. Antegrade flow is noted in the left vertebral artery. There is heterogeneous, irregular atherosclerotic plaque noted in the left bulb. Procedure Carotid Duplex [id number]. Exam performed in department. Interpretation Summary Moderate (50-69%) stenosis right extracranial internal carotid. Moderate (50-69%) stenosis left extracranial internal carotid. Flow within the vertebral arteries is antegrade bilaterally. The veolcity in right ICA is 178/37 cm/s. Ordering Physician: Jessica Polk Referring Physician: Jessica Polk Performed By: Miroslava Wilson, EDA, RVT
== END ==
PROVIDERS: Family Provider Family Medicine; PCP Family Medicine; Referring Provider Clinical Nurse Specialist Acute Care; Visit Provider Clinical Nurse Specialist Acute Care
DX: I65.23 Occlusion and stenosis of bilateral carotid arteries (principal)
CPT/HCPCS: 93880

== ENCOUNTER → 2019-12-23 12:37 | Outpatient (CLI) | payer MEDICARE, SELFPAY ==
[2019-12-16 15:01] VITALS: BMI 36.7
--- NOTE | 2019-12-23 12:40 | CT_ITS ---
STUDY: CTA NECK WITH CONTRAST REASON FOR EXAM: Male, 74 years old. BILAT CAROTID STENOSIS on US. Prior rt carotid endarterectomy, CABG and CVA RADIATION DOSAGE (If Supplied By Facility): CTDIvol = ( 28.10 ) mGy, DLP = ( 668.16 ) mGycm TECHNIQUE: CT angiography with multi-detector data acquisition was performed from the aortic arch to the skull base following intravenous administration of Isovue 370 100ml. MIP images were reconstructed from the axial data set. Post-processing of the angiographic images was performed, with multiplanar reformation and 3D reconstruction. Individualized dose optimization techniques were used for this CT. COMPARISON: Comparison is made with prior study dated January 18, 2018. FINDINGS: AORTIC ARCH: There is atherosclerotic calcific plaque formation of the aortic arch and great vessels arising from the aortic arch, without a hemodynamically significant stenosis. Atherosclerotic plaque formation at the origin of the left common carotid artery left subclavian artery. RIGHT CAROTID ARTERIES: Normal right common carotid artery (CCA). Normal right common carotid bulb. There is moderate atherosclerotic plaque formation of the origin of the right internal carotid artery with an estimated stenosis of 50-69% stenosis. Normal visualized cervical portion of the right internal carotid artery. Normal origin of the right external carotid artery (ECA). LEFT CAROTID ARTERIES: Normal left common carotid artery (CCA). Normal left common carotid bulb. There is severe atherosclerotic plaque formation of the origin of the left internal carotid artery with a near complete occlusion. Normal visualized cervical portion of the left internal carotid artery. Normal origin of the left external carotid artery (ECA). VERTEBRAL ARTERIES: Normal bilateral vertebral arteries. CT/CTA Neck W/WO Contrast IMPRESSION: Greater than 80% stenosis at the origin of the left internal carotid artery due to calcific plaque. 50-60% stenosis at the origin of the right internal carotid artery. Electronically Signed: Sandeep Leong, at 13:41 EST , Service support ,
[2019-12-23 12:55] LABS: CREATININE FINGERSTICK 0.8 mg/dL (0.70-1.30); EGFR FINGERSTICK > 60.0000 mL/min (>60)
== END ==
PROVIDERS: PCP Family Medicine; Referring Provider Surgery; Visit Provider Surgery
DX: I65.23 Occlusion and stenosis of bilateral carotid arteries (principal)
CPT/HCPCS: 70498; Q9967

== ENCOUNTER 2020-04-02 05:22 | Inpatient (IN) | payer MEDICARE, SELFPAY ==
[2019-12-27 14:01] VITALS: BMI 34.3
--- NOTE | 2020-03-21 08:30 | EKG12_ITS ---
Test Reason : PRE-OP Blood Pressure : / mmHG Vent. Rate : 063 BPM Atrial Rate : 394 BPM P-R Int : 000 ms QRS Dur : 092 ms QT Int : 410 ms P-R-T Axes : 000 066 086 degrees QTc Int : 419 ms Atrial fibrillation Nonspecific ST abnormality Abnormal ECG Confirmed by MALVIN RUTHERFORD ([id number]), photographic editor SAMIA KING ([id number]) on 03/30/2020 10:32:33 AM Referred By: Nakul Humphreys Confirmed By:MALVIN RUTHERFORD
[2020-03-21 09:11] LABS: Hematocrit 38.4 % (40-54); Hemoglobin 12.9 g/dL (13.0-16.5); Mean Corp Hgb Conc 33.6 g/dL (32-36); Mean Corpuscular Hgb 34.2 pg (27.0-32.0); Mean Corpuscular Volume 101.9 fL (80-94); Mean Platelet Vol. 10.2 fl (6.2-12.0); Platelet Count 157 K/mm3 (150-450); RBC Distribution Width CV 13.2 % (11.6-14.6); RBC Distribution Width SD 49.6 fl (35.1-43.9); Red Blood Count 3.77 M/mm3 (4.6-6.2); White Blood Count 4.2 K/mm3 (4.4-11.0)
[2020-03-21 09:24] LABS: Hemoglobin A1c 6.4 % (4.2-6.3)
[2020-03-21 09:25] LABS: Anion Gap 4 (5-15); BUN 20 mg/dL (7-18); BUN/Creat Ratio 17.1 RATIO (10-20); Calcium,Total 9.1 mg/dL (8.5-10.1); Chloride 106 mmol/L (98-107); Creatinine, Serum 1.17 mg/dL (0.70-1.30); EST Glomerular Filtration Rate 65 mL/min (>60); Est Glom Filt Rate - Afr Amer 79 mL/min (>60); Glucose 139 mg/dL (74-106); Potassium 4.6 mmol/L (3.5-5.1); Sodium Level 140 mmol/L (136-145)
--- NOTE | 2020-03-21 10:05 | PCM.HP.BLA ---
Problem List (1) Carotid arterial disease Status: Chronic History and Physical Date of Admission: 03/22/20 [facility] [address] [place] [address] OFFICE VISIT Date of Service: 03/21/20 MR#:[id number] Name: HOLLIE ODEN Rep #:[id number] :1945 Provider:Renata Bruno PA-C Age/Sex: 74/M Location: [facility] Status:Signed Intake Vital Signs 03/21/20 Height 5 ft 5.5 in 03/21/20 Weight: 205 lb 8 oz 03/21/20 BMI 33.6 03/21/20 BP 178/78 H 03/21/20 Blood Pressure Location Rt brachial 03/21/20 Position Sitting 03/21/20 Respiration 18 03/21/20 Pulse 70 03/21/20 Pulse Oximetry (%) 99 Intake Visit Reasons: update h&p L CEA 3- Chief Complaint: left CEA Alarm Signaler Required: No Is patient in pain?: No Allergies atorvastatin [From Lipitor] Adverse Reaction (Severe, Verified 03/21/20 08:08) Myalgias rosuvastatin [From Crestor] Adverse Reaction (Severe, Verified 03/21/20 08:08) Myalgias Medications Apixaban [Eliquis] 5 mg PO BID #60 tab 01/27/18 [Rx Confirmed 03/21/20] aspirin 81 mg tablet,delayed release 81 mg PO QDAY 06/09/18 [History Confirmed 03/21/20] metformin 500 mg tablet 500 mg PO DAILY 12/16/19 [History Confirmed 03/21/20] Carvedilol 25 mg PO BID 03/20/20 [History Confirmed 03/21/20] Furosemide 40 mg PO BID 03/20/20 [History Confirmed 03/21/20] Losartan Potassium 100 mg PO QDAY 03/20/20 [History Confirmed 03/21/20] Potassium Chloride 40 meq PO DAILY 03/20/20 [History Confirmed 03/21/20] Pravastatin Sodium 80 mg PO QHS 03/20/20 [History Confirmed 03/21/20] [facility] Medical History Secondary pulmonary arterial hypertension (Chronic) Persistent atrial fibrillation (Chronic) Chronic systolic (congestive) heart failure (Chronic) Cardiomyopathy in disease classified elsewhere (Chronic) CVA (cerebral vascular accident) (Chronic) Atherosclerotic heart disease of [place] coronary artery without angina pectoris (Chronic) Carotid arterial disease (Chronic) HTN (hypertension) (Chronic) HLD (hyperlipidemia) (Chronic) Obesity (BMI 30.0-34.9) (Chronic) Positive colorectal cancer screening using Cologuard test (Acute) Right sided weakness (Inactive) Surgical History Hx of tonsillectomy (Resolved) History of left heart catheterization (Chronic 06/14/18) Presence of aortocoronary bypass graft (Chronic 02/13/00) History of right-sided carotid endarterectomy (Acute) Family History Mother Breast cancer Hypertension Grandmother Heart disease Father Heart disease Hypertension Social History (Updated 03/21/20 @ 10:03 by Renata Bruno PA-C) Smoking Status: Never smoker alcohol intake: current alcohol intake frequency: holidays/special occasions only caffeine: Yes Type: coffee Number of servings: 3 HPI HPI Surgical H&P: Yes HPI: HOLLIE ODEN, is a 74 M who presents to the office today for an update history and physical. Patient was treated for bronchitis which postponed his surgery. Patient denies shortness of breath and chest pain. Patient denies recent hospitalizations. He is scheduled to undergo carotid surgery tomorrow. Patient's previous history per Dr. Humphreys: HOLLIE ODEN is a 74 M who presents to the office today for surgical consultation regarding a history of left hemispheric CVA December 2017. The patient had right upper and lower extremity weakness which gradually improved with therapy. On January 18, 2018 the patient had CTA of the neck which at that point suggested that there was a patent distal right common carotid stent and 50% narrowing of the right internal carotid. A carotid duplex exam in January 18 did not make comment regarding a stent. The patient was being evaluated for colonoscopy in the history of extracranial carotid disease was reiterated. A more recent carotid duplex exam August 28, 2019 suggests 50 to 69% stenosis of the right internal carotid and greater than 70% stenosis of the left internal carotid. Again no history of right carotid stenting is made but there is a suggested history of right carotid endarterectomy. The patient had a CTA of the carotids performed at [facility] on December 23, 2019. There is felt to be 50 to 69% stenosis of the right internal carotid. There is felt to be greater than 80% stenosis of the left internal carotid. It is for this reason the patient is referred for consultation. He denies orthostasis. He leads a very sedentary life. He denies chest pain no shortness of breath. He does not do a lot of ambulation. He denies any focal neurologic changes. Denies any focal visual changes. He is on Eliquis both for cardiac disease atrial fibrillation and his history of stroke. Although he had a left hemispheric event likely origin from the left carotid December 2017 he did not have intervention the carotid at that time [facility] [address] [place] [address] CTA Neck W/WO Contrast MR#: [id number] Name: HOLLIE ODEN [facility] #:[id number] : 1945M 74 From: Sandeep Leong MD PCP:Herson Terrell MD Status:REG CLI Study:CTA Neck W/WO Contrast Date of Exam:12/23/19 Exam#[id number] Ordering Dr: Bill Jackson MD STUDY: CTA NECK WITH CONTRAST REASON FOR EXAM: Male, 74 years old. BILAT CAROTID STENOSIS on US. Prior rt carotid endarterectomy, CABG and CVA RADIATION DOSAGE (If Supplied By Facility): CTDIvol = ( 28.10 ) mGy, DLP = ( 668.16 ) mGycm TECHNIQUE: CT angiography with multi-detector data acquisition was performed from the aortic arch to the skull base following intravenous administration of Isovue 370 100ml. MIP images were reconstructed from the axial data set. Post-processing of the angiographic images was performed, with multiplanar reformation and 3D reconstruction. Individualized dose optimization techniques were used for this CT. COMPARISON: Comparison is made with prior study dated January 18, 2018. FINDINGS: AORTIC ARCH: There is atherosclerotic calcific plaque formation of the aortic arch and great vessels arising from the aortic arch, without a hemodynamically significant stenosis. Atherosclerotic plaque formation at the origin of the left common carotid artery left subclavian artery. RIGHT CAROTID ARTERIES: Normal right common carotid artery (CCA). Normal right common carotid bulb. There is moderate atherosclerotic plaque formation of the origin of the right internal carotid artery with an estimated stenosis of 50-69% stenosis. Normal visualized cervical portion of the right internal carotid artery. Normal origin of the right external carotid artery (ECA). LEFT CAROTID ARTERIES: Normal left common carotid artery (CCA). Normal left common carotid bulb. There is severe atherosclerotic plaque formation of the origin of the left internal carotid artery with a near complete occlusion. Normal visualized cervical portion of the left internal carotid artery. Normal origin of the left external carotid artery (ECA). VERTEBRAL ARTERIES: Normal bilateral vertebral arteries. CT/CTA Neck W/WO Contrast IMPRESSION: Greater than 80% stenosis at the origin of the left internal carotid artery due to calcific plaque. 50-60% stenosis at the origin of the right internal carotid artery. Electronically Signed: Sandeep Leong, at 13:41 EST , Service support , [facility] [address] [place] [id number] Carotid Duplex Ultrasound 08/26/19 1010 MR#: [id number] Name:HOLLIE ODEN [facility] #:[id number] : 1945 74From:Pedro Metzger MD Attending Dr: Jessica Polk, CNSStatus: REG CLI Ordering Dr: Jessica Polk SCREENING TECH-CDate: 08/26/19 Location:[facility]ex: Admitted: Rt. Velocities/BP Lt. Velocities/BP Prox CCA 88/13 cm/sec. Prox CCA 89/19 cm/sec. Mid CCA 74/13 cm/sec. Mid CCA 74/16 cm/sec. Dist CCA 79/19 cm/sec. Dist CCA 79/14 cm/sec. Prox ICA 1748/37 cm/sec. Prox ICA 239/58 cm/sec. Mid ICA 71/18 cm/sec. Mid ICA 125/23 cm/sec. Dist ICA 78/20 cm/sec. Dist ICA 129/31 cm/sec. Rt. ICA/CCA = 2.0. Lt. ICA/CCA = 2.7. Prox ECA 289/20 cm/sec. Prox ECA 135/16 cm/sec. Rt. Vert. 32/4 cm/sec. Lt. Vert. 62/21 cm/sec. Right Extracranial There is heterogeneous, smooth atherosclerotic plaque noted in the right common carotid artery. There is heterogeneous, irregular atherosclerotic plaque noted in the right internal carotid artery. There is heterogeneous, irregular atherosclerotic plaque noted in the right external carotid artery. Antegrade flow is noted in the right vertebral artery. There is heterogeneous, irregular atherosclerotic plaque noted in the right bulb. Left Extracranial There is heterogeneous, irregular atherosclerotic plaque noted in the left common carotid artery. There is heterogeneous, irregular atherosclerotic plaque noted in the left internal carotid artery. There is heterogeneous, irregular atherosclerotic plaque noted in the left external carotid artery. Antegrade flow is noted in the left vertebral artery. There is heterogeneous, irregular atherosclerotic plaque noted in the left bulb. Procedure Carotid Duplex 35846. Exam performed in department. Interpretation Summary Moderate (50-69%) stenosis right extracranial internal carotid. Moderate (50-69%) stenosis left extracranial internal carotid. Flow within the vertebral arteries is antegrade bilaterally. The veolcity in right ICA is 178/37 cm/s. Ordering Physician: Jessica Polk Referring Physician: Jessica Polk Performed By: Miroslava Wilson, ALICIACS, RVT 08/27/191730 Date Pedro Metzger MD CC: ADULT EDUCATION MANAGER Jessica Polk; Herson Terrell MD ~ Date Dictated:08/26/19 1010 Date Transcribed: 08/27/191730 ROS General General: No weight change, appetite, fatigue, colon cancer, breast cancer or weakness HEENT HEENT: No difficulty swallowing, eye injury, eye surgery, swollen glands or hoarseness Endo Endocrine: No thyroid disease, diabetes mellitus, thyroid cancer, Hair loss, heat intolerance or cold intolerance Skin Skin: No rash or changing moles Breast Breast: No left breast lump, right breast lump, nipple discharge, breast pain, abnormal mammogram, abnormal US or breast enlargement Musc Musculoskeletal: No back problems, arthritis, rheumatoid arthritis, gout or joint pain Cardio Cardiovascular: Yes high blood pressure, heart attack and heart stent; no murmur, pacemaker, heart disease, atrial fibrillation, palpitations, shortness of breat with exertion or chest pain Psych Psychiatric: No depression, anxiety or hearing voices Resp Respiratory: No shortness of breath, No sleep apnea, No cough, No COPD, No asthma, No emphysema, No wheezing Gastro Gastrointestinal: No abdominal pain, No nausea or vomiting, No diarrhea, No constipation, No blood in stool, Yes acid reflux, No hemorrhoids, No ulcers, No gallbladder problem, No black,tarry stools Kashif Hematologic: No blood thinners, No blood disorders, No bleeding, No anemia, No blood clots Neuro Neurologic: No weakness Exam Const General: cooperative, healthy appearing, comfortable, no acute distress [facility] Head: normal to inspection Eyes General: appearance normal, both eyes and all related structures Neck Neck: normal visual inspection Neck mass: No Chest Breast Palpation: No nipple discharge Resp Effort & Inspection: normal respiratory effort Auscultation: clear to auscultation bilaterally Cardio Rate: regular rate Rhythm: regular rhythm Heart Sounds: no murmurs GI Inspection: normal to inspection, obesity Palpation: soft Auscultation: normal bowel sounds Skin General: no rashes or lesions noted Neuro General: no focal motor deficits, CN's II-XI intact bilaterally Extrem General: normal to inspection Psych Appearance: grossly normal Affect: normal affect Assessment & Plan Problems 1. Stenosis of left carotid artery I65.[address] Humphreys will plan to perform a left carotid endarterectomy with bovine patch angioplasty. Patient will hold his Eliquis for 48 hours pre-op and continue his aspirin. Patient has been holding his Eliquis since yesterday. Patient has had the opportunity to ask and have questions answered. Patient verbally understands and agrees with the plan. Essential Procedure Criteria Procedure Essential: Yes Criteria Note: On 02/14/2020 the [facility] ([facility]) Public Order signed by [facility] Director Jessi Roberts M.D., regarding the Management of Non-Essential Surgeries and Procedures for the purpose of preserving Personal Protective Equipment (PPE) and critical hospital capacity and resources within [place] went into effect as of 02/15/2020 at 5:00PM. According to the [facility] Public Order: This action will remain in full force and effect until the State of Emergency declared by the Governor no longer exists or the Director of the [facility] rescinds or modifies this Order.. This [facility] order stated all non-essential or elective surgeries and procedures that utilize PPE should be delayed unless there is undue risk to the current or future health of a patient. After reviewing the aforementioned [facility] Public Order and the patients clinical case, I have determined that the scheduled procedure meets the criteria to go forward. Risk to Patient if Procedure Delayed: Threat to patient's life if surgery or procedure is not performed
--- NOTE | 2020-03-21 17:44 | NURSING ---
Patient notified via phone call to verify that pt has been made aware surgery is cancelled. Female who answered pt's phone states that she received a phone call from Dr Sweeney's office that said surgery is cancelled bc pt needs to see heart doctor first. Female said she called Dr Humphreys's office and spoke with Belen regarding Patel's office's message. pt is aware his surgery is cancelled per female who answered pt's phone.
[2020-03-22 08:50] VITALS: BMI 33.4
[2020-03-24] MEDS: Lactated Ringers 1,000 ML 15 ML IV (07:00)
[2020-04-02] VITALS (24 sets, daily range): BP systolic 87–147; BP diastolic 41–71; PULSE 37–85; RESP 16–22; TEMP 36.1–36.9; O2SAT 95–100; BMI 33.3
--- NOTE | 2020-04-02 | PLAQ_PTH ---
PATIENT: HOLLIE ODEN LOC: [facility] U#:[id number] AGE/SX: 74/M ROOM: [facility] RE04/02/[address]: Dr. Annie Martinez MD : 1945 BED: 1 DIS: 04/03/2020 SPEC #: [id number] RECD: 04/02/20 10:16 STATUS: RAJANI SUHAS #: [id number] IAN: 04/02/20 00:[address]: Nakul Humphreys DEPT: SURGICAL PATHOLOGY RECD BY: Teofilo Powell ENTERED: 04/02/20 12:53 SP TYPE: PLAQUE OTHR DR: Dr. Herson Terrell MD Tissues: PLAQUE Procedures: Decalcification bone/plaque Surgery Specimen Level III HEADER OPERATION: Left carotid endarterectomy with patch angioplasty PRE-OP DIAGNOSIS: Stenosis of left carotid artery I65.22 TISSUE SUBMITTED: Left carotid artery plaque MICROSCOPIC DIAGNOSIS Left carotid plaque, endarterectomy: Calcified atheromatous plaque consistent with severe stenosis. AM:fredo 04/04/20 GROSS DESCRIPTION Received in fixative is one container labeled with the patient's name and designated left carotid artery plaque. The specimen consists of a previously opened tubular piece of kumar-yellow, indurated tissue measuring 2 cm in length and up to 1 cm in diameter. It appears to be almost completely obliterated. Also present in the container is a detached piece of kumar-yellow, indurated tissue measuring 2 x 0.3 x 0.1 cm. The larger piece of tissue cuts with gritty sensation. The entire specimen is submitted in one cassette after decalcification. / SJ:fredo 04/02/20 TC:5 CPT: 88457, 87083
[2020-04-02 06:06] LABS: Bedside Glucose 150 mg/dL (70-110)
[2020-04-02] MEDS: Lactated Ringers 1,000 ML 15 ML IV ×3 (06:20→11:41)
--- NOTE | 2020-04-02 06:31 | HP.PCM_ITS ---
Problem List (1) Carotid artery stenosis Status: Chronic Qualifiers: Laterality: left Qualified Code(s): I65.22 - Occlusion and stenosis of left carotid artery Comment: Left CEA History and Physical Date of Admission: 04/02/20 Intake Visit Reasons: update h&p L CEA 02-20 Chief Complaint: left CEA Lead Performance Support Analyst Required: No Is patient in pain?: No Allergies atorvastatin [From Lipitor] Adverse Reaction (Severe, Verified 03/21/20 08:08) Myalgias rosuvastatin [From Crestor] Adverse Reaction (Severe, Verified 03/21/20 08:08) Myalgias Medications Apixaban [Eliquis] 5 mg PO BID #60 tab 01/27/18 [Rx Confirmed 03/21/20] aspirin 81 mg tablet,delayed release 81 mg PO QDAY 06/09/18 [History Confirmed 03/21/20] metformin 500 mg tablet 500 mg PO DAILY 12/16/19 [History Confirmed 03/21/20] Carvedilol 25 mg PO BID 03/20/20 [History Confirmed 03/21/20] Furosemide 40 mg PO BID 03/20/20 [History Confirmed 03/21/20] Losartan Potassium 100 mg PO QDAY 03/20/20 [History Confirmed 03/21/20] Potassium Chloride 40 meq PO DAILY 03/20/20 [History Confirmed 03/21/20] Pravastatin Sodium 80 mg PO QHS 03/20/20 [History Confirmed 03/21/20] [facility] Medical History Secondary pulmonary arterial hypertension (Chronic) Persistent atrial fibrillation (Chronic) Chronic systolic (congestive) heart failure (Chronic) Cardiomyopathy in disease classified elsewhere (Chronic) CVA (cerebral vascular accident) (Chronic) Atherosclerotic heart disease of [place] coronary artery without angina pectoris (Chronic) Carotid arterial disease (Chronic) HTN (hypertension) (Chronic) HLD (hyperlipidemia) (Chronic) Obesity (BMI 30.0-34.9) (Chronic) Positive colorectal cancer screening using Cologuard test (Acute) Right sided weakness (Inactive) Surgical History Hx of tonsillectomy (Resolved) History of left heart catheterization (Chronic 06/14/18) Presence of aortocoronary bypass graft (Chronic 02/13/00) History of right-sided carotid endarterectomy (Acute) Family History Mother Breast cancer Hypertension Grandmother Heart disease Father Heart disease Hypertension Social History (Updated 03/21/20 @ 10:03 by Renata Bruno PA-C) Smoking Status: Never smoker alcohol intake: current alcohol intake frequency: holidays/special occasions only caffeine: Yes Type: coffee Number of servings: 3 HPI HPI Surgical H&P: Yes HPI: HOLLIE ODEN is a 74 M who presents to the office today for an update history and physical. Patient was treated for bronchitis which postponed his parrish rgery. Patient denies shortness of breath and chest pain. Patient denies recent hospitalizations. He is scheduled to undergo carotid surgery tomorrow. Patient's previous history per Dr. Humphreys: HOLLIE ODEN is a 74 M who presents to the office today for surgical consultation regarding a history of left hemispheric CVA December 2017. The patient had right upper and lower extremity weakness which gradually improved with therapy. On January 18, 2018 the patient had CTA of the neck which at that point suggested that there was a patent distal right common carotid stent and 50% narrowing of the right internal carotid. A carotid duplex exam in January 18 did not make comment regarding a stent. The patient was being evaluated for colonoscopy in the history of extracranial carotid disease was reiterated. A more recent carotid duplex exam August 28, 2019 suggests 50 to 69% stenosis of the right internal carotid and greater than 70% stenosis of the left internal carotid. Again no history of right carotid stenting is made but there is a suggested history of right carotid endarterectomy. The patient had a CTA of the carotids performed at the [facility] 2019. There is felt to be 50 to 69% stenosis of the right internal carotid. There is felt to be greater than 80% stenosis of the left internal carotid. It is for this reason the patient is referred for consultation. He denies orthostasis. He leads a very sedentary life. He denies chest pain no shortness of breath. He does not do a lot of ambulation. He denies any focal neurologic changes. Denies any focal visual changes. He is on Eliquis both for cardiac disease atrial fibrillation and his history of stroke. Although he had a left hemispheric event likely origin from the left carotid December 2017 he did not have intervention the carotid at that time [facility] Imaging Services [address] [place] [address] CTA Neck W/WO Contrast MR#: [id number] Name: HOLLIE ODEN [facility] #:[id number] : 7M 74 From: Sandeep Leong MD PCP:Herson Terrell MD Status:REG CLI Study:CTA Neck W/WO Contrast Date of Exam:12/23/19 Exam#[id number] Ordering Dr: Bill Jackson MD STUDY: CTA NECK WITH CONTRAST REASON FOR EXAM: Male, 74 years old. BILAT CAROTID STENOSIS on US. Prior rt carotid endarterectomy, CABG and CVA RADIATION DOSAGE (If Supplied By Facility): CTDIvol = ( 28.10 ) mGy, DLP = ( 668.16 ) mGycm TECHNIQUE: CT angiography with multi-detector data acquisition was performed from the aortic arch to the skull base following intravenous administration of Isovue 370 100ml. MIP images were reconstructed from the axial data set. Post-processing of the angiographic images was performed, with multiplanar reformation and 3D reconstruction. Individualized dose optimization techniques were used for this CT. COMPARISON: Comparison is made with prior study dated January 18, 2018. FINDINGS: AORTIC ARCH: There is atherosclerotic calcific plaque formation of the aortic arch and great vessels arising from the aortic arch, without a hemodynamically significant stenosis. Atherosclerotic plaque formation at the origin of the left common carotid artery left subclavian artery. RIGHT CAROTID ARTERIES: Normal right common carotid artery (CCA). Normal right common carotid bulb. There is moderate atherosclerotic plaque formation of the origin of the right internal carotid artery with an estimated stenosis of 50-69% stenosis. Normal visualized cervical portion of the right internal carotid artery. Normal origin of the right external carotid artery (ECA). LEFT CAROTID ARTERIES: Normal left common carotid artery (CCA). Normal left common carotid bulb. There is severe atherosclerotic plaque formation of the origin of the left internal carotid artery with a near complete occlusion. Normal visualized cervical portion of the left internal carotid artery. Normal origin of the left external carotid artery (ECA). VERTEBRAL ARTERIES: Normal bilateral vertebral arteries. CT/CTA Neck W/WO Contrast IMPRESSION: Greater than 80% stenosis at the origin of the left internal carotid artery due to calcific plaque. 50-60% stenosis at the origin of the right internal carotid artery. Electronically Signed: Sandeep Dang, at 13:41 EST , Service support , [facility] Cardiovascular Services [address] [place] [address] [place] [address] Carotid Duplex Ultrasound 08/26/19 1010 MR#: [id number] Name:HOLLIE ODEN [facility] #:[id number] : 1945 74From:Pedro Metzger MD Attending Dr: Jessica Polk, CNSStatus: REG CLI Ordering Dr: Jessica Polk LUMBER KILN OPERATOR-CDate: 08/26/19 [facility]: Admitted: Rt. Velocities/BP Lt. Velocities/BP Prox CCA 88/13 cm/sec. Prox CCA 89/19 cm/sec. Mid CCA 74/13 cm/sec. Mid CCA 74/16 cm/sec. Dist CCA 79/19 cm/sec. Dist CCA 79/14 cm/sec. Prox ICA 1748/37 cm/sec. Prox ICA 239/58 cm/sec. Mid ICA 71/18 cm/sec. Mid ICA 125/23 cm/sec. Dist ICA 78/20 cm/sec. Dist ICA 129/31 cm/sec. Rt. ICA/CCA = 2.0. Lt. ICA/CCA = 2.7. Prox ECA 289/20 cm/sec. Prox ECA 135/16 cm/sec. Rt. Vert. 32/4 cm/sec. Lt. Vert. 62/21 cm/sec. Right Extracranial There is heterogeneous, smooth atherosclerotic plaque noted in the right common carotid artery. There is heterogeneous, irregular atherosclerotic plaque noted in the right internal carotid artery. There is heterogeneous, irregular atherosclerotic plaque noted in the right external carotid artery. Antegrade flow is noted in the right vertebral artery. There is heterogeneous, irregular atherosclerotic plaque noted in the right bulb. Left Extracranial There is heterogeneous, irregular atherosclerotic plaque noted in the left common carotid artery. There is heterogeneous, irregular atherosclerotic plaque noted in the left internal carotid artery. There is heterogeneous, irregular atherosclerotic plaque noted in the left external carotid artery. Antegrade flow is noted in the left vertebral artery. There is heterogeneous, irregular atherosclerotic plaque noted in the left bulb. Procedure Carotid Duplex [id number]. Exam performed in department. Interpretation Summary Moderate (50-69%) stenosis right extracranial internal carotid. Moderate (50- 69%) stenosis left extracranial internal carotid. Flow within the vertebral arteries is antegrade bilaterally. The veolcity in right ICA is 178/37 cm/s. Ordering Physician: Jessica Polk Referring Physician: Jessica Polk Performed By: Miroslava Wilson, EDA, RVT 08/27/191730 Date Pedro Metzger MD CC: WATCH REPAIRER Jessica Polk; Herson Terrell MD ~ Date Dictated:08/26/19 1010 Date Transcribed: 08/27/191730 ROS General General: No weight change, appetite, fatigue, colon cancer, breast cancer or weakness HEENT HEENT: No difficulty swallowing, eye injury, eye surgery, swollen glands or hoarseness Endo Endocrine: No thyroid disease, diabetes mellitus, thyroid cancer, Hair loss, heat intolerance or cold intolerance Skin Skin: No rash or changing moles Breast Breast: No left breast lump, right breast lump, nipple discharge, breast pain, abnormal mammogram, abnormal US or breast enlargement Musc Musculoskeletal: No back problems, arthritis, rheumatoid arthritis, gout or joint pain Cardio Cardiovascular: Yes high blood pressure, heart attack and heart stent; no murmur, pacemaker, heart disease, atrial fibrillation, palpitations, sh ortness of breat with exertion or chest pain Psych Psychiatric: No depression, anxiety or hearing voices Resp Respiratory: No shortness of breath, No sleep apnea, No cough, No COPD, No asthma, No emphysema, No wheezing Gastro Gastrointestinal: No abdominal pain, No nausea or vomiting, No diarrhea, No constipation, No blood in stool, Yes acid reflux, No hemorrhoids, No ulcers, No gallbladder problem, No black,tarry stools Kashif Hematologic: No blood thinners, No blood disorders, No bleeding, No anemia, No blood clots Neuro Neurologic: No weakness Exam Const General: cooperative, healthy appearing, comfortable, no acute distress HENMT Head: normal to inspection Eyes General: appearance normal, both eyes and all related structures Neck Neck: normal visual inspection Neck mass: No Chest Breast Palpation: No nipple discharge Resp Effort & Inspection: normal respiratory effort Auscultation: clear to auscultation bilaterally Cardio Rate: regular rate Rhythm: regular rhythm Heart Sounds: no murmurs GI Inspection: normal to inspection, obesity Palpation: soft Auscultation: normal bowel sounds Skin General: no rashes or lesions noted Neuro General: no focal motor deficits, CN's II-XI intact bilaterally Extrem General: normal to inspection Psych Appearance: grossly normal Affect: normal affect Assessment & Plan Problems 1. Stenosis of left carotid artery I65.[address] Humphreys will plan to perform a left carotid endarterectomy with bovine patch angioplasty. Patient will hold his Eliquis for 48 hours pre-op and continue his aspirin. Patient has been holding his Eliquis since yesterday. Patient has had the opportunity to ask and have questions answered. Patient verbally understands and agrees with the plan. Essential Procedure Criteria Procedure Essential: Yes Criteria Note: On 02/14/2020 the [place] Department of Health ([facility]) Public Order signed by [facility] Director Jessi Roberts M.D., regarding the Management of Non-Es sential Surgeries and Procedures for the purpose of preserving Personal Protective Equipment (PPE) and critical hospital capacity and resources within [place] went into effect as of 02/15/2020 at 5:00PM. According to the [facility] Public Order: This action will remain in full force and effect until the State of Emergency declared by the Governor no longer exists or the Director of the [facility] rescinds or modifies this Order.. This [facility] order stated all non-essential or elective surgeries and procedures that utilize PPE should be delayed unless there is undue risk to the current or future health of a patient. After reviewing the aforementioned [facility] Public Order and the patients clinical case, I have determined that the scheduled procedure meets the criteria to go forward. Risk to Patient if Procedure Delayed: Threat to patient's life if surgery or procedure is not performed 03/21/20 1008 <Electronically signed by Renata mathis PA-C> Date _ Renata Bruno PA-C I have re-examined the patient. There are no clinical changes since date of exam. Essential Procedure Criteria Procedure Essential: Yes Criteria Note: On 02/14/2020 the [place] Department of [facility] ([facility]) Public Order signed by [facility] Director Jessi Roberts M.D., regarding the Management of Non- Essential Surgeries and Procedures for the purpose of preserving Personal Protective Equipment (PPE) and critical hospital capacity and resources within [place] went into effect as of 02/15/2020 at 5:00PM. According to the [facility] Public Order: This action will remain in full force and effect until the State of Emergency declared by the Governor no longer exists or the Director of the [facility] rescinds or modifies this Order.. This [facility] order stated all non-essential or elective surgeries and procedures that utilize PPE should be delayed unless there is undue risk to the current or future health of a patient. After reviewing the aforementioned [facility] Public Order and the patients clinical case, I have determined that the scheduled procedure meets the criteria to go forward. Risk to Patient if Procedure Delayed: Risk of rapidly worsening to severe symptoms if delayed
--- NOTE | 2020-04-02 06:36 | DCINST_ITS ---
Discharge Diet: Light diet - advance as tolerated - if you have questions about your diet instructions, please talk to you doctor. Discharge Activity: May Not Drive - for 1 week or while taking narcotic pain medicine. May shower in (days): 3 - May shower on Thursday Lifting Restrictions: 10 pounds Call your doctor if your incision/area has: Continuous Slow Oozing, Sudden Increased Bleeding, Increased Pain/ Swelling, Increased Redness, Foul Smelling Discharge Call your doctor if you observe: Fever of 101 or Higher Suture Line Care: Avoid Pulling/Pushing, Avoid Pinching/Bending Additional Dressing/Incision Instructions:: Leave steri-strips in place for 1 week. You may cover the incision with gauze and tape if there is any irritation from clothing Allergies/Adverse Reactions: Allergies atorvastatin [From Lipitor] Adverse Reaction (Severe, Verified 04/02/20 05:39) Myalgias rosuvastatin [From Crestor] Adverse Reaction (Severe, Verified 04/02/20 05:39) Myalgias Medications to take at Discharge Apixaban [Eliquis] 5 mg PO BID #60 tab 01/27/18 aspirin 81 mg tablet,delayed release 81 mg PO QDAY 06/09/18 metformin 500 mg tablet 500 mg PO DAILY 12/16/19 Carvedilol 25 mg PO BID 03/20/20 Furosemide 40 mg PO BID 03/20/20 Losartan Potassium 100 mg PO QDAY 03/20/20 Potassium Chloride 40 meq PO DAILY 03/20/20 Pravastatin Sodium 80 mg PO QHS 03/20/20 Amlodipine Besylate 2.5 mg PO DAILY 04/02/20 Primary Care Physician: Herson Terrell MD [Primary Care Provider] - Test Results: Test results from this visit will be discussed in further detail at your follow- up appointment, if applicable. Please Follow Up With: Nakul Humphreys MD - [phone] When: Call to make an appointment to be seen in about 10 days.
--- NOTE | 2020-04-02 06:38 | OP.PCM_ITS ---
Problem List (1) Carotid artery stenosis Status: Chronic Qualifiers: Laterality: left Qualified Code(s): I65.22 - Occlusion and stenosis of left carotid artery Comment: Left CEA Report of Operation Date of Procedure: 04/02/20 Pre-Operative Diagnosis: Symptomatic critical stenosis left extracranial internal carotid Post-Operative Diagnosis: Same Surgery/Procedure Performed:: Right radial arterial line placement. Left carotid endarterectomy with bovine patch angioplasty Description of Surgical Findings:: Timeout and informed consent was obtained. At the bedside Tim test was performed. This demonstrated adequate ulnar flow. Wrist was gently extended prepped with Betadine. Under ultrasound guidance 1% lidocaine was used as local anesthetic. A 20-gauge Arrow Angiocath cath kit was under ultrasound guidance advanced into the artery and then with Seldinger wire advancement easily advanced. It was secured to the skin with 3-0 silk. Was attached to the pressure tubing. OpSite dressing and Sahara wrap applied. Good waveform was obtained. The patient tolerated the procedure well with minimal blood loss no apparent complication. He was subsequently taken to the operating room for planned definitive surgery. Timeout and informed consent was obtained. The patient was taken to the o perating placed supine on the table and underwent general endotracheal intubation anesthesia. The left neck was sterilely prepped and draped. Ancef 2 g were given intravenously preoperatively. An oblique incision was made along the anterior border the sternocleidomastoid. Sharp dissection was. Down through the subcutaneous tissues. Sharp and blunt dissection was used to identify the common carotid internal carotid and external carotid arteries. This was rather tedious because of the patient's size of his neck and depth of the vessels. However I was able to get circumferential control of the internal carotid place Dacron tape and Celia tourniquet. Circumferential control of the common carotid and a Ramesh tie of Dacron tape. Circumferential control of the external carotid with a vessel loop and of the superior thyroid with a Ramesh tie of 3-0 Vicryl. The patient received 9000 units of heparin weight-based. After adequate circulating time peripheral vascular clamps were placed on the internal carotid common carotid and external carotid. A 11 blade was used to make arteriotomy this was very difficult to the calcific nature of the disease. I used a large Ramesh scissors to cut through the plaque. I was placing a #10 USCI style shunt and upon releasing internal carotid clamp there was huge amount of backflow. With that in mind elected not to shunt. Did an endarterectomy of the layer of the external elastic lamina. The plaque was sharply transected proximally at the common carotid it was feathered at the internal carotid and a inversion endarterectomy was performed of the external carotid. Further debris was carefully removed with fine forceps. A single tacking suture was placed apically at the internal carotid with 7-0 Prolene. A 0.8 x 8 cm bovine patch wa s utilized. Shape to form and then a patch angioplasty created with a running 6-0 Prolene. Prior to completion there was continued great antegrade flow from the common carotid good antegrade retrograde flow from the internal and external carotids. The vessel was irrigated the patch angioplasty was completed several repair sutures of 7-0 Prolene were required initial clamps were released from th e external carotid common carotid and find the internal carotid. Total clamp time was 45 minutes. Protamine was given to a total of 30 mg. ACT monitoring was used during the procedure and was checked at the completion of the procedure for reversal. Was good flow. Cerebral oximetry had remained stable throughout particularly with correction of blood pressure during the procedure. The wound was closed with a deep layer of running 3-0 Vicryl. The skin edges approximate the running septic or 5-0 Vicryl. The debra-incisional areas anesthetized with 0.5% Marcaine a total 10 cc. Steri-Strips Telfa and OpSite dressings applied. Sponge and instrument and needle counts were reported to the surgeon to be correct. The patient was allowed to wake on the table and was felt to be neurologically intact. He was taken to the recovery area in satisfactory condition without apparent complication. Specimen plaque. Drains none. Blood loss 300 cc. Nakul Humhpreys M.D., F.A.C.S. Type of Anesthesia:: General Anesthesiologist: Federica Izaguirre
[2020-04-02] MEDS: Cefazolin 2 GM in 0.9% Normal Saline 100 ML IV (07:12)
[2020-04-02] MEDS: Heparin Injection (Vial) 5,000 UNIT/ML VIAL 5000 UNIT (09:10)
[2020-04-02] MEDS: Bupivacaine Mpf 0.5% 30 ML VIAL (09:27)
[2020-04-02 09:35] LABS: ACT Activated Clotting Time 131 sec (74-137)
[2020-04-02 09:35] LABS: ACT Activated Clotting Time 197 sec (74-137)
[2020-04-02 09:41] LABS: ACT Activated Clotting Time 131 sec (74-137)
[2020-04-02 10:41] LABS: Bedside Glucose 143 mg/dL (70-110)
--- NOTE | 2020-04-02 13:38 | NURSING ---
called and talked to Kendra [employer] about pt's heartrate. aware per her pt would dip into 30's with coughing fit then come back up. states gave primary RN bedside report regarding heartrate. Aware primary RN paging Dr. Humphreys
--- NOTE | 2020-04-02 13:48 | EKG12_ITS ---
Test Reason : A-FIB, FE Blood Pressure : / mmHG Vent. Rate : 052 BPM Atrial Rate : 288 BPM P-R Int : 000 ms QRS Dur : 098 ms QT Int : 564 ms P-R-T Axes : 000 031 052 degrees QTc Int : 524 ms Atrial fibrillation Nonspecific T wave abnormality Prolonged QT Abnormal ECG When compared with ECG of 21-MAR-2020 08:48, Nonspecific T wave abnormality now evident in Anterolateral leads QT has lengthened Confirmed by ETELVINA WILSON, TUCKER ([id number]), order editor SAMIA KING ([id number]) on 04/03/2020 11:37:32 AM Referred By: Nakul Humphreys Confirmed By:TUCKER MAIN MD
--- NOTE | 2020-04-02 14:02 | NURSING ---
supervisor ovens called for PCU bed
[2020-04-02 14:05] LABS: Bedside Glucose 162 mg/dL (70-110)
--- NOTE | 2020-04-02 14:11 | NURSING ---
updated on transfer to u
--- NOTE | 2020-04-02 14:22 | PCM.CONS.GEN ---
Problem List (1) Carotid artery stenosis Status: Chronic Qualifiers: Laterality: left Qualified Code(s): I65.22 - Occlusion and stenosis of left carotid artery Comment: Left CEA (2) H/O coronary artery bypass surgery Status: Chronic Comment: CABG x 4 TIMBO-LAD, MACIEL-Inf branch Lat Cx, Sequential SVG-RV Marginal branch and PDA 02/13/2000 (3) Secondary pulmonary arterial hypertension Status: Chronic (4) Persistent atrial fibrillation Status: Chronic (5) Chronic systolic (congestive) heart failure Status: Chronic (6) Cardiomyopathy in disease classified elsewhere Status: Chronic (7) Essential (primary) hypertension Status: Chronic (8) CVA (cerebral vascular accident) Status: Chronic Qualifiers: CVA mechanism: embolism Precerebral and cerebral artery: carotid artery Laterality of affected vessel: left Qualified Code(s): 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 History of Present Illness: The patient is a 74 year old M with past medical history as mentioned above underwent elective left carotid endarterectomy for left carotid artery stenosis and postoperatively, his heart rate went down to 30s and I was asked to see this patient in consultation for medical management. 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 Apart from mild dizziness earlier, patient had no other symptoms. At this time, he denied any symptoms. He denied dizziness, lightheadedness, chest pain or shortness of breath. No significant neck pain at the surgical site. His blood pressure has been stable. He does have a history of chronic atrial fibrillation and he has been on Coreg for rate control and on Eliquis for anticoagulation. He had a history of type 2 diabetes mellitus which seemed to be under control with metformin, hemoglobin A1c was 6.4% last month. He had a history of hypertension which has been under control with Norvasc, Coreg and Lasix. At this time, patient is afebrile, heart rate has been around 50s, goes down to 40s, blood pressure stable, pulse ox is 98% on 3 L. Preoperative routine blood work done on March 21, 2020 and was unremarkable. EKG done at this time and revealed atrial fibrillation, heart rate has been in the 40s, A. fib pause for about 3 seconds. Patient remained asymptomatic. Past Medical History Past Medical History (Chronic Problems): Chronic Problems (Last Updated 03/21/20 @ 15:59 by Lillian Durand) Carotid artery stenosis (Chronic) Left CEA Atherosclerotic heart disease of [place] coronary artery without angina pectoris (Chronic) CABG x 4 TIMBO-LAD, MACIEL-Inf branch Lat Cx, Sequential SVG-RV Marginal branch and PDA 02/13/2000 H/O coronary artery bypass surgery (Chronic 02/13/00) CABG x 4 TIBMO-LAD, MACIEL-Inf branch Lat Cx, Sequential SVG-RV Marginal branch and PDA 02/13/2000 Secondary pulmonary arterial hypertension (Chronic) Persistent atrial fibrillation (Chronic) Chronic systolic (congestive) heart failure (Chronic) Cardiomyopathy in disease classified elsewhere (Chronic) Essential (primary) hypertension (Chronic) CVA (cerebral vascular accident) (Chronic) 01/18/2018 HLD (hyperlipidemia) (Chronic) Medical History: Medical History (Last Updated 03/21/20 @ 15:59 by Lillian Durand) Carotid artery stenosis (Chronic) I65.29 Left CEA Atherosclerotic heart disease of [place] coronary artery without angina pectoris (Chronic) I25.10 CABG x 4 TIMBO-LAD, MACIEL-Inf branch Lat Cx, Sequential SVG-RV Marginal branch and PDA 02/13/2000 Secondary pulmonary arterial hypertension (Chronic) I27.21 Persistent atrial fibrillation (Chronic) I48.1 Chronic systolic (congestive) heart failure (Chronic) I50.22 Cardiomyopathy in disease classified elsewhere (Chronic) I43 Essential (primary) hypertension (Chronic) I10 CVA (cerebral vascular accident) (Chronic) I63.9 01/18/2018 HLD (hyperlipidemia) (Chronic) E78.5 Obesity (BMI 30.0-34.9) E66.9 Positive colorectal cancer screening using Cologuard test R19.5 Right sided weakness (Inactive) R53.1 Allergies atorvastatin [From Lipitor] Adverse Reaction (Severe, Verified 04/02/20 05:39) Myalgias rosuvastatin [From Crestor] Adverse Reaction (Severe, Verified 04/02/20 05:39) Myalgias Home Medications: Ambulatory Orders Medication Instructions Recorded Apixaban [Eliquis] 5 mg PO BID #60 tab 01/27/18 aspirin 81 mg tablet,delayed 81 mg PO QDAY 06/09/18 release metformin 500 mg tablet 500 mg PO DAILY 12/16/19 Carvedilol 25 mg PO BID 03/20/20 Furosemide 40 mg PO BID 03/20/20 Losartan Potassium 100 mg PO QDAY 03/20/20 Potassium Chloride 40 meq PO DAILY 03/20/20 Pravastatin Sodium 80 mg PO QHS 03/20/20 Amlodipine Besylate 2.5 mg PO DAILY 04/02/20 Surgical History: Surgical History (Last Updated 04/02/20 @ 14:[address] Sapna Baca MD) H/O coronary artery bypass surgery (Chronic) Onset Date: 02/13/00 Z95.1 CABG x 4 TIMBO-LAD, MACIEL-Inf branch Lat Cx, Sequential SVG-RV Marginal branch and PDA 02/13/2000 History of right-sided carotid endarterectomy Z98.890 History of left heart catheterization Onset Date: 06/14/18 Z98.890 [facility] January 2000 @ [facility] prior to CABG Hx of tonsillectomy Z90.89 Surgical History: - - R CEA, CABG x 4. Psychiatric History: No pertinent psych hx Smoking Status: Never smoker Tobacco Use: Non-smoker - *Family History Maternal Family History: Family History (Last Reviewed 04/02/20 @ 14:[address] Sapna Baca MD) Mother Breast cancer Hypertension Grandmother Heart disease Father Heart disease Hypertension History Items: Stroke Paternal Family History: Family History (Last Reviewed 04/02/20 @ 14:[address] Sapna Baca MD) Mother Breast cancer Hypertension Grandmother Heart disease Father Heart disease Hypertension History Items: Heart Disease Review of Systems Constitutional: Denies: Anorexia, Chills, Fever, Weakness Eyes: Denies: Blurred vision, Double vision, Drainage, Redness HEENT: Denies: Difficulty Hearing, Ear Pain, Eye Pain, Nasal Congestion, Sore Throat Cardiovascular: Denies: Chest Pain, Chest Pressure, Chest Tightness, Heaviness, Light Headedness, Palpitations, Syncope Respiratory: Denies: Cough, Pleuritic Pain, Shortness of Breath, Sputum production, Wheezing Gastrointestinal: Denies: Abdominal Pain, Constipation, Diarrhea, Nausea, Vomiting Genitourinary: Denies: Dysuria, Frequency, Hematuria Musculoskeletal: Denies: Arm Pain, Back Pain, Foot Pain Skin: Denies: Dryness, Rash Neurological: Denies: Balance problems, Double vision, Change in Speech, Slurred speech, Headaches, Incoordination Psychiatric: Denies: Anxiety, Depression Endocrine: Denies: Change in Body Habitus, Polydipsia, Polyuria Patient Problems: Active and Suspected Problems (Last Updated 03/21/20 @ 15:59 by Lillian Durand) Bradycardia (Acute) Status post left carotid endarterectomy (Acute) - Physical Exam Vitals/I&O's: Vital Signs Temp Pulse Resp BP Pulse Ox 97.0 F L 50 L 16 121/60 H 98 04/02/20 13:42 04/02/20 14:04 04/02/20 13:42 04/02/20 13:42 04/02/20 13:42 Oxygen Flow Rate (L/min) 3 Oxygen Delivery Method Nasal Cannula Weight: 206 lb 5.643 oz Body Mass Index (BMI) 33.3 Finger Stick Blood Glucose 143 Intake and Output for Last 24 Hours 03/31/20 04/01/20 04/02/20 23:59 23:59 23:59 Intake Total 2109 Balance 2109 General: Alert, Oriented x3, Cooperative, No apparent distress HEENT: Atraumatic, PERRLA, EOMI, Normocephalic Oral: Moist Mucosa, No Gingival or Mucosal Lesions/ Ulcerations Neck: Supple, No JVD, Negative Carotid Bruits, Trachea Midline, Thyroid Normal Size and Texture Lungs: Clear to auscultation, Normal air movement, No rhonchi, No wheeze, No rales, Diminished Cardiovascular: Normal S1, Normal S2, PMI Normal, Bradycardic, Irregular Rate Abdomen: Bowel Sounds Present, Soft, Non Tender, Non-Distended, No Hepato-splenomegaly Extremities: No clubbing, No cyanosis, No edema Skin: No rashes, No breakdown Lymphatic: No Cervical, Supraclavicular, or Inguinal Adenopathy Neurological: Cranial nerves II-XII grossly intact, Motor Exam 5/5 strength throughout Psych/Mental Status: Normal Affect, Appropriate, Alert and oriented to time, place, person, mood and affect Laboratory Results 04/02/20 05:51: POC Glucose 150 H 04/02/20 06:35: Activated Clotting Time 131 04/02/20 08:44: Activated Clotting Time 197 H 04/02/20 09:21: Activated Clotting Time 131 04/02/20 10:32: POC Glucose 143 H 04/02/20 13:54: POC Glucose 162 H Current Medications Acetaminophen (Tylenol) 325 - 650 mg PO Q4H PRN PRN PRN Reason: Pain Score 1-10/10 or Headache Hydrocodone Bitart/Acetaminophen (Arthur 5mg-325mg) 1 - 2 tablet PO Q6H PRN PRN PRN Reason: Pain Score 1-10/10 Amlodipine Besylate (Norvasc) 2.5 mg PO DAILY [facility] Aspirin (Ecotrin) 81 mg PO DAILYCM [facility] Furosemide (Lasix) 40 mg PO BIDLX [facility] Lactated Ringer's () 1,000 mls @ 15 mls/hr IV .Q48H [facility] Last Admin: 04/02/20 11:41 Dose: 15 mls/hr Documented by: Nitroglycerin/Dextrose () 25 mg in 250 mls @ 3 mls/hr CONT INF .[id number] [facility]; Protocol Last Admin: 04/02/20 06:50 Dose: Not Given Documented by: Cefazolin Sodium () 1 gm in 50 mls @ 150 mls/hr IV Q8H [facility] Stop: 04/02/20 23:19 Losartan Potassium (Cozaar) 100 mg PO DAILY [facility] Metformin HCl (Glucophage) 500 mg PO DAILYCM [facility] Morphine Sulfate () 2 - 4 mg IV Q1H PRN PRN PRN Reason: Pain Score 1-10/10 Morphine Sulfate () 2 - 4 mg IV Q1H PRN PRN PRN Reason: PAIN SCORE 1-10/10 Potassium Chloride (K-Dur) 40 meq PO DAILY [facility] Pravastatin Sodium (Pravachol) 80 mg PO QHS [facility] Sodium Chloride () 10 - 40 ml IV UD PRN PRN Reason: SALINE FLUSH Assessment/Plan All Active Problems (Last Updated 03/21/20 @ 15:59 by Lillian Durand) Bradycardia (Acute) Status post left carotid endarterectomy (Acute) This is a 74 years old male patient underwent elective left carotid endarterectomy today and postoperatively, heart rate went down to 30s and found to have A. fib pause on telemetry and I am seeing this patient in consultation for medical management. #1 bradycardia/A. fib pause: EKG and telemetry reviewed. He did have a pause of 2 to 3 seconds. Heart rate has been in the 40s to 50s, goes down to 30s. He is asymptomatic. Blood pressure stable. Patient has been on Coreg 25 mg p.o. twice daily for history of chronic A. fib. Plan: Transfer to PCU, stat CBC, BMP, TSH, serum magnesium, troponin x1, will give 1 dose of IV glucagon, cardiology consult, hold Coreg. #2 status post left carotid endarterectomy: Postoperative day 0. Patient is on IV cefazolin for perioperative prophylaxis. General surgeon is managing. #3 chronic atrial fibrillation: Plan as above, check serum electrolytes, hold Coreg, keep holding Eliquis for now. #4 CAD status post CABG: Stable, no chest pain. EKG revealed no acute, changes. Continue aspirin and statins, hold Coreg as above. #5 chronic systolic CHF: Clinically stable, compensated. Continue aspirin, Lasix and losartan, hold Coreg as above. #6 type 2 diabetes mellitus: ADA diet, Accu-Cheks, insulin sliding scale, continue metformin. #7 hypertension: Blood pressure stable, continue Norvasc, losartan and Lasix. #8 hyperlipidemia: Continue statins. #9 DVT prophylaxis: SCDs. This note was generated with [employer] dictation software. It may contain incorrect words, spelling, and punctuation that were not noted in checking the note before signing. Inpatient E&M: 20804 Init Hosp L2
[2020-04-02 14:41] LABS: Absolute Lymphocyte Count 0.66 X10^3/uL (0.83-4.51); Absolute Neutrophil Count 6.5 X10^3/uL (2.0-7.7); Eosinophil# 0.01 X10^3/uL; Eosinophils% 0.1 % (0-5); Hematocrit 35.5 % (40-54); Hemoglobin 11.8 g/dL (13.0-16.5); Lymphocyte # 0.66 X10^3/ul (4.0); Lymphocyte % 8.9 % (19-41); Mean Corp Hgb Conc 33.2 g/dL (32-36); Mean Corpuscular Hgb 35.2 pg (27.0-32.0); Mean Platelet Vol. 10.4 fl (6.2-12.0); Monocyte# 0.28 X10^3/uL; Monocyte% 3.8 % (0-10); NRBC Flagged by Analyzer 0 % (0-5); Neutrophil # 6.46 X10^3/uL (2.7-7.7); Neutrophil % 86.8 % (47-70); Platelet Count 121 K/mm3 (150-450); RBC Distribution Width CV 13.6 % (11.6-14.6); Red Blood Count 3.35 M/mm3 (4.6-6.2); White Blood Count 7.4 K/mm3 (4.4-11.0)
--- NOTE | 2020-04-02 15:01 | PN_ITS ---
Progress Note Earlier I was notified via the PACU that the patient had met criteria for discharge. He spent 3 hours postoperatively. I was instructed that vital signs and neurologic status were stable. I was instructed there was no neck swelling. Minutes after the patient arrived to third floor I was notified by nursing staff that the patient was significantly bradycardic albeit asymptomatic. I immediately asked Dr. Baca to see the patient. He agreed that the patient should be moved to PCU. He felt that the patient may be on too much chronic b eta-manuelito therapy. The patient was subsequently soon after arrival to the third floor transferred to PCU. I appreciate the ongoing medical care. Nakul Humphreys M.D., F.A.C.S. STROKE Vital Signs/Narrative: Vital Signs Temp Pulse Pulse Resp BP BP Pulse Ox 04/02/20 14:45 22 H 99 04/02/20 14:28 98.4 F 52 L 16 116/71 96 04/02/20 14:04 50 L 04/02/20 13:42 97.0 F L 55 L 16 121/60 H 98 04/02/20 12:51 97.2 F L 58 L 16 107/55 L 100 04/02/20 12:30 62 16 116/52 L 96 04/02/20 12:15 56 L 16 116/54 L 99 04/02/20 12:08 45 L 116/53 L 04/02/20 12:00 46 L 16 126/41 H 97 04/02/20 11:45 56 L 16 121/51 H 99 04/02/20 11:30 60 16 117/58 L 100 04/02/20 11:15 46 L 16 115/53 L 100
[2020-04-02 15:04] LABS: BUN 19 mg/dL (7-18); Creatinine, Serum 1.18 mg/dL (0.70-1.30); Glucose 165 mg/dL (74-106)
[2020-04-02 15:05] LABS: Anion Gap 6 (5-15); BUN/Creat Ratio 16.1 RATIO (10-20); Calcium,Total 8.6 mg/dL (8.5-10.1); Chloride 109 mmol/L (98-107); EST Glomerular Filtration Rate 64 mL/min (>60); Est Glom Filt Rate - Afr Amer 78 mL/min (>60); Estimated Creatinine Clearance 50.31 ml/min; Potassium 4.2 mmol/L (3.5-5.1); Sodium Level 141 mmol/L (136-145); Thyroid Stim Hormone (TSH) 2.27 uIU/mL (0.358-3.74)
--- NOTE | 2020-04-02 15:12 | CON.PCM_ITS ---
Reason for Consult Date of Consultation: 04/02/20 Reason for Consultation: Evaluation of heart rate History of Present Illness: The patient is a 74 year old M with a history of coronary artery bypass surgery with a left internal mammary artery to the obtuse marginal branch, right inte rnal mammary artery to the left anterior descending artery, and saphenous vein graft to the acute marginal branch. He has a history of chronic persistent atrial fibrillation, hypertension, hyperlipidemia, status post cerebrovascular accident in December 2017. He underwent a left carotid endarterectomy today. He had been seen for and was cleared for vascular surgery. His EKG preoperatively had demonstrated atrial fibrillation with a controlled ventricular response rate. It appears that while he was in the PACU he developed atrial fibrillation with a slow ventricular response rate. He was asymptomatic. There were no pauses noted over 3 seconds. He had no syncopal or presyncopal episodes no palpitations no lightheadedness. The hospitalist was called to see the patient and cardiology was called to admit the patient. He has been asymptomatic. His EKG was reviewed. [] Past Medical History Allergies/Adverse Reactions: Allergies atorvastatin [From Lipitor] Adverse Reaction (Severe, Verified 04/02/20 05:39) Myalgias rosuvastatin [From Crestor] Adverse Reaction (Severe, Verified 04/02/20 05:39) Myalgias Home Medications: Ambulatory Orders Medication Instructions Recorded Apixaban [Eliquis] 5 mg PO BID #60 tab 01/27/18 aspirin 81 mg tablet,delayed 81 mg PO QDAY 06/09/18 release metformin 500 mg tablet 500 mg PO DAILY 12/16/19 Carvedilol 25 mg PO BID 03/20/20 Furosemide 40 mg PO BID 03/20/20 Losartan Potassium 100 mg PO QDAY 03/20/20 Potassium Chloride 40 meq PO DAILY 03/20/20 Pravastatin Sodium 80 mg PO QHS 03/20/20 Amlodipine Besylate 2.5 mg PO DAILY 04/02/20 Past Medical History (Chronic Problems): Chronic Problems (Last Updated 03/21/20 @ 15:59 by Lillian Durand) Carotid artery stenosis (Chronic) Left CEA Atherosclerotic heart disease of [place] coronary artery without angina pectoris (Chronic) CABG x 4 TIMBO-LAD, MACIEL-Inf branch Lat Cx, Sequential SVG-RV Marginal branch and PDA 02/13/2000 H/O coronary artery bypass surgery (Chronic 02/13/00) CABG x 4 TIMBO-LAD, MACIEL-Inf branch Lat Cx, Sequential SVG-RV Marginal branch and PDA 02/13/2000 Secondary pulmonary arterial hypertension (Chronic) Persistent atrial fibrillation (Chronic) Chronic systolic (congestive) heart failure (Chronic) Cardiomyopathy in disease classified elsewhere (Chronic) Essential (primary) hypertension (Chronic) CVA (cerebral vascular accident) (Chronic) 01/18/2018 HLD (hyperlipidemia) (Chronic) Surgical History: - - R CEA, CABG x 4. Psychiatric History: No pertinent psych hx - *Family History Maternal Family History: Family History (Last Reviewed 04/02/20 @ 14:[address] Sapna Baca MD) Mother Breast cancer Hypertension Grandmother Heart disease Father Heart disease Hypertension History Items: Stroke Paternal Family History: Family History (Last Reviewed 04/02/20 @ 14:[address] Sapna Baca MD) Mother Breast cancer Hypertension Grandmother Heart disease Father Heart disease Hypertension History Items: Heart Disease Smoking Status: Never smoker Tobacco Use: Non-smoker Alcohol: None Drugs: None Review of Systems - Review of Systems General: Denies: Fever, Night Sweats, Fatigue HEENT: Denies: Vision Change Cardiovascular: Denies: Chest Discomfort, Shortness of Breath, Orthopnea, PND, Peripheral Edema, Palpitations, Lightheadedness, Dizziness, Near Syncope, Syncope Respiratory: Denies: Cough, Sputum Production, Hemoptysis Gastrointestinal: Denies: Hematemesis, Hematochezia, Melena Genitourinary: Denies: Dysuria, Hematuria Muscoloskeletal: Denies: Myalgias Skin: Denies: Rash Neurological: Denies: Dizziness Psychiatric: Denies: Anxiety Endocrine: Denies: Heat Intolerance Hematologic/ Lymphatic: Denies: Anemia Subjectve: Pleasant gentleman in no distress Objective: Vital Signs Temp Pulse Resp BP Pulse Ox 98.4 F 52 L 22 H 116/71 99 04/02/20 14:28 04/02/20 14:28 04/02/20 14:45 04/02/20 14:28 04/02/20 14:45 Oxygen Flow Rate (L/min) 3 Oxygen Delivery Method Nasal Cannula Weight: 206 lb 5.643 oz Body Mass Index (BMI) 33.3 Finger Stick Blood Glucose 143 Intake and Output for Last 24 Hours 03/31/20 04/01/20 04/02/20 23:59 23:59 23:59 Intake Total 2109 Balance 2109 General: Awake, Alert, Oriented x 3 HEENT: PERRL, EOMI, Sclera Non Icteric Neck: Supple, Good ROM, No Lymph Node Enlargement, - - Left carotid endarterectomy scar Lungs: Clear to auscultation Cardiovascular: Irregular Rhythm, Normal S1, Normal S2, No Murmurs, No Rubs, No Gallops Vascular: No Carotid Bruits, Normal Femoral Pulses, Normal Radial Pulses, Normal Dorsalis Pedal Pulse, Normal Posterior Tibial Pulses Abdomen: Bowel Sounds Present, Soft, Non Tender, No HSM, No Organomegaly Extremities: No Cyanosis, No Clubbing, No edema Musculoskeletal: No Erythema Skin: No Rashes Lymphatic: No Lymph Node Enlargement Neurological: No Focal Motor or Sensory Deficit Psych/Mental Status: Appropriate 04/02/20 14:30: WBC 7.4, RBC 3.35 L, Hgb 11.8 L, Hct 35.5 L, MCV 106.0 H, MCH 35.2 H, MCHC 33.2, Plt Count 121 L, MPV 10.4, Immature Gran % (Auto) 0.400, Neut % (Auto) 86.8 H, Lymph % (Auto) 8.9 L, [place] % (Auto) 3.8, Eos % (Auto) 0.1, Baso % (Auto) 0.0, Absolute Neuts (auto) 6.5, Nucleated RBC % 0 04/02/20 14:30: Sodium 141, Potassium 4.2, Chloride 109 H, Carbon Dioxide 26.0, Anion Gap 6, BUN 19 H, Creatinine 1.18, Est GFR (MDRD) Af Amer 78, Est GFR (MDRD) Non-Af 64, BUN/Creatinine Ratio 16.1, Glucose 165 H, Calcium 8.6, Magnesium 2.0 04/02/20 14:30: Troponin I < 0.015 Rhythm: EKG: Atrial fibrillation with a controlled ventricular response rate Assessment/Plan 1. Atrial fibrillation with a slow ventricular response rate * He does have a history of chronic persistent atrial fibrillation. His ventricular response rate was slow postoperatively. He was asymptomatic. The above is likely secondary to medication including beta-manuelito as well as vagal effect. * I would recommend that we temporarily hold his beta-manuelito and this can be resumed in the morning. He has previously been asymptomatic. * Anticoagulation can be resumed as deemed appropriate by the vascular surgeon * 2. Hypertension * His blood pressure is under good control and I would not recommend that we make any changes. * The beta-manuelito will be temporarily reduced * 3. Coronary artery disease * He does have a history of coronary artery disease status post coronary bypass surgery. He has not had any cardiac symptomatology. The plan will be to continue him on the same medications with no changes * * 4. Hyperlipidemia * He does have a history of hyperlipidemia and will continue with aggressive risk factor modification. * Thank you for allowing me to participate in the care of your patient. Please don't hesitate to call if any issues arise.
[2020-04-02] MEDS: Glucagon 1 MG/ML Syringe IV (16:08)
[2020-04-02] MEDS: Cefazolin 1 GM/50 ML BAG IV ×2 (16:08→22:21)
--- NOTE | 2020-04-02 16:08 | PCM.PN.BLA ---
Progress Note Appreciate assistance by and Dr Sweeney Patient was again seen and evaluated. Appears to be neurologically stable. Left neck is supple. Alterations in medications noted to be prescribed. He is having some urinary retention. We will check with bladder ultrasound to see if he requires a straight catheterization which may assist with heart rate. Will observe patient overnight. Hopeful discharge tomorrow. Will reconsider starting his Eliquis tomorrow as well. Nakul Humphreys M.D., F.A.C.S. STROKE Vital Signs/Narrative: Vital Signs Temp Pulse Resp BP Pulse Ox 04/02/20 14:45 22 H 99 04/02/20 14:28 98.4 F 52 L 16 116/71 96 04/02/20 14:04 50 L 04/02/20 13:42 97.0 F L 55 L 16 121/60 H 98 04/02/20 12:51 97.2 F L 58 L 16 107/55 L 100 04/02/20 12:30 62 16 116/52 L 96 04/02/20 12:15 56 L 16 116/54 L 99
--- NOTE | 2020-04-02 16:14 | EKG12_ITS ---
Test Reason : DYSRHYTHMIA Blood Pressure : / mmHG Vent. Rate : 043 BPM Atrial Rate : 340 BPM P-R Int : 000 ms QRS Dur : 098 ms QT Int : 462 ms P-R-T Axes : 000 022 149 degrees QTc Int : 390 ms Atrial fibrillation Nonspecific ST and T wave abnormality Abnormal ECG When compared with ECG of 21-MAR-2020 08:48, T wave inversion more evident in Anterolateral leads Confirmed by MALVIN RUTHERFORD ([id number]), editor trade journal BERTHA OCASIO ([id number]) on 04/05/2020 3:21:03 PM Referred By: Nakul Humphreys Confirmed By:MALVIN RUTHERFORD
[2020-04-02] MEDS: Insulin Lispro 100 UNIT/ML INSULN.PEN SC ×2 (16:16→21:24)
[2020-04-02] MEDS: Furosemide 40 MG Tablet PO (16:17)
[2020-04-02] MEDS: Aspirin E.C. 81 MG Tablet PO (16:19)
[2020-04-02 16:26] LABS: Bedside Glucose 165 mg/dL (70-110)
[2020-04-02] MEDS: Pravastatin 80 MG Tablet PO (21:24)
[2020-04-02 21:31] LABS: Bedside Glucose 179 mg/dL (70-110)
[2020-04-02] MEDS: 0.9% Saline Lock 10 ML Syringe IV (22:22)
[2020-04-03 03:00] VITALS: PULSE 64
[2020-04-03 05:21] VITALS: BP 140/59; PULSE 75; RESP 16; TEMP 36.7; O2SAT 99
--- NOTE | 2020-04-03 06:47 | PCM.PN.SRG ---
Patient Problems: Active and Suspected Problems (Last Updated 03/21/20 @ 15:59 by Lillian Durand) Bradycardia (Acute) Status post left carotid endarterectomy (Acute) Subjective: Patient is alert without acute distress. He states that he has not been out of bed since his surgery. He denies any weakness or sensation loss of either upper extremity. His neck is comfortable. He states that he required straight cathing x2 but on his third attempt he feels that he is voiding more normally - Physical Exam Vitals/I&O's: Vital Signs Temp Pulse Resp BP Pulse Ox 98.0 F 75 16 140/59 H 99 04/03/20 05:21 04/03/20 05:21 04/03/20 05:21 04/03/20 05:21 04/03/20 05:21 Oxygen Flow Rate (L/min) 3 Oxygen Delivery Method Room Air Weight: 206 lb 5.643 oz Body Mass Index (BMI) 33.3 Finger Stick Blood Glucose 143 Intake and Output for Last 24 Hours 04/01/20 04/02/20 04/03/20 23:59 23:59 23:59 Intake Total 2759.75 / 2759.75 100 / 100 Output Total 750 / 750 225 / 225 Balance 2009.75 / 2008.75 -125 / -125 General: Alert, Oriented x3, Cooperative, No apparent distress Neck: - - Left neck is very supple, incision is clean and dry Lungs: Clear to auscultation, Normal air movement Neurological: Cranial nerves II-XII grossly intact Laboratory Results 04/02/20 06:35: Activated Clotting Time 131 04/02/20 08:44: Activated Clotting Time 197 H 04/02/20 09:21: Activated Clotting Time 131 04/02/20 10:32: POC Glucose 143 H 04/02/20 13:54: POC Glucose 162 H 04/02/20 14:30: WBC 7.4, RBC 3.35 L, Hgb 11.8 L, Hct 35.5 L, MCV 106.0 H, MCH 35.2 H, MCHC 33.2, RDW Std Deviation 52.0 H, RDW Coeff of Natasha 13.6, Plt Count 121 L, MPV 10.4, Immature Gran % (Auto) 0.400, Neut % (Auto) 86.8 H, Lymph % (Auto) 8.9 L, [place] % (Auto) 3.8, Eos % (Auto) 0.1, Baso % (Auto) 0.0, Absolute Neuts (auto) 6.5, Absolute Lymphs (auto) 0.66 L, Nucleated RBC % 0 04/02/20 14:30: Sodium 141, Potassium 4.2, Chloride 109 H, Carbon Dioxide 26.0, Anion Gap 6, BUN 19 H, Creatinine 1.18, Estim Creat Clear Calc 50.31, Est GFR (MDRD) Af Amer 78, Est GFR (MDRD) Non-Af 64, BUN/Creatinine Ratio 16.1, Glucose 165 H, Calcium 8.6, Magnesium 2.0, TSH 2.27 04/02/20 14:30: Troponin I < 0.015 04/02/20 16:16: POC Glucose 165 H 04/02/20 21:23: POC Glucose 179 H Current Medications Acetaminophen (Tylenol) 325 - 650 mg PO Q4H PRN PRN PRN Reason: Pain Score 1-10/10 or Headache Hydrocodone Bitart/Acetaminophen ([place] 5mg-325mg) 1 - 2 tablet PO Q6H PRN PRN PRN Reason: Pain Score 1-10/10 Amlodipine Besylate (Norvasc) 2.5 mg PO DAILY [facility] Last Admin: 04/02/20 16:19 Dose: 81 mg Documented by: Furosemide (Lasix) 40 mg PO BIDLX [facility] Last Admin: 04/02/20 16:17 Dose: 40 mg Documented by: Nitroglycerin/Dextrose () 25 mg in 250 mls @ 3 mls/hr CONT INF .[id number] [facility]; Protocol Last Admin: 04/02/20 06:50 Dose: Not Given Documented by: Sodium Chloride () 250 mls @ 15 mls/hr IV .[id number] PRN PRN Reason: Saline Flush Sodium Chloride () 250 mls @ 15 mls/hr IV .[id number] PRN PRN Reason: Additional IVPB Infusion Insulin Human Lispro (Humalog Kwikpen (Bkc)) 0 unit SC [facility]; Protocol Last Admin: 04/02/20 21:24 Dose: 1 u Documented by: Losartan Potassium (Cozaar) 100 mg PO DAILY [facility] Morphine Sulfate () 2 - 4 mg IV Q1H PRN PRN PRN Reason: Pain Score 1-10/10 Morphine Sulfate () 2 - 4 mg IV Q1H PRN PRN PRN Reason: PAIN SCORE 1-10/10 Potassium Chloride (K-Dur) 40 meq PO DAILY [facility] Pravastatin Sodium (Pravachol) 80 mg PO QHS [facility] Last Admin: 04/02/20 21:24 Dose: 80 mg Documented by: Sodium Chloride () 10 - 40 ml IV UD PRN PRN Reason: SALINE FLUSH Last Admin: 04/02/20 22:22 Dose: 10 ml Documented by: Sodium Chloride () 10 - 40 ml IV UD PRN PRN Reason: SALINE FLUSH Medical Necessity - Tobacco Use Smoking Status: Never smoker Tobacco Use: Non-smoker Assessment/Plan All Active Problems (Last Updated 03/21/20 @ 15:59 by Lillian Durand) Bradycardia (Acute) Status post left carotid endarterectomy (Acute) Need to mobilize patient. Pending hospitalist and cardiology review would anticipate discharge today from a surgical standpoint. Appreciate the assistance. Nakul Humphreys M.D., F.A.C.S.
[2020-04-03 06:56] LABS: Bedside Glucose 119 mg/dL (70-110)
[2020-04-03 07:18] VITALS: PULSE 61
[2020-04-03 09:52] VITALS: BP 129/47; PULSE 67; RESP 16; TEMP 36.7; O2SAT 95
[2020-04-03] MEDS: metFORMIN HCl 500 MG Tablet PO (09:54)
[2020-04-03] MEDS: Furosemide 40 MG Tablet PO (09:54)
[2020-04-03] MEDS: Aspirin E.C. 81 MG Tablet PO (09:54)
[2020-04-03] MEDS: Losartan Potassium 100 MG Tablet PO (09:56)
[2020-04-03] MEDS: APIXABAN 5 MG TABLET PO (09:59)
--- NOTE | 2020-04-03 11:39 | CASEMGMT ---
LEVI BUSTILLOS assessment: Phone interview with patient for initial transition planning/care coordination assessment. LEVI BUSTILLOS introduced self and role at [facility], pt voices understanding and consents to assessment at this time. Pt is A/Ox4 at this time and answers all questions appropriately at this time. Care providers, pharmacy, and demographics verified at this time. Presentation: Carotid artery stenosis Admitting dx: Left carotid endarterectomy PCP: Nidhi Specialists: Patel, cardio; Petr, surgeon Preferred Pharmacy: [facility] Insurance: [facility] Prescription Benefit: [employer] Living Will/HPOA: Pt states does not have LW/HPOA and declines AD info at this time. LNOK: Yu Bee, ; Vanessa Bee, daughter Living Arrangements: Pt states lives with in 1 story home and states no concerns at home at this time. Pt states is independent with ADL's. Transportation: Pt states drives self or his /daughter drive and states no transportation concerns at this time. DME/HHC: Pt states has a cane(does not use) and walk in shower. Pt states no need for any further DME at this time. Pt states no hx of HHC or SNF in the past. Pt states no concerns with going home at time of discharge. Pt states is retired. Pt states does not smoke cigarettes, but does occasionally drink ETOH. Pt voices no further concerns/needs at this time. CM to follow for any further discharge planning/needs. Advised pt to ask for CM if any further questions/concerns/needs arise, voices understanding. Pt Goal: Home Plan[place] LEVI BUSTILLOS
--- NOTE | 2020-04-03 11:52 | PN.CARD_ITS ---
Subjectve: Patient seen and evaluated. Objective: Vital Signs Temp Pulse Resp BP Pulse Ox 98.0 F 67 16 129/47 H 95 04/03/20 09:52 04/03/20 09:52 04/03/20 09:52 04/03/20 09:52 04/03/20 09:52 Oxygen Flow Rate (L/min) 3 Oxygen Delivery Method Room Air Weight: 206 lb 5.643 oz Body Mass Index (BMI) 33.3 Finger Stick Blood Glucose 143 Intake and Output for Last 24 Hours 04/01/20 04/02/20 04/03/20 23:59 23:59 23:59 Intake Total 2759.75 / 2759.75 100 / 100 Output Total 750 / 750 225 / 225 Balance 2008.75 / 75 -125 / -125 General: Awake, Alert, Oriented x 3 HEENT: PERRL, EOMI, Sclera Non Icteric Neck: Supple, Good ROM, No Lymph Node Enlargement Lungs: Clear to auscultation Cardiovascular: Irregular Rhythm, Normal S1, Normal S2, No Murmurs, No Rubs, No Gallops Vascular: No Carotid Bruits, Normal Femoral Pulses, Normal Radial Pulses, Normal Dorsalis Pedal Pulse, Normal Posterior Tibial Pulses Abdomen: Bowel Sounds Present, Soft, Non Tender, No HSM, No Organomegaly Extremities: No Cyanosis, No Clubbing, No edema Musculoskeletal: No Erythema Skin: No Rashes Lymphatic: No Lymph Node Enlargement Neurological: No Focal Motor or Sensory Deficit Psych/Mental Status: Appropriate 04/02/20 14:30: WBC 7.4, RBC 3.35 L, Hgb 11.8 L, Hct 35.5 L, MCV 106.0 H, MCH 35.2 H, MCHC 33.2, Plt Count 121 L, MPV 10.4, Immature Gran % (Auto) 0.400, Neut % (Auto) 86.8 H, Lymph % (Auto) 8.9 L, [place] % (Auto) 3.8, Eos % (Auto) 0.1, Baso % (Auto) 0.0, Absolute Neuts (auto) 6.5, Nucleated RBC % 0 04/02/20 14:30: Sodium 141, Potassium 4.2, Chloride 109 H, Carbon Dioxide 26.0, Anion Gap 6, BUN 19 H, Creatinine 1.18, Est GFR (MDRD) Af Amer 78, Est GFR (MDRD) Non-Af 64, BUN/Creatinine Ratio 16.1, Glucose 165 H, Calcium 8.6, Magnesium 2.0 04/02/20 14:30: Troponin I < 0.015 Rhythm: EKG: ECHO: Stress Test: Cardiac Cath: PCI: CT Surgery: Holter monitor: EPS: PPM: CXR: Chest CT Scan: Medical Necessity - Tobacco Use Smoking Status: Never smoker Tobacco Use: Non-smoker Assessment/Plan 1. Atrial fibrillation with a slow ventricular response rate * He does have a history of chronic persistent atrial fibrillation. His ventricular response rate was slow postoperatively. He was asymptomatic. The above is likely secondary to medication including beta-manuelito as well as vagal effect. * I would recommend that we temporarily reduce his beta-manuelito and discharge him. He has previously been asymptomatic. * Anticoagulation can be resumed as deemed appropriate by the vascular surgeon * 2. Hypertension * His blood pressure is under good control and I would not recommend that we make any changes. * The beta-manuelito will be temporarily reduced * 3. Coronary artery disease * He does have a history of coronary artery disease status post coronary bypass surgery. He has not had any cardiac symptomatology. The plan will be to continue him on the same medications with no changes * * 4. Hyperlipidemia * He does have a history of hyperlipidemia and will continue with aggressive risk factor modification. * Thank you for allowing me to participate in the care of your patient. Please don't hesitate to call if any issues arise. * * From the cardiovascular standpoint the patient can be discharged today.
--- NOTE | 2020-04-03 12:02 | PN_ITS ---
Patient Problems: Active and Suspected Problems (Last Updated 03/21/20 @ 15:59 by Lillian Durand) Bradycardia (Acute) Status post left carotid endarterectomy (Acute) Subjective: Patient seen and examined. He has no complaints this morning. He had left carotid endarterectomy yesterday and was noted to be bradycardic after surgery. Hospitalist service and cardiology were consulted. Bradycardia was thought to be medication induced as well as vagal induced. His carvedilol was held. Review of stems otherwise negative. Heart rate noted to be normalized now and is in the 70s today. Has been in the 70s overnight as well. Vitals/I&O's: Vital Signs Temp Pulse Resp BP Pulse Ox 98.0 F 67 16 129/47 H 95 04/03/20 09:52 04/03/20 09:52 04/03/20 09:52 04/03/20 09:52 04/03/20 09:52 Oxygen Flow Rate (L/min) 3 Oxygen Delivery Method Room Air Weight: 206 lb 5.643 oz Body Mass Index (BMI) 33.3 Finger Stick Blood Glucose 143 Intake and Output for Last 24 Hours 04/01/20 04/02/20 04/03/20 23:59 23:59 23:59 Intake Total 2759.75 / 2759.75 100 / 100 Output Total 750 / 750 225 / 225 Balance 2008.75 / 2008.75 -125 / -125 General: Alert, Oriented x3, Cooperative, No apparent distress HEENT: Atraumatic, PERRLA, EOMI, Normocephalic Oral: Moist Mucosa Neck: Supple, No JVD, Negative Carotid Bruits Lungs: Clear to auscultation, Normal air movement, No rhonchi, No wheeze, No rales Cardiovascular: Regular rate, Regular Rhythm, Normal S1, Normal S2, No murmurs Abdomen: Bowel Sounds Present, Soft, Non Tender, Non-Distended, No Hepato- splenomegaly Extremities: No clubbing, No cyanosis, No edema, Capillary Refill Less than 3 Seconds Skin: - - dressing over left carotid surgical site. Musculoskeletal: No Tenderness to Palpation of Joints or Extremities Lymphatic: No Cervical, Supraclavicular, or Inguinal Adenopathy Neurological: Cranial nerves II-XII grossly intact, Neuro grossly intact, Motor Exam 5/5 strength throughout Psych/Mental Status: Normal Affect, Appropriate, Alert and oriented to time, place, person, mood and affect Laboratory Results 04/02/20 13:54: POC Glucose 162 H 04/02/20 14:30: WBC 7.4, RBC 3.35 L, Hgb 11.8 L, Hct 35.5 L, MCV 106.0 H, MCH 35.2 H, MCHC 33.2, RDW Std Deviation 52.0 H, RDW Coeff of Natasha 13.6, Plt Count 121 L, MPV 10.4, Immature Gran % (Auto) 0.400, Neut % (Auto) 86.8 H, Lymph % (Auto) 8.9 L, [place] % (Auto) 3.8, Eos % (Auto) 0.1, Baso % (Auto) 0.0, Absolute Neuts (auto) 6.5, Absolute Lymphs (auto) 0.66 L, Nucleated RBC % 0 04/02/20 14:30: Sodium 141, Potassium 4.2, Chloride 109 H, Carbon Dioxide 26.0, Anion Gap 6, BUN 19 H, Creatinine 1.18, Estim Creat Clear Calc 50.31, Est GFR (MDRD) Af Amer 78, Est GFR (MDRD) Non-Af 64, BUN/Creatinine Ratio 16.1, Glucose 165 H, Calcium 8.6, Magnesium 2.0, TSH 2.27 04/02/20 14:30: Troponin I < 0.015 04/02/20 16:16: POC Glucose 165 H 04/02/20 21:23: POC Glucose 179 H 04/03/20 06:49: POC Glucose 119 H Current Medications Acetaminophen (Tylenol) 325 - 650 mg PO Q4H PRN PRN PRN Reason: Pain Score 1-10/10 or Headache Hydrocodone Bitart/Acetaminophen ([place] 5mg-325mg) 1 - 2 tablet PO Q6H PRN PRN PRN Reason: Pain Score 1-10/10 Amlodipine Besylate (Norvasc) 2.5 mg PO DAILY [facility] Last Admin: 04/03/20 10:08 Dose: Not Given Documented by: Apixaban (Eliquis) 5 mg PO BID [facility] Last Admin: 04/03/20 09:59 Dose: 5 mg Documented by: [facility] Last Admin: 04/03/20 09:54 Dose: 81 mg Documented by: Carvedilol (Coreg) 12.5 mg PO BID [facility] Furosemide (Lasix) 40 mg PO BIDLX [facility] Last Admin: 04/03/20 09:54 Dose: 40 mg Documented by: Sodium Chloride () 250 mls @ 15 mls/hr IV .[id number] PRN PRN Reason: Saline Flush Sodium Chloride () 250 mls @ 15 mls/hr IV .[id number] PRN PRN Reason: Additional IVPB Infusion Insulin Human Lispro (Humalog Kwikpen (Bkc)) 0 unit SC [facility]; Protocol Last Admin: 04/03/20 12:01 Dose: Not Given Documented by: Losartan Potassium (Cozaar) 100 mg PO DAILY [facility] Last Admin: 04/03/20 09:56 Dose: 100 mg Documented by: Met[facility] ([facility]ucophage) [facility] Last Admin: 04/03/20 09:54 Dose: 500 mg Documented by: Morphine Sulfate () 2 - 4 mg IV Q1H PRN PRN PRN Reason: Pain Score 1-10/10 Morphine Sulfate () 2 - 4 mg IV Q1H PRN PRN PRN Reason: PAIN SCORE 1-10/10 Potassium Chloride (K-Dur) 40 meq PO DAILY [facility] Last Admin: 04/03/20 09:54 Dose: 40 meq Documented by: Pravastatin Sodium (Pravachol) 80 mg PO QHS [facility] Last Admin: 04/02/20 21:24 Dose: 80 mg Documented by: Sodium Chloride () 10 - 40 ml IV UD PRN PRN Reason: SALINE FLUSH Last Admin: 04/02/20 22:22 Dose: 10 ml Documented by: Sodium Chloride () 10 - 40 ml IV UD PRN PRN Reason: SALINE FLUSH Sodium Chloride () 10 - 40 ml IV UD PRN PRN Reason: SALINE FLUSH STROKE Vital Signs/Narrative: Vital Signs Temp Pulse Resp BP Pulse Ox 04/03/20 09:52 98.0 F 67 16 129/47 H 95 Medical Necessity - Tobacco Use Smoking Status: Never smoker Tobacco Use: Non-smoker Assessment/Plan All Active Problems (Last Updated 03/21/20 @ 15:59 by Lillian Durand) Bradycardia (Acute) Status post left carotid endarterectomy (Acute) 1. Bradycardia * Likely medication induced and also vasovagal effect. Heart rate went as low as the 30s done in PACU. * Heart rate now in the 60s and 70s. Discussed with cardiology, home dose of carvedilol 25 mg twice daily to be reduced to 12.5 mg twice daily. * fall precautions * troponins x 3 wre negative. * 2. Carotid artery stenosis * Status post carotid endarterectomy. Today's postop day 0. Was on IV cefazolin for perioperative prophylaxis. * vascular surgery on board. * 3. Chronic afib: rate controlled. Carvedilol reduced to 12.5mg bid from 25mg bid. 4. CAD s/p CABG: on aspirin and statins as well as Coreg 5. Type 2 diabetes mellitus: on metformin. ISS. Accuchecks ACHS 6. Hypertension: controlled. On norvasc, losartan and lasix 7. Hyperlipidemia: on statin. 8. HFrEF; not in exacerbation. On on lasix and losartan as well as coreg. DVT prophylaxis; SCDs. Disposition: patient ok to be discharged from hospitalist standpoint on reduced dose of Coreg Inpatient E&M: [id number] Subs Hosp L2
[2020-04-03 12:10] LABS: Bedside Glucose 116 mg/dL (70-110)
[2020-04-03 13:53] VITALS: BP 152/64; PULSE 65; RESP 14; TEMP 36.8; O2SAT 96
== END 2020-04-03 15:06 | disposition home or self-care (01) | DRG 38 ==
LOC: ACINP 05:26 → MS3 11:35 → PCU 14:26
PROVIDERS: Hospitalist; Admitting Provider Surgery; PCP Family Medicine; Referring Provider Surgery; Visit Provider Student in an Organized Health Care Education/Training Program
PROC: 03HY32Z Insertion of Monitoring Device into Upper Artery, Percutaneous Approach (ICD-10-PCS; CPT 35301; principal; 2020-04-02 07:10)
DX: I65.23 Occlusion and stenosis of bilateral carotid arteries (principal); I50.22 Chronic systolic (congestive) heart failure; I48.19 Other persistent atrial fibrillation; I25.10 Atherosclerotic heart disease of native coronary artery without angina pectoris; I11.0 Hypertensive heart disease with heart failure; E78.5 Hyperlipidemia, unspecified; R00.1 Bradycardia, unspecified; E11.9 Type 2 diabetes mellitus without complications; Z79.84 Long term (current) use of oral hypoglycemic drugs; Z79.899 Other long term (current) drug therapy; Z86.73 Personal history of transient ischemic attack (TIA), and cerebral infarction without residual deficits; Z95.1 Presence of aortocoronary bypass graft; Z79.01 Long term (current) use of anticoagulants
CPT/HCPCS: 36415; 80048; 82962; 83036; 83735; 84443; 84484; 85025; 85027; 85347; 88304; 88311; 93005; 99251; J7040; J7120; A4216; G0463; J1610; J2405

== ENCOUNTER → 2020-04-18 07:07 | Outpatient (CLI) | payer MEDICARE, SELFPAY ==
[2020-04-02 13:42] VITALS: BMI 33.3
[2020-04-18 10:53] LABS: Cholesterol 169 mg/dL (200); High Density Lipoprotein 44 mg/dL; Triglycerides 89 mg/dL; Very Low Density Lipoprotein 18 mg/dL (5-40)
== END ==
PROVIDERS: PCP Family Medicine; Referring Provider Family Medicine; Visit Provider Family Medicine
DX: E78.5 Hyperlipidemia, unspecified (principal)
CPT/HCPCS: 36415; 80061

== ENCOUNTER → 2020-04-30 08:46 | Outpatient (CLI) | payer MEDICARE, SELFPAY ==
[2020-04-02 13:42] VITALS: BMI 33.3
--- NOTE | 2020-04-30 08:47 | CDUL_ITS ---
Reason For Study: S/P LCEA 04/02/2020 Lt. Velocities/BP Prox CCA 139.9/30.3 cm/sec. Mid CCA 119.8/21.2 cm/sec. Dist CCA 98.4/19.9 cm/sec. Prox ICA 138.0/39.3 cm/sec. Mid ICA 146.9/34.9 cm/sec. Dist ICA 133.7/34.9 cm/sec. Lt. ICA/CCA = 146.9/139.9=1.0. Prox ECA 42.8/16.4 cm/sec. Lt. Vert. 42.8/16.4 cm/sec. Left Extracranial There is intimal thickening but no significant atherosclerotic plaque noted in the left common carotid artery. There is heterogeneous, smooth atherosclerotic plaque noted in the left internal carotid artery. There is homogeneous, smooth atherosclerotic plaque noted in the left external carotid artery. Antegrade flow is noted in the left vertebral artery. Procedure Carotid Duplex [id number]. The exam was diagnostic. Exam performed in department. Interpretation Summary Post operative changes left carotid bulb and proximal internal carotid artery Velocities within the proximal left common carotid are mildly elevated. Velocities mildly elevated within the left mid internal carotid though visually very patent. 50-69% stenosis right internal carotid based upon velocity evaluation but <50% based upon ratio. Improved from 08/26/19 <50% stenosis left internal carotid Patent, antegrade left vertebral Ordering Physician: Nakul Humphreys Referring Physician: Herson Terrell Performed By: Carly Vidal, EDA, RVT
== END ==
PROVIDERS: PCP Family Medicine; Referring Provider Surgery; Visit Provider Surgery
DX: Z48.812 Encounter for surgical aftercare following surgery on the circulatory system (principal)
CPT/HCPCS: 93882

== ENCOUNTER 2020-10-23 08:04 | Day surgery (SDC) | payer MEDICARE, SELFPAY ==
[2020-09-21 12:43] VITALS: BMI 32.8
[2020-10-23] VITALS (7 sets, daily range): BP systolic 109–154; BP diastolic 62–71; PULSE 63–78; RESP 16; TEMP 36.3–36.9; O2SAT 100; BMI 33.2
[2020-10-23] MEDS: Lactated Ringers 1,000 ML 100 ML IV (08:51)
[2020-10-23 09:00] LABS: Bedside Glucose 139 mg/dL (70-110)
--- NOTE | 2020-10-23 09:00 | HP_ITS ---
Intake Vital Signs 09/21/20 Height 5 ft 5.5 in 09/21/20 Weight: 200 lb 09/21/20 BP 150/82 H 09/21/20 Blood Pressure Location Rt brachial 09/21/20 Position Sitting 09/21/20 Respiration 18 09/21/20 Pulse 85 09/21/20 Pulse Source Monitor 09/21/20 Temp 97.7 F L 09/21/20 Temp Source Temporal 09/21/20 Pulse Oximetry (%) 98 09/21/20 Oxygen Delivery Method room air Intake Visit Reasons: CSCOPE Chief Complaint: c-scope consult Heel Boom Operator Required: No Accompanied by: Is patient in pain?: No Allergies atorvastatin [From Lipitor] Adverse Reaction (Severe, Verified 09/21/20 12:44) Myalgias rosuvastatin [From Crestor] Adverse Reaction (Severe, Verified 09/21/20 12:44) Myalgias Medications aspirin 81 mg tablet,delayed release 81 mg PO QDAY 06/09/18 [History Confirmed 09/21/20] metformin 500 mg tablet 500 mg PO DAILY 12/16/19 [History Confirmed 09/21/20] Losartan Potassium 100 mg PO QDAY 03/20/20 [History Confirmed 09/21/20] furosemide 40 mg tablet 40 mg PO BID #180 tab 05/09/20 [Rx Confirmed 09/21/20] carvedilol 12.5 mg tablet 12.5 mg PO BID #180 tab 05/14/20 [Rx Confirmed 09/21/20] apixaban 5 mg tablet 5 mg PO BID #180 tab 06/04/20 [Rx Confirmed 09/21/20] pravastatin 80 mg tablet 80 mg PO QHS #90 tab 06/04/20 [Rx Confirmed 09/21/20] potassium chloride 20 mEq tablet,extended release(part/cryst) 40 meq PO DAILY #180 tab 07/02/20 [Rx Confirmed 09/21/20] amlodipine 5 mg tablet 5 mg PO DAILY #90 tab 08/28/20 [Rx Confirmed 09/21/20] [facility] Medical History Longstanding persistent atrial fibrillation (Chronic) 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) Chronic systolic (congestive) heart failure (Chronic) Cardiomyopathy in disease classified elsewhere (Chronic) CVA (cerebral vascular accident) (Chronic 01/18/18) Essential (primary) hypertension (Chronic) HLD (hyperlipidemia) (Chronic) Carotid artery stenosis (Chronic) Obesity (BMI 30.0-34.9) (Chronic) Positive colorectal cancer screening using Cologuard test (Chronic) Right sided weakness (Inactive) Surgical History H/O coronary artery bypass surgery (Chronic 02/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 Bill Jackson MD) Smoking Status: Never smoker alcohol intake: current alcohol intake frequency: holidays/special occasions only caffeine: Yes Type: coffee Number of servings: 3 HPI HPI HPI: HOLLIE ODEN, is a 75 M who presents to the office today for HPI HPI Surgical H&P: Yes HPI: HOLLIE ODEN, is a 75 M who presents to the office today for Positive Cologuard. The patient reports that his epigastric pain that he had before is gone. The patient was seen for positive Cologuard back in November and then underwent carotid stenosis endarterectomy. Patient reports he is doing well with no gross blood in his stool. He is not having any abdominal pain. He would like to have his colonoscopy performed. Patient has never had a colonoscopy in the past. ROS General General: No weight change, appetite, fatigue, colon cancer, breast cancer or weakness HEENT HEENT: No difficulty swallowing, eye injury, eye surgery, swollen glands or hoarseness Endo Endocrine: Yes diabetes mellitus; no thyroid disease, thyroid cancer, Hair loss, heat intolerance or cold intolerance Skin Skin: No rash or changing moles Breast Breast: No left breast lump, right breast lump, nipple discharge, breast pain, abnormal mammogram, abnormal US or breast enlargement Musc Musculoskeletal: No back problems, arthritis, rheumatoid arthritis, gout or joint pain Cardio Cardiovascular: Yes heart disease, atrial fibrillation and high blood pressure; no murmur, pacemaker, heart attack, heart stent, palpitations, shortness of breat with exertion or chest pain Psych Psychiatric: No depression, anxiety or hearing voices Resp Respiratory: No shortness of breath, No sleep apnea, No cough, No COPD, No asthma, No emphysema, No wheezing Gastro Gastrointestinal: No abdominal pain, No nausea or vomiting, Yes diarrhea, No constipation, No blood in stool, Yes acid reflux, No hemorrhoids, Yes ulcers, No gallbladder problem, No black,tarry stools Kashif Hematologic: Yes blood thinners, No blood disorders, No bleeding, No anemia, No blood clots Neuro Neurologic: No system reviewed and no additional complaints, except as docu, No as per HPI, No abnormal walking, No abnormal hearing, No abnormal movements, No abnormal speech, No behavioral changes, No burning sensations, No confusion, No seizure-like activity, No unsteadiness, No dizziness, No localized weakness, No frequent falls, No headache(s), No lack of coordination, No loss of vision, No memory loss, No numbness, No other visual disturbances, No radiating pain, No restless legs, No sensory deficit, No fainting, No tingling, No tremor(s), No weakness, Yes other (stroke) Exam Const General: cooperative Orientation: alert, oriented x3 Chest Breast Palpation: No nipple discharge Resp Effort & Inspection: normal respiratory effort Auscultation: clear to auscultation bilaterally Cardio Rate: regular rate Rhythm: regular rhythm Heart Sounds: no murmurs GI Inspection: non-distended Palpation: soft, nontender Assessment & Plan Problems 1. Positive colorectal cancer screening using DNA-based stool test R19.5 Plan The patient had a positive Cologuard test back in November but was unable to have colonoscopy due to carotid disease. He had a carotid endarterectomy which is well-healed. He reports no blood in stool or abdominal pain. He is never had a colonoscopy. I recommend a colonoscopy to evaluate after the positive Cologuard test. Patient will stop his Eliquis for 2 days prior to the procedure. I explained endoscopy in detail to the patient. I explained the risks including but not limited to stroke or heart attack with anesthesia, perforation of the GI tract, bleeding, infection. I explained that any of these could necessitate further emergency surgery. The patient understands and all questions were answered sufficiently. The patient wishes to proceed with procedure. We discussed the current risks associated with COVID-19. While it is understood that there is a community spread of COVID-19, the risk of sid COVID-19 while at [facility] ([facility]) is very low; however, the risk cannot be completely mitigated because of the community spread of the disease. We discussed in detail the risk of exposure to and/or potential harm posed by the COVID-19 virus with having a surgery/procedure at this time versus the risk of delaying the surgery/procedure. It is not possible to know either the risk of delaying the surgery or procedure or chance of getting an infection with perfect accuracy, but a joint decision was made to proceed at this time with the scheduled surgery/procedure as indicated on the consent form. Patient was notified that we will need to comply with any screening or testing [facility] wishes to perform or that surgery may be delayed for any positive results. Bill Jackson MD Pager: [facility] [address] [place] [address], [address] [place] [address] Office: Orders Orders: Colonoscopy Today R19.5 Coding Level of Care Code Off vis,est,level 3 Diagnoses Positive colorectal cancer screening using DNA-based stool test R19.5 I have re-examined the patient. There are no clinical changes since date of exam.
--- NOTE | 2020-10-23 09:30 | COLBX_PTH ---
PATIENT: HOLLIE ODEN LOC: EN U#:[id number] AGE/SX: 75/M ROOM: RE10/23/[address]: Dr. Bill Jackson MD : 1945 BED: DIS: 10/23/2020 SPEC #: [id number] RECD: 10/23/20 12:17 STATUS: RAJANI SUHAS #: [id number] IAN: 10/23/20 09:[address]: Bill Jackson DEPT: SURGICAL PATHOLOGY RECD BY: Stephany Oro ENTERED: 10/23/20 13:02 SP TYPE: COLON BX OTHR DR: Dr. Herson Terrell MD Tissues: A - Transverse colon B - Ascending colon C - Descending colon Procedures: Surgery Specimen Level IV HEADER OPERATION: Colonoscopy PRE-OP DIAGNOSIS: Positive colorectal cancer screening TISSUE SUBMITTED: A - Transverse polyp, B - Ascending polyp, C - Descending polyp MICROSCOPIC DIAGNOSIS A. Transverse colon polyp, biopsy: Fragments of tubular adenoma. B. Ascending colon polyp, biopsy: Fragments of tubular adenoma. Fragments of fecal material. C. Descending colon polyp, biopsy: Tubular adenoma. Fragments of fecal material. SJ:fredo 10/24/20 MICROSCOPIC DESCRIPTION Slides are reviewed. GROSS DESCRIPTION A - Received in fixative is one container labeled with the patient's name and designated transverse polyp. The specimen consists of multiple irregular fragments of light kumar soft tissue that in aggregate measure 1.5 x 1 x 0.1 cm. The specimen is totally submitted in one cassette. B - Received in fixative is one container labeled with the patient's name and designated ascending polyp. The specimen consists of multiple irregular fragments of light kumar soft tissue that in aggregate measure 1.5 x 1 x 0.2 cm. The specimen is totally submitted in one cassette. C - Received in fixative is one container labeled with the patient's name and designated descending polyp. The specimen consists of multiple irregular fragments of light kumar soft tissue that in aggregate measure 2 x 0.5 x 0.1 cm. The specimen is totally submitted in one cassette. / AM:fredo 10/23/20 TC:1 CPT: 07616 x3
--- NOTE | 2020-10-23 10:12 | OP.COLON_ITS ---
Patient Name: Jaspreet Bee Procedure Date: 10/23/2020 9:37 AM Date of : 1945 Age: 75 Procedure: Colonoscopy Indications: Positive Cologuard test Providers: Bill Jackson MD Referring MD: Herson Terrell MD Medicines: Monitored Anesthesia Care Patient Profile: This is a 75 year old male. Refer to note in patient chart for documentation of history and physical. Last Colonoscopy: none. The patient's first colonoscopy is today. Complications: No immediate complications. Estimated blood loss: Minimal. Procedure: Pre-Anesthesia Assessment: - Prior to the procedure, a History and Physical was performed, and patient medications and allergies were reviewed. The patient's tolerance of previous anesthesia was also reviewed. The risks and benefits of the procedure and the sedation options and risks were discussed with the patient. All questions were answered, and informed consent was obtained. Prior Anticoagulants: The patient has taken Eliquis (apixaban), last dose was 2 days prior to procedure. After reviewing the risks and benefits, the patient was deemed in satisfactory condition to undergo the procedure. After I obtained informed consent, the scope was passed under direct vision. Throughout the procedure, the patient's blood pressure, pulse, and oxygen saturations were monitored continuously. The pediatric colonoscope was introduced through the anus and advanced to the cecum, identified by appendiceal orifice and ileocecal valve. The colonoscopy was performed without difficulty. The patient tolerated the procedure well. The quality of the bowel preparation was good. Scope In: 9:50:09 AM Scope Withdrawal Time 0 hours 4 minutes 41 seconds Scope Out: 10:08:10 AM Total Procedure Duration Time 0 hours 18 minutes 1 second Findings: Three polyps were found in the descending colon, transverse colon and ascending colon. These polyps were removed with a hot snare. Resection and retrieval were complete. Multiple small-mouthed diverticula were found in the sigmoid colon. The exam was otherwise without abnormality on direct and retroflexion views. Impression: - Three polyps in the descending colon, in the transverse colon and in the ascending colon, removed with a hot snare. Resected and retrieved. - Diverticulosis in the sigmoid colon. - The examination was otherwise normal on direct and retroflexion views. Recommendation: - Discharge patient to home. - Resume previous diet. - Continue present medications. - Resume Eliquis (apixaban) at prior dose tomorrow. - Await pathology results. - Repeat colonoscopy in 3 years for surveillance. Procedure Code(s): --- Professional --- 00296, Colonoscopy, flexible; with removal of tumor(s), polyp(s), or other lesion(s) by snare technique Diagnosis Code(s): --- Professional --- D12.4, Benign neoplasm of descending colon D12.3, Benign neoplasm of transverse colon (hepatic flexure or splenic flexure) D12.2, Benign neoplasm of ascending colon R19.5, Other fecal abnormalities K57.30, Diverticulosis of large intestine without perforation or abscess without bleeding CPT copyright 2017 [employer]. All rights reserved. The codes documented in this report are preliminary and upon cpc coder review may be revised to meet current compliance requirements. Bill Jackson MD 10/23/2020 10:12:13 AM This report has been signed electronically. Number of Addenda: 0 Note Initiated On: 10/23/2020 9:37 AM
--- NOTE | 2020-10-23 10:12 | OP.CCLET_ITS ---
10/23/2020 Herson Terrell MD [address] [place] [address] Re : Colonoscopy procedure for Jaspreet Bee Dear Dr. Terrell This procedure was performed on Friday, October 23, 2020. My impressions and recommendations are as follows: Impressions : - Three polyps in the descending colon, in the transverse colon and in the ascending colon, removed with a hot snare. Resected and retrieved. - Diverticulosis in the sigmoid colon. - The examination was otherwise normal on direct and retroflexion views. Recommendations : - Discharge patient to home. - Resume previous diet. - Continue present medications. - Resume Eliquis (apixaban) at prior dose tomorrow. - Await pathology results. - Repeat colonoscopy in 3 years for surveillance. My findings are described in the full procedure note, which is enclosed. If I can be of further assistance, please feel free to contact me at Doctor phone number(s): , Work: . Sincerely, Bill Jackson MD 10/23/2020 10:12:13 AM This report has been signed electronically.
== END 2020-10-23 10:57 | disposition home or self-care (01) ==
LOC: EN 08:05 → AC 08:05
PROVIDERS: PCP Family Medicine; Referring Provider Family Medicine; Visit Provider Surgery
PROC: 0DJD8ZZ Inspection of Lower Intestinal Tract, Via Natural or Artificial Opening Endoscopic (ICD-10-PCS; CPT 45378; principal; 2020-10-23 09:25)
DX: D12.2 Benign neoplasm of ascending colon (principal); D12.3 Benign neoplasm of transverse colon; D12.4 Benign neoplasm of descending colon; K57.30 Diverticulosis of large intestine without perforation or abscess without bleeding; E11.9 Type 2 diabetes mellitus without complications; I10 Essential (primary) hypertension; I48.91 Unspecified atrial fibrillation; Z79.01 Long term (current) use of anticoagulants; Z79.82 Long term (current) use of aspirin; Z79.84 Long term (current) use of oral hypoglycemic drugs; Z20.828 Contact with and (suspected) exposure to other viral communicable diseases; Z79.899 Other long term (current) drug therapy
CPT/HCPCS: 45385; 82962; 87426; 88305; J7120; J2405

== ENCOUNTER → 2020-11-28 09:25 | Outpatient (CLI) | payer MEDICARE, SELFPAY ==
[2020-10-23 08:27] VITALS: BMI 33.2
[2020-11-28 12:54] LABS: Anion Gap 2 (5-15); BUN 19 mg/dL (7-18); BUN/Creat Ratio 17.3 RATIO (10-20); Chloride 110 mmol/L (98-107); Cholesterol 137 mg/dL (200); EST Glomerular Filtration Rate 70 mL/min (>60); Est Glom Filt Rate - Afr Amer 84 mL/min (>60); Glucose 124 mg/dL (74-106); High Density Lipoprotein 38 mg/dL; Potassium 4.1 mmol/L (3.5-5.1); Sodium Level 141 mmol/L (136-145); Triglycerides 50 mg/dL; Very Low Density Lipoprotein 10 mg/dL (5-40)
== END ==
PROVIDERS: PCP Family Medicine; Referring Provider Family Medicine; Visit Provider Family Medicine
DX: I10 Essential (primary) hypertension (principal)
CPT/HCPCS: 36415; 80048; 80061

== ENCOUNTER → 2021-04-05 08:37 | Outpatient (CLI) | payer MEDICARE, SELFPAY ==
[2021-02-08 08:29] VITALS: BMI 33.3
--- NOTE | 2021-04-05 08:42 | CDU_ITS ---
Reason For Study: Postop Bilateral Carotids Rt. Velocities/BP Lt. Velocities/BP Prox CCA 80/14 cm/sec. Prox CCA 127/19 cm/sec. Mid CCA 92/13 cm/sec. Mid CCA 101/17 cm/sec. Dist CCA 77/12 cm/sec. Dist CCA 97/9 cm/sec. Prox ICA 197/43 cm/sec. Prox ICA 105/25 cm/sec. Mid ICA 90/23 cm/sec. Mid ICA 97/31 cm/sec. Dist ICA 78/17 cm/sec. Dist ICA 104/24 cm/sec. Rt. ICA/CCA = 2.1. Lt. ICA/CCA = 1.0. Prox ECA 308/22 cm/sec. Prox ECA 88/10 cm/sec. Rt. Vert. 61/7 cm/sec. Lt. Vert. 60/17 cm/sec. Right Extracranial There is heterogeneous, irregular atherosclerotic plaque noted in the right common carotid artery. There is heterogeneous, irregular atherosclerotic plaque noted in the right internal carotid artery. There is no significant atherosclerotic plaque noted in the right external carotid artery. Antegrade flow is noted in the right vertebral artery. Left Extracranial There is homogeneous, smooth atherosclerotic plaque noted in the left common carotid artery. There is homogeneous, smooth atherosclerotic plaque noted in the left internal carotid artery. There is heterogeneous, irregular atherosclerotic plaque noted in the left external carotid artery. Antegrade flow is noted in the left vertebral artery. Procedure Carotid Duplex 40636. This is a Carotid Duplex examination using B-mode, color flow and specral Doppler. Exam performed in department. VL/Carotid Duplex Ultrasound Interpretation Summary Irregular calcific plaque right carotid bulb and proximal internal carotid enrique ry with 50 to 69% stenosis of the internal carotid artery Greater than 50% stenosis right external carotid artery Post operative changes left carotid bulb and proximal internal carotid artery w ith less than 50% stenosis of the internal carotid artery Less than 50% stenosis left external carotid artery Patent and antegrade vertebrals bilaterally Improvement on the left and no change on the right from a previous examination of August 26, 2019 Ordering Physician: Nakul Humphreys Referring Physician: Herson Terrell Performed By: Tracy Adamson RDCS, RVT
== END ==
PROVIDERS: PCP Family Medicine; Visit Provider Surgery
DX: Z48.812 Encounter for surgical aftercare following surgery on the circulatory system (principal); I65.29 Occlusion and stenosis of unspecified carotid artery
CPT/HCPCS: 93880

== ENCOUNTER → 2021-05-23 10:22 | Outpatient (CLI) | payer MEDICARE, SELFPAY ==
[2021-02-08 08:29] VITALS: BMI 33.3
[2021-05-23 12:22] LABS: Anion Gap 6 (5-15); BUN 23 mg/dL (7-18); BUN/Creat Ratio 17.8 RATIO (10-20); Calcium,Total 9.3 mg/dL (8.5-10.1); Chloride 105 mmol/L (98-107); Cholesterol 160 mg/dL (200); Creatinine, Serum 1.29 mg/dL (0.70-1.30); EST Glomerular Filtration Rate 58 mL/min (>60); Est Glom Filt Rate - Afr Amer 70 mL/min (>60); Glucose 135 mg/dL (74-106); High Density Lipoprotein 40 mg/dL; Potassium 4.4 mmol/L (3.5-5.1); Sodium Level 140 mmol/L (136-145); Triglycerides 58 mg/dL; Very Low Density Lipoprotein 12 mg/dL (5-40)
[2021-05-23 12:34] LABS: Microalbumin,Random Urine 5.1 mg/L (NO RANGE EST.); Microalbumin:Creatinine Ratio 28.4 mg/g CRE (<30 mg/g CRE)
== END ==
PROVIDERS: PCP Family Medicine; Referring Provider Family Medicine; Visit Provider Family Medicine
DX: E11.9 Type 2 diabetes mellitus without complications (principal)
CPT/HCPCS: 36415; 80048; 80061; 82043; 82570

== ENCOUNTER → 2021-05-27 10:09 | Outpatient (CLI) | payer MEDICARE, SELFPAY ==
[2021-05-27 05:42] VITALS: BMI 33.3
--- NOTE | 2021-05-27 10:10 | VDLE_ITS ---
Reason For Study: Bilateral leg swelling RIGHT LEFT GSV is normal. Left GSV harvested. CFV is compressible, spontaneous, phasic, CFV is compressible, spontaneous, phasic, competent and demonstrates normal competent, and demonstrates normal augmentation. augmentation. FV is compressible, spontaneous, phasic, FV is compressible, spontaneous, phasic, competent and demonstrates normal competent and demonstrates normal augmentation. augmentation. POP V is compressible, spontaneous, phasic, POP V is compressible, spontaneous, phasic, competent and demonstrates normal competent and demonstrates normal augmentation. augmentation. T/P Trunk is compressible. T/P Trunk is compressible. PTV is compressible. PTV is compressible. RT PerV is compressible. LT PerV is compressible. Procedure This is a venous duplex using B-mode, color flow and spectral Doppler. Exam performed in department. A preliminary report was called and/or faxed to Petr's RN. VL/Venous Duplex US - Ralph Extrem Interpretation Summary No evidence for acute deep venous thrombosis bilateral lower extremities Patent and compressible right great saphenous vein Surgically harvested left great saphenous vein Ordering Physician: Nakul Humphreys Referring Physician: Herson Terrell Performed By: Tamar Pennington RVT and Student
== END ==
PROVIDERS: PCP Family Medicine; Referring Provider Surgery; Visit Provider Surgery
DX: R22.43 Localized swelling, mass and lump, lower limb, bilateral (principal)
CPT/HCPCS: 93970

== ENCOUNTER 2021-06-24 19:46 | Inpatient (IN) | payer MEDICARE, SELFPAY ==
[2021-05-27 05:42] VITALS: BMI 33.3
[2021-06-24] VITALS (9 sets, daily range): BP systolic 123–158; BP diastolic 58–72; PULSE 79–92; RESP 20–25; TEMP 36.7–38.1; O2SAT 84–98; BMI 29.2; BMI 37.1
--- NOTE | 2021-06-24 20:16 | RAD_ITS ---
STUDY: X-RAY CHEST REASON FOR EXAM: Male, 75 years old. Shortness of breath TECHNIQUE: PA and lateral views of the chest. COMPARISON: Comparison is made with prior examination of 01/18/2018. FINDINGS: EKG electrodes are seen. There now is evidence of dense consolidation in the right middle lobe. Underlying mass lesion cannot be excluded. There is no demonstrated pleural abnormality. Sternal cerclage wires and vascular clips are present from a prior sternotomy and coronary artery bypass graft procedure (CABG). Mild cardiomegaly. Normal mediastinum and maddie. Normal visualized pulmonary arteries. There is atherosclerotic calcification of the aortic arch with tortuosity. There are diffuse degenerative changes of the visualized thoracic spine. Normal visualized ribs, clavicles, and shoulders. There is no demonstrated abnormality of the visualized soft tissue structures of the upper abdomen. RAD/Chest PA and Lateral IMPRESSION: Dense consolidation in the right middle lobe. CT scan is recommended for further evaluation to rule out possible underlying mass lesion. Electronically Signed: Sandeep Leong MD at 20:41 EDT , Service support ,
[2021-06-24 20:38] LABS: Lactic Acid 1.9 mmol/L (0.4-1.9)
--- NOTE | 2021-06-24 20:46 | EKG12_ITS ---
Test Reason : FEVER Blood Pressure : / mmHG Vent. Rate : 095 BPM Atrial Rate : 214 BPM P-R Int : 000 ms QRS Dur : 086 ms QT Int : 338 ms P-R-T Axes : 000 026 110 degrees QTc Int : 424 ms Atrial fibrillation Cannot rule out Inferior infarct , age undetermined Abnormal ECG Confirmed by TARYN WILSON, MANSOOR ([id number]), commissioning editor MARITZA TELLEZ ([id number]) on 06/27/2021 10:00:43 AM Referred By: Confirmed By:MANSOOR CENTENO MD
--- NOTE | 2021-06-24 20:47 | EX.ED.DYSGE1 ---
HPI History of Present Illness Chief Complaint: Fever Informant: patient and spouse/S.O. Narrative Narrative: 75-year-old male presents to the emergency room with fever and cough. Patient states he had a slight cough for the past several days but acutely got worse today. He notes a fever of up to 102 but that was after he mowed the lawn. He did not take anything for the fever. Triage temperature 100.6. He notes the cough is occasionally productive. He notes rattling in the chest. He did have some diarrhea which has resolved. No vomiting. He is on apixaban. [facility] Medical History (Updated 06/24/21 @ 20:[address] Hao Rodriguez, DO) Atherosclerotic heart disease of [place] coronary artery without angina pectoris Cardiomyopathy in disease classified elsewhere Carotid artery stenosis Chronic systolic (congestive) heart failure CVA (cerebral vascular accident) (01/18/18) Essential (primary) hypertension HLD (hyperlipidemia) Longstanding persistent atrial fibrillation Obesity (BMI 30.0-34.9) Positive colorectal cancer screening using Cologuard test Right sided weakness Secondary pulmonary arterial hypertension Home Medications metformin 500 mg tablet 500 mg PO DAILY 12/16/19 [History Last Taken 06/23/21] losartan 100 mg PO DAILY 03/20/20 [History Last Taken 06/24/21] amlodipine 5 mg tablet 5 mg PO DAILY #90 tab 08/28/20 [Rx Last Taken 06/24/21] aspirin 81 mg tablet,delayed release 81 mg PO DAILY 02/08/21 [History Last Taken 06/24/21] pravastatin 80 mg tablet 80 mg PO QHS #90 tab 05/31/21 [Rx Last Taken 06/23/21] albuterol sulfate 2 puff INHALATION Q4H PRN PRN 06/24/21 [History Last Taken 06/24/21] apixaban 5 mg tablet 5 mg PO BID #180 tab 06/24/21 [Rx Last Taken 06/24/21] carvedilol 12.5 mg PO BID 06/24/21 [History Last Taken 06/24/21] furosemide 40 mg PO BID 06/24/21 [History Last Taken 06/24/21] potassium chloride 20 mEq tablet,extended release(part/cryst) 40 meq PO DAILY #180 tab 06/24/21 [Rx Last Taken 06/24/21] Allergy/AdvReac Type Severity Reaction Status Date / Time atorvastatin [From Lipitor] AdvReac Severe Myalgias Verified 05/27/21 09:26 rosuvastatin [From Crestor] AdvReac Severe Myalgias Verified 05/27/21 09:26 Family History Mother Breast cancer Hypertension Grandmother Heart disease Father Heart disease Hypertension Surgical History H/O coronary artery bypass surgery (02/13/00) History of left heart catheterization (06/14/18) History of left-sided carotid endarterectomy (04/02/20) History of right-sided carotid endarterectomy (2000) Hx of tonsillectomy Social History Smoking Status: Never smoker alcohol intake: current alcohol intake frequency: holidays/special occasions only caffeine: Yes Type: coffee Number of servings: 3 ROS ROS ED Constitutional Constitutional ED: Reports chills and fever(s); Denies weight loss Eyes Eyes: Denies change in vision or diplopia ENT ENT ED: Denies ear pain, rhinorrhea or sore throat Cardiovascular Cardiovascular: Denies chest pain, orthopnea, palpitations or racing heartbeat Respiratory/Chest Respiratory/Chest: Reports cough, dyspnea and dyspnea on exertion; Denies orthopnea Gastrointestinal Gastrointestinal: Reports diarrhea; Denies abdominal pain, nausea or vomiting Genitourinary Genitourinary ED: Denies dysuria, hematuria or urinary frequency Musculoskeletal Musculoskeletal: Reports myalgias; Denies arthralgias Integumentary Denies abscess or rash Neurologic Neurologic: Denies headache(s) or weakness Psychiatric Psychiatric: Denies anxiety, depression, suicidal ideation or suicidal thoughts Endocrine Endocrinology: Denies polydipsia, polyphagia or polyuria Allergic/Immunologic Allergic/Immunologic ED: Denies mouth swelling, tongue swelling or urticaria EXAM Physical Exam Const Vital Signs: 06/24/21 19:47 06/24/21 19:49 06/24/21 20:06 Temperature 100.6 F H 100.6 F H Temperature Source Temporal Temporal Pulse Rate 92 92 Respiratory Rate 20 H 20 H 23 H Respiratory Effort Respiratory Pattern Blood Pressure 158/72 H 158/72 H Blood Pressure Mean 100 100 Pulse Ox 89 89 84 Oxygen Delivery Method Room Air Room Air Room Air Oxygen Flow Rate (L/min) 2 06/24/21 20:07 06/24/21 21:02 Temperature Temperature Source Pulse Rate 90 Respiratory Rate 22 H Respiratory Effort Short of Breath Respiratory Pattern Normal Blood Pressure Blood Pressure Mean Pulse Ox Oxygen Delivery Method Oxygen Flow Rate (L/min) Positive well nourished and well developed General Appearance ED: well developed HEENT Reports normocephalic, head/scalp atraumatic and moist mucous membranes Eyes PERRL and EOMs intact bilaterally Neck no lymphadenopathy, supple and no JVD Resp normal respiratory effort Resp Narrative: Patient has audible rhonchi Auscultation: rhonchi Cardio regular rate and no murmurs Rate: tachycardic GI normal to inspection, nondistended, normoactive bowel sounds and non-tender Palpation: soft Back/Spine no CVA tenderness and normal ROM Extremity normal to inspection General Extremety ED: Negative for edema General Extremity: Negative for edema Neuro oriented x3 and CN's II-XII intact bilaterally Sensorium / Orientation: alert Motor Exam: strength 5/5 throughout Psych mental status grossly normal Mood & Affect: Negative for depressed or tearful Skin no rashes or lesions noted and no wounds MDM MDM MDM Narrative Medical decision making narrative: My interpretation of the 2 view chest x-ray is infiltrate of the right middle lobe. Blood cultures were obtained. He received Rocephin and azithromycin as well as breathing treatments. Lactic acid is normal 1.9. Creatinine 1.14. Troponin 43. Patient is hypoxic on room air. White count 8.2. Plan will be admission into the hospital for further care Lab Data Attestation: I reviewed the patient's lab results. Labs: Laboratory Results - last 24 hr 06/24/21 06/24/21 06/24/21 20:00 20:00 20:00 WBC 8.2 RBC 3.73 L Hgb 12.7 L Hct 38.3 L MCV 102.7 H MCH 34.0 H MCHC 33.2 RDW Std Deviation 47.4 H RDW Coeff of Natasha 12.7 Plt Count 158 MPV 11.0 Immature Gran % (Auto) 0.200 Neut % (Auto) 88.6 H Lymph % (Auto) 5.4 L [place] % (Auto) 5.7 Eos % (Auto) 0.0 Baso % (Auto) 0.1 Absolute Neuts (auto) 7.2 Absolute Lymphs (auto) 0.44 L Nucleated RBC % 0 Differential Comment SCANNED PT INR APTT Sodium 135 L Potassium 3.4 L Chloride 103 Carbon Dioxide 23.0 Anion Gap 9 BUN 19 H Creatinine 1.14 Estim Creat Clear Calc 58.70 Est GFR (MDRD) Af Amer 81 Est GFR (MDRD) Non-Af 67 BUN/Creatinine Ratio 16.7 Glucose 188 H Lactic Acid 1.9 Calcium 9.2 Total Bilirubin 2.10 H AST 29 ALT 37 Alkaline Phosphatase 125 H Troponin I High Sens 43.0 Total Protein 7.6 Albumin 3.6 Globulin 4.0 Albumin/Globulin Ratio 0.9 06/24/21 21:10 WBC RBC Hgb Hct MCV MCH MCHC RDW Std Deviation RDW Coeff of Natasha Plt Count MPV Immature Gran % (Auto) Neut % (Auto) Lymph % (Auto) [place]verse % (Auto) Eos % (Auto) Baso % (Auto) Absolute Neuts (auto) Absolute Lymphs (auto) Nucleated RBC % Differential Comment PT 17.6 H INR 1.5 APTT 27.0 Sodium Potassium Chloride Carbon Dioxide Anion Gap BUN Creatinine Estim Creat Clear Calc Est GFR (MDRD) Af Amer Est GFR (MDRD) Non-Af BUN/Creatinine Ratio Glucose Lactic Acid Calcium Total Bilirubin AST ALT Alkaline Phosphatase Troponin I High Sens Total Protein Albumin Globulin Albumin/Globulin Ratio Radiography Diagnostic Testing: Radiology Impression Chest X-Ray 06/24/21 20:16 IMPRESSION: Dense consolidation in the right middle lobe. CT scan is recommended for further evaluation to rule out possible underlying mass lesion. Electronically Signed: Sandeep Leong MD at 20:41 EDT , Service support , EKG Initial EKG: Attestation: I personally reviewed and interpreted this EKG as follows: Comments: EKG demonstrates atrial fibrillation at a rate of 95. No concerning features of ACS or ectopy noted Discharge Plan Dx/Rx/DC Orders Clinical Impression: Pneumonia Disposition Disposition: Acute Care Hospital [facility]
[2021-06-24] MEDS: Albuterol 2.5 MG/3 ML VIAL.NEB. INHALATION (21:00)
[2021-06-24] MEDS: Ipratropium/Albuterol Sulfate 3 ML AMPUL.NEB INHALATION (21:00)
[2021-06-24] MEDS: Acetaminophen 500 MG Tablet 1000 MG PO (21:17)
[2021-06-24 21:19] LABS: Absolute Lymphocyte Count 0.44 X10^3/uL (0.83-4.51); Absolute Neutrophil Count 7.2 X10^3/uL (2.0-7.7); Basophil# 0.01 X10^3/uL; Basophil% 0.1 % (0-1); Hematocrit 38.3 % (40-54); Hemoglobin 12.7 g/dL (13.0-16.5); Lymphocyte # 0.44 X10^3/ul (0.83-4.51); Lymphocyte % 5.4 % (19-41); Mean Corp Hgb Conc 33.2 g/dL (32-36); Mean Corpuscular Volume 102.7 fL (80-94); Monocyte# 0.47 X10^3/uL; Monocyte% 5.7 % (0-10); NRBC Flagged by Analyzer 0 % (0-5); Neutrophil # 7.24 X10^3/uL (2.7-7.7); Neutrophil % 88.6 % (47-70); POSITIVE DIFFERENTIAL YES; Platelet Count 158 K/mm3 (150-450); RBC Distribution Width CV 12.7 % (11.6-14.6); RBC Distribution Width SD 47.4 fl (35.1-43.9); Red Blood Count 3.73 M/mm3 (4.6-6.2); White Blood Count 8.2 K/mm3 (4.4-11.0)
[2021-06-24] MEDS: Ceftriaxone 1 GM/50 ML BAG IV (21:20)
[2021-06-24 21:28] LABS: International Normalized Ratio 1.5; Prothrombin Time (Protime)PT. 17.6 SECONDS (11.7-14.9)
[2021-06-24 21:47] LABS: ALB/GLOB Ratio 0.9 RATIO (0.9-2.4); AST(SGOT) 29 U/L (15-37); Alanine Aminotransfer ALT/SGPT 37 U/L (16-61); Albumin, Serum 3.6 g/dL (3.2-5.0); Alkaline Phosphatase 125 U/L (45-117); Anion Gap 9 (5-15); BUN 19 mg/dL (7-18); BUN/Creat Ratio 16.7 RATIO (10-20); Calcium,Total 9.2 mg/dL (8.5-10.1); Chloride 103 mmol/L (98-107); Creatinine, Serum 1.14 mg/dL (0.70-1.30); EST Glomerular Filtration Rate 67 mL/min (>60); Est Glom Filt Rate - Afr Amer 81 mL/min (>60); Glucose 188 mg/dL (74-106); Potassium 3.4 mmol/L (3.5-5.1); Protein, Total 7.6 g/dL (6.4-8.2); Sodium Level 135 mmol/L (136-145)
[2021-06-24 21:49] LABS: Differential Comment SCANNED; Differential Indicated SCAN CRITERIA MET
--- NOTE | 2021-06-24 22:11 | HP.PCM.HOS_ITS ---
HPI - General General Date of Admission: 06/24/21 HPI Narrative HOLLIE ODEN, is a 75 M with a significant history of CAD status post CABG; hypertension; congestive heart failure who presents to emergency department with 1 day history of a persistent shortness of breath. Associated with his symptom is cough which is occasionally productive for sputum. Further he has rattling in his chest. On the day of presentation, he went to the urgent care where his temperature was found to be 102.8 Fahrenheit. Further he reports nausea and vomiting. Reportedly his symptoms really started about 4 days ago with sinus drainage. He reports anorexia. Patient received a second dose of [employer] / [email or web address] vaccination in January 2021. [facility] Medical History Atherosclerotic heart disease of [place] coronary artery without angina pectoris Cardiomyopathy in disease classified elsewhere Carotid artery stenosis Chronic systolic (congestive) heart failure CVA (cerebral vascular accident) (01/18/18) Essential (primary) hypertension HLD (hyperlipidemia) Longstanding persistent atrial fibrillation Obesity (BMI 30.0-34.9) Positive colorectal cancer screening using Cologuard test Right sided weakness Secondary pulmonary arterial hypertension Home Medications metformin 500 mg tablet 500 mg PO DAILY 12/16/19 [History Last Taken 06/23/21] losartan 100 mg PO DAILY 03/20/20 [History Last Taken 06/24/21] amlodipine 5 mg tablet 5 mg PO DAILY #90 tab 08/28/20 [Rx Last Taken 06/24/21] aspirin 81 mg tablet,delayed release 81 mg PO DAILY 02/08/21 [History Last Taken 06/24/21] pravastatin 80 mg tablet 80 mg PO QHS #90 tab 05/31/21 [Rx Last Taken 06/23/21] albuterol sulfate 2 puff INHALATION Q4H PRN PRN 06/24/21 [History Last Taken 06/24/21] apixaban 5 mg tablet 5 mg PO BID #180 tab 06/24/21 [Rx Last Taken 06/24/21] carvedilol 12.5 mg PO BID 06/24/21 [History Last Taken 06/24/21] furosemide 40 mg PO BID 06/24/21 [History Last Taken 06/24/21] potassium chloride 20 mEq tablet,extended release(part/cryst) 40 meq PO DAILY #180 tab 06/24/21 [Rx Last Taken 06/24/21] Allergy/AdvReac Type Severity Reaction Status Date / Time atorvastatin [From Lipitor] AdvReac Severe Myalgias Verified 05/27/21 09:26 rosuvastatin [From Crestor] AdvReac Severe Myalgias Verified 05/27/21 09:26 Family History Mother Breast cancer Hypertension Grandmother Heart disease Father Heart disease Hypertension Surgical History H/O coronary artery bypass surgery (02/13/00) History of left heart catheterization (06/14/18) History of left-sided carotid endarterectomy (04/02/20) History of right-sided carotid endarterectomy (2000) Hx of tonsillectomy Social History Smoking Status: Never smoker alcohol intake: current alcohol intake frequency: holidays/special occasions only caffeine: Yes Type: coffee Number of servings: 3 ROS ROS Narrative Constitutional: Reports anorexia. Report generalized weakness. Denies change in weight Eyes: Denies blurry vision, change in eye color, change in vision, discharge from eye(s), double vision, erythema, eye pain, loss of vision or other HEENT: Denies abnormal hearing, dysphagia, ear pain, epistaxis, headache(s), hearing loss. Denies sore throat. Reports rhinorrhea. Cardiovascular: Denies chest pain. Denies orthopnea and paroxysmal nocturnal dyspnea Respiratory/Chest: Reports cough with occasional sputum production. Reports shortness of breath. Gastrointestinal: Denies abdominal pain, coffee ground emesis, constipation, diarrhea, dyspepsia, hematemesis, hematochezia,. Reports nausea and vomiting. Genitourinary: Denies burning urination, difficulty urinating, dysuria, hem aturia, nocturia, urinary frequency, urinary hesitancy, urinary incontinence, urinary urgency or other Musculoskeletal: Denies arthralgias, back pain, joint pain, joint stiffness, joint swelling, myalgias, neck pain or other Neurologic: Denies abnormal gait, abnormal speech, confusion, disequilibrium, dizziness, focal weakness, headache(s), numbness, paresthesias, seizure-like activity, seizures, syncope, tingling, tremor(s) or other Psychiatric: Denies anxiety, depression, homicidal ideation, suicidal ideation or other Endocrinology: Denies change in body appearance, cold intolerance, excessive sweating, heat intolerance, polydipsia, polyuria or other Hematologic/Lymphatic: Denies anemia, easy bleeding, easy bruising, lymphadenopathy or other Integumentary: Denies ulcer on buttocks. Allergic/Immunologic: Denies rhinitis, hives, eczema, asthma or other Vital Signs Vital Signs Vital Signs: 06/24/21 19:47 06/24/21 19:49 06/24/21 20:06 Temperature 100.6 F H 100.6 F H Temperature Source Temporal Temporal Pulse Rate 92 92 Respiratory Rate 20 H 20 H 23 H Respiratory Effort Respiratory Pattern Blood Pressure 158/72 H 158/72 H Blood Pressure Mean 100 100 Pulse Ox 89 89 84 Oxygen Delivery Method Room Air Room Air Room Air Oxygen Flow Rate (L/min) 2 06/24/21 20:07 06/24/21 21:02 06/24/21 22:01 Temperature 99.5 F H Temperature Source Oral Pulse Rate 90 79 Respiratory Rate 22 H 25 H Respiratory Effort Short of Breath Respiratory Pattern Normal Blood Pressure 132/59 H Blood Pressure Mean 83 Pulse Ox 94 Oxygen Delivery Method Oxygen Flow Rate (L/min) 06/24/21 22:04 Temperature 99.5 F H Temperature Source Oral Pulse Rate 79 Respiratory Rate 25 H Respiratory Effort Respiratory Pattern Blood Pressure 132/59 H Blood Pressure Mean 83 Pulse Ox 94 Oxygen Delivery Method Oxygen Flow Rate (L/min) Weight Weight: 92.533 kg Body Mass Index (BMI) 29.2 Physical Exam Narrative Physical exam: General: Well-nourished, well-developed, no acute distress Head: Normocephalic, atraumatic, no tenderness Eyes: PERRLA, EOMI ENT, no trauma, moist mucous membranes, no rhinorrhea Neck: Nontender, full range of motion, no spinal tenderness, deformities, step- off CVS: Irregularly irregular rate and rhythm. Respiratory: Tachypnea. Rhonchi wheezes and crackles. Abdomen: Soft, nontender, nondistended, normal bowel sounds, no masses : Deferred Back: Nontender, no CVA tenderness, no midline spinal tenderness, deformities, step-offs Extremities: Nontender full range of motion, no trauma Skin: Diaphoretic. Normal color, no trauma, abrasions Neuro: Alert, oriented, cranial nerves II through XII grossly intact. Psychiatry: Normal mood. Normal affect. Not depressed. Not anxious. Results Lab / Micro Data Result Diagrams: 06/24/21 20:00 06/24/21 20:00 Labs: Laboratory Results - last 24 hr 06/24/21 20:00: Lactic Acid 1.9 06/24/21 20:00: WBC 8.2, RBC 3.73 L, Hgb 12.7 L, Hct 38.3 L, MCV 102.7 H, MCH 34.0 H, MCHC 33.2, RDW Std Deviation 47.4 H, RDW Coeff of Natasha 12.7, Plt Count 158, MPV 11.0, Immature Gran % (Auto) 0.200, Neut % (Auto) 88.6 H, Lymph % (Auto) 5.4 L, [place] % (Auto) 5.7, Eos % (Auto) 0.0, Baso % (Auto) 0.1, Absolute Neuts (auto) 7.2, Absolute Lymphs (auto) 0.44 L, Nucleated RBC % 0, Differential Comment SCANNED 06/24/21 20:00: Sodium 135 L, Potassium 3.4 L, Chloride 103, Carbon Dioxide 23.0, Anion Gap 9, BUN 19 H, Creatinine 1.14, Estim Creat Clear Calc 58.70, Est GFR (MDRD) Af Amer 81, Est GFR (MDRD) Non-Af 67, BUN/Creatinine Ratio 16.7, Glucose 188 H, Calcium 9.2, Total Bilirubin 2.10 H, AST 29, ALT 37, Alkaline Phosphatase 125 H, Troponin I High Sens 43.0, Total Protein 7.6, Albumin 3.6, Globulin 4.0, Albumin/Globulin Ratio 0.9 06/24/21 21:10: PT 17.6 H, INR 1.5, APTT 27.0 Micro: Microbiology 06/24/21 21:00 Mucosa - Nasopharyngeal Influenza Types A,B Direct FA (GARY) - Final Radiology Impression Chest X-Ray 06/24/21 20:16 IMPRESSION: Dense consolidation in the right middle lobe. CT scan is recommended for further evaluation to rule out possible underlying mass lesion. Electronically Signed: Sandeep Leong MD at 20:41 EDT , Service support , Assessment & Plan Assessment/Plan (1) Severe sepsis: (2) Pneumonia: QUALIFIERS: Laterality: right Lung location: upper lobe of lung Pneumonia type: due to unspecified organism Qualified Code(s): J18.9 - Pneumonia, unspecified organism (3) Leg swelling: PLAN: Severe sepsis secondary to pneumonia CXR T: T-max of 100.6 Fahrenheit at the hospital and 102.8 Fahrenheit at the urgent care. Tachycardia with heart rate of more than 90; Tachypnea with respiratory rate of monitor Lactic acid: 1.9 Severe sepsis criteria: A bilirubin of more than 2 Blood culture obtained at emergent department expanding Blood culture ?2 is pending Impression of chest x-ray by radiology: Chest x-ray: Dense consolidation in the right middle lobe. CT scan is recommended for further evaluation to rule out possible underlying mass lesion. Actual chest x-ray image was independently visualized and agree radiologist interpretation. Consider further imaging after treatment of pneumonia. Respiratory Gram stain and culture pending Antibiotics: Received ceftriaxone and azithromycin emergency department continue DuoNeb scheduled. Albuterol as needed Legionella antigen screen and Strep antigen ordered. Review of ED labs showed mildly elevated alkaline phosphatase. Trend CBC and CMP Bilateral leg swelling Right worse than left. Reported patient has been evaluated outpatient. Lasix continued Diabetes mellitus Patient with hyperglycemia on presentation Metformin held Accu-Chek QA [facility] with correction scale insulin ordered. Hypertension Blood pressure is stable in regard to his age Amlodipine; carvedilol; losartan and lasix continued. Trend blood pressure and adjust blood pressure medications. Persistent A. fib Eliquis continued DVT Prophylaxis: Eliquis as above. Charges/Coding Visit Charges Inpatient E&M: 39915 Init Hosp L3
[2021-06-24 22:19] LABS: Probe Check PASS; Specimen Processing Control PASS
[2021-06-24] MEDS: 0.9% Normal Saline 1,000 ML 50 ML IV (22:28)
[2021-06-24] MEDS: Furosemide 40 MG Tablet PO (23:33)
[2021-06-24] MEDS: Pravastatin 80 MG Tablet PO (23:33)
[2021-06-24] MEDS: APIXABAN 5 MG TABLET PO (23:33)
[2021-06-24] MEDS: Carvedilol 12.5 MG Tablet PO (23:33)
[2021-06-24] MEDS: Insulin Lispro 100 UNIT/ML INSULN.PEN SC (23:43)
[2021-06-25] VITALS (14 sets, daily range): BP systolic 126–155; BP diastolic 55–88; PULSE 53–95; RESP 18–20; TEMP 36.4–37.1; O2SAT 96–100
[2021-06-25] LABS: Bedside Glucose 252 mg/dL (70-110)
[2021-06-25 06:24] LABS: Absolute Lymphocyte Count 0.88 X10^3/uL (0.83-4.51); Absolute Neutrophil Count 7.4 X10^3/uL (2.0-7.7); Basophil# 0.01 X10^3/uL; Basophil% 0.1 % (0-1); Hematocrit 34.5 % (40-54); Hemoglobin 11.5 g/dL (13.0-16.5); Lymphocyte # 0.88 X10^3/ul (0.83-4.51); Mean Corp Hgb Conc 33.3 g/dL (32-36); Mean Corpuscular Hgb 33.7 pg (27.0-32.0); Mean Corpuscular Volume 101.2 fL (80-94); Mean Platelet Vol. 10.7 fl (6.2-12.0); Monocyte# 0.43 X10^3/uL; Monocyte% 4.9 % (0-10); NRBC Flagged by Analyzer 0 % (0-5); Neutrophil # 7.41 X10^3/uL (2.7-7.7); Neutrophil % 84.7 % (47-70); POSITIVE MORPHOLOGY YES; Platelet Count 130 K/mm3 (150-450); RBC Distribution Width SD 47.6 fl (35.1-43.9); Red Blood Count 3.41 M/mm3 (4.6-6.2); White Blood Count 8.8 K/mm3 (4.4-11.0)
[2021-06-25 06:27] LABS: Differential Indicated SCAN CRITERIA MET
[2021-06-25] MEDS: Insulin Lispro 100 UNIT/ML INSULN.PEN SC (06:34)
[2021-06-25 06:41] LABS: Bedside Glucose 160 mg/dL (70-110)
[2021-06-25] MEDS: Ipratropium/Albuterol Sulfate 3 ML AMPUL.NEB INHALATION ×4 (07:18→19:16)
[2021-06-25 07:59] LABS: ALB/GLOB Ratio 0.8 RATIO (0.9-2.4); AST(SGOT) 25 U/L (15-37); Alanine Aminotransfer ALT/SGPT 31 U/L (16-61); Albumin, Serum 3.1 g/dL (3.2-5.0); Alkaline Phosphatase 94 U/L (45-117); Anion Gap 9 (5-15); BUN 20 mg/dL (7-18); Calcium,Total 9.1 mg/dL (8.5-10.1); Chloride 104 mmol/L (98-107); Creatinine, Serum 1.11 mg/dL (0.70-1.30); EST Glomerular Filtration Rate 69 mL/min (>60); Est Glom Filt Rate - Afr Amer 83 mL/min (>60); Estimated Creatinine Clearance 45.09 ml/min; Globulin 3.8 g/dL (2.2-4.2); Glucose 172 mg/dL (74-106); Potassium 3.7 mmol/L (3.5-5.1); Protein, Total 6.9 g/dL (6.4-8.2); Sodium Level 138 mmol/L (136-145)
[2021-06-25] MEDS: Potassium Chloride Oral Tablet 20 MEQ 40 MEQ PO (08:31)
[2021-06-25] MEDS: Aspirin E.C. 81 MG Tablet PO (08:31)
[2021-06-25] MEDS: Carvedilol 12.5 MG Tablet PO ×2 (08:32→21:33)
[2021-06-25] MEDS: Losartan Potassium 100 MG Tablet PO (08:32)
[2021-06-25] MEDS: APIXABAN 5 MG TABLET PO ×2 (08:32→21:33)
[2021-06-25] MEDS: Furosemide 40 MG Tablet PO ×2 (08:32→17:52)
[2021-06-25] MEDS: amLODIPine 5 MG Tablet PO (08:33)
[2021-06-25] MEDS: Ceftriaxone 1 GM/50 ML BAG IV ×2 (09:55→21:34)
[2021-06-25] MEDS: 0.9% Saline Lock 10 ML Syringe IV ×3 (09:55→21:38)
[2021-06-25 11:15] LABS: Bedside Glucose 161 mg/dL (70-110)
--- NOTE | 2021-06-25 12:55 | CASEMGMT ---
LEVI BUSTILLOS assessment: Face to Face with patient for initial transition planning/care coordination assessment. LEVI BUSTILLOS introduced self and role at [facility], pt voices understanding and consents to assessment. Pt is sitting up in chair in no distress on room air. Pt is A/Ox4 and answers all questions appropriately. Care providers, pharmacy, and demographics verified. Presentation: Pt c/o cough/SOB/fever, audible crackles Admitting dx: Severe sepsis PCP: Nidhi Specialists: Patel, cardio; Petr, surgeon Preferred Pharmacy: [facility] Insurance: [facility] Prescription Benefit: [facility] Living Will/HPOA: Pt states does not have LW/HPOA but would like AD info. AD info provided to pt/. LNOK: Yu Bee, ; Vanessa Bee, daughter Living Arrangements: Pt states lives with and daughter in 1 story home with basement and states no concerns at home. Pt states is independent with ADL's. Transportation: Pt states drives self and states no transportation concerns. DME/HHC: Pt states no current DME or need for any further DME. Pt states no hx of HHC or SNF. Pt states no concerns with going home at time of discharge. Pt is retired. Pt states does not smoke cigarettes but does occasionally drink ETOH. Pt states no further concerns/needs. CM to follow for any further discharge planning/needs. Advised pt to ask for CM if any further questions/concerns/needs arise, voices understanding. Pt Goal: Home Plan[place] LEVI BUSTILLOS
--- NOTE | 2021-06-25 13:49 | PCM.PN.HOSP ---
Subjective Subjective Doing well, feels much better than yesterday. Breathing little bit easier. Objective Data Objective Data Vital Signs: Vital Signs Temp Pulse Resp BP Pulse Ox 98.0 F 60 20 H 133/60 H 100 06/25/21 08:45 06/25/21 11:12 06/25/21 11:12 06/25/21 08:45 06/25/21 08:46 Oxygen Flow Rate (L/min) 2 Oxygen Delivery Method Room Air Weight: 203 lb 4.259 oz Body Mass Index (BMI) 37.1 Intake & Output: Intake and Output for Last 24 Hours 06/24/21 06/25/21 06/26/21 03:59 03:59 03:59 Intake Total 381.67 / 381.67 725 / 725 Output Total 150 / 150 Balance 231.67 / 231.67 725 / 725 Medical Nutrition Assessment Dietitian: Nutrition Therapy Diagnosis Start: 06/25/21 13:45 Freq: Status: Active Protocol: Document 06/25/21 13:45 AG (Rec: 06/25/21 13:45 AG [id number]) Nutrition Malnutrition Evidence of Malnutrition Exists No Intake Problem Decreased Nutrient Needs (specify) Etiology (sodium) r/t CHF Signs/Symptoms as evidenced by BLE pitting 2+ edema. Status Active Problem Recommendation Dietitian Recommendations/Changes cardiac, 1800 calorie, consistent carbohydrate diet. Lab / Micro Data Result Diagrams: 06/25/21 05:34 06/25/21 05:34 Labs: Laboratory Results - last 24 hr 06/24/21 20:00: Lactic Acid 1.9 06/24/21 20:00: WBC 8.2, RBC 3.73 L, Hgb 12.7 L, Hct 38.3 L, MCV 102.7 H, MCH 34.0 H, MCHC 33.2, RDW Std Deviation 47.4 H, RDW Coeff of Natasha 12.7, Plt Count 158, MPV 11.0, Immature Gran % (Auto) 0.200, Neut % (Auto) 88.6 H, Lymph % (Auto) 5.4 L, Sequoyah % (Auto) 5.7, Eos % (Auto) 0.0, Baso % (Auto) 0.1, Absolute Neuts (auto) 7.2, Absolute Lymphs (auto) 0.44 L, Nucleated RBC % 0, Differential Comment SCANNED 06/24/21 20:00: Sodium 135 L, Potassium 3.4 L, Chloride 103, Carbon Dioxide 23.0, Anion Gap 9, BUN 19 H, Creatinine 1.14, Estim Creat Clear Calc 58.70, Est GFR (MDRD) Af Amer 81, Est GFR (MDRD) Non-Af 67, BUN/Creatinine Ratio 16.7, Glucose 188 H, Calcium 9.2, Total Bilirubin 2.10 H, AST 29, ALT 37, Alkaline Phosphatase 125 H, Troponin I High Sens 43.0, Total Protein 7.6, Albumin 3.6, Globulin 4.0, Albumin/Globulin Ratio 0.9 06/24/21 21:10: PT 17.6 H, INR 1.5, APTT 27.0 06/24/21 21:13: COVID-19 ([facility]TEO) Negative 06/24/21 23:39: POC Glucose 252 H 06/25/21 05:34: WBC 8.8, RBC 3.41 L, Hgb 11.5 L, Hct 34.5 L, MCV 101.2 H, MCH 33.7 H, MCHC 33.3, RDW Std Deviation 47.6 H, RDW Coeff of Natasha 13.0, Plt Count 130 L, MPV 10.7, Immature Gran % (Auto) 0.300, Neut % (Auto) 84.7 H, Lymph % (Auto) 10.0 L, Sequoyah % (Auto) 4.9, Eos % (Auto) 0.0, Baso % (Auto) 0.1, Absolute Neuts (auto) 7.4, Absolute Lymphs (auto) 0.88, Nucleated RBC % 0 06/25/21 05:34: Sodium 138, Potassium 3.7, Chloride 104, Carbon Dioxide 25.0, Anion Gap 9, BUN 20 H, Creatinine 1.11, Estim Creat Clear Calc 45.09, Est GFR (MDRD) Af Amer 83, Est GFR (MDRD) Non-Af 69, BUN/Creatinine Ratio 18.0, Glucose 172 H, Calcium 9.1, Total Bilirubin 1.30 H, AST 25, ALT 31, Alkaline Phosphatase 94, Total Protein 6.9, Albumin 3.1 L, Globulin 3.8, Albumin/Globulin Ratio 0.8 L 06/25/21 06:32: POC Glucose 160 H 06/25/21 11:09: POC Glucose 161 H Micro: Microbiology 06/24/21 20:00 Blood Culture (Wb) - Anticubital Left - Final Streptococcus pneumoniae 06/24/21 20:00 Blood Culture (Wb) - Anticubital Left Blood Culture - Preliminary 06/24/21 19:55 Urine, Clean Catch Legionella Antigen - Final 06/24/21 19:55 Urine, Clean Catch Streptococcus pneumoniae Antigen (M - Final 06/24/21 21:00 Mucosa - Nasopharyngeal Influenza Types A,B Direct FA (GARY) - Final Radiography Diagnostic Testing: Radiology Impression Chest X-Ray 06/24/21 20:16 IMPRESSION: Dense consolidation in the right middle lobe. CT scan is recommended for further evaluation to rule out possible underlying mass lesion. Electronically Signed: Sandeep Leong MD at 20:41 EDT , Service support , Physical Exam Const alert, oriented x3 and no apparent distress General Appearance: cooperative HEENT moist oral mucous membranes Head and Scalp: normocephalic Eyes PERRL, EOMs intact bilaterally and conjunctivae normal Neck supple and no JVD Resp normal respiratory effort, no retractions, no use of accessory muscles and clear to auscultation bilaterally Auscultation: Negative for crackles, rales, rhonchi or wheezes Cardio regular rate, regular rhythm, S1 normal heart sound, S2 normal heart sound and no murmurs GI soft to palpation, non-tender and non-distended; Negative for hepatosplenomegaly Extremity General Extremity: edema; Negative for clubbing or cyanosis Skin no rashes or lesions noted Neuro no focal motor deficits and no sensory deficits noted Psych affect normal Appearance: appropriate Assessment & Plan Assessment/Plan (1) Severe sepsis: (2) Pneumonia: QUALIFIERS: Pneumonia type: due to unspecified organism Laterality: right Lung location: upper lobe of lung Qualified Code(s): J18.9 - Pneumonia, unspecified organism (3) Leg swelling: PLAN: 1. Severe sepsis secondary to pneumococcal pneumonia with pneumococcal bacteremia -PCR and his blood culture with strep pneumonia, strep urine antigen however was negative -Discontinue azithromycin and continue with Rocephin repeat blood culture to check for clearance -If second blood culture is negative plan for discharge on oral antibiotics for 10 to 14-day course 2. HTN/bilateral leg swelling/persistent A. fib -Blood pressure is stable -Continue with his home blood pressure medications -Continue with Lasix continue with Eliquis 3. DM2 -Hold home Metformin -Accu-Cheks AC at bedtime -SSI, will make adjustments as necessary DVT: Eliqudebora Charges/Coding Visit Charges Inpatient E&M: 58882 Subs Hosp L2
[2021-06-25 16:11] LABS: Bedside Glucose 132 mg/dL (70-110)
[2021-06-25] MEDS: Pravastatin 80 MG Tablet PO (21:33)
[2021-06-25 21:45] LABS: Bedside Glucose 136 mg/dL (70-110)
[2021-06-26] VITALS (7 sets, daily range): BP systolic 127–172; BP diastolic 57–81; PULSE 67–90; RESP 18–20; TEMP 36.2–36.9; O2SAT 94–98
[2021-06-26 06:50] LABS: Absolute Lymphocyte Count 1.09 X10^3/uL (0.83-4.51); Absolute Neutrophil Count 5.7 X10^3/uL (2.0-7.7); Basophil# 0.01 X10^3/uL; Basophil% 0.1 % (0-1); Eosinophil# 0.01 X10^3/uL; Eosinophils% 0.1 % (0-5); Hematocrit 34.4 % (40-54); Hemoglobin 11.6 g/dL (13.0-16.5); Lymphocyte # 1.09 X10^3/ul (0.83-4.51); Lymphocyte % 15.3 % (19-41); Mean Corp Hgb Conc 33.7 g/dL (32-36); Mean Corpuscular Volume 100.9 fL (80-94); Mean Platelet Vol. 10.7 fl (6.2-12.0); Monocyte# 0.29 X10^3/uL; Monocyte% 4.1 % (0-10); NRBC Flagged by Analyzer 0 % (0-5); Neutrophil # 5.69 X10^3/uL (2.7-7.7); Neutrophil % 80.1 % (47-70); Platelet Count 151 K/mm3 (150-450); RBC Distribution Width CV 12.9 % (11.6-14.6); RBC Distribution Width SD 47.8 fl (35.1-43.9); Red Blood Count 3.41 M/mm3 (4.6-6.2); White Blood Count 7.1 K/mm3 (4.4-11.0)
[2021-06-26 07:00] LABS: Bedside Glucose 134 mg/dL (70-110)
[2021-06-26 07:09] LABS: Anion Gap 6 (5-15); BUN 20 mg/dL (7-18); BUN/Creat Ratio 21.4 RATIO (10-20); Calcium,Total 8.9 mg/dL (8.5-10.1); Chloride 103 mmol/L (98-107); Creatinine, Serum 0.94 mg/dL (0.70-1.30); EST Glomerular Filtration Rate 84 mL/min (>60); Est Glom Filt Rate - Afr Amer 101 mL/min (>60); Estimated Creatinine Clearance 53.24 ml/min; Glucose 137 mg/dL (74-106); Potassium 3.4 mmol/L (3.5-5.1); Sodium Level 137 mmol/L (136-145)
[2021-06-26] MEDS: Ipratropium/Albuterol Sulfate 3 ML AMPUL.NEB INHALATION ×2 (07:12→10:32)
[2021-06-26] MEDS: Aspirin E.C. 81 MG Tablet PO (08:15)
[2021-06-26] MEDS: Potassium Chloride Oral Tablet 20 MEQ 40 MEQ PO (08:15)
[2021-06-26] MEDS: amLODIPine 5 MG Tablet PO (08:16)
[2021-06-26] MEDS: Carvedilol 12.5 MG Tablet PO (08:16)
[2021-06-26] MEDS: Losartan Potassium 100 MG Tablet PO (08:16)
[2021-06-26] MEDS: APIXABAN 5 MG TABLET PO (08:16)
[2021-06-26] MEDS: Furosemide 40 MG Tablet PO (08:16)
[2021-06-26] MEDS: 0.9% Saline Lock 10 ML Syringe IV (09:20)
[2021-06-26] MEDS: Ceftriaxone 1 GM/50 ML BAG IV (09:20)
--- NOTE | 2021-06-26 11:13 | PCM.DC ---
Documented by User: Irving HEWITT 06/26/21 11:17 Discharge Instructions Diet Discharge Diet: No restrictions Activity Discharge Activity: Return to Normal Activity Weight Bearing Status: Weight bearing as tolerated Dressing / Incision Call your doctor if you observe: Fever of 101 or Higher, Numbness or Tingling, Shortness of breath, Dizziness, Chest pain, Increased palpitations (irregular heartbeat) and Calf discomfort Follow Up Care Please Follow Up With: Primary care provider When: Within the next two weeks. Test Results: Test results from this visit will be discussed in further detail at your follow-up appointment, if applicable. Discharge Plan Admission Admit Date/Time: 06/24/21 22:09 Primary Reason for Your Visit: Strep pneumonia with strep pneumonia bacteremia Attending Provider: Jim Ramos Primary Care Provider: Herson Terrell Discharge Orders/Prescriptions Prescriptions: New amoxicillin-pot clavulanate [Augmentin] 875-125 mg tablet 1 tab PO BID Qty: 14 RF: 0 Continued metformin 500 mg tablet 500 mg PO DAILY RF: 0 aspirin [Adult Low Dose Aspirin] 81 mg tablet,delayed release (DR/EC) 81 mg PO DAILY RF: 0 losartan 100 MG tablet 100 mg PO DAILY RF: 0 albuterol sulfate 90 mcg/actuation Hfa Aerosol Inhaler 2 puff INHALATION Q4H PRN PRN (Reason: SOB) RF: 0 furosemide 40 mg tablet 40 mg PO BID RF: 0 carvedilol 12.5 mg tablet 12.5 mg PO BID RF: 0 amlodipine 5 mg tablet 5 mg PO DAILY Qty: 90 RF: 4 pravastatin 80 mg tablet 80 mg PO QHS Qty: 90 RF: 3 apixaban 5 mg tablet 5 mg PO BID Qty: 180 RF: 3 potassium chloride 20 mEq tablet,ER particles/crystals 40 meq PO DAILY Qty: 180 RF: 3 Referrals / Follow Up: Herson Terrell MD [Primary Care Provider] - 07/11/21 2:40 pm Disposition Disposition (needs filled in before D/C Order can be placed): Home, Self Care Documented by User: Dr. Jim Ramos MD 06/26/21 16:08 Discharge Instructions Diet Discharge Diet: Low fat / Low cholesterol and 2000 mg Sodium Diet Activity Discharge Activity: May Not Drive Weight Bearing Status: Weight bearing as tolerated Dressing / Incision Call your doctor if you observe: Fever of 101 or Higher, Coldness, Increased Pain, Numbness or Tingling, Change in Color, Inability to urinate, Inability to have a bowel movement, Shortness of breath, Dizziness, Fainting spells, Swelling in the ankles, Chest pain, Prolonged hiccupping, Increased palpitations (irregular heartbeat) and Calf discomfort Discharge Plan Admission Admit Date/Time: 06/24/21 22:09 Primary Reason for Your Visit: Strep pneumonia with strep pneumonia bacteremia Attending Provider: Jim Ramos Primary Care Provider: Herson Terrell Discharge Orders/Prescriptions Prescriptions: New amoxicillin-pot clavulanate [Augmentin] 875-125 mg tablet 1 tab PO BID Qty: 14 RF: 0 Continued metformin 500 mg tablet 500 mg PO DAILY RF: 0 aspirin [Adult Low Dose Aspirin] 81 mg tablet,delayed release (DR/EC) 81 mg PO DAILY RF: 0 losartan 100 MG tablet 100 mg PO DAILY RF: 0 albuterol sulfate 90 mcg/actuation Hfa Aerosol Inhaler 2 puff INHALATION Q4H PRN PRN (Reason: SOB) RF: 0 furosemide 40 mg tablet 40 mg PO BID RF: 0 carvedilol 12.5 mg tablet 12.5 mg PO BID RF: 0 amlodipine 5 mg tablet 5 mg PO DAILY Qty: 90 RF: 4 pravastatin 80 mg tablet 80 mg PO QHS Qty: 90 RF: 3 apixaban 5 mg tablet 5 mg PO BID Qty: 180 RF: 3 potassium chloride 20 mEq tablet,ER particles/crystals 40 meq PO DAILY Qty: 180 RF: 3 Referrals / Follow Up: Herson Terrell MD [Primary Care Provider] - 07/11/21 2:40 pm Disposition Disposition (needs filled in before D/C Order can be placed): Home, Self Care
[2021-06-26] MEDS: Insulin Lispro 100 UNIT/ML INSULN.PEN SC (11:17)
[2021-06-26 11:26] LABS: Bedside Glucose 178 mg/dL (70-110)
--- NOTE | 2021-06-26 11:48 | PHA.DC.MC ---
Pharmacy Service has performed discharge medication reconciliation and counseling for this patient. 1. AUGMENTIN 875MG PO BID X 7 DAYS The patient's discharge medication list was reviewed for discrepancies and discrepancies were resolved. Home Medications metformin 500 mg tablet 500 mg PO DAILY 12/16/19 losartan 100 mg PO DAILY 03/20/20 amlodipine 5 mg tablet 5 mg PO DAILY #90 tab 08/28/20 aspirin 81 mg tablet,delayed release 81 mg PO DAILY 02/08/21 pravastatin 80 mg tablet 80 mg PO QHS #90 tab 05/31/21 albuterol sulfate 2 puff INHALATION Q4H PRN PRN 06/24/21 apixaban 5 mg tablet 5 mg PO BID #180 tab 06/24/21 carvedilol 12.5 mg PO BID 06/24/21 furosemide 40 mg PO BID 06/24/21 potassium chloride 20 mEq tablet,extended release(part/cryst) 40 meq PO DAILY #180 tab 06/24/21 amoxicillin-pot clavulanate [Augmentin] 1 tab PO BID #14 tab 06/26/21 The patient was counseled on the following discharge medications and changes in medications for homegoing were reviewed. The Reason for Use, instructions for use, and potential side effects were reviewed for all new medications. The patient's questions regarding all of their medications were answered. The patient was able to verbally demonstrate an understanding of their discharge medications.
--- NOTE | 2021-06-26 12:00 | CASEMGMT ---
LEVI BUSTILLOS NOTE: Pt screened with [facility] Palliative Care Screening Tool for strata 3, pt did not meet criteria. Darrel GRIJALVAN RN CM
--- NOTE | 2021-06-26 14:59 | DS.PCM_ITS ---
Documented by User: Irving HEWITT 06/26/21 15:08 Providers Date of Admission: 06/24/21 Primary Care Physician: Dr. Herson Terrell MD Reason For Visit: SEVERE SEPSIS Diagnosis Discharge Diagnosis (1) Severe sepsis: Status: Acute Code(s): A41.9 - Sepsis, unspecified organism; R65.20 - Severe sepsis without septic shock (2) Pneumonia: Status: Acute Code(s): J18.9 - Pneumonia, unspecified organism Qualifiers: Laterality: right Lung location: upper lobe of lung Pneumonia type: due to unspecified organism Qualified Code(s): J18.9 - Pneumonia, unspecified organism (3) Leg swelling: Status: Acute Code(s): M79.89 - Other specified soft tissue disorders Medications at Discharge Home Medications metformin 500 mg tablet 500 mg PO DAILY 12/16/19 losartan 100 mg PO DAILY 03/20/20 amlodipine 5 mg tablet 5 mg PO DAILY #90 tab 08/28/20 aspirin 81 mg tablet,delayed release 81 mg PO DAILY 02/08/21 pravastatin 80 mg tablet 80 mg PO QHS #90 tab 05/31/21 albuterol sulfate 2 puff INHALATION Q4H PRN PRN 06/24/21 apixaban 5 mg tablet 5 mg PO BID #180 tab 06/24/21 carvedilol 12.5 mg PO BID 06/24/21 furosemide 40 mg PO BID 06/24/21 potassium chloride 20 mEq tablet,extended release(part/cryst) 40 meq PO DAILY #180 tab 06/24/21 amoxicillin-pot clavulanate [Augmentin] 1 tab PO BID #14 tab 06/26/21 Hospital Course Summary of Care Provided Minutes Spent on Discharge: 35 Hospital Course: Disposition: Patient to be discharged home, no additional therapies or home health care needs identified. 1) severe sepsis secondary to pneumococcal pneumonia with pneumococcal bacteremia Resolved. Patient no longer meet SIRS criteria for sepsis as his vital signs are stable, he is afebrile and is currently satting 97% on room air. CBC no longer demonstrates leukocytosis. Initial blood cultures were positive for strep pneumoniae, repeat blood cultures demonstrate no growth currently. Plan; patient discharged on Augmentin 875 mg p.o. twice daily x7 days, follow-up with primary care provider within the next 2 weeks. 2) bilateral lower extremity edema Resolved, continue Lasix. 3) persistent atrial fibrillation Patient is on carvedilol for rate control and is anticoagulated on Eliquis. Continue home regimen. 4) HTN Continue home amlodipine, Lasix and losartan. 5) DM2 Continue home diabetic regimen. Patient seen by Irving Gracia PA-C, under the supervision of Dr. Ramos. Physical Exam Narrative Patient is a 75-year-old male comfortably resting in bed, alert and oriented x3. Patient reports resolution of her shortness of breath and symptoms from a dmission. Denies chest pain, shortness of breath, palpitations, hemoptysis, sputum production, fever, chills, N/V/D. Const alert, oriented x3 and no apparent distress HEENT normocephalic, head/scalp atraumatic and hearing grossly normal bilaterally Eyes EOMs intact bilaterally and conjunctivae normal Neck no lymphadenopathy, supple and no JVD Resp normal respiratory effort, no retractions, no use of accessory muscles and clear to auscultation bilaterally Cardio regular rate, regular rhythm, no murmurs and no JVD GI normal to inspection, nondistended, normoactive bowel sounds, soft to palpation and non-tender Extremity normal to inspection, full ROM and no clubbing, cyanosis or edema Skin no rashes or lesions noted, no wounds and skin turgor normal Neuro CN's II-XII intact bilaterally Psych affect normal Weight / BMI Weight Weight: 203 lb 4.259 oz Body Mass Index (BMI) 37.1 ABG / Lab / Microbiology Data Result Diagrams: 06/26/21 06:15 06/26/21 06:15 Laboratory: Laboratory Results - last 24 hr 06/25/21 16:04: POC Glucose 132 H 06/25/21 21:32: POC Glucose 136 H 06/26/21 06:15: WBC 7.1, RBC 3.41 L, Hgb 11.6 L, Hct 34.4 L, MCV 100.9 H, MCH 34.0 H, MCHC 33.7, RDW Std Deviation 47.8 H, RDW Coeff of Natasha 12.9, Plt Count 151, MPV 10.7, Immature Gran % (Auto) 0.300, Neut % (Auto) 80.1 H, Lymph % (Auto) 15.3 L, Banks % (Auto) 4.1, Eos % (Auto) 0.1, Baso % (Auto) 0.1, Absolute Neuts (auto) 5.7, Absolute Lymphs (auto) 1.09, Nucleated RBC % 0 06/26/21 06:15: Sodium 137, Potassium 3.4 L, Chloride 103, Carbon Dioxide 28.0, Anion Gap 6, BUN 20 H, Creatinine 0.94, Estim Creat Clear Calc 53.24, Est GFR (MDRD) Af Amer 101, Est GFR (MDRD) Non-Af 84, BUN/Creatinine Ratio 21.4 H, Glucose 137 H, Calcium 8.9 06/26/21 06:55: POC Glucose 134 H 06/26/21 11:16: POC Glucose 178 H Microbiology: Microbiology 06/24/21 20:00 Blood Culture (Wb) - Anticubital Left Bacteria Detection ( PCR) - Final Streptococcus pneumoniae 06/24/21 20:00 Blood Culture (Wb) - Anticubital Left Blood Culture - Preliminary 06/24/21 19:55 Urine, Clean Catch Legionella Antigen - Final 06/24/21 19:55 Urine, Clean Catch Streptococcus pneumoniae Antigen (M - Final 06/24/21 21:00 Mucosa - Nasopharyngeal Influenza Types A,B Direct FA (GARY) - Final D/C Instructions Discharge Diet: No restrictions Weight Bearing Status: Weight bearing as tolerated Call your doctor if you observe: Fever of 101 or Higher, Numbness or Tingling, Shortness of breath, Dizziness, Chest pain, Increased palpitations (irregular heartbeat) and Calf discomfort Please Follow Up With: Primary care provider When: Within the next two weeks. Meaningful Use Info Meaningful Use Diagnoses (Choose all that apply): None applicable Discharge Plan Admission Admit Date/Time: 06/24/21 22:09 Primary Reason for Your Visit: Strep pneumonia with strep pneumonia bacteremia Attending Provider: Jim Ramos Primary Care Provider: Herson Terrell Discharge Orders/Prescriptions Prescriptions: New amoxicillin-pot clavulanate [Augmentin] 875-125 mg tablet 1 tab PO BID Qty: 14 RF: 0 Continued metformin 500 mg tablet 500 mg PO DAILY RF: 0 aspirin [Adult Low Dose Aspirin] 81 mg tablet,delayed release (DR/EC) 81 mg PO DAILY RF: 0 losartan 100 MG tablet 100 mg PO DAILY RF: 0 albuterol sulfate 90 mcg/actuation Hfa Aerosol Inhaler 2 puff INHALATION Q4H PRN PRN (Reason: SOB) RF: 0 furosemide 40 mg tablet 40 mg PO BID RF: 0 carvedilol 12.5 mg tablet 12.5 mg PO BID RF: 0 amlodipine 5 mg tablet 5 mg PO DAILY Qty: 90 RF: 4 pravastatin 80 mg tablet 80 mg PO QHS Qty: 90 RF: 3 apixaban 5 mg tablet 5 mg PO BID Qty: 180 RF: 3 potassium chloride 20 mEq tablet,ER particles/crystals 40 meq PO DAILY Qty: 180 RF: 3 Referrals / Follow Up: Herson Terrell MD [Primary Care Provider] - 07/11/21 2:40 pm Disposition Disposition (needs filled in before D/C Order can be placed): Home, Self Care Documented by User: Dr. Jim Ramos MD 06/26/21 16:23 Providers Date of Admission: 06/24/21 Reason For Visit: SEVERE SEPSIS Medications at Discharge Home Medications metformin 500 mg tablet 500 mg PO DAILY 12/16/19 losartan 100 mg PO DAILY 03/20/20 amlodipine 5 mg tablet 5 mg PO DAILY #90 tab 08/28/20 aspirin 81 mg tablet,delayed release 81 mg PO DAILY 02/08/21 pravastatin 80 mg tablet 80 mg PO QHS #90 tab 05/31/21 albuterol sulfate 2 puff INHALATION Q4H PRN PRN 06/24/21 apixaban 5 mg tablet 5 mg PO BID #180 tab 06/24/21 carvedilol 12.5 mg PO BID 06/24/21 furosemide 40 mg PO BID 06/24/21 potassium chloride 20 mEq tablet,extended release(part/cryst) 40 meq PO DAILY #180 tab 06/24/21 amoxicillin-pot clavulanate [Augmentin] 1 tab PO BID #14 tab 06/26/21 Hospital Course Summary of Care Provided Hospital Course: This patient was seen in conjunction with KASH Bashir. I have independently interviewed and examined the patient and reviewed pertinent history, examination findings, laboratory and plan of management. I have reviewed the note and agree with the documented findings with the few additional points. In brief, patient is admitted for 1 day history of persistent shortness of breath, cough, sputum production and fever and chest x-ray finding of right middle lobe consolidation suggestive of pneumonia. On further work-up patient was found to have strep pneumonia with history of pneumonia bacteremia on cultures. Urinary cultures for strep and Legionella antigen were negative. Patient is started on IV antibiotics ceftriaxone and Zithromax. Repeat blood culture negative for more than 24 hours. Patient afebrile for 48 hours. Patient is discharged home Augmentin for 7 more days. Other comorbidities as mentioned above including diabetes mellitus type 2, atherosclerotic heart disease, secondary pulmonary hypertension, dyslipidemia, hypertension, chronic systolic heart failure coronary artery stenosis, persistent A. fib on Eliquis Discharge medication reconciliation done. Discharge follow-up instructions completed. Discharge process discussed with the patient and all questions were answered to patient's satisfaction. Total time spent, exact 35 minutes on discharge meds reconciliation, examination, coordination of care with nurses and ancillary staff, review of imaging and blood test and discussion with the patient on follow-up instructions I have discussed my assessment with KASH Bashir and orders have been review ed. Clinical Impression(s) from Imaging Studies Chest X-Ray 06/24/21 20:16 IMPRESSION: Dense consolidation in the right middle lobe. CT scan is recommended for further evaluation to rule out possible underlying mass lesion. Electronically Signed: Sandeep Leong MD at 20:41 EDT , Service support , Physical Exam Narrative Seen and examined. No fever for 48 hours. Hemodynamically blood pressure is good with no cough, shortness of breath or tachypnea. Physical exam General: Alert, Oriented x3, Cooperative HEENT: Atraumatic, PERRLA, EOMI, Normocephalic Oral: No Gingival or Mucosal Lesions/ Ulcerations Neck: Supple, No JVD, Negative Carotid Bruits Lungs: Air entry diminished in bilateral lung bases. No crepitation/rhonchi. No hypoxia Cardiovascular: Irregular rate and rhythm, A. fib, normal S1, Normal S2, systolic murmur over LLSB Abdomen: Bowel Sounds Present, Soft, Non Tender, Non-Distended : No renal angle tenderness. No suprapubic tenderness. Extremities: No edema, Capillary Refill Less than 3 Seconds Skin: No rashes, No breakdown Musculoskeletal: No Tenderness to Palpation of Joints or Extremities Neurological: Cranial nerves II-XII grossly intact, Deep Tendon Reflexes 2+/4 and Symmetrical, Neuro grossly intact Psych/Mental Status: Normal Affect, Appropriate. ABG / Lab / Microbiology Data Result Diagrams: 06/26/21 06:15 06/26/21 06:15 Discharge Plan Admission Admit Date/Time: 06/24/21 22:09 Primary Reason for Your Visit: Strep pneumonia with strep pneumonia bacteremia Attending Provider: Jim Ramos Primary Care Provider: Herson Terrell Discharge Orders/Prescriptions Prescriptions: New amoxicillin-pot clavulanate [Augmentin] 875-125 mg tablet 1 tab PO BID Qty: 14 RF: 0 Continued metformin 500 mg tablet 500 mg PO DAILY RF: 0 aspirin [Adult Low Dose Aspirin] 81 mg tablet,delayed release (DR/EC) 81 mg PO DAILY RF: 0 losartan 100 MG tablet 100 mg PO DAILY RF: 0 albuterol sulfate 90 mcg/actuation Hfa Aerosol Inhaler 2 puff INHALATION Q4H PRN PRN (Reason: SOB) RF: 0 furosemide 40 mg tablet 40 mg PO BID RF: 0 carvedilol 12.5 mg tablet 12.5 mg PO BID RF: 0 amlodipine 5 mg tablet 5 mg PO DAILY Qty: 90 RF: 4 pravastatin 80 mg tablet 80 mg PO QHS Qty: 90 RF: 3 apixaban 5 mg tablet 5 mg PO BID Qty: 180 RF: 3 potassium chloride 20 mEq tablet,ER particles/crystals 40 meq PO DAILY Qty: 180 RF: 3 Referrals / Follow Up: Herson Terrell MD [Primary Care Provider] - 07/11/21 2:40 pm Disposition Disposition (needs filled in before D/C Order can be placed): Home, Self Care Charges/Coding Visit Charges Inpatient E&M: 32488 Disch Hosp
--- NOTE | 2021-06-27 15:16 | CASEMGMT ---
LEVI BUSTILLOS Discharge Follow-up Phone Call: TRISTAN: Bernadine Strata: 3 Call Date: 06/27/21 Discharge Date: 06/26/21 Time of Call: 1515 Duration: 1 min Admitting Diagnosis: Severe Sepsis RN APOLLO attempted to complete follow-up phone call after recent hospitalization. No answer, voice message left with return contact information.
== END 2021-06-26 13:15 | disposition home or self-care (01) | DRG 871 ==
LOC: ED 20:57 → PCU 22:41
PROVIDERS: Family Medicine; Admitting Provider Hospitalist; Emergency Provider Emergency Medicine; PCP Family Medicine; Visit Provider Internal Medicine
DX: A41.9 Sepsis, unspecified organism (principal); J13 Pneumonia due to Streptococcus pneumoniae; I50.22 Chronic systolic (congestive) heart failure; I48.11 Longstanding persistent atrial fibrillation; R65.20 Severe sepsis without septic shock; I11.0 Hypertensive heart disease with heart failure; E11.9 Type 2 diabetes mellitus without complications; E78.5 Hyperlipidemia, unspecified; R63.0 Anorexia; I25.10 Atherosclerotic heart disease of native coronary artery without angina pectoris; Z95.1 Presence of aortocoronary bypass graft; Z86.73 Personal history of transient ischemic attack (TIA), and cerebral infarction without residual deficits; M79.89 Other specified soft tissue disorders; E66.9 Obesity, unspecified; H54.7 Unspecified visual loss; Z79.01 Long term (current) use of anticoagulants; I27.21 Secondary pulmonary arterial hypertension; Z68.37 Body mass index [BMI] 37.0-37.9, adult; Z79.82 Long term (current) use of aspirin; Z80.3 Family history of malignant neoplasm of breast; Z82.49 Family history of ischemic heart disease and other diseases of the circulatory system; Z87.01 Personal history of pneumonia (recurrent)
CPT/HCPCS: 36415; 71046; 80048; 80053; 82962; 83605; 84484; 85025; 85610; 85730; 87040; 87149; 87186; 87449; 87635; 87804; 93005; 94640; 94760; 99285; U0005; A4216; U0003

== ENCOUNTER → 2021-08-23 17:15 | Outpatient (CLI) | payer MEDICARE, SELFPAY ==
--- NOTE | 2021-08-23 17:20 | CT_ITS ---
ACR Level 3 findings have been noted. An addendum which confirms receipt of the report will follow. INDICATION: Pneumonia. EXAMINATION: CTA Chest WO/W Contrast Injection TECHNIQUE: Helically acquired images were obtained of the chest following administration of IV contrast. A radiation dose optimization technique was used for this scan. 3D postprocessing images including MIPS were reviewed. IV Contrast dosage and agent: IV 100mL Isovue-370 COMPARISON: None. FINDINGS: Lungs: Scattered groundglass opacities in the mosaic attenuation pattern. No consolidation. Mediastinum: The heart is moderately enlarged. No mediastinal, hilar or axillary adenopathy. Mild aortic arch and coronary artery calcifications. No obvious filling defect seen within the visualized pulmonary arteries. Median sternotomy wires present. Pleura: Unremarkable Bones/Soft tissues: No suspicious osseous or soft tissue lesions Upper abdomen: Cirrhotic liver. Multiple stones within the gallbladder with surrounding mesenteric fat stranding and gallbladder wall edema. CT/CTA Chest W/WO Contrast IMPRESSION: Scattered groundglass opacities in a mosaic attenuation pattern is nonspecific. Possible etiologies include but are not limited to air trapping, small airways disease and infection. Cirrhotic liver. Cholelithiasis with gallbladder wall thickening and surrounding inflammation. This could be secondary to cirrhosis versus acute cholecystitis. Consider HIDA scan. Electronically Signed: Jack Carson MD at 17:17 EDT Tel , Service support ,
[2021-08-23 17:30] LABS: CREATININE FINGERSTICK 0.6 mg/dL (0.70-1.30); EGFR FINGERSTICK > 60.0000 mL/min (>60)
== END ==
PROVIDERS: PCP Family Medicine; Visit Provider Family Medicine
DX: J18.9 Pneumonia, unspecified organism (principal)
CPT/HCPCS: 71275; Q9967

== ENCOUNTER → 2021-09-06 13:58 | Outpatient (CLI) | payer MEDICARE, SELFPAY ==
[2021-09-06 14:45] LABS: AST(SGOT) 55 U/L (15-37); Alanine Aminotransfer ALT/SGPT 141 U/L (16-61); Albumin, Serum 3.5 g/dL (3.2-5.0); Alkaline Phosphatase 170 U/L (45-117); Bilirubin, Direct 0.62 mg/dL (0.00-0.30); Globulin 3.9 g/dL (2.2-4.2); Protein, Total 7.4 g/dL (6.4-8.2)
== END ==
PROVIDERS: PCP Family Medicine; Referring Provider Surgery; Visit Provider Surgery
DX: R11.10 Vomiting, unspecified (principal); R10.9 Unspecified abdominal pain
CPT/HCPCS: 36415; 80076

== ENCOUNTER → 2021-10-04 10:12 | Outpatient (CLI) | payer MEDICARE, SELFPAY ==
--- NOTE | 2021-10-04 10:17 | US_ITS ---
STUDY: ABDOMINAL ULTRASOUND REASON FOR EXAM: Male, 76 years old. ABDOMINAL PAIN TECHNIQUE: Transabdominal ultrasound was performed with real-time and static ch scale imaging. COMPARISON: None. FINDINGS: Liver: There is increased echogenicity consistent with fatty infiltration. The bile ducts are within normal limits. There is hepatic color flow. The direction of portal flow is hepatopetal. There is no demonstrated mass lesion. Gallbladder: Normal distended gallbladder. The gallbladder wall measures 7 mm. There is a positive sonographic Winchester''s sign. There is no pericholecystic fluid. There are multiple echogenic structures within the gallbladder, consistent with multiple gallstones. Common Bile Duct (C.B.D.): The common bile duct measures ( in mm): 7 Pancreas: It is not visualized. There is too much overlying bowel gas. Right Kidney: Normal size of the right kidney. The right kidney measures 10 cm. .There is a normal cortex of the kidney. There is no demonstrated renal mass or cyst. There is no right hydronephrosis. . Aorta: It is not visualized. There is too much overlying bowel gas. I.V.C.: The IVC is obscured. There is no ascites. US/Gallbladder IMPRESSION: Fatty liver. GALLSTONES. Positive murphys sign. thick GB wall. Dilated CBD. Electronically Signed: Kristian Newton MD at 16:56 EDT , Service support ,
== END ==
PROVIDERS: PCP Family Medicine; Referring Provider Surgery; Visit Provider Surgery
DX: R10.9 Unspecified abdominal pain (principal); R11.10 Vomiting, unspecified
CPT/HCPCS: 76705

== ENCOUNTER → 2021-10-22 17:27 | Outpatient (CLI) | payer MEDICARE, SELFPAY ==
--- NOTE | 2021-10-22 17:27 | CT_ITS ---
INDICATION: POSSIBLE CHOLELITHIASIS EXAMINATION: CT ABDOMEN WITH IV CONTRAST CT Abdomen W/ Contrast Injection TECHNIQUE: Helically acquired images were obtained of the abdomen following IV contrast. A radiation dose optimization technique was used for this scan. IV Contrast dosage and agent: 100 mL ISOVUE-300 Oral contrast: Redicat COMPARISON: Abdomen ultrasound from 10/04/2021. CTA chest from 08/23/2021. FINDINGS: Lower thorax: Visualized lung bases are clear. Liver: Cirrhotic liver morphology. Subcentimeter low-attenuation lesion in segment 3 and segment 8 measuring near simple fluid attenuation on recent CTA from 08/23/2021, too small to characterize but likely benign cysts. No hepatic masses. * Recanalized portal vein: Small. * Mesenteric collaterals: Absent. * Gastric and esophageal varices: Absent. * Portal vein diameter: 1.2 cm and within normal limits. Gallbladder: Collapsed and difficult to assess. Cholelithiasis and gallbladder wall calcifications. No CT findings to suggest acute cholecystitis. No bile duct dilation. Spleen: No splenomegaly. No masses. Pancreas: No focal parenchymal masses. No duct dilation. Adrenal glands: No masses. Kidneys: No cystic or solid masses. No hydronephrosis. Visualized GI tract: Colonic diverticulosis without findings of diverticulitis. 2.6 x 1.6 cm 2.6 x 1.6 cm area of well-circumscribed wall thickening along the lateral margin of the proximal duodenum (2:80). Peritoneum/mesentery/retroperitoneum: No ascites or free air. No masses. No lymphadenopathy. Vasculature: Arterial atherosclerotic disease. No aortic aneurysm. 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 Bones/soft tissues: No acute findings. No destructive osseous lesions. CT/Abdomen WITH IV Contrast IMPRESSION: 1. Hepatic cirrhosis. No hepatic masses. 2. Cholelithiasis and gallbladder wall calcifications without CT findings to suggest acute cholecystitis. 3. 2.6 x 1.6 cm area of well-circumscribed wall thickening along the lateral margin of the proximal duodenum . Findings are nonspecific but underlying mass cannot be excluded. Direct visualization recommended. 4. Diverticulosis without CT findings for diverticulitis. Electronically Signed: Imer Baires MD at 8:58 EST Tel , Service support ,
[2021-10-22 17:41] LABS: CREATININE FINGERSTICK 0.7 mg/dL (0.70-1.30); EGFR FINGERSTICK > 60.0000 mL/min (>60)
== END ==
PROVIDERS: PCP Family Medicine; Referring Provider Surgery; Visit Provider Surgery
DX: Z01.812 Encounter for preprocedural laboratory examination (principal); K74.60 Unspecified cirrhosis of liver; K80.20 Calculus of gallbladder without cholecystitis without obstruction
CPT/HCPCS: 74160; Q9967

== ENCOUNTER → 2021-11-09 07:11 | Outpatient (CLI) | payer MEDICARE, SELFPAY ==
[2021-11-09 08:08] LABS: International Normalized Ratio 1.3; Prothrombin Time (Protime)PT. 15.5 SECONDS (11.7-14.9)
[2021-11-09 08:18] LABS: LDH 204 U/L (87-241)
[2021-11-11 14:41] LABS: Anti-Mitochondrial AB <20.0 Units (0.0-20.0)
[2021-11-12 15:08] LABS: Anti-Centromere B Ab <0.2 AI (0.0-0.9); Anti-Chromatin <0.2 AI (0.0-0.9); Anti-Jo <0.2 AI (0.0-0.9); Anti-Scleroderma-70 AB <0.2 AI (0.0-0.9); RNP Ab 0.2 AI (0.0-0.9); SJOGREN'S Anti-SS-A test < 0.2 AI (0.0-0.9); SJOGREN'S Anti-SS-B test < 0.2 AI (0.0-0.9); Smith Ab <0.2 AI (0.0-0.9)
[2021-11-12 21:30] LABS: Anti-dsDNA Ab <1 IU/mL (0-9)
[2021-11-13 14:09] LABS: Angiotensin Convert Enzyme 53 U/L (14-82); Ceruloplasmin 23.4 mg/dL (16.0-31.0); Cytoplasmic Ab (C-ANCA) <1:20 titer (Neg:<1:20); HEPATITIS B SURFACE AG Negative (Negative); Hepatitis A IgM Antibody Negative (Negative); Hepatitis B Core AB IgM Negative (Negative); Immunoglobulin E 4 IU/mL (6-495); Immunoglobulin G 972 mg/dL (603-1613)
[2021-11-13 16:16] LABS: Anti-Smooth Muscle ABS 8 Units (0-19); Copper, Serum or Plasma 105 ug/dL (69-132); Hep C Antibodies 0.1 s/co ratio (0.0-0.9); Immunoglobulin A 36 mg/dL (61-437); Immunoglobulin M 19 mg/dL (15-143); Perinuclear Ab (P-ANCA) <1:20 titer (Neg:<1:20)
== END ==
PROVIDERS: PCP Family Medicine; Referring Provider Internal Medicine Gastroenterology; Visit Provider Internal Medicine Gastroenterology
DX: K74.60 Unspecified cirrhosis of liver (principal); I25.10 Atherosclerotic heart disease of native coronary artery without angina pectoris; R10.13 Epigastric pain
CPT/HCPCS: 80074; 82164; 82390; 82525; 82784; 82785; 83516; 83615; 85610; 86140; 86225; 86235; 86256

== ENCOUNTER 2021-11-26 06:33 | Day surgery (SDC) | payer MEDICARE, SELFPAY ==
--- NOTE | 2021-11-26 07:07 | PCM.HP.BLA ---
History and Physical Date of Admission: 11/26/21 Intake Intake Visit Reasons: f/u labs and US Chief Complaint: cough Allergies atorvastatin [From Lipitor] Adverse Reaction (Severe, Verified 10/23/21 08:56) Myalgias rosuvastatin [From Crestor] Adverse Reaction (Severe, Verified 10/23/21 08:56) Myalgias Medications metformin 500 mg tablet 500 mg PO DAILY 12/16/19 [History Confirmed 10/23/21] losartan 100 mg PO DAILY 03/20/20 [History Confirmed 10/23/21] amlodipine 5 mg tablet 5 mg PO DAILY #90 tab 08/28/20 [Rx Confirmed 10/23/21] aspirin 81 mg tablet,delayed release 81 mg PO DAILY 02/08/21 [History Confirmed 10/23/21] pravastatin 80 mg tablet 80 mg PO QHS #90 tab 05/31/21 [Rx Confirmed 10/23/21] albuterol sulfate 2 puff INHALATION Q4H PRN PRN 06/24/21 [History Confirmed 10/23/21] apixaban 5 mg tablet 5 mg PO BID #180 tab 06/24/21 [Rx Confirmed 10/23/21] carvedilol 12.5 mg PO BID 06/24/21 [History Confirmed 10/23/21] furosemide 40 mg PO BID 06/24/21 [History Confirmed 10/23/21] potassium chloride 20 mEq tablet,extended release(part/cryst) 40 meq PO DAILY #180 tab 06/24/21 [Rx Confirmed 10/23/21] omeprazole 20 mg tablet,delayed release 20 mg PO DAILY #60 tab 09/06/21 [Rx Confirmed 10/23/21] sucralfate 1 gram tablet See Rx Instructions .ROUTE .COMPLEX #60 tab 10/12/21 [Rx Confirmed 10/23/21] [facility] Medical History (Updated 10/23/21 @ 22:[address] Bill Jackson MD) Abdominal pain Atherosclerotic heart disease of telida coronary artery without angina pectoris Carotid artery stenosis Chronic systolic (congestive) heart failure Cirrhosis CVA (cerebral vascular accident) (01/18/18) Essential (primary) hypertension HLD (hyperlipidemia) Longstanding persistent atrial fibrillation Obesity (BMI 30.0-34.9) Positive colorectal cancer screening using Cologuard test Right sided weakness Secondary pulmonary arterial hypertension Vomiting Surgical History H/O coronary artery bypass surgery (02/13/00) History of left heart catheterization (06/14/18) History of left-sided carotid endarterectomy (04/02/20) History of right-sided carotid endarterectomy (2000) Hx of tonsillectomy Family History Mother Breast cancer Hypertension Grandmother Heart disease Father Heart disease Hypertension Social History Smoking Status: Never smoker alcohol intake: current alcohol intake frequency: holidays/special occasions only caffeine: Yes Type: coffee Number of servings: 3 HPI HPI HPI: HOLLIE ODEN, is a 76 M who presents to the office today for follow-up. Patient reports that his pain has resolved after being on Carafate and PPI. He is no longer having any right upper quadrant or epigastric pain. He denies any nausea or vomiting or blood in his stool. ROS General General: No weight change or fatigue HEENT HEENT: No difficulty swallowing Endo Endocrine: No thyroid disease Musc Musculoskeletal: No back problems or arthritis Cardio Cardiovascular: No pacemaker, heart disease, atrial fibrillation, high blood pressure, heart attack, heart stent, palpitations or chest pain Psych Psychiatric: No depression or anxiety Resp Respiratory: No shortness of breath, No cough, No COPD, No asthma and No emphysema Gastro Gastrointestinal: No abdominal pain, No nausea or vomiting, No diarrhea, No constipation, No blood in stool, No acid reflux, No hemorrhoids, No ulcers, No gallbladder problem and No black,tarry stools Kashif Hematologic: No blood thinners Exam Const General: cooperative Orientation: alert and oriented x3 HENMT Head: normal to inspection Neck Neck: normal visual inspection and full ROM Chest Chest palpation & inspection: normal inspection of the chest Resp Effort & Inspection: normal respiratory effort Auscultation: clear to auscultation bilaterally Cardio Rate: regular rate Rhythm: regular rhythm GI Inspection: non-distended Palpation: soft and nontender Skin General: no rashes or lesions noted Neuro General: patient alert and patient oriented x3 Extrem General: full ROM Psych Appearance: grossly normal Mental Status: mental status grossly normal Assessment and Plan Assessment and Plan (1) Abnormal CT scan, small bowel: Status: Acute Orders: Orders: EGD Today Plan - Dr. Bill Jackson MD: Patient was having epigastric and right upper quadrant pain and ultrasound a CT of the abdomen and pelvis showed a thickened walled gallbladder. Upon further work-up the patient had an ultrasound which did show a thick-walled gallbladder and cholelithiasis but the patient's white count was normal. He started on a PPI and Carafate and his symptoms resolved. He does have a history of peptic ulcer disease with bleeding duodenal ulcer and a CT scan revealed a gallbladder wall with no signs of acute cholecystitis which was decompressed and nondistended but there was an abnormality in the duodenum and they recommended EGD. As the patient is feeling better I do not believe he has chronic cholecystitis and the gallbladder is nondistended although there is some inflammatory changes around it. I believe the patient needs an EGD to evaluate this area. I will reach out to Dr. Sweeney who is his care nurse rn to see if he may stop his Eliquis for 3 days prior to scope so that this area may be biopsied. I recommend the patient continue his PPI and Carafate at this time. The patient's CT also suggest cirrhosis of the liver. The patient did have elevated LFTs during his last visit. I would like to refer the patient to Dr. Weir, GI, for evaluation of possible cirrhosis. Bill Jackson MD Pager: [facility] [address] [place] [address], [address] [place] [address] Office: I have re-examined the patient. There are no clinical changes since date of exam.
[2021-11-26 07:15] VITALS: BP 147/66; PULSE 73; RESP 16; TEMP 36.8; O2SAT 98; BMI 33.0
[2021-11-26] MEDS: Lactated Ringers 1,000 ML 15 ML IV (07:24)
--- NOTE | 2021-11-26 07:30 | IMM_PTH ---
PATIENT: HOLLIE ODNE LOC: EN U#:[id number] AGE/SX: 76/M ROOM: RE11/26/[address]: Dr. Bill Jackson MD : 1945 BED: DIS: 11/26/2021 SPEC #: [id number] RECD: 11/26/21 13:54 STATUS: RAJANI REQ #: [id number] IAN: 11/26/21 07:[address]: Bill Jackson DEPT: IMMUNOHISTOCHEMISTRY RECD BY: Lesly Tripathi ENTERED: 11/26/21 13:54 SP TYPE: IMMUNO OTHR DR: Dr. Herson Terrell MD Tissues: A - Stomach, NOS Procedures: H Pylori (initial) PHYSICIAN & INSTITUTION [place] [id number] SPECIMEN INFORMATION: Tissue Source: A ? Antrum biopsy Clinical Info: Abnormal CT, small bowel; epigastric pain Specimen Number: [id number] CPT code: 66015 METHODOLOGY: Deparaffinized sections of prefer/formalin-fixed tissue or PAP/DQ stained slides are incubated with monoclonal/polyclonal antibodies/oligonucleotide probes. Localization is made via biotin free immunoperoxidase method. Appropriate controls are performed and reacted as expected. Results on target cell population are indicated in the following table: RESULTS: ANTIBODY / CLONE RESULT Block A H Pylori (polyclonal) negative These tests were developed and their performance characteristics determined by [facility]. They may not have been cleared or approved by the U.S. Food and Drug Administration. The FDA has determined that such clearance or approval is not necessary. INTERPRETATION: A. Antrum biopsy: Negative for Helicobacter pylori organisms. SJ:fredo 11/27/2021
--- NOTE | 2021-11-26 07:30 | EGD_PTH ---
PATIENT: HOLLIE ODEN LOC: EN U#:[id number] AGE/SX: 76/M ROOM: RE11/26/[address]: Dr. Bill Jackson MD : 1945 BED: DIS: 11/26/2021 SPEC #: [id number] RECD: 11/26/21 10:34 STATUS: RAJANI DAI #: [id number] IAN: 11/26/21 07:[address]: Bill Jackson DEPT: SURGICAL PATHOLOGY RECD BY: Dandy Orlando ENTERED: 11/26/21 11:13 SP TYPE: EGD BIOPSY [facility] DR: Dr. Herson Terrell MD Tissues: A - Gastric mucous membrane B - Gastric mucous membrane Procedures: Surgery Specimen Level IV HEADER OPERATION[place] DIAGNOSIS: Abnormal CT scan, small bowel, epigastric pain TISSUE SUBMITTED: A ? Antrum biopsy for histo and H. pylori, B ? GE junction biopsy MICROSCOPIC DIAGNOSIS A. Antrum biopsy: Moderate gastritis. See microscopic description and comment. B. GE junction, biopsy: Fragments of gastroesophageal mucosa with chronic inflammation. Intestinal metaplasia (goblet cell metaplasia) not identified. See comment. SJ:fredo 11/27/2021 COMMENT A. The results of immunohistochemistry for Helicobacter pylori will be reported separately ([id number]). B. Alcian blue/PAS stain with matched control is used in the evaluation of the specimen. MICROSCOPIC DESCRIPTION Slides are reviewed. A. The specimen shows fragments of gastric mucosa with chronic inflammatory cell infiltrates in the lamina propria consisting of lymphocytes and plasma cells, consistent with moderate chronic gastritis. GROSS DESCRIPTION A - Received in fixative is one container labeled with the patient's name and designated antrum biopsy. The specimen consists of two irregular fragments of light kumra soft tissue that in aggregate measure 1 x .2 x 0.1 cm. The specimen is totally submitted in one cassette. B - Received in fixative is one container labeled with the patient's name and designated GE junction biopsy. The specimen consists of multiple irregular fragments of light kumar soft tissue that in aggregate measure 0.5 x 0.3 x 0.1 cm. The specimen is totally submitted in one cassette. / DMITRIY:fredo 11/26/21 TC:3 CPT: 93737 x2, 73292
[2021-11-26 07:35] LABS: Bedside Glucose 152 mg/dL (70-110)
[2021-11-26 08:39] VITALS: BP 147/66; BP 98/49; PULSE 57; RESP 16; TEMP 36.4; O2SAT 95
--- NOTE | 2021-11-26 08:40 | OP.CCLET_ITS ---
11/26/2021 Hakan Weir, [address] [place] [address] Re : Upper GI endoscopy procedure for Jaspreet Bee Dear Dr. Weir This procedure was performed on Friday, November 26, 2021. My impressions and recommendations are as follows: Impressions : - Normal esophagus. - Normal stomach. - Normal examined duodenum. - Biopsies were taken with a cold forceps for Helicobacter pylori testing. - Biopsies were taken with a cold forceps for histology at the gastroesophageal junction. Recommendations : - Discharge patient to home. - Resume previous diet. - Continue present medications. - Resume Eliquis (apixaban) at prior dose tomorrow. My findings are described in the full procedure note, which is enclosed. If I can be of further assistance, please feel free to contact me at Doctor phone number(s): , Work: . Sincerely, Bill Jackson MD 11/26/2021 8:39:45 AM This report has been signed electronically.
--- NOTE | 2021-11-26 08:40 | OP.EGD_ITS ---
Patient Name: Jaspreet Bee Procedure Date: 11/26/2021 8:14 AM Date of : 1945 Age: 76 Procedure: Upper GI endoscopy Indications: Iron deficiency anemia Providers: Bill Jackson MD Medicines: Monitored Anesthesia Care Patient Profile: This is a 76 year old male. Refer to note in patient chart for documentation of history and physical. Complications: No immediate complications. Estimated blood loss: Minimal. Procedure: Pre-Anesthesia Assessment: - Prior to the procedure, a History and Physical was performed, and patient medications and allergies were reviewed. The patient's tolerance of previous anesthesia was also reviewed. The risks and benefits of the procedure and the sedation options and risks were discussed with the patient. All questions were answered, and informed consent was obtained. Prior Anticoagulants: The patient has taken Eliquis (apixaban), last dose was 4 days prior to procedure. After reviewing the risks and benefits, the patient was deemed in satisfactory condition to undergo the procedure. After obtaining informed consent, the endoscope was passed under direct vision. Throughout the procedure, the patient's blood pressure, pulse, and oxygen saturations were monitored continuously. The Endoscope was introduced through the mouth, and advanced to the fourth part of duodenum. The upper GI endoscopy was accomplished without difficulty. The patient tolerated the procedure well. Scope In: 8:28:32 AM Scope Out: 8:33:46 AM Total Procedure Duration Time 0 hours 5 minutes 14 seconds Findings: The esophagus was normal. The stomach was normal. The examined duodenum was normal. Biopsies were taken with a cold forceps in the gastric antrum for Helicobacter pylori testing. Biopsies were taken with a cold forceps at the gastroesophageal junction for histology. There is no endoscopic evidence of varices in the distal esophagus. Impression: - Normal esophagus. - Normal stomach. - Normal examined duodenum. - Biopsies were taken with a cold forceps for Helicobacter pylori testing. - Biopsies were taken with a cold forceps for histology at the gastroesophageal junction. Recommendation: - Discharge patient to home. - Resume previous diet. - Continue present medications. - Resume Eliquis (apixaban) at prior dose tomorrow. Procedure Code(s): --- Professional --- 82599, Esophagogastroduodenoscopy, flexible, transoral; with biopsy, single or multiple Diagnosis Code(s): --- Professional --- D50.9, Iron deficiency anemia, unspecified CPT copyright 2017 [employer]. All rights reserved. The codes documented in this report are preliminary and upon frame polisher review may be revised to meet current compliance requirements. Bill Jackson MD 11/26/2021 8:39:45 AM This report has been signed electronically. Number of Addenda: 0 Note Initiated On: 11/26/2021 8:14 AM
[2021-11-26 08:45] VITALS: BP 118/55; BP 147/66; PULSE 62; RESP 16; O2SAT 95
[2021-11-26 08:50] VITALS: BP 125/61; BP 147/66; PULSE 61; RESP 16; TEMP 36.4; O2SAT 96
[2021-11-26 09:14] VITALS: BP 147/66
== END 2021-11-26 09:22 ==
LOC: EN 06:33 → AC 06:35
PROVIDERS: PCP Family Medicine; Referring Provider Family Medicine; Visit Provider Surgery
PROC: 0DJ08ZZ Inspection of Upper Intestinal Tract, Via Natural or Artificial Opening Endoscopic (ICD-10-PCS; CPT 43235; principal; 2021-11-26 07:25)
DX: K29.50 Unspecified chronic gastritis without bleeding (principal); K21.9 Gastro-esophageal reflux disease without esophagitis; E11.9 Type 2 diabetes mellitus without complications; I48.11 Longstanding persistent atrial fibrillation; I11.0 Hypertensive heart disease with heart failure; I50.9 Heart failure, unspecified; I25.10 Atherosclerotic heart disease of native coronary artery without angina pectoris; Z95.1 Presence of aortocoronary bypass graft; Z79.899 Other long term (current) drug therapy; Z79.84 Long term (current) use of oral hypoglycemic drugs; Z79.01 Long term (current) use of anticoagulants; Z87.11 Personal history of peptic ulcer disease
CPT/HCPCS: 43239; 82962; 88305; 88342; J7120; J2405

== ENCOUNTER 2021-12-05 07:41 | Outpatient (CLI) | payer MEDICARE, SELFPAY ==
--- NOTE | 2021-12-05 07:45 | US_ITS ---
STUDY: ABDOMINAL ULTRASOUND - ELASTOGRAPHY REASON FOR VISIT: Male, 76 years old. BAGLEY. TECHNIQUE: Liver stiffness measurements were obtained on a [employer]-Trian[employer] RS 85 ultrasound machine using a CA 1-7 probe following the SRU guidelines. 3 measurements were obtained using a 2-D-SWE method. The IQR/M was 15% suggesting a quality data set. TECHNICAL QUALITY: Limited. Patient had difficulty holding his breath. COMPARISON: Comparison is made with prior ultrasound of the right upper quadrant dated 10/04/2021. FINDINGS: Liver: Fatty infiltration of the liver. Median liver stiffness measured 13 kPa. US/Elastography Parenchyma/Organ IMPRESSION: Liver stiffness measures 13 kPa compatible with F3 Metavir score. Electronically Signed: Sandeep Leong MD at 10:10 EST , Service support ,
== END 2021-12-05 23:59 | disposition short-term general hospital (02) ==
LOC: US 07:44
PROVIDERS: PCP Family Medicine; Referring Provider Internal Medicine Gastroenterology; Visit Provider Internal Medicine Gastroenterology
DX: K75.81 Nonalcoholic steatohepatitis (NASH) (principal)
CPT/HCPCS: 76981

== ENCOUNTER 2022-02-24 14:16 | Outpatient (CLI) | payer MEDICARE, SELFPAY ==
[2022-02-24 15:43] LABS: Anion Gap 9 (5-15); BUN 12 mg/dL (7-18); BUN/Creat Ratio 13.5 RATIO (10-20); Chloride 104 mmol/L (98-107); Creatinine, Serum 0.89 mg/dL (0.70-1.30); EST Glomerular Filtration Rate 89 mL/min (>60); Est Glom Filt Rate - Afr Amer 107 mL/min (>60); Glucose 138 mg/dL (74-106); Potassium 3.2 mmol/L (3.5-5.1); Sodium Level 140 mmol/L (136-145)
== END 2022-02-24 23:59 | disposition home or self-care (01) ==
LOC: MFPLAB 14:20
PROVIDERS: PCP Family Medicine; Visit Provider Family Medicine
DX: M79.89 Other specified soft tissue disorders (principal)
CPT/HCPCS: 36415; 80048

== ENCOUNTER → 2022-04-18 | Outpatient (CLI) | payer MEDICARE, SELFPAY ==
[2022-04-18 17:11] LABS: Absolute Lymphocyte Count 1.23 X10^3/uL (0.83-4.51); Absolute Neutrophil Count 2.5 X10^3/uL (2.0-7.7); Basophil# 0.01 X10^3/uL; Basophil% 0.2 % (0-1); Eosinophil# 0.16 X10^3/uL; Eosinophils% 3.8 % (0-5); Hematocrit 37.1 % (40-54); Lymphocyte # 1.23 X10^3/ul (0.83-4.51); Lymphocyte % 28.9 % (19-41); Mean Corp Hgb Conc 32.3 g/dL (32-36); Mean Corpuscular Hgb 31.6 pg (27.0-32.0); Mean Corpuscular Volume 97.6 fL (80-94); Mean Platelet Vol. 9.9 fl (6.2-12.0); Monocyte# 0.34 X10^3/uL; NRBC Flagged by Analyzer 0 % (0-5); Neutrophil % 58.9 % (47-70); Platelet Count 173 K/mm3 (150-450); RBC Distribution Width CV 14.4 % (11.6-14.6); RBC Distribution Width SD 51.4 fl (35.1-43.9); White Blood Count 4.3 K/mm3 (4.4-11.0)
[2022-04-18 17:55] LABS: Anion Gap 7 (5-15); BUN 13 mg/dL (7-18); BUN/Creat Ratio 14.5 RATIO (10-20); Calcium,Total 9.1 mg/dL (8.5-10.1); Chloride 106 mmol/L (98-107); EST Glomerular Filtration Rate 87 mL/min (>60); Est Glom Filt Rate - Afr Amer 106 mL/min (>60); Glucose 112 mg/dL (74-106); Potassium 3.2 mmol/L (3.5-5.1); Sodium Level 140 mmol/L (136-145)
== END | disposition home or self-care (01) ==
LOC: LAB 16:42
PROVIDERS: PCP Family Medicine; Visit Provider Nurse Practitioner Family
DX: E78.5 Hyperlipidemia, unspecified (principal); I25.5 Ischemic cardiomyopathy; I10 Essential (primary) hypertension; Z95.1 Presence of aortocoronary bypass graft
CPT/HCPCS: 36415; 80048; 85025

== ENCOUNTER 2022-07-08 13:24 | Inpatient (IN) | payer MEDICARE, SELFPAY ==
[2022-07-08] VITALS (10 sets, daily range): BP systolic 111–149; BP diastolic 55–108; PULSE 69–88; RESP 16–26; TEMP 36.6–36.8; O2SAT 94–98; BMI 29.2; BMI 27.6
--- NOTE | 2022-07-08 13:26 | RAD_ITS ---
STUDY: X-RAY CHEST REASON FOR EXAM: Male, 76 years old. Neuro deficit, acute, stroke suspected TECHNIQUE: Single AP portable view of the chest. COMPARISON: Comparison is made with prior study dated 06/24/2021. FINDINGS: EKG electrodes are seen. The lungs are clear and expanded. There is no demonstrated pleural abnormality. Sternal cerclage wires and vascular clips are present from a prior sternotomy and coronary artery bypass graft procedure (CABG). Normal mediastinum and maddie. Normal visualized pulmonary arteries. There is atherosclerotic tortuosity of the aortic arch and descending thoracic aorta. There are diffuse degenerative changes of the visualized thoracic spine. Normal visualized ribs, clavicles, and shoulders. There is no demonstrated abnormality of the visualized soft tissue structures of the upper abdomen. RAD/Chest 1 View IMPRESSION: No acute abnormality is seen. Electronically Signed: Sandeep Leong MD at 15:01 EDT ,
--- NOTE | 2022-07-08 13:26 | EKG12_ITS ---
Test Reason : STROKE Blood Pressure : / mmHG Vent. Rate : 077 BPM Atrial Rate : 000 BPM P-R Int : 000 ms QRS Dur : 092 ms QT Int : 378 ms P-R-T Axes : 000 039 104 degrees QTc Int : 427 ms Atrial fibrillation Nonspecific ST and T wave abnormality Abnormal ECG Confirmed by TARYN WILSON, MANSOOR ([id number]), newspaper or periodical editor MARITZA TELLEZ ([id number]) on 07/11/2022 1:57:52 PM Referred By: Confirmed By:MANSOOR CENTENO MD
--- NOTE | 2022-07-08 13:26 | CT_ITS ---
STUDY: CT HEAD STROKE PROTOCOL W/O CONTRAST INJECTION REASON FOR EXAM: Male, 76 years old. Neuro deficit, acute, stroke suspected RADIATION DOSAGE (If Supplied By Facility): CTDIvol = ( 44.99 ) mGy, DLP = ( 745.49 ) mGycm TECHNIQUE: Transaxial CT imaging of the brain was performed without administration of intravenous contrast material. Individualized dose optimization techniques were used for this CT. COMPARISON: Comparison is made with prior study 11/21/2018. FINDINGS: Normal soft tissue structures. Normal calvarium. There is mild cerebral atrophy with widening of the extra-axial spaces and ventricular dilatation. Focal area of encephalomalacia in the left centrum semiovale suggestive of prior ischemic insult. Normal basal ganglia and thalami. Normal brainstem. Normal cerebellum. There is no intracranial hemorrhage. There are no findings of an acute ischemic infarction. Mucosal thickening of the ethmoid sinuses bilaterally. CT/STROKE Brain/Head without Cont IMPRESSION: Chronic involutional changes of the brain. Stable focal area of decreased attenuation in the left centrum semiovale compatible with old infarct. N.B. : The above Results were Read Back by Sandeep Leong MD to Vaughn Cortez and understanding confirmed on 07/08/2022 13:44:09 (ET). Electronically Signed: Sandeep Leong MD at 13:45 EDT ,
--- NOTE | 2022-07-08 13:27 | CT_ITS ---
STUDY: CTA HEAD AND NECK WITH CONTRAST REASON FOR EXAM: Male, 76 years old. Neuro deficit, acute, stroke suspected RADIATION DOSAGE (If Supplied By Facility): CTDIvol = ( 18.37 ) mGy, DLP = ( 591.73 ) mGycm TECHNIQUE: CT angiography was performed with a multi-detector CT scanner. Data acquisition was obtained from the skull base through the vertex following intravenous administration of IV 100mL [id number]-370. MIP images were reconstructed from the axial data set. Post-processing of the angiographic images was performed, with multiplanar reformation and 3D reconstruction. Individualized dose optimization techniques were used for this CT. COMPARISON: Comparison is made with prior examination dated 01/18/2018. FINDINGS: Normal bilateral petrous carotid arteries. There is calcified plaque formation of the right cavernous carotid artery, without a cross-sectional luminal stenosis. There is calcified plaque formation of the left cavernous carotid artery, without a cross-sectional luminal stenosis. Normal right A1 segments of the anterior cerebral artery. Normal left A1 segments of the anterior cerebral artery. Normal intact anterior communicating artery (ACOM). Normal bilateral A2 segments of the anterior cerebral arteries. Normal right M1 and M2 segments of the middle cerebral arteries, with a normal M1 bifurcation. Normal left M1 and M2 segments of the middle cerebral arteries, with a normal M1 bifurcation. Normal right posterior communicating artery (PCOM). Normal left posterior communicating artery (PCOM). Normal bilateral vertebral arteries. Normal basilar artery with a normal basilar bifurcation. The visualized bilateral superior cerebellar (SCA) arteries are normal. Normal bilateral P1, P2 and visualized P3 segments of the posterior cerebral arteries. There is no demonstrated aneurysm of the three affiliated of [place]. AORTIC ARCH: There is atherosclerotic calcific plaque formation of the aortic arch and great vessels arising from the aortic arch, without a hemodynamically significant stenosis. There is a normal origin of the brachiocephalic, left common carotid, and left subclavian arteries. Calcification at the origin of the left common carotid and subclavian arteries. Prior CABG. RIGHT CAROTID ARTERIES: Normal right common carotid artery (CCA). Normal right common carotid bulb. Normal origin of the right internal carotid (ICA) artery without a hemodynamically significant stenosis. Normal visualized cervical portion of the right internal carotid artery. Normal origin of the right external carotid artery (ECA). LEFT CAROTID ARTERIES: Normal left common carotid artery (CCA). Normal left common carotid bulb. There is mild atherosclerotic plaque formation of the origin of the left internal carotid artery with less than 50% cross sectional diameter stenosis. Normal visualized cervical portion of the left internal carotid artery. Normal origin of the left external carotid artery (ECA). VERTEBRAL ARTERIES: There is enhancement within the bilateral vertebral arteries with a small right vertebral artery, and a dominant left vertebral artery. CT/STROKE CTA Head AND Neck W/Con IMPRESSION: Mild degree of narrowing at the origin of the left internal carotid artery. N.B. : The above Results were Read Back by Sandeep Leong MD to Dr Dana MD, and understanding confirmed on 07/08/2022 13:59:58 (ET). Electronically Signed: Sandeep Leong MD at 14:01 EDT ,
[2022-07-08 13:47] LABS: Absolute Lymphocyte Count 0.97 X10^3/uL (0.83-4.51); Absolute Neutrophil Count 3.9 X10^3/uL (2.0-7.7); Basophil# 0.03 X10^3/uL; Basophil% 0.6 % (0-1); Eosinophil# 0.05 X10^3/uL; Eosinophils% 0.9 % (0-5); Hematocrit 30.9 % (40-54); Lymphocyte # 0.97 X10^3/ul (0.83-4.51); Mean Corp Hgb Conc 32.4 g/dL (32-36); Mean Corpuscular Hgb 32.2 pg (27.0-32.0); Mean Corpuscular Volume 99.4 fL (80-94); Mean Platelet Vol. 9.1 fl (6.2-12.0); Monocyte# 0.44 X10^3/uL; Monocyte% 8.2 % (0-10); NRBC Flagged by Analyzer 0 % (0-5); Neutrophil # 3.87 X10^3/uL (2.7-7.7); Neutrophil % 71.7 % (47-70); Platelet Count 207 K/mm3 (150-450); RBC Distribution Width CV 15.2 % (11.6-14.6); RBC Distribution Width SD 54.4 fl (35.1-43.9); Red Blood Count 3.11 M/mm3 (4.6-6.2); White Blood Count 5.4 K/mm3 (4.4-11.0)
--- NOTE | 2022-07-08 13:53 | CM.ED ---
Addendum entered by Diana Rodriguez 07/08/22 22:02: SW went back in later, when patient was speaking to [facility], and briefly met with patient's . Emotional support provided. SW remains available if needs arise. Original Note: VERNON Note SW met with patient's daughter and cousin who presented to the ED. SW updated daughter and cousin. SW later went in and spoke to patient and patient's . Emotional support provided. Diana BALDERAS
[2022-07-08 13:59] LABS: International Normalized Ratio 1.7; Prothrombin Time (Protime)PT. 19.6 SECONDS (11.7-14.9)
[2022-07-08 14:01] LABS: Partial Thromboplast Time 32.7 Seconds (24.1-36.2)
--- NOTE | 2022-07-08 14:05 | CHAPLAIN ---
Type of Pastoral Visit ___ Initial Visit ___ Follow-up Visit ___ On-call Visit ___ General Patient Visit ___ Spiritual Assessment ___ Family Conference ___ Bereavement _x__ Rapid Response ___ Code Blue ___ Other (describe below) Pastoral Care Referral From ___ Patient ___ Family ___ Nurse ___ Physician ___ French Lecturer ___ Continuum Of Care Manager _x__ Other (describe below) Sacrament/Intervention ___ Active listening ___ Anointing ___ Advent ___ Bereavement ___ Communion ___ Dilcia exploration ___ ___ Life review ___ Prayer ___ Reconciliation ___ Sacrament of Sick _x__ Supportive presence ___ Wedding ___ Other (describe below) Pastoral Comments stroke alert called and responded to find patient and two family members in the room; introduction of self and role; patient says he is doing fine and family members say that they are not in need of anything at time point; offer of support given again in the presentation of later need
[2022-07-08 14:06] LABS: Anion Gap 5 (5-15); BUN 13 mg/dL (7-18); BUN/Creat Ratio 12.5 RATIO (10-20); Calcium,Total 8.8 mg/dL (8.5-10.1); Chloride 105 mmol/L (98-107); Creatinine, Serum 1.04 mg/dL (0.70-1.30); EST Glomerular Filtration Rate 74 mL/min (>60); Est Glom Filt Rate - Afr Amer 89 mL/min (>60); Estimated Creatinine Clearance 57.38 ml/min; Glucose 158 mg/dL (74-106); Potassium 3.4 mmol/L (3.5-5.1); Sodium Level 140 mmol/L (136-145); Troponin-I HS 10 pg/mL (3.0-78.0)
--- NOTE | 2022-07-08 14:47 | HP.PCM.HOS_ITS ---
HPI - General General Date of Admission: 07/08/22 Date of Service: 07/08/22 Chief Complaint: RUE weakness, facial droop. 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 From discussion with patient and family they did note that he seemed to be staring off into space but he does report he could hear he just took some time to answer. Initial ED triage evaluation NIHSS 3 and most recently near normal. Work-up in the ED included T98.2, heart 76, BP initially 146/60 with most recent repeat 22/55, respiratory rate 22, 94 to 95% on room air, CBC with WC 5.4, hemoglobin 10, MCV 99.4, platelet 207 without marked shift, coags with PT 19.6 otherwise unremarkable, BMP with potassium 3.4, glucose 158, troponin 10, CT of the brain with chronic involutional changes and a stable focal area of decreased attenuation in the left centrum semiovale compatible with a prior old infarct, CTA head and neck with a mild degree of narrowing in the origin of the left ICA, chest x-ray with no acute cardiopulmonary findings, EKG with rate controlled atrial fibrillation with no acute evidence of ischemia. Neurology with CVA call requested continued eliquis, CVA work-up admission. In the ED patient administered ASA therapy. [facility] Medical History Abdominal pain Atherosclerotic heart disease of [place] coronary artery without angina pectoris Cardiology follow-up encounter Carotid artery stenosis Chronic cough Chronic systolic (congestive) heart failure Cirrhosis CVA (cerebral vascular accident) (01/18/18) Diabetes Essential (primary) hypertension Gastric reflux High cholesterol History of atrial fibrillation History of CHF (congestive heart failure) History of echocardiogram History of edema HLD (hyperlipidemia) Hypertension Longstanding persistent atrial fibrillation Obesity (BMI 30.0-34.9) Positive colorectal cancer screening using Cologuard test Right sided weakness Secondary pulmonary arterial hypertension Shortness of breath on exertion Vomiting Wears dentures Wears glasses Home Medications metformin 500 mg tablet 500 mg PO DAILY diabetes 12/16/19 [History Last Taken 07/08/22] losartan 100 mg tablet 100 mg PO DAILY heart/bp 03/20/20 [History Last Taken 07/08/22] pravastatin 80 mg tablet 80 mg PO QHS cholesterol #90 tabs 05/29/22 [Rx Last Taken 07/07/22] apixaban 5 mg tablet 5 mg PO BID blood thinner #180 tabs 06/10/22 [Rx Last Taken 07/08/22] amlodipine 5 mg tablet 5 mg PO DAILY 07/08/22 [History Last Taken 07/08/22] carvedilol 25 mg tablet 25 mg PO BID 07/08/22 [History Last Taken 07/08/22] furosemide 40 mg tablet 40 mg PO BID diuretic 07/08/22 [History Last Taken 07/08/22] potassium chloride 20 mEq tablet,extended release(part/cryst) (Klor-Con M) 40 meq PO DAILY supplement 07/08/22 [History Last Taken 07/08/22] Allergy/AdvReac Type Severity Reaction Status Date / Time atorvastatin [From Lipitor] AdvReac Severe Myalgias Verified 07/08/22 14:09 rosuvastatin [From Crestor] AdvReac Severe Myalgias Verified 07/08/22 14:09 Family History Mother Breast cancer Hypertension Grandmother Heart disease Father Heart disease Hypertension Surgical History H/O coronary artery bypass surgery (02/13/00) History of cardiac catheterization History of left heart catheterization (06/14/18) History of left-sided carotid endarterectomy (04/02/20) History of right-sided carotid endarterectomy (2000) Hx of colonoscopy Hx of tonsillectomy Social History (Updated 07/08/22 @ 20:[address] Sally Gates MD) household members: spouse Smoking Status: Never smoker alcohol intake: current alcohol intake frequency: holidays/special occasions only substance use type: does not use caffeine: Yes Type: coffee Number of servings: 3 ROS ROS Narrative Admission Review of Systems: CONSTITUTIONAL: No weight loss, fever, chills, + weakness or fatigue. HEENT: Eyes: No visual loss, blurred vision, double vision or yellow sclerae. Ears, Nose, Throat: No hearing loss, sneezing, congestion, runny nose or sore throat. SKIN: No rash or itching, lesions, wounds. CARDIOVASCULAR: No chest pain, chest pressure or chest discomfort, palpitations, edema, orthopnea, syncopal events. RESPIRATORY: No shortness of breath, cough or sputum, wheezing, hemoptysis. GASTROINTESTINAL: No anorexia, nausea, vomiting or diarrhea, abdominal pain, melena, BRBPR. GENITOURINARY: No dysuria, frequency, urgency or retention. NEUROLOGICAL: + Confusion, R sided UE weakness, R facial droop, slurred speech. No headache, dizziness, syncope, paralysis, ataxia, change in bowel or bladder control, seizure. MUSCULOSKELETAL: + muscle, back pain, joint pain or stiffness. HEMATOLOGIC: anemia, bleeding or bruising. LYMPHATICS: No enlarged nodes. No history of splenectomy. PSYCHIATRIC: No history of depression or anxiety. ENDOCRINOLOGIC: No reports of sweating, cold or heat intolerance. No polyuria or polydipsia. ALLERGIES: No history of asthma, hives, eczema or rhinitis. Vital Signs Vital Signs Vital Signs: 07/08/22 13:33 07/08/22 14:03 07/08/22 14:08 Temperature 98.2 F Temperature Source Temporal Pulse Rate 79 74 Respiratory Rate 22 H 26 H Blood Pressure 146/68 H 122/55 H Blood Pressure Mean 94 77 Pulse Ox 94 95 95 Oxygen Delivery Method Room Air Room Air Room Air 07/08/22 13:30 Temperature 98.2 F Temperature Source Temporal Pulse Rate 79 Respiratory Rate 22 H Blood Pressure 146/68 H Blood Pressure Mean 94 Pulse Ox 94 Oxygen Delivery Method Room Air Weight Weight: 186 lb 11.704 oz Body Mass Index (BMI) 29.2 Physical Exam Narrative Physical Examination: General: Awake, alert, oriented x 3 including person, place, year, remains cooperative, seated upright in ED bed, fatigued, family notes he is nearing bas obi but not completely. Skin: Normal color, normal turgor, no icterus, no cyanosis except noted b ilateral lower extremity chronic venous stasis skin changes. HEENT: AT/NC, EOMI, PERRLA, mildly dry MM, still noted mild slight right facial droop, mild dysarthria noted, no carotid bruits or JVD noted. Lungs: Mild diminished, greater bases, appropriate effort, no rales, ronchi or wheezing. Heart: Irregular, rate controlled; no gallop, rub audible. Abdomen: Soft, overweight, NTTP, ND, mildly hyperactive BS, no HSM. Extremities: No cyanosis, no clubbing, chronic bilateral lower extremity pedal t o distal hannon edema, consistent with chronic venous stasis skin changes concurrently, does admit to sleeping upright in a chair with his legs down frequently Neurological: Patient awake, alert, oriented as noted, cognitive function improving, suspect nearing baseline intact; pupils equally reactive to light and accommodation, cranial nerves grossly normal except still mild right facial droop, moving all 4 extremities with right upper extremity strength improving, 4-5, left upper extremity and left lower extremity appropriate, right lower extremity appropriate, sensation intact, equivocal Babinski, some difficulty with right upper extremity [id number] with mild ataxia, otherwise finger-no se intact left-sided, [id number] bilaterally appropriate. Psychiatric: Affect appears fatigued, no acute evidence of depressive or anxiety feelings. Results Lab / Micro Data Result Diagrams: 07/08/22 13:40 07/08/22 13:40 Labs: Laboratory Results - last 24 hr 07/08/22 13:40: WBC 5.4, RBC 3.11 L, Hgb 10.0 L, Hct 30.9 L, MCV 99.4 H, MCH 32.2 H, MCHC 32.4, RDW Std Deviation 54.4 H, RDW Coeff of Natasha 15.2 H, Plt Count 207, MPV 9.1, Immature Gran % (Auto) 0.600, Neut % (Auto) 71.7 H, Lymph % (Auto) 18.0 L, Dougherty % (Auto) 8.2, Eos % (Auto) 0.9, Baso % (Auto) 0.6, Absolute Neuts (auto) 3.9, Absolute Lymphs (auto) 0.97, Nucleated RBC % 0 07/08/22 13:40: PT 19.6 H, INR 1.7, APTT 32.7 07/08/22 13:40: Sodium 140, Potassium 3.4 L, Chloride 105, Carbon Dioxide 30.0, Anion Gap 5, BUN 13, Creatinine 1.04, Estim Creat Clear Calc 57.38, Est GFR (MDRD) Af Amer 89, Est GFR (MDRD) Non-Af 74, BUN/Creatinine Ratio 12.5, Glucose 158 H, Calcium 8.8, Troponin I High Sens [address] 07/08/22 13:26 IMPRESSION: Chronic involutional changes of the brain. Stable focal area of decreased attenuation in the left centrum semiovale compatible with old infarct. N.B. : The above Results were Read Back by Sandeep Leong MD to Vaughn Cortez and understanding confirmed on 07/08/2022 13:44:09 (ET). Electronically Signed: Sandeep Leong MD at 13:45 EDT , ADDENDUM: 07/08/22 1352 IMPRESSION: Chronic involutional changes of the brain. Stable focal area of decreased attenuation in the left centrum semiovale compatible with old infarct. N.B. : The above Results were Read Back by Sandeep Leong MD to Vaughn Cortez and understanding confirmed on 07/08/2022 13:44:09 (ET). Electronically Signed: Sandeep Leong MD at 13:45 EDT , Head/Neck CTA 07/08/22 13:27 IMPRESSION: Mild degree of narrowing at the origin of the left internal carotid artery. N.B. : The above Results were Read Back by Sandeep Leong MD to Dr Dana MD, and understanding confirmed on 07/08/2022 13:59:58 (ET). Electronically Signed: Sandeep Leong MD at 14:01 EDT , ADDENDUM: 07/08/22 1408 IMPRESSION: Mild degree of narrowing at the origin of the left internal carotid artery. N.B. : The above Results were Read Back by Sandeep Leong MD to Dr Dana MD, and understanding confirmed on 07/08/2022 13:59:58 (ET). 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 #1. RUE Weakness, Facial droop concerning for acute CVA with history of prior CVA: Will admit to PCU, will obtain MRI Brain, will obtain follow-up carotid US to be thorough given history and findings, will obtain ECHO given last noted 2018 to be cautious, PT/OT/Speech/Nutrition evaluation per protocol. Will consult Neurology for evaluation once MRI complete. Will allow permissive HTN, maintain on asa, statin w/ AM FLP, fall precautions. TSH, FLP, Mag, HgBA1c pending. Additionally did discuss with patient and family that given the staring off into space if any indication that this could be seizure-like in nature may necessitate EEG in addition and potentially AEDs if appropriate. #2. Hypokalemia: Admission K+ 3.4, magnesium level requested, supplementation given, repeat level in AM. #3. Chronic systolic CHF: We will judiciously hydrate as needed continue apixaban, aspirin, statin, temporarily holding Coreg, lisinopril, Lasix regimen but low threshold to add back if MRI not marked or if timely appropriate, as needed IV agents for hypertension per stroke protocol. Last echo noted 01/18/2018 with EF 40 to 45%, regional wall motion abnormalities noted, severely enlarged LA, mild MVI, trivial TVI, RVSP 63 mmHg consistent with moderate pulmonary hypertension. #4. Persistent atrial fibrillation: We will continue patient home apixaban regimen, temporarily permissive hypertension with Coreg hold but low threshold to add if rate elevated. #5. CAD, post prior, will continue apixaban, adding aspirin given presentation, temporarily holding patient Coreg and losartan regimen given permissive hypertension as noted, add back once appropriate, continue statin therapy. #6. Diabetes mellitus type II: Hold oral home regimen, hemoglobin A1c requested as well as nutrition consultation for education and teaching given acute presentation, ADA diet, accu checks w/ ISS. #7. Hypertension: Temporarily maintaining on permissive hypertension, add regimen once appropriate pending MRI, as needed agents per stroke protocol. #8. Hyperlipidemia: We will continue patient on statin therapy, FLP in a.m. #9. Chronic macrocytic anemia: Admission hemoglobin 10, baseline prior noted primarily 11-12, will continue to trend. #10. Carotid artery stenosis: Status post bilateral CEA, will obtain carotid to be cautious, continue apixaban, adding aspirin given presentation until further evaluation complete, continue statin therapy, temporarily maintain permissive hypertension, continue diabetic regimen with alterations as noted. #11. Cirrhotic disease, unclear specific type, potentially BAGLEY: Temporarily holding patient Coreg as well as Lasix, not on any rifaximin or any lactulose chronically, will continue to closely monitor. #12. DVT prophylaxis: SCDs, continue patient home apixaban regimen is noted. #13. 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 Given his advanced age and Young ED strongly encouraged this be considered and noted that they may discuss these items with case management/social work if interested. Discussed CODE status at length including difference between FULL code, DNR-CCA and DNR-CC status. Following discussions about the differences in these status, requested Full Code status. Advanced Care Planning Face to Face Time: 16 minutes. Charges/Coding Visit Charges Inpatient E&M: 74705 Init Hosp L3 Procedures Hospitalists Procedures: 05511 Advncd Care Plan 30 Min
--- NOTE | 2022-07-08 14:59 | ED.VIS.STROK ---
HPI History of Present Illness Chief Complaint: Neuro S/Sx Informant: patient Onset/Context/Timing Onset: Today Context: Sudden Onset Timing: Continuous Onset: Approximately 40-45 minutes prior to arrival Worsened by: Nothing Relieved by: Nothing Associated Symptoms Associated Symptoms: Negative for Headache, Nausea, Vomiting or Chest Pain Narrative Narrative: Patient presents with right-sided weakness and slurred speech that began today. Spouse reports that the patient's symptoms started approximately 40 to 45 minutes prior to arrival. states that she was with him all day. states she was in another room when she heard a noise. She went into the room where he was at and noticed that he was having some difficulty speaking and right arm and leg weakness. She called EMS and EMS noted that the patient had right-sided weakness [facility] Medical History Abdominal pain Atherosclerotic heart disease of [place] coronary artery without angina pectoris Cardiology follow-up encounter Carotid artery stenosis Chronic cough Chronic systolic (congestive) heart failure Cirrhosis CVA (cerebral vascular accident) (01/18/18) Diabetes Essential (primary) hypertension Gastric reflux High cholesterol History of atrial fibrillation History of CHF (congestive heart failure) History of echocardiogram History of edema HLD (hyperlipidemia) Hypertension Longstanding persistent atrial fibrillation Obesity (BMI 30.0-34.9) Positive colorectal cancer screening using Cologuard test Right sided weakness Secondary pulmonary arterial hypertension Shortness of breath on exertion Vomiting Wears dentures Wears glasses Home Medications metformin 500 mg tablet 500 mg PO DAILY diabetes 12/16/19 [History Last Taken 06/23/21] losartan 100 mg tablet 100 mg PO DAILY heart/bp 03/20/20 [History Last Taken 11/26/21] pravastatin 80 mg tablet 80 mg PO QHS cholesterol #90 tabs 05/29/22 [Rx Last Taken Unknown] apixaban 5 mg tablet 5 mg PO BID blood thinner #180 tabs 06/10/22 [Rx Last Taken Unknown] potassium chloride 20 mEq tablet,extended release(part/cryst) (Klor-Con M) See Rx Instructions .Route .COMPLEX #180 tabs 06/10/22 [Rx Last Taken Unknown] amlodipine 5 mg tablet 5 mg PO DAILY 07/08/22 [History Last Taken Unknown] carvedilol 25 mg tablet 25 mg PO BID 07/08/22 [History Last Taken Unknown] furosemide 40 mg tablet 40 mg PO BID diuretic 07/08/22 [History Last Taken Unknown] Allergy/AdvReac Type Severity Reaction Status Date / Time atorvastatin [From Lipitor] AdvReac Severe Myalgias Verified 07/08/22 14:09 rosuvastatin [From Crestor] AdvReac Severe Myalgias Verified 07/08/22 14:09 Family History Mother Breast cancer Hypertension Grandmother Heart disease Father Heart disease Hypertension Surgical History H/O coronary artery bypass surgery (02/13/00) History of cardiac catheterization History of left heart catheterization (06/14/18) History of left-sided carotid endarterectomy (04/02/20) History of right-sided carotid endarterectomy (2000) Hx of colonoscopy Hx of tonsillectomy Social History Smoking Status: Never smoker alcohol intake: current alcohol intake frequency: holidays/special occasions only substance use type: does not use caffeine: Yes Type: coffee Number of servings: 3 ROS ROS ED Constitutional Constitutional ED: Denies chills or fever(s) Eyes Eyes: Denies blurry vision or change in vision ENT ENT ED: Denies rhinorrhea or sore throat Cardiovascular Cardiovascular: Denies chest pain or palpitations Respiratory/Chest Respiratory/Chest: Denies cough or dyspnea Gastrointestinal Gastrointestinal: Denies nausea or vomiting Genitourinary Genitourinary ED: Denies dysuria or hematuria Musculoskeletal Musculoskeletal: Denies back pain or neck pain Integumentary Denies abscess or rash Neurologic Neurologic: Denies headache(s) or weakness Allergic/Immunologic Allergic/Immunologic ED: Denies mouth swelling or urticaria EXAM Physical Exam Const Vital Signs: 07/08/22 13:33 07/08/22 14:03 07/08/22 14:08 Temperature 98.2 F Temperature Source Temporal Pulse Rate 79 74 Respiratory Rate 22 H 26 H Blood Pressure 146/68 H 122/55 H Blood Pressure Mean 94 77 Pulse Ox 94 95 95 Oxygen Delivery Method Room Air Room Air Room Air 07/08/22 13:30 Temperature 98.2 F Temperature Source Temporal Pulse Rate 79 Respiratory Rate 22 H Blood Pressure 146/68 H Blood Pressure Mean 94 Pulse Ox 94 Oxygen Delivery Method Room Air Positive well nourished and well developed General Appearance ED: well developed HEENT Reports moist mucous membranes Neck supple and no JVD Resp normal respiratory effort and clear to auscultation bilaterally Cardio regular rate, regular rhythm and no murmurs GI normal to inspection, nondistended, normoactive bowel sounds and non-tender Palpation: soft Extremity normal to inspection General Extremety ED: Negative for edema or tenderness General Extremity: Negative for edema Neuro oriented x3, CN's II-XII intact bilaterally and no sensory deficits noted Neuro Narrative: There is mild examination of the right upper extremity when he holds his hands out in front of him. He is able to hold his arms up for a full 10 seconds. Sensorium / Orientation: alert Psych mental status grossly normal Skin no rashes or lesions noted STROKE Vital Signs/Narrative: Vital Signs Temp Pulse Resp BP Pulse Ox O2 Del Method 07/08/22 13:30 98.2 F 79 22 H 146/68 H 94 Room Air 07/08/22 14:08 95 Room Air 07/08/22 14:03 74 26 H 122/55 H 95 Room Air 07/08/22 13:33 98.2 F 79 22 H 146/68 H 94 Room Air MDM MDM MDM Narrative Medical decision making narrative: Prehospital stroke alert was called. CT scan of the brain was obtained. There is no acute intracranial abnormality. There are chronic involutional changes. This was interpreted by the radiologist and reviewed by myself. CTA of the head and neck was obtained. There is mild narrowing of the left internal carotid artery. There is no large vessel occlusion. This was interpreted by the radiologist and reviewed by myself. CBC shows a mild anemia with a hemoglobin of 10.0 and hematocrit 30.9. PT was 19.6. INR was 1.7. PTT was 32.7. Basic metabolic profile showed some mild hypokalemia of 3.4 but was otherwise within normal limits. High-sensitivity troponin was normal. Stroke neurologist from [facility] evaluated patient remotely. They recommended admission to the hospital here for further stroke work-up. They also recommended continuing the Eliquis. Case was discussed with the hospitalist. She will admit the patient to her service. Lab Data Attestation: I reviewed the patient's lab results. Labs: Laboratory Results - last 24 hr 07/08/22 07/08/22 07/08/22 13:40 13:40 13:40 WBC 5.4 RBC 3.11 L Hgb 10.0 L Hct 30.9 L MCV 99.4 H MCH 32.2 H MCHC 32.4 RDW Std Deviation 54.4 H RDW Coeff of Natasha 15.2 H Plt Count 207 MPV 9.1 Immature Gran % (Auto) 0.600 Neut % (Auto) 71.7 H Lymph % (Auto) 18.0 L Rock % (Auto) 8.2 Eos % (Auto) 0.9 Baso % (Auto) 0.6 Absolute Neuts (auto) 3.9 Absolute Lymphs (auto) 0.97 Nucleated RBC % 0 PT 19.6 H INR 1.7 APTT 32.7 Sodium 140 Potassium 3.4 L Chloride 105 Carbon Dioxide 30.0 Anion Gap 5 BUN 13 Creatinine 1.04 Estim Creat Clear Calc 57.38 Est GFR (MDRD) Af Amer 89 Est GFR (MDRD) Non-Af 74 BUN/Creatinine Ratio 12.5 Glucose 158 H Calcium 8.8 Troponin I High Sens 10 Radiography Diagnostic Testing: Clinical Impression(s) from Imaging Studies Brain CT 07/08/22 13:26 IMPRESSION: Chronic involutional changes of the brain. Stable focal area of decreased attenuation in the left centrum semiovale compatible with old infarct. N.B. : The above Results were Read Back by Sandeep Leong MD to Vaughn Cortez and understanding confirmed on 07/08/2022 13:44:09 (ET). Electronically Signed: Sandeep Leong MD at 13:45 EDT , ADDENDUM: 07/08/22 1352 IMPRESSION: Chronic involutional changes of the brain. Stable focal area of decreased attenuation in the left centrum semiovale compatible with old infarct. N.B. : The above Results were Read Back by Sandeep Leong MD to Vaughn Cortez and understanding confirmed on 07/08/2022 13:44:09 (ET). Electronically Signed: Sandeep Leong MD at 13:45 EDT , Head/Neck CTA 07/08/22 13:27 IMPRESSION: Mild degree of narrowing at the origin of the left internal carotid artery. N.B. : The above Results were Read Back by Sandeep Leong MD to Dr Dana MD, and understanding confirmed on 07/08/2022 13:59:58 (ET). Electronically Signed: Sandeep Leong MD at 14:01 EDT , ADDENDUM: 07/08/22 1408 IMPRESSION: Mild degree of narrowing at the origin of the left internal carotid artery. N.B. : The above Results were Read Back by Sandeep Leong MD to Dr Dana MD, and understanding confirmed on 07/08/2022 13:59:58 (ET). Electronically Signed: Sandeep Leong MD at 14:01 EDT , EKG Initial EKG: Attestation: I personally reviewed and interpreted this EKG as follows: Interpretation: Atrial Fibrillation (77) and Non-Specific ST Changes Prior EKG tracings: available for review Prior: Unchanged (06/24/2021) Discharge Plan Dx/Rx/DC Orders Clinical Impression: Brain TIA, Essential (primary) hypertension Disposition Disposition: Acute Care [facility]
[2022-07-08 15:48] LABS: Magnesium 1.6 mg/dL (1.6-2.6)
--- NOTE | 2022-07-08 16:11 | ECHOCS_ITS ---
Reason For Study: CVA Procedure This was a 2D Doppler, Color Flow transthoracic echocardiogram. Contrast injection was performed. Exam performed portable in patient room. Left Ventricle Normal LV size. The estimated ejection fraction is 47 %. Mild segmental systolic dysfunction (see wall motion). Mid-Anterior : Akinetic. Mid-anteroseptal : Akinetic. Jarreau : Akinetic. The rest of the wall segments are normal. Right Ventricle Normal RV size. Normal systolic function. Atria The left atrium is mildly enlarged. Normal right atrium. Mitral Valve Normal mitral valve. Tricuspid Valve Normal tricuspid valve. Moderate (2+) tricuspid valve insufficiency. Pulmonary artery systolic pressure is 63 mmHg. Moderate pulmonary hypertension. Aortic Valve Trisinus/trileaflet aortic valve. Mild focal aortic valve calcification. Great Vessels Normal aortic root. The pulmonary artery is normal size. Normal inferior vena cava. Pericardium/Pleural No pericardial effusion. Medication Diluted definity 3ml given slow IV push to enhance endocardial definition. MMode/2D Measurements & Calculations LVIDd: 4.9 cm IVSd: 0.65 cm Ao root diam: 2.5 cm LVIDs: 3.5 cm LVPWd: 0.61 cm RVDd: 4.8 cm FS: 29.1 % LAV(MOD-bp): 69.8 ml LA A4 area: 20.7 cm2 LA dimension(2D): 5.5 cm LAV(MOD-bp) Indexed: 35.6 ml/m2 LAV(MOD-sp2): 89.9 ml LAV(MOD-sp4): 53.0 ml RA A4 area: 19.6 cm2 Doppler Measurements & Calculations MV E max milton: 119.3 cm/sec Ao V2 max: 139.0 cm/sec LV V1 max: 112.5 cm/sec Ao max P.7 mmHg LV V1 max P.1 mmHg Ao V2 mean: 94.5 cm/sec Ao mean P.9 mmHg Ao V2 VTI: 26.7 cm PA V2 max: 146.2 cm/sec TR max milton: 384.5 cm/sec TR max P.1 mmHg ECHO/Echo Complete W/ Contrast Interpretation Summary Normal LV size. The estimated ejection fraction is 47 %. Mild segmental systolic dysfunction (see wall motion). Pulmonary artery systolic pressure is 63 mmHg. Moderate pulmonary hypertension. Contrast injection was performed. Ordering Physician: Sally Gates Referring Physician: Herson Terrell Performed By: Tracy Adamson RDCS, RVT
--- NOTE | 2022-07-08 16:11 | CDU_ITS ---
Reason For Study: Carotid stenosis, CVA Rt. Velocities/BP Lt. Velocities/BP Prox CCA 72.1/8.2 cm/sec. Prox CCA 132.9/21.5 cm/sec. Mid CCA 64.3/9.5 cm/sec. Mid CCA 104.4/13.7 cm/sec. Dist CCA 82.6/9.5 cm/sec. Dist CCA 101.8/16.3 cm/sec. Prox ICA 217.5/43 cm/sec. Prox ICA 88.8/18.9 cm/sec. Mid ICA 88.4/9.4 cm/sec. Mid ICA 83.7/18.9 cm/sec. Dist ICA 76.5/9 cm/sec. Dist ICA 107/26.7 cm/sec. Rt. ICA/CCA = 3.02. Lt. ICA/CCA = 1.02. Prox ECA 358.1 cm/sec. Prox ECA 138.1 cm/sec. Rt. Vert. 33.3/6 cm/sec. Lt. Vert. 44.6/6.5 cm/sec. Right Extracranial There is heterogeneous, irregular atherosclerotic plaque noted in the right common carotid artery. There is heterogeneous, irregular atherosclerotic plaque noted in the right internal carotid artery. There is heterogeneous, irregular atherosclerotic plaque noted in the right external carotid artery. Antegrade flow is noted in the right vertebral artery. Left Extracranial There is intimal thickening but no significant atherosclerotic plaque noted in the left common carotid artery. There is homogeneous, smooth atherosclerotic plaque noted in the left internal carotid artery. There is intimal thickening but no significant atherosclerotic plaque noted in the left external carotid artery. Antegrade flow is noted in the left vertebral artery. Procedure Carotid Duplex 45121. This is a Carotid Duplex examination using B-mode, color flow and specral Doppler. Exam performed in department. VL/Carotid Duplex Ultrasound Interpretation Summary Irregular calcific plaque of the right carotid bulb and proximal internal carot id artery with 50 to 69% stenosis of the right internal carotid. Greater than 50% stenosis right external carotid Smooth plaque at the proximal left internal carotid artery with less than 50% s tenosis Less than 50% stenosis left external carotid Patent and antegrade vertebral arteries bilaterally No hemodynamically significant change from the previous examination of April 05 021 Ordering Physician: Sally Gates Referring Physician: Herson Terrell Performed By: Tamar Pennington RVT
--- NOTE | 2022-07-08 16:13 | NURSING ---
Unable to give 325 aspirin as it was not available in our accudose. SLD INCLUSION TEACHER Jess made aware.
[2022-07-08 16:46] LABS: Bedside Glucose 171 mg/dL (74-106)
--- NOTE | 2022-07-08 16:47 | PCM.HOSP.N ---
Hospitalist Note With rapid response at 1440 with onset of seizure-like activity specifically with contracturing and tremoring of the right side with noted staring off into space unclear specific direction of the eyes per discussion with staff and family with no loss of bowel or bladder nor any tongue biting but right-sided weakness more prominent again as well as right mild facial droop lasting less than 1 minute. Patient clinically improving and can answer orientation questions times greater than 3. Discussed with staff and family and will load with Keppra 1000 mg IV x1 and then transition to 500 twice daily, add as needed IV Ativan for seizure breakthrough and order EEG with plan to continue work-up as previously discussed and noted to family that once these items were additionally obtain would involve also neurology again. Family noted understanding to this plan of care and was amenable.
--- NOTE | 2022-07-08 16:51 | CHAPLAIN ---
Type of Pastoral Visit ___ Initial Visit ___ Follow-up Visit ___ On-call Visit ___ General Patient Visit ___ Spiritual Assessment ___ Family Conference ___ Bereavement _x__ Rapid Response ___ Code Blue ___ Other (describe below) Pastoral Care Referral From ___ Patient ___ Family ___ Nurse ___ Physician ___ B2B Sales Executive ___ Relay Shop Tester _x__ Other (describe below) Sacrament/Intervention ___ Active listening ___ Anointing ___ Sabianism ___ Bereavement ___ Communion ___ Dilcia exploration ___ ___ Life review ___ Prayer ___ Reconciliation ___ Sacrament of Sick _x__ Supportive presence ___ Wedding ___ Other (describe below) Pastoral Comments came to rapid response to offer support to patient, family, and staff; care was underway and family supported by staff
[2022-07-08] MEDS: levETIRAcetam IV 1,000 MG/100 ML BAG 400 MG IV (16:57)
[2022-07-08] MEDS: Aspirin 325 MG Tablet PO (17:25)
[2022-07-08] MEDS: Potassium Chloride Oral Tablet 20 MEQ 40 MEQ PO (17:25)
--- NOTE | 2022-07-08 17:34 | NURSING ---
After pt's ASSISTANT OFFSET PRESS OPERATOR, another dysphagia screening completed by this RN. Pt passed dysphagia screening same as original documentation.
[2022-07-08] MEDS: APIXABAN 5 MG TABLET PO (21:33)
[2022-07-08] MEDS: Pravastatin 80 MG Tablet PO (21:33)
[2022-07-08 21:50] LABS: Bedside Glucose 119 mg/dL (74-106)
[2022-07-08] MEDS: 0.9% Saline Lock 10 ML Syringe IV (21:50)
[2022-07-09] VITALS (11 sets, daily range): BP systolic 103–146; BP diastolic 54–84; PULSE 63–88; RESP 16–18; TEMP 36.4–37.3; O2SAT 94–96; BMI 27.6
[2022-07-09 04:44] LABS: Absolute Lymphocyte Count 1.14 X10^3/uL (0.83-4.51); Absolute Neutrophil Count 5.3 X10^3/uL (2.0-7.7); Basophil# 0.03 X10^3/uL; Basophil% 0.4 % (0-1); Eosinophil# 0.05 X10^3/uL; Eosinophils% 0.7 % (0-5); Hematocrit 30.2 % (40-54); Hemoglobin 10.1 g/dL (13.0-16.5); Lymphocyte # 1.14 X10^3/ul (0.83-4.51); Lymphocyte % 16.2 % (19-41); Mean Corp Hgb Conc 33.4 g/dL (32-36); Mean Corpuscular Hgb 32.8 pg (27.0-32.0); Mean Corpuscular Volume 98.1 fL (80-94); Mean Platelet Vol. 9.5 fl (6.2-12.0); Monocyte# 0.46 X10^3/uL; Monocyte% 6.5 % (0-10); NRBC Flagged by Analyzer 0 % (0-5); Neutrophil # 5.33 X10^3/uL (2.7-7.7); Neutrophil % 75.8 % (47-70); Platelet Count 204 K/mm3 (150-450); RBC Distribution Width CV 15.4 % (11.6-14.6); RBC Distribution Width SD 54.2 fl (35.1-43.9); Red Blood Count 3.08 M/mm3 (4.6-6.2)
[2022-07-09 05:27] LABS: ALB/GLOB Ratio 0.6 RATIO (0.9-2.4); AST(SGOT) 19 U/L (15-37); Alanine Aminotransfer ALT/SGPT 17 U/L (16-61); Albumin, Serum 2.4 g/dL (3.2-5.0); Alkaline Phosphatase 95 U/L (45-117); Anion Gap 2 (5-15); BUN 13 mg/dL (7-18); BUN/Creat Ratio 15.6 RATIO (10-20); Calcium,Total 8.5 mg/dL (8.5-10.1); Chloride 109 mmol/L (98-107); Cholesterol 139 mg/dL (200); Creatinine, Serum 0.83 mg/dL (0.70-1.30); EST Glomerular Filtration Rate 96 mL/min (>60); Est Glom Filt Rate - Afr Amer 116 mL/min (>60); Globulin 3.9 g/dL (2.2-4.2); Glucose 97 mg/dL (74-106); High Density Lipoprotein 38 mg/dL; Potassium 3.6 mmol/L (3.5-5.1); Protein, Total 6.3 g/dL (6.4-8.2); Sodium Level 140 mmol/L (136-145); Thyroid Stim Hormone (TSH) 3.66 uIU/mL (0.358-3.74); Triglycerides 80 mg/dL; Very Low Density Lipoprotein 16 mg/dL (5-40)
[2022-07-09 06:50] LABS: Bedside Glucose 96 mg/dL (74-106)
[2022-07-09 07:43] LABS: Hemoglobin A1c 6.6 % (3.8-5.6)
--- NOTE | 2022-07-09 07:59 | TELEMED_ITS ---
[facility] Telemed has confirmed receipt of a request for visit. This document confirms receipt of the order initiating the consult. To find the results of the consultation, please view the patient's reports for the scanned Telemed Consult.
[2022-07-09] MEDS: Potassium Chloride Oral Tablet 20 MEQ 40 MEQ PO (09:23)
[2022-07-09] MEDS: APIXABAN 5 MG TABLET PO ×2 (09:23→22:18)
[2022-07-09] MEDS: Aspirin 81 MG TAB.CHEW PO (09:23)
[2022-07-09 11:45] LABS: Bedside Glucose 141 mg/dL (74-106)
--- NOTE | 2022-07-09 12:50 | CASEMGMT ---
RN CM Face to Face with patient for initial transition planning/care coordination assessment. RN CM introduced self and role at [facility]. Patient lying in bed, alert and oriented. Patient willing to participate in assessment and is able to answer all questions appropriately. Care providers, pharmacy, and demographics verified. Patient wishes to discharge home, denies need for home health at this time. Patient states he has no further needs or concerns at this time. CM to follow for discharge planning needs that may arise. PCP: Nidhi Specialists: Patel shelter advocate Preferred Pharmacy: [facility] Insurance: [facility] Prescription Benefit: yes Living Will/HPOA: yes, Yu Bee LNOK: , daughter Living Arrangements: Patient lives with and daughter in a ranch style house with 2 steps and railing to enter the home. Patient states he is independent at home. Transportation: Self, , daughter DME/HHC: Patient states he has shower chair, cane, walker, and grab bars at home. Disposition Plan: Patient to discharge home with family support and follow-up plans in place. Will monitor progress with therapy for discharge needs. Tamar VILLEGAS, RN, CM
--- NOTE | 2022-07-09 13:47 | PN.HOSP_ITS ---
Subjective Subjective Patient seen and examined. He had no active complaints today. He had an uneventful night. He denied any dizziness, focal weakness, numbness, tingling, nausea or vomiting. Review of systems is otherwise negative. Objective Data Objective Data Vital Signs: Vital Signs Temp Pulse Resp BP Pulse Ox O2 Del Method O2 Flow Rate 98.9 F 74 18 103/84 H 96 Room Air 2 07/09/22 12:00 07/09/22 12:00 07/09/22 12:00 07/09/22 12:00 07/09/22 12:00 07/09/22 13:22 07/08/22 17:29 Oxygen Flow Rate (L/min) 2 Oxygen Delivery Method Room Air Weight: 180 lb 1.883 oz Body Mass Index (BMI) 27.6 Intake & Output: Intake and Output for Last 24 Hours 07/07/22 07/08/22 07/09/22 23:59 23:59 23:59 Intake Total 455 / 455 345 / 345 Balance 455 / 455 345 / 345 Lab / Micro Data Result Diagrams: 07/09/22 04:16 07/09/22 04:16 Labs: Laboratory Results - last 24 hr 07/08/22 13:40: WBC 5.4, RBC 3.11 L, Hgb 10.0 L, Hct 30.9 L, MCV 99.4 H, MCH 32.2 H, MCHC 32.4, RDW Std Deviation 54.4 H, RDW Coeff of Natasha 15.2 H, Plt Count 207, MPV 9.1, Immature Gran % (Auto) 0.600, Neut % (Auto) 71.7 H, Lymph % (Auto) 18.0 L, [place] % (Auto) 8.2, Eos % (Auto) 0.9, Baso % (Auto) 0.6, Absolute Neuts (auto) 3.9, Absolute Lymphs (auto) 0.97, Nucleated RBC % 0 07/08/22 13:40: PT 19.6 H, INR 1.7, APTT 32.7 07/08/22 13:40: Sodium 140, Potassium 3.4 L, Chloride 105, Carbon Dioxide 30.0, Anion Gap 5, BUN 13, Creatinine 1.04, Estim Creat Clear Calc 57.38, Est GFR (MDRD) Af Amer 89, Est GFR (MDRD) Non-Af 74, BUN/Creatinine Ratio 12.5, Glucose 158 H, Calcium 8.8, Troponin I High Sens 10 07/08/22 13:40: Magnesium 1.6 07/08/22 16:28: POC Glucose 171 H 07/08/22 21:27: POC Glucose 119 H 07/09/22 04:16: WBC 7.0, RBC 3.08 L, Hgb 10.1 L, Hct 30.2 L, MCV 98.1 H, MCH 32.8 H, MCHC 33.4, RDW Std Deviation 54.2 H, RDW Coeff of Natasha 15.4 H, Plt Count 204, MPV 9.5, Immature Gran % (Auto) 0.400, Neut % (Auto) 75.8 H, Lymph % (Auto) 16.2 L, [place] % (Auto) 6.5, Eos % (Auto) 0.7, Baso % (Auto) 0.4, Absolute Neuts (auto) 5.3, Absolute Lymphs (auto) 1.14, Nucleated RBC % 0 07/09/22 04:16: Sodium 140, Potassium 3.6, Chloride 109 H, Carbon Dioxide 29.0, Anion Gap 2 L, BUN 13, Creatinine 0.83, Estim Creat Clear Calc 71.90, Est GFR (MDRD) Af Amer 116, Est GFR (MDRD) Non-Af 96, BUN/Creatinine Ratio 15.6, Glucose 97, Calcium 8.5, Total Bilirubin 0.60, AST 19, ALT 17, Alkaline Phosphatase 95, Total Protein 6.3 L, Albumin 2.4 L, Globulin 3.9, Albumin/Globulin Ratio 0.6 L, Triglycerides 80, Cholesterol 139, LDL Cholesterol 85, VLDL Cholesterol 16, HDL Cholesterol 38 L, TSH 3.66 07/09/22 04:16: Hemoglobin A1c 6.6 H 07/09/22 06:32: POC Glucose 96 07/09/22 11:21: POC Glucose 141 H Radiography Diagnostic Testing: Radiology Impression Brain CT 07/08/22 13:26 IMPRESSION: Chronic involutional changes of the brain. Stable focal area of decreased attenuation in the left centrum semiovale compatible with old infarct. N.B. : The above Results were Read Back by Sandeep Leong MD to Vaughn Cortez and understanding confirmed on 07/08/2022 13:44:09 (ET). Electronically Signed: Sandeep Leong MD at 13:45 EDT , ADDENDUM: 07/08/22 1352 IMPRESSION: Chronic involutional changes of the brain. Stable focal area of decreased attenuation in the left centrum semiovale compatible with old infarct. N.B. : The above Results were Read Back by Sandeep Leong MD to Vaughn Cortez and understanding confirmed on 07/08/2022 13:44:09 (ET). Electronically Signed: Sandeep Leong MD at 13:45 EDT , Chest X-Ray 07/08/22 13:26 IMPRESSION: No acute abnormality is seen. Electronically Signed: Sandeep Leong MD at 15:01 EDT , Head/Neck CTA 07/08/22 13:27 IMPRESSION: Mild degree of narrowing at the origin of the left internal carotid artery. N.B. : The above Results were Read Back by Sandeep Leong MD to Dr Dana MD, and understanding confirmed on 07/08/2022 13:59:58 (ET). Electronically Signed: Sandeep Leong MD at 14:01 EDT , ADDENDUM: 07/08/22 1408 IMPRESSION: Mild degree of narrowing at the origin of the left internal carotid artery. N.B. : The above Results were Read Back by Sandeep Leong MD to Dr Dana MD, and understanding confirmed on 07/08/2022 13:59:58 (ET). Electronically Signed: Sandeep Leong MD at 14:01 EDT , Carotid Duplex 07/08/22 16:11 Interpretation Summary Irregular calcific plaque of the right carotid bulb and proximal internal carotid artery with 50 to 69% stenosis of the right internal carotid. Greater than 50% stenosis right external carotid Smooth plaque at the proximal left internal carotid artery with less than 50% stenosis Less than 50% stenosis left external carotid Patent and antegrade vertebral arteries bilaterally No hemodynamically significant change from the previous examination of April 05, 2021 Ordering Physician: Sally Gates Referring Physician: Herson Terrell Performed By: Tamar Pennington, Tesha Physical Exam Const alert, oriented x3 and no apparent distress HEENT head/scalp atraumatic, moist oral mucous membranes and oropharynx normal Mouth: oral and palatal mucosa normal Eyes PERRL, EOMs intact bilaterally and conjunctivae normal Neck no lymphadenopathy, supple and no JVD Resp normal respiratory effort, no retractions, no use of accessory muscles and clear to auscultation bilaterally Cardio regular rate, regular rhythm, S1 normal heart sound, S2 normal heart sound and no murmurs GI normal to inspection, nondistended, normoactive bowel sounds, soft to palpation, non-tender and non-distended Extremity normal to inspection, full ROM and no clubbing, cyanosis or edema Neuro oriented x3 and CN's II-XII intact bilaterally Neuro Narrative: power is ~ 4/5 in RUE, power 5/5 in all other extremities. no visible mouth droop Sensorium / Orientation: awake and alert Psych affect normal Assessment & Plan Assessment/Plan (1) Brain TIA: PLAN: Plan #RUE weakness * facial droop appears to have resolved. He also says he had a previous stroke, with residual RUE weakness. * 2D echo pending * carotid USG showed * EEG pending due to concerns for seizure * PT/OT on board * fall precautions * on aspirin and statin * consult neurology once MRI results are in * #Hypokalemia: resolved #Chronic HFrEF * has known EF of 40-45% * on aspirin, lasix and coreg * #Afib: on coreg and eliquis #History of CAD s/p CABG * On aspirin. On Coreg and losartan and will resume these. Also on statin. * #Hyperlipidemia: On statin #Hypertension: On Coreg and losartan. Will resume. #Carotid artery stenosis status post bilateral carotid endarterectomy * Carotid ultrasound showed no change from previous carotid ultrasound done in 2020. It showed irregular calcific plaque on the right carotid bulb and proximal internal carotid artery with 50 to 69% stenosis of the right internal carotid and greater than 50% stenosis of the right external carotid as well as a smooth plaque at the proximal left internal carotid artery with less than 50% stenosis and less than 50% stenosis of left external carotid artery and patent and antegrade vertebral arteries bilaterally. * #? cirrhosis * Etiology is unclear. Not on rifaximin or lactulose. * Follow-up with gastroenterology on outpatient basis * #Type 2 diabetes mellitus * A1c 6.6. * Metformin currently on hold as he is getting imaging with contrast. Insulin sliding scale. Accu-Cheks ACH S. * DVT prophylaxis: On Eliquis. Charges/Coding Visit Charges OBSV E&M: 10430 Subsequent observation care L2
--- NOTE | 2022-07-09 14:03 | CASEMGMT ---
SW completed a PHQ 9 with patient as he may have had a Stroke or TIA. Patient scored a 0 which indicates no depression. Diana MONTILLA
[2022-07-09 16:35] LABS: Bedside Glucose 105 mg/dL (74-106)
--- NOTE | 2022-07-09 19:08 | MRI_ITS ---
STUDY: MRI BRAIN WITHOUT CONTRAST REASON FOR EXAM: Male, 76 years old. CVA TECHNIQUE: Standardized multiplanar fat and water weighted pulse sequences were obtained. COMPARISON: CT of the brain 07/08/2022 MRI of the brain 01/18/2018 FINDINGS: Mild atrophy and periventricular white matter ischemic change without mass effect Subacute deep white matter infarct in left frontal parietal region Normal bilateral basal ganglia. Normal thalami. There is no extra-axial fluid accumulation. Normal flow voids within the major intracranial circulation suggesting patency by spin echo criteria. Normal sella turcica, pituitary gland, infundibular stalk, optic chiasm and hypothalamus. Normal tectal plate and pineal gland. Normal midbrain, laurel and medulla. Normal cerebellum. Normal basal cisterns. Normal bilateral temporal bones. Normal bilateral internal auditory canals. No demonstrated orbital abnormality, within the constraints of a routine brain study. Mild mucosal thickening of the ethmoid air cells bilaterally.. Normal calvarium and skull base. Normal visualized soft tissue structures. Normal visualized upper cervical spine. MRI/Brain without Contrast IMPRESSION: Mild atrophy and periventricular white matter ischemic changes Subacute deep white matter infarct in left frontal parietal region. Electronically Signed: Dar Martinez MD at 20:07 EDT ,
[2022-07-09] MEDS: 0.9% Saline Lock 10 ML Syringe IV (22:17)
[2022-07-09] MEDS: Pravastatin 80 MG Tablet PO (22:18)
[2022-07-09 22:41] LABS: Bedside Glucose 115 mg/dL (74-106)
[2022-07-10] VITALS (8 sets, daily range): BP systolic 97–148; BP diastolic 73–101; PULSE 58–90; RESP 16–18; TEMP 36.8–37; O2SAT 94–96
[2022-07-10 05:55] LABS: Absolute Lymphocyte Count 0.88 X10^3/uL (0.83-4.51); Absolute Neutrophil Count 4.3 X10^3/uL (2.0-7.7); Basophil# 0.03 X10^3/uL; Basophil% 0.5 % (0-1); Eosinophil# 0.07 X10^3/uL; Eosinophils% 1.2 % (0-5); Hematocrit 30.6 % (40-54); Hemoglobin 10.3 g/dL (13.0-16.5); Lymphocyte # 0.88 X10^3/ul (0.83-4.51); Lymphocyte % 15.5 % (19-41); Mean Corp Hgb Conc 33.7 g/dL (32-36); Mean Corpuscular Hgb 33.2 pg (27.0-32.0); Mean Corpuscular Volume 98.7 fL (80-94); Mean Platelet Vol. 9.6 fl (6.2-12.0); Monocyte# 0.39 X10^3/uL; Monocyte% 6.9 % (0-10); NRBC Flagged by Analyzer 0 % (0-5); Neutrophil % 75.7 % (47-70); Platelet Count 193 K/mm3 (150-450); RBC Distribution Width CV 15.6 % (11.6-14.6); RBC Distribution Width SD 54.8 fl (35.1-43.9); White Blood Count 5.7 K/mm3 (4.4-11.0)
[2022-07-10 06:25] LABS: Anion Gap 3 (5-15); BUN 9 mg/dL (7-18); BUN/Creat Ratio 12.2 RATIO (10-20); Calcium,Total 8.9 mg/dL (8.5-10.1); Chloride 110 mmol/L (98-107); Creatinine, Serum 0.74 mg/dL (0.70-1.30); EST Glomerular Filtration Rate 110 mL/min (>60); Est Glom Filt Rate - Afr Amer 133 mL/min (>60); Estimated Creatinine Clearance 59.67 ml/min; Glucose 103 mg/dL (74-106); Potassium 3.9 mmol/L (3.5-5.1); Sodium Level 139 mmol/L (136-145)
[2022-07-10 07:00] LABS: Bedside Glucose 92 mg/dL (74-106)
[2022-07-10] MEDS: Aspirin 81 MG TAB.CHEW PO (08:38)
[2022-07-10] MEDS: APIXABAN 5 MG TABLET PO (08:38)
[2022-07-10] MEDS: Potassium Chloride Oral Tablet 20 MEQ 40 MEQ PO (08:38)
[2022-07-10 11:30] LABS: Bedside Glucose 115 mg/dL (74-106)
--- NOTE | 2022-07-10 13:58 | DS.PCM_ITS ---
Providers Date of Admission: 07/08/22 Date of Discharge: 07/10/22 Primary Care Physician: Dr. Herson Terrell MD Diagnosis Discharge Diagnosis (1) Brain TIA: Status: Acute Code(s): G45.9 - Transient cerebral ischemic attack, unspecified Plan #RUE weakness * facial droop appears to have resolved. He also says he had a previous stroke, with residual RUE weakness. * 2D echo pending * carotid USG showed * EEG pending due to concerns for seizure * PT/OT on board * fall precautions * on aspirin and statin * consult neurology once MRI results are in * #Hypokalemia: resolved #Chronic HFrEF * has known EF of 40-45% * on aspirin, lasix and coreg * #Afib: on coreg and eliquis #History of CAD s/p CABG * On aspirin. On Coreg and losartan and will resume these. Also on statin. * #Hyperlipidemia: On statin #Hypertension: On Coreg and losartan. Will resume. #Carotid artery stenosis status post bilateral carotid endarterectomy * Carotid ultrasound showed no change from previous carotid ultrasound done in 2020. It showed irregular calcific plaque on the right carotid bulb and proximal internal carotid artery with 50 to 69% stenosis of the right internal carotid and greater than 50% stenosis of the right external carotid as well as a smooth plaque at the proximal left internal carotid artery with less than 50% stenosis and less than 50% stenosis of left external carotid artery and patent and antegrade vertebral arteries bilaterally. * #? cirrhosis * Etiology is unclear. Not on rifaximin or lactulose. * Follow-up with gastroenterology on outpatient basis * #Type 2 diabetes mellitus * A1c 6.6. * Metformin currently on hold as he is getting imaging with contrast. Insulin sliding scale. Accu-Cheks ACH S. * DVT prophylaxis: On Eliquis. Medications at Discharge Home Medications metformin 500 mg tablet 500 mg PO DAILY diabetes 12/16/19 losartan 100 mg tablet 100 mg PO DAILY heart/bp 03/20/20 pravastatin 80 mg tablet 80 mg PO QHS cholesterol #90 tabs 05/29/22 apixaban 5 mg tablet 5 mg PO BID blood thinner #180 tabs 06/10/22 amlodipine 5 mg tablet 5 mg PO DAILY 07/08/22 carvedilol 25 mg tablet 25 mg PO BID 07/08/22 furosemide 40 mg tablet 40 mg PO BID diuretic 07/08/22 potassium chloride 20 mEq tablet,extended release(part/cryst) (Klor-Con M) 40 meq PO DAILY supplement 07/08/22 levetiracetam 500 mg tablet 500 mg PO BID #60 tabs 07/10/22 Hospital Course Operations None Procedures 2-D Echocardiogram Summary of Care Provided Minutes Spent on Discharge: 36 Hospital Course: Patient is a 76-year-old male with past medical history as outlined including a previous history of stroke with residual right-sided weakness who was admitted through the ED with a complaint of right-sided weakness and gurgling as well as moments of unresponsiveness. said he was staring to space during that episode. His symptoms subsequently resolved but family brought him into the ED due to concerns of stroke. He was admitted to be managed for possible stroke versus TIA. CT of the brain which showed no acute intracranial pathology. MRI of the brain done was read as a subacute deep white matter infarct in the left frontoparietal region. 2D echo done showed EF of 47% with normal left ventricular size and mild segmental systolic dysfunction and pulmonary artery systolic pressure of 63 mmHg. He had carotid duplex ultrasound which was unchanged from prior examination and showed greater than 50% stenosis of the right external carotid and 50 to 69% stenosis of the right internal carotid and smooth plaque at the proximal left internal carotid artery with less than 50% stenosis and less than 50% stenosis of the left external carotid artery. [facility]y was consulted and the neurologist reviewed the imaging and thought it was more of a chronic stroke and not subacute. Neurology they have recommended continuing his Eliquis and to DC aspirin and to continue with high intensity statin. He is to follow-up with his primary care doctor within 1 to 2 weeks. Per neurology, due to concerns about seizure, patient was started on Keppra. Neurology recommended that patient be continued on Keppra until he follows up with an outpatient neurologist to determine whether it should be stopped or otherwise. Patient counseled not to drive until he is cleared by neurology. Patient was also referred to vascular surgery on account of the carotid ultrasound findings as above. Patient seen and examined prior to discharge. He had no active complaints and had an uneventful night. Review of systems otherwise negative. Labs and vitals reviewed. Home medication reviewed and reconciled. Physical Exam Const alert, oriented x3 and no apparent distress General Appearance: cooperative, comfortable and well kempt Orientation / Consciousness: awake HEENT normocephalic, head/scalp atraumatic, hearing grossly normal bilaterally, moist oral mucous membranes and oropharynx normal Eyes PERRL, EOMs intact bilaterally and conjunctivae normal Neck no lymphadenopathy, supple and no JVD Resp normal respiratory effort, no retractions, no use of accessory muscles and clear to auscultation bilaterally Cardio regular rate, regular rhythm, S1 normal heart sound, S2 normal heart sound and no murmurs GI normal to inspection, nondistended, normoactive bowel sounds, soft to palpation, non-tender and non-distended Extremity normal to inspection, full ROM and no clubbing, cyanosis or edema Neuro oriented x3 and CN's II-XII intact bilaterally Neuro Narrative: power is ~ 4/5 in RUE, power 5/5 in all other extremities. no visible mouth droop Sensorium / Orientation: awake and alert Psych affect normal Weight / BMI Weight Weight: 182 lb 1.629 oz Body Mass Index (BMI) 27.6 ABG / Lab / Microbiology Data Result Diagrams: 07/10/22 05:36 07/10/22 05:36 Laboratory: Laboratory Results - last 24 hr 07/09/22 16:16: POC Glucose 105 07/09/22 22:15: POC Glucose 115 H 07/10/22 05:36: WBC 5.7, RBC 3.10 L, Hgb 10.3 L, Hct 30.6 L, MCV 98.7 H, MCH 33.2 H, MCHC 33.7, RDW Std Deviation 54.8 H, RDW Coeff of Natasha 15.6 H, Plt Count 193, MPV 9.6, Immature Gran % (Auto) 0.200, Neut % (Auto) 75.7 H, Lymph % (Auto) 15.5 L, Ogle % (Auto) 6.9, Eos % (Auto) 1.2, Baso % (Auto) 0.5, Absolute Neuts (auto) 4.3, Absolute Lymphs (auto) 0.88, Nucleated RBC % 0 07/10/22 05:36: Sodium 139, Potassium 3.9, Chloride 110 H, Carbon Dioxide 26.0, Anion Gap 3 L, BUN 9, Creatinine 0.74, Estim Creat Clear Calc 59.67, Est GFR (MDRD) Af Amer 133, Est GFR (MDRD) Non-Af 110, BUN/Creatinine Ratio 12.2, Glucose 103, Calcium 8.9 07/10/22 06:18: POC Glucose 92 07/10/22 11:12: POC Glucose 115 H Radiography Diagnostic Testing: Radiology Impression Echocardiogram 07/08/22 16:11 Interpretation Summary Normal LV size. The estimated ejection fraction is 47 %. Mild segmental systolic dysfunction (see wall motion). Pulmonary artery systolic pressure is 63 mmHg. Moderate pulmonary hypertension. Contrast injection was performed. Ordering Physician: Sally Gates Referring Physician: Herson Terrell Performed By: Tracy Adamson RDCS, RVT Brain MRI 07/09/22 19:08 IMPRESSION: Mild atrophy and periventricular white matter ischemic changes Subacute deep white matter infarct in left frontal parietal region. Electronically Signed: Dar Martinez MD at 20:07 EDT Reading Location ID and State: [address] [place] [address] , Service support , D/C Instructions Discharge Diet: Low fat / Low cholesterol Discharge Activity: Return to Normal Activity Weight Bearing Status: Weight bearing as tolerated Call your doctor if you observe: Fever of 101 or Higher, Shortness of breath, Dizziness, Swelling in the ankles and Chest pain Meaningful Use Info Meaningful Use Diagnoses (Choose all that apply): None applicable Discharge Plan Admission Admit Date/Time: 07/08/22 15:22 Primary Reason for Your Visit: RUE weakness Attending Provider: Annie Martinez Primary Care Provider: Herson Terrell Consulting Providers: Sally Gates Instructions Patient Instructions: TIA Dc Discharge Orders/Prescriptions Prescriptions: New levetiracetam 500 mg tablet 500 mg PO BID Qty: 60 1RF Continued metformin 500 mg tablet 500 mg PO DAILY losartan 100 MG tablet 100 mg PO DAILY furosemide 40 mg tablet 40 mg PO BID carvedilol 25 mg tablet 25 mg PO BID Rx Instructions: must administer with a meal/food amlodipine 5 mg tablet 5 mg PO DAILY potassium chloride [Klor-Con M20] 20 mEq tablet,ER particles/crystals 40 meq PO DAILY Rx Instructions: TAKE 2 TABLETS BY MOUTH EVERY DAY FOR SUPPLEMENT pravastatin 80 mg tablet 80 mg PO QHS Qty: 90 3RF apixaban 5 mg tablet 5 mg PO BID Qty: 180 3RF Label Comments: pt to stop 2 DAYS before EGD 11/23/21 - LAST DOSE Referrals / Follow Up: Vaughn Nash MD [Med Staff - Active Staff] - Within 2 Weeks Herson Terrell MD [Primary Care Provider] - Within 2 Weeks Disposition Disposition (needs filled in before D/C Order can be placed): Home, Self Care Charges/Coding Visit Charges OBSV E&M: 81031 Observation care discharge
--- NOTE | 2022-07-10 14:18 | CASEMGMT ---
Per therapy no further therapy recommended. Patient denies further needs at this time.
== END 2022-07-10 17:00 | disposition home or self-care (01) | DRG 65 ==
LOC: ED 15:12 → PCU 16:04
PROVIDERS: Admitting Provider Family Medicine; Emergency Provider Emergency Medicine; PCP Family Medicine; Visit Provider Student in an Organized Health Care Education/Training Program
DX: I63.9 Cerebral infarction, unspecified (principal); I48.11 Longstanding persistent atrial fibrillation; I69.351 Hemiplegia and hemiparesis following cerebral infarction affecting right dominant side; I50.22 Chronic systolic (congestive) heart failure; I27.20 Pulmonary hypertension, unspecified; E11.9 Type 2 diabetes mellitus without complications; D53.9 Nutritional anemia, unspecified; G40.909 Epilepsy, unspecified, not intractable, without status epilepticus; I11.0 Hypertensive heart disease with heart failure; K74.60 Unspecified cirrhosis of liver; E78.00 Pure hypercholesterolemia, unspecified; E78.5 Hyperlipidemia, unspecified; E87.6 Hypokalemia; K75.81 Nonalcoholic steatohepatitis (NASH); I25.10 Atherosclerotic heart disease of native coronary artery without angina pectoris; Z79.84 Long term (current) use of oral hypoglycemic drugs; Z79.01 Long term (current) use of anticoagulants; Z79.82 Long term (current) use of aspirin; Z95.1 Presence of aortocoronary bypass graft
CPT/HCPCS: 36415; 70450; 70496; 70498; 70551; 71045; 80048; 80053; 80061; 82962; 83036; 83735; 84443; 84484; 85025; 85610; 85730; 92610; 93005; 93306; 93880; 94762; 95819; 97162; 97166; 97530; 97802; 99285; Q9957; Q9967; A4216; C8929

== ENCOUNTER → 2022-10-10 | Outpatient (CLI) | payer MEDICARE, SELFPAY ==
--- NOTE | 2022-10-10 11:01 | RAD_ITS ---
STUDY: X-RAY CHEST REASON FOR EXAM: Male, 77 years old. COUGH TECHNIQUE: XR Chest 2 Views COMPARISON: 8.9.22 FINDINGS: There is atherosclerotic calcification of the aortic arch with tortuosity. There are diffuse degenerative changes of the visualized thoracic spine. There is degenerative osteoarthritis of the bilateral shoulders. There is no demonstrated pleural abnormality. There are multiple median sternotomy wires. Normal size heart. Normal mediastinum and maddie. Normal visualized pulmonary arteries. There is no demonstrated abnormality of the visualized soft tissue structures of the upper abdomen. RAD/Chest PA and Lateral IMPRESSION: There are no acute findings. Electronically Signed: Kristian Newton MD at 17:07 EST ,
== END | disposition home or self-care (01) ==
LOC: MTRAD 11:01
PROVIDERS: PCP Family Medicine; Referring Provider Family Medicine; Visit Provider Family Medicine
DX: R05.9 Cough, unspecified (principal)
CPT/HCPCS: 71046

== ENCOUNTER → 2022-10-17 | Outpatient (CLI) | payer MEDICARE, SELFPAY ==
--- NOTE | 2022-10-17 07:58 | US_ITS ---
STUDY: SCROTUM ULTRASOUND REASON FOR EXAM: Male, 77 years old. Scrotal swelling TECHNIQUE: Ultrasound evaluation of the scrotum was performed with color Doppler and static ch-scale imaging. COMPARISON: None. FINDINGS: RIGHT TESTICLE INTRATESTICULAR: There is a normal size of the right testicle. The right testicle measures 3.5 x 2.4 x 2.7 cm. There is a heterogeneous echotexture. There is normal arterial and normal venous vascularity. There is no demonstrated right testicular mass or cyst. EXTRATESTICULAR: The epididymis is normal in size. The epididymis head measures 1.1 cm. There is normal vascularity of the epididymis. There is no demonstrated epididymal cystic structure. There is a moderate size hydrocele. There are prominent extratesticular veins consistent with a varicocele. There is no demonstrated extratesticular mass or cyst. LEFT TESTICLE INTRATESTICULAR: There is a normal size of the left testicle. The left testicle measures 3.3 x 1.8 x 2.8 cm. There is a homogenous echotexture. There is normal arterial and normal venous vascularity. There is no demonstrated left testicular mass or cyst. EXTRATESTICULAR: The epididymis is normal in size. The epididymis head measures 0.8 cm. There is normal vascularity of the epididymis. There is no demonstrated epididymal cystic structure. There is a small hydrocele. There are prominent extratesticular veins consistent with a varicocele. There is no demonstrated extratesticular mass or cyst. US/Testicular with Arterial Flow IMPRESSION: Testicles are heterogeneous, likely age-related. No sonographic evidence of intratesticular mass or torsion No hyperemia to suspect epididymoorchitis Bilateral hydroceles, right greater than left Bilateral varicoceles demonstrated with VALSALVA Electronically Signed: Rashaad Beatty MD at 14:23 EST ,
== END | disposition home or self-care (01) ==
PROVIDERS: PCP Family Medicine; Visit Provider Family Medicine
DX: N50.89 Other specified disorders of the male genital organs (principal)
CPT/HCPCS: 76870; 93976

== ENCOUNTER → 2022-12-12 | Outpatient (CLI) | payer MEDICARE, SELFPAY ==
[2022-12-12 12:49] LABS: Hemoglobin A1c 5.6 % (3.8-5.6)
[2022-12-12 12:59] LABS: Anion Gap 4 (5-15); BUN 22 mg/dL (7-18); BUN/Creat Ratio 23.6 RATIO (10-20); Calcium,Total 9.3 mg/dL (8.5-10.1); Chloride 110 mmol/L (98-107); Cholesterol 127 mg/dL (200); Creatinine, Serum 0.93 mg/dL (0.70-1.30); EST Glomerular Filtration Rate 84 mL/min (>60); Est Glom Filt Rate - Afr Amer 101 mL/min (>60); Glucose 101 mg/dL (74-106); High Density Lipoprotein 46 mg/dL; Potassium 4.3 mmol/L (3.5-5.1); Sodium Level 143 mmol/L (136-145); Triglycerides 44 mg/dL; Very Low Density Lipoprotein 9 mg/dL (5-40)
== END | disposition home or self-care (01) ==
PROVIDERS: PCP Family Medicine; Visit Provider Family Medicine
DX: E11.9 Type 2 diabetes mellitus without complications (principal); M79.89 Other specified soft tissue disorders
CPT/HCPCS: 36415; 80048; 80061; 83036

== ENCOUNTER → 2023-02-20 | Outpatient (CLI) | payer MEDICARE, SELFPAY ==
[2023-02-20 10:18] LABS: Hematocrit 44.5 % (40-54); Hemoglobin 14.3 g/dL (13.0-16.5); Mean Corp Hgb Conc 32.1 g/dL (32-36); Mean Corpuscular Hgb 32.9 pg (27.0-32.0); Mean Corpuscular Volume 102.5 fL (80-94); Mean Platelet Vol. 10.7 fl (6.2-12.0); Platelet Count 138 K/mm3 (150-450); RBC Distribution Width CV 14.6 % (11.6-14.6); RBC Distribution Width SD 55.7 fl (35.1-43.9); Red Blood Count 4.34 M/mm3 (4.6-6.2)
[2023-02-20 11:01] LABS: ALB/GLOB Ratio 1.1 RATIO (0.9-2.4); AST(SGOT) 28 U/L (15-37); Alanine Aminotransfer ALT/SGPT 20 U/L (16-61); Albumin, Serum 3.6 g/dL (3.2-5.0); Alkaline Phosphatase 124 U/L (45-117); Anion Gap 6 (5-15); BUN 18 mg/dL (7-18); BUN/Creat Ratio 20.4 RATIO (10-20); Calcium,Total 9.8 mg/dL (8.5-10.1); Chloride 107 mmol/L (98-107); Creatinine, Serum 0.88 mg/dL (0.70-1.30); EST Glomerular Filtration Rate 89 mL/min (>60); Est Glom Filt Rate - Afr Amer 108 mL/min (>60); Globulin 3.4 g/dL (2.2-4.2); Glucose 114 mg/dL (74-106); Potassium 4.5 mmol/L (3.5-5.1); Sodium Level 140 mmol/L (136-145); Thyroid Stim Hormone (TSH) 3.36 uIU/mL (0.358-3.74)
[2023-02-20 11:41] LABS: Vitamin B12 422 pg/mL (211-911)
[2023-02-24 20:28] LABS: KEPPRA (LEVETIRACETAM) 16.2 ug/mL (10.0-40.0)
== END | disposition home or self-care (01) ==
PROVIDERS: PCP Family Medicine; Visit Provider Psychiatry & Neurology Neurology
DX: G40.909 Epilepsy, unspecified, not intractable, without status epilepticus (principal); G31.84 Mild cognitive impairment of uncertain or unknown etiology; I99.8 Other disorder of circulatory system; E78.5 Hyperlipidemia, unspecified; Z86.73 Personal history of transient ischemic attack (TIA), and cerebral infarction without residual deficits
CPT/HCPCS: 36415; 80053; 80177; 82140; 82607; 82746; 84425; 84443; 85027; 95819

== ENCOUNTER → 2023-04-02 | Outpatient (CLI) | payer MEDICARE, SELFPAY ==
[2023-04-02 12:00] LABS: Absolute Lymphocyte Count 0.98 X10^3/uL (0.83-4.51); Absolute Neutrophil Count 2.9 X10^3/uL (2.0-7.7); Basophil# 0.01 X10^3/uL; Basophil% 0.2 % (0-1); Eosinophil# 0.02 X10^3/uL; Eosinophils% 0.5 % (0-5); Hematocrit 43.3 % (40-54); Hemoglobin 14.1 g/dL (13.0-16.5); Lymphocyte # 0.98 X10^3/ul (0.83-4.51); Lymphocyte % 23.6 % (19-41); Mean Corp Hgb Conc 32.6 g/dL (32-36); Mean Corpuscular Hgb 33.1 pg (27.0-32.0); Mean Corpuscular Volume 101.6 fL (80-94); Mean Platelet Vol. 10.3 fl (6.2-12.0); Monocyte# 0.24 X10^3/uL; Monocyte% 5.8 % (0-10); NRBC Flagged by Analyzer 0 % (0-5); Neutrophil % 69.7 % (47-70); Platelet Count 123 K/mm3 (150-450); RBC Distribution Width CV 14.6 % (11.6-14.6); Red Blood Count 4.26 M/mm3 (4.6-6.2); White Blood Count 4.2 K/mm3 (4.4-11.0)
[2023-04-02 12:33] LABS: BNP,B-Type NATRIURETIC PEPTIDE 363.7 pg/mL (0-100)
[2023-04-02 12:35] LABS: Anion Gap 5 (5-15); BUN 18 mg/dL (7-18); BUN/Creat Ratio 17.8 RATIO (10-20); Calcium,Total 9.7 mg/dL (8.5-10.1); Chloride 107 mmol/L (98-107); Creatinine, Serum 1.01 mg/dL (0.70-1.30); EST Glomerular Filtration Rate 76 mL/min (>60); Est Glom Filt Rate - Afr Amer 92 mL/min (>60); Glucose 110 mg/dL (74-106); Potassium 4.5 mmol/L (3.5-5.1); Sodium Level 141 mmol/L (136-145)
== END | disposition home or self-care (01) ==
LOC: LAB 11:41
PROVIDERS: PCP Family Medicine; Referring Provider Internal Medicine Cardiovascular Disease; Visit Provider Internal Medicine Cardiovascular Disease
DX: I50.22 Chronic systolic (congestive) heart failure (principal); I48.11 Longstanding persistent atrial fibrillation; I25.10 Atherosclerotic heart disease of native coronary artery without angina pectoris
CPT/HCPCS: 36415; 80048; 83880; 85025

== ENCOUNTER → 2023-04-17 | Outpatient (CLI) | payer MEDICARE, SELFPAY | END | disposition home or self-care (01) | PROVIDERS: PCP Family Medicine; Referring Provider Internal Medicine Cardiovascular Disease; Visit Provider Internal Medicine Cardiovascular Disease | DX: I48.11 Longstanding persistent atrial fibrillation (principal) | CPT/HCPCS: 93225; 93226 ==

== ENCOUNTER → 2023-04-23 | Outpatient (CLI) | payer MEDICARE, SELFPAY ==
--- NOTE | 2023-04-23 06:26 | ECHOCS_ITS ---
Reason For Study: ARRHYTHMIA Procedure This was a 2D Doppler, Color Flow transthoracic echocardiogram. The study was technically difficult. Exam performed in department. Left Ventricle Normal LV size. The estimated ejection fraction is 25 %. Stage 3 diastolic dysfunction. There is severe global hypokinesis of the left ventricle. Right Ventricle Normal RV size. Normal systolic function. Atria The left atrium is moderately enlarged. The right atrium is mildly enlarged. Mitral Valve Bileaflet diffuse mitral valve thickening. Mild (1+) eccentric mitral valve insufficiency. Tricuspid Valve Normal tricuspid valve. Moderate (2+) tricuspid valve insufficiency. Pulmonary artery systolic pressure is 70 mmHg. Severe pulmonary hypertension. Aortic Valve Trisinus/trileaflet aortic valve. Mild focal aortic valve calcification. Pericardium/Pleural No pericardial effusion. Small left pleural effusion. Medication Diluted definity 2ml given slow IV push to enhance endocardial definition. MMode/2D Measurements & Calculations LVIDd: 5.4 cm IVSd: 0.72 cm Ao root diam: 3.2 cm LVIDs: 4.3 cm LVPWd: 0.76 cm RVDd: 3.7 cm FS: 21.0 % LAV(MOD-bp): 86.9 ml LVAd ap4: 38.7 cm2 SV(MOD-sp4): 45.3 ml LAV(MOD-bp) Indexed: 45.4 ml/m2 LVLd ap4: 8.2 cm LAV(MOD-sp2): 88.0 ml EDV(MOD-sp4): 150.1 ml LAV(MOD-sp4): 86.2 ml EDV(sp4-el): 155.5 ml LVAs ap4: 30.3 cm2 LVLs ap4: 7.3 cm ESV(MOD-sp4): 104.8 ml ESV(sp4-el): 106.1 ml EF(MOD-sp4): 30.2 % EF(sp4-el): 31.8 % SV(sp4-el): 49.4 ml LA dimension(2D): 4.6 cm LA A4 area: 27.6 cm2 RA A4 area: 21.0 cm2 Time Measurements MV dec time: 0.15 sec Doppler Measurements & Calculations MV E max bright: 112.5 cm/sec Lat Peak E' Bright: 9.4 cm/sec Med Peak E' Bright: 5.9 cm/sec MV A max bright: 29.9 cm/sec E/E' lat: 11.9 E/E' med: 19.2 MV E/A: 3.8 Ao V2 max: 111.7 cm/sec LV V1 max: 100.5 cm/sec PA V2 max: 157.7 cm/sec Ao max P.0 mmHg LV V1 max P.0 mmHg TR max bright: 402.9 cm/sec TR max P.9 mmHg ECHO/Echo Complete W/ Contrast Interpretation Summary Normal LV size. The estimated ejection fraction is 25 %. There is severe global hypokinesis of the left ventricle. Stage 3 diastolic dysfunction. Pulmonary artery systolic pressure is 70 mmHg. Severe pulmonary hypertension. Ordering Physician: Ángel Sweeney Referring Physician: MANSOOR WEST Performed By: Verito Cruz RDCS
--- NOTE | 2023-04-23 14:54 | STRESSREP ---
Stress Test Report Pharmacologic myocardial perfusion stress test. 77-year-old man with a history of coronary disease Resting EKG demonstrates atrial fibrillation with a rate of 54 bpm. Resting blood pressure is 132/70 mmHg. 0.4 mg of regadenoson was infused per usual protocol followed by rapid intravenous saline flush injection. Continuous EKG monitoring was performed. The maximum heart rate was 113 bpm which was 78% of max impacted heart rate the maximum workload was 1 metabolic equivalent. At rest there were no ST or T wave changes noted to suggest ischemia and at peak infusion nonspecific ST changes were noted which did not meet the criteria for ischemia. No clinical angina is noted. The final blood pressure was 122/60 mmHg. Myocardial perfusion protocol. 11.6 mCi of technetium 99m sestamibi was injected at rest. 0.4 mg of regadenoson was infused per usual protocol. At peak infusion 34.1 mCi of technetium 99m sestamibi was injected stress images were obtained stress and rest images were reconstructed and compared in the short axis vertical long and horizontal long axis. Gated images were also obtained. Perfusion SPECT analysis: Review of the stress images demonstrate a dilated cardiac silhouette size. There is a large defect noted involving the anterior septal wall extending to the apex. The lateral wall appears to be well perfused. The basal to mid inferior wall appears to be well perfused as well. The resting images demonstrate a similar pattern. The above is suggestive of her previous extensive anterior septal and apical perfusion defect. No obvious ischemia is noted. Gated SPECT analysis: The gated ejection fraction is 49%. Conclusion: Pharmacologic myocardial perfusion stress test with extensive anteroseptal and apical perfusion defect. No obvious ischemia is noted
== END | disposition home or self-care (01) ==
LOC: CVS 06:24
PROVIDERS: PCP Family Medicine; Referring Provider Internal Medicine Cardiovascular Disease; Visit Provider Internal Medicine Cardiovascular Disease
DX: I25.10 Atherosclerotic heart disease of native coronary artery without angina pectoris (principal); Z95.1 Presence of aortocoronary bypass graft
CPT/HCPCS: 78452; 93017; 93306; A9500; Q9957; A4216; C8929; J2785

== ENCOUNTER → 2023-08-14 | Outpatient (CLI) | payer MEDICARE, SELFPAY ==
[2023-08-14 11:28] LABS: Anion Gap 3 (5-15); BUN 42 mg/dL (7-18); BUN/Creat Ratio 34.7 RATIO (10-20); Calcium,Total 9.8 mg/dL (8.5-10.1); Chloride 107 mmol/L (98-107); Creatinine, Serum 1.21 mg/dL (0.70-1.30); EST Glomerular Filtration Rate 62 mL/min (>60); Est Glom Filt Rate - Afr Amer 75 mL/min (>60); Glucose 114 mg/dL (74-106); Potassium 4.6 mmol/L (3.5-5.1); Sodium Level 138 mmol/L (136-145)
== END | disposition home or self-care (01) ==
LOC: LAB 09:19
PROVIDERS: PCP Family Medicine; Referring Provider Physician Assistant Medical; Visit Provider Physician Assistant Medical
DX: I50.22 Chronic systolic (congestive) heart failure (principal)
CPT/HCPCS: 36415; 80048

== ENCOUNTER → 2023-08-14 | Outpatient (CLI) | payer MEDICARE, SELFPAY ==
--- NOTE | 2023-08-14 09:31 | CDU_ITS ---
Reason For Study: Bilateral carotid artery stenosis Rt. Velocities/BP Lt. Velocities/BP Prox CCA 48.6/6.6 cm/sec. Prox CCA 103.8/22.6 cm/sec. Mid CCA 49.3/14.4 cm/sec. Mid CCA 76.5/9 cm/sec. Dist CCA 45.8/9.5 cm/sec. Dist CCA 74/12.6 cm/sec. Prox ICA 194.9/33.3 cm/sec. Prox ICA 81.4/18.8 cm/sec. Mid ICA 57.5/14.6 cm/sec. Mid ICA 86.3/20 cm/sec. Dist ICA 60.8/15.7 cm/sec. Dist ICA 1.22 cm/sec. Rt. ICA/CCA = 4.01. Prox ECA 85.1/5.3 cm/sec. Prox ECA 451.2/24.6 cm/sec. Lt. Vert. 46.5/6.4 cm/sec. Rt. Vert. 33.7/5.2 cm/sec. Right Extracranial There is heterogeneous, irregular atherosclerotic plaque noted in the right common carotid artery. There is heterogeneous, irregular atherosclerotic plaque noted in the right internal carotid artery. There is heterogeneous, irregular atherosclerotic plaque noted in the right external carotid artery. Antegrade flow is noted in the right vertebral artery. Left Extracranial There is homogeneous, smooth atherosclerotic plaque noted in the left common carotid artery. There is homogeneous, smooth atherosclerotic plaque noted in the left internal carotid artery. There is intimal thickening but no significant atherosclerotic plaque noted in the left external carotid artery. Antegrade flow is noted in the left vertebral artery. Procedure This is a Carotid Duplex examination using B-mode, color flow and specral Doppler. Carotid Duplex [id number]. Exam performed in department. VL/Carotid Duplex Ultrasound Interpretation Summary Moderate (50-69%) stenosis right extracranial internal carotid. Mild (<50%) stenosis left extracranial internal carotid. Patent and antegrade vertebrals bilaterally. Ordering Physician: Elena Perry Referring Physician: Herson Terrell Performed By: Tamar Pennington RVT
== END | disposition home or self-care (01) ==
PROVIDERS: PCP Family Medicine; Referring Provider Physician Assistant; Visit Provider Physician Assistant
DX: I65.22 Occlusion and stenosis of left carotid artery (principal)
CPT/HCPCS: 93880

== ENCOUNTER → 2023-09-11 | Outpatient (CLI) | payer MEDICARE, SELFPAY ==
--- NOTE | 2023-09-11 14:59 | ECHOLC_ITS ---
Reason For Study: CHF Procedure This was a limited 2D transthoracic echocardiogram. The study was technically difficult. Contrast injection was performed. Exam performed in department. Left Ventricle Normal LV size. The estimated ejection fraction is 30 %. Septal motion consistent with bundle branch block. There is moderate to severe global hypokinesis of the left ventricle. Right Ventricle Normal RV size. Normal systolic function. Atria Normal left atrium. Mitral Valve Bileaflet diffuse mitral valve thickening. Mild-Moderate (1-2+) eccentric mitral valve insufficiency. Tricuspid Valve Normal tricuspid valve. Aortic Valve Trisinus/trileaflet aortic valve. Moderate diffuse aortic valve thickening. Pulmonic Valve Normal pulmonic valve. Mild (1+) pulmonic valve insufficiency. Great Vessels Normal aortic root. The pulmonary artery is normal size. Normal inferior vena cava. Pericardium/Pleural No pericardial effusion. Medication 22 gauge I.V. with prn adaptor inserted into right arm. Diluted definity 1ml given slow IV push to enhance endocardial definition. MMode/2D Measurements & Calculations LVIDd: 4.9 cm IVSd: 0.79 cm LA dimension: 4.5 cm LVIDs: 4.4 cm LVPWd: 0.73 cm FS: 11.7 % LVAd ap4: 41.6 cm2 SV(MOD-sp4): 55.4 ml SV(sp4-el): 57.1 ml LVLd ap4: 8.3 cm EDV(MOD-sp4): 171.6 ml EDV(sp4-el): 177.4 ml LVAs ap4: 33.4 cm2 LVLs ap4: 7.9 cm ESV(MOD-sp4): 116.2 ml ESV(sp4-el): 120.4 ml EF(MOD-sp4): 32.3 % EF(sp4-el): 32.2 % Doppler Measurements & Calculations MR max milton: 433.1 cm/sec MR max P.0 mmHg MR mean milton: 346.1 cm/sec MR mean P.3 mmHg MR VTI: 157.0 cm ECHO/Echo Limited w/Contrast Interpretation Summary Normal LV size. The estimated ejection fraction is 30 %. Septal motion consistent with bundle branch block. There is moderate to severe global hypokinesis of the left ventricle. Mild-Moderate (1-2+) eccentric mitral valve insufficiency. Contrast injection was performed. Ordering Physician: Yee Shea Performed By: Mode Jaramillo RCS
== END | disposition home or self-care (01) ==
PROVIDERS: PCP Family Medicine; Visit Provider Physician Assistant Medical
DX: I25.10 Atherosclerotic heart disease of native coronary artery without angina pectoris (principal)
CPT/HCPCS: 93308; Q9957; A4216; C8924

== ENCOUNTER → 2023-12-11 | Outpatient (CLI) | payer MEDICARE, SELFPAY ==
--- OUTSIDE RECORDS SUMMARY | 2023-12-11 10:08 | XMS RPT_ITS | CCD ---
Author Name Unknown Address [address] [place] [address] Organization [facility] Care Team Providers Care Pressure Dispatcher Name Role Phone Clair SIMS, Yee Huertas Unavailable Janessa Paulino Unavailable Unavailable Clair SIMS, Yee Huertas Unavailable [phone] Nimo Ferro Unavailable Unavailable Herson Terrell Unavailable Unavailable Nimo Ferro Unavailable Unavailable No Family Physician given Unavailable JuleevaSANDEEP [place] Attending Unavailable SANDEEP NOBLE Primary Care Unavailable SANDEEP NOBLE Admitting Unavailable SANDEEP NOBLE Attending Unavailable SANDEEP NOBLE Primary Care Unavailable SANDEEP NOBLE Admitting Unavailable Giuseppe DOAnali Primary Care Provider [phone] Allergies Allergy Classification Reported Allergen(s) Allergy Type Date of Onset Reaction(s) Facility (3 sources) atorvastatin drug allergy 04-18-2011 Myalg[facility] Work Phone: (3 sources) rosuvastatin drug allergy 04-18-2011 Myalgias [facility] Work Phone: Medications Current Medications Medication Drug Class(es) Dates Sig (Normalized) Sig (Original) doxycycline hyclate 100 mg oral tablet (1 source) Tetracycline-clas s Drug Start: 02-20-2022 End: 02-27-2022 take 1 tablet by mouth twice daily doxycycline (VIBRA-TABS) 100 mg tablet Take 1 tablet by mouth twice daily for 7 days. 14 tablet 0 02/20/2022 02/27/2022 Active Completed/Discontinued Medications Medication Drug Class(es) Dates Sig (Normalized) Sig (Original) albuterol 5 mg/ml inhalation solution (4 sources) beta2-Adrenergic Agonist Start: 11-26-2017 albuterol (PROVENTIL) 5 mg/mL nebu Inhale 0.5 mL as instructed one time only for 1 dose. 1 DOSE NOW - BACK OFFICE. PLACE 0.5 ML PER DROPPER AND 2.5 ML OF NORMAL SALINE INTO RESERVOIR. 0.5 mL 0 11/26/2017 Active Problems Active Problems Problem Classification Problem Date Documented Date Episodic/Chronic Acute cerebrovascular disease (2 sources) Cerebrovascular accident; Translations: [Cerebral infarction, unspecified] 04-03-2019 Chronic Allergic reactions (1 source) Urticaria; Translations: [Urticaria, unspecified] Episodic Cardiac dysrhythmias (2 sources) Atrial fibrillation; Translations: [Unspecified atrial fibrillation] 04-03-2019 Chronic Coronary atherosclerosis and other heart disease (12 sources) Atherosclerotic heart disease of [place] coronary artery without angina pectoris; Translations: [Coronary arteriosclerosis] Onset: 04-18-2011 Resolved: 02-20-2017 02-20-2017 Chronic Disorders of lipid metabolism (5 sources) Hyperlipidemia; Translations: [Hypercholesterolemia ] Onset: 03-17-2013 03-17-2013 Chronic Essential hypertension (5 sources) Hypertensive disorder; Translations: [Essential (primary) hypertension] Onset: 04-18-2011 04-18-2011 Chronic Immunizations and screening for infectious disease (3 sources) Encounter for immunization; Translations: [Encounter for immunization] Onset: 12-28-2020 Episodic Other nutritional; endocrine; and metabolic disorders (10 sources) Body mass index (BMI) 32.0-32.9, adult; Translations: [Body mass index (BMI) 34.0-34.9, adult] Onset: 03-28-2014 Resolved: 02-05-2016 03-28-2014 Chronic Residual codes; unclassified (2 sources) H/O cardiac surgery; Translations: [Other specified postprocedural states] 04-03-2019 Episodic Skin and subcutaneous tissue infections (1 source) Cellulitis of right lower limb; Translations: [Cellulitis of right lower limb] Episodic Unclassified (2 sources) Body mass index (BMI) 31.0-31.9, adult; Translations: [Body mass index (BMI) 34.0-34.9, adult] Onset: 11-17-2014 11-17-2014 Chronic Unclassified (1 source) Long-term drug therapy; Translations: [Other group home (current) drug therapy] Onset: 04-18-2011 04-18-2011 Unclassified (1 source) Unknown / UNK(Unknown) Onset: 07-23-2018 Past or Other Problems Problem Classification Problem Date Documented Da te Episodic/Chronic Coronary atherosclerosis and other heart disease (6 sources) Presence of aortocoronary bypass graft; Translations: [Presence of aortocoronary bypass graft] Onset: 04-18-2011 02-20-2017 Episodic Other aftercare (2 sources) Other group home (current) drug therapy; Translations: [Other group home (current) drug therapy] Onset: 04-18-2011 04-18-2011 Episodic Unclassified (3 sources) Edema of lower extremity; Translations: [Localized edema] Onset: 08-24-2017 08-24-2017 Episodic Unclassified (1 source) CVA Onset: 07-23-2018 Results Test Name Value Interpretation Reference Range Facil ity Vital Signs Date Time Vital Sign Value Performing Clinician Facility 05-02-2022 16:38-0400 Body temperature 97.81 [degF] Neema Huber APRN.FUELS SALES REPRESENTATIVE Work Phone: [facility] 05-02-2022 16:38-0400 Body weight 87.73 kg Neema Huber APRN.FUELS SALES REPRESENTATIVE Work Phone: [facility] 05-02-2022 16:38-0400 Diastolic blood pressure 78 mm[Hg] Neema Huber APRN.FUELS SALES REPRESENTATIVE Work Phone: [facility] 05-02-2022 16:38-0400 Heart rate 64 /min Neema Huber APRN.FUELS SALES REPRESENTATIVE Work Phone: [facility] 05-02-2022 16:38-0400 Respiratory rate 20 /min Neema Huber APRN.FUELS SALES REPRESENTATIVE Work Phone: [facility] 05-02-2022 16:38-0400 SaO2% (BldA) [Mass fraction] 99 % Neema Huber APRN.FUELS SALES REPRESENTATIVE Work Phone: [facility] 05-02-2022 16:38-0400 Systolic blood pressure 136 mm[Hg] Neema Huber APRN.FUELS SALES REPRESENTATIVE Work Phone: [facility] 02-20-2022 17:42-0400 Body temperature 98.4 [degF] Dar Ojedayale [facility] HALF BACKER.FUELS SALES REPRESENTATIVE Work Phone: [facility] 02-20-2022 17:42-0400 Body [facility] 92.63 [facility].FUELS SALES REPRESENTATIVE Work Phone: [facility] 02-20-2022 17:42-0400 Diastolic blood pressure 78 mm[Hg] Dar Ojedayale [facility] HALF BACKER.FUELS SALES REPRESENTATIVE Work Phone: [facility] 02-20-2022 17:42-0400 Heart rate 104 /min [facility] BACK[facility].FUELS SALES REPRESENTATIVE Work Phone: [facility] 02-20-2022 17:42-0400 Respiratory rate 18 /min Dar Ojedayale [facility] HALF BACKER.FUELS SALES REPRESENTATIVE Work Phone: [facility] 02-20-2022 17:42-0400 SaO2% (BldA) [Mass fraction] 96 % [facility] BACKER.FUELS SALES REPRESENTATIVE Work Phone: [facility] 02-20-2022 17:42-0400 Systolic blood pressure 126 mm[Hg] [facility]F BACKER.FUELS SALES REPRESENTATIVE Work Phone: [facility] 08-24-2017 13:11-0400 BMI (Body Mass Index) 34.78 kg/m2 Janessa [facility] Work Phone: 08-24-2017 13:11-0400 BP Diastolic 80 mm[Hg] [facility] Work Phone: 08-24-2017 13:11-0400 BP Systolic 160 mm[Hg] [facility] Work Phone: 08-24-2017 13:11-0400 Height 165.1 cm [facility] Work Phone: 08-24-2017 13:11-0400 Pulse (Heart Rate) 58 /min [facility] Work Phone: 08-24-2017 13:040 Respiratory Rate 20 /min [facility] Work Phone: 08-24-2017 13:040 Weight 94.8 kg [facility] Work Phone: 08-14-2016 09:0400 BSA (Body Surface Area) 1.95 m2 [facility] Work Phone: Encounters Encounter Date Encounter Type Care Provider Facility Start: 05-02-2022 End: 05-02-2022 Patient encounter procedure Neema Huber HALF BACKER.FUELS SALES REPRESENTATIVE Work Phone: [facility] Procedures Date Procedure Procedure Detail Performing Clinician Start: 10-23-2020 Colonoscopy Dar mohan HALF BACKER.FUELS SALES REPRESENTATIVE Work Phone: Start: 08-24-2017 End: 08-24-2017 JULIO Shea PA-C Work Phone: Start: 08-24-2017 End: 08-24-2017 Follow Up Appt 6 months Yee fitzgerald PA-C Work Phone: Start: 08-24-2017 End: 08-24-2017 JULIO Shea PA-C Work Phone: Start: 08-24-2017 End: 08-24-2017 Follow Up Appt 6 months Yee fitzgerald PA-C Work Phone: Start: 02-20-2017 End: 02-20-2017 Follow Up Appt 6 months Tanisha Gibson Start: 02-20-2017 End: 02-20-2017 BHARATI Sweeney MD Start: 02-20-2017 End: 02-20-2017 Follow Up Appt 6 months Tanisha Gibson Start: 02-20-2017 End: 02-20-2017 BHARATI Sweeney MD Start: 08-14-2016 End: 08-14-2016 Follow Up Appt 6 months Tanisha Gibson Start: 08-14-2016 End: 08-14-2016 BHARATI Sweeney MD Start: 08-14-2016 End: 08-14-2016 Follow Up Appt 6 months Tanisha Gibson Start: 08-14-2016 End: 08-14-2016 BHARATI Sweeney MD Start: 05-08-2016 End: 02-06-2017 *Hepatic Function Panel Yee fitzgerald PA-C Work Phone: Start: 05-08-2016 End: 02-06-2017 Lipid 1996 panel - Serum or Plasma Yee Shea PA-C Work Phone: Start: 05-08-2016 End: 02-06-2017 *Hepatic Function Panel Yee fitzgerald PA-C Work Phone: Start: 05-08-2016 End: 02-06-2017 Lipid panel [AGGREGATE] Yee fitzgerald PA-C Work Phone: Start: 02-05-2016 End: 02-06-2016 *Hepatic Function Panel Yee fitzgerald PA-C Work Phone: Start: 02-05-2016 End: 02-05-2016 MRI ASSISTANT Yee Shea PA-C Work Phone: Start: 02-05-2016 End: 02-05-2016 Ecg routine ecg w/least 12 lds w/i&r Yee Shea PA-C Work Phone: Start: 02-05-2016 End: 02-05-2016 Follow Up Appt 6 months Yee fitzgerald PA-C Work Phone: Start: 02-05-2016 End: 02-06-2017 Follow Up Appt Other Yee huertas PA-C Work Phone: Start: 02-05-2016 End: 02-06-2016 Lipid 1996 panel - Serum or Plasma Yee Shea PA-C Work Phone: Start: 02-05-2016 End: 02-06-2016 *Hepatic Function Panel Yee fitzgerald PA-C Work Phone: Start: 02-05-2016 End: 02-05-2016 MRI ASSISTANT Yee Shea PA-C Work Phone: Start: 02-05-2016 End: 02-05-2016 Follow Up Appt 6 months Yee fitzgerald PA-C Work Phone: Start: 02-05-2016 End: 02-06-2017 Follow Up Appt Other Yee huertas PA-C Work Phone: Start: 02-05-2016 End: 02-06-2016 Lipid panel [AGGREGATE] Yee fitzgerald PA-C Work Phone: Start: 01-23-2016 End: 02-05-2016 *Hepatic Function Panel Tanisha Gibson Start: 01-23-2016 End: 02-05-2016 Lipid 1996 panel - Serum or Plasma Ángel Sweeney MD Start: 01-23-2016 End: 02-05-2016 *Hepatic Function Panel Tanisha Gibson Start: 01-23-2016 End: 02-05-2016 Lipid panel [AGGREGATE] Tanisha Gibson Start: 07-17-2015 End: 07-23-2015 *Hepatic Function Panel Tanisha Gibson Start: 07-17-2015 End: 07-18-2015 Documentation of current medications Ángel Sweeney MD Start: 07-17-2015 End: 07-17-2015 Follow Up Appt 6 months Tanisha Gibson Start: 07-17-2015 End: 07-23-2015 Lipid 1996 panel - Serum or Plasma Ángel Sweeney MD Start: 07-17-2015 End: 07-17-2015 MMM Ángel Sweeney MD Start: 07-17-2015 End: 07-23-2015 *Hepatic Function Panel Tanisha Gibson Start: 07-17-2015 End: 07-18-2015 Documentation of current medications Ángel Sweeney MD Start: 07-17-2015 End: 07-17-2015 Follow Up Appt 6 months Tanisha Gibson Start: 07-17-2015 End: 07-23-2015 Lipid panel [AGGREGATE] Tanisha Gibson Start: 07-17-2015 End: 07-17-2015 MMM Ángel Sweeney MD Start: 11-17-2014 End: 11-17-2014 JULIO Shea PA-C Work Phone: Start: 11-17-2014 End: 11-17-2014 Ecg routine ecg w/least 12 lds w/i&r Yee Shea PA-C Work Phone: Start: 11-17-2014 End: 11-17-2014 Follow Up Appt 6 months Yee fitzgerald PA-C Work Phone: Start: 11-17-2014 End: 11-17-2014 JULIO Shea PA-C Work Phone: Start: 11-17-2014 End: 11-17-2014 Follow Up Appt 6 months Yee fitzgerald PA-C Work Phone: Start: 11-17-2014 End: 11-17-2014 Lipid panel [AGGREGATE] Yee fitzgerald PA-C Work Phone: Start: 03-28-2014 End: 11-17-2014 *Hepatic Function Panel Tanisha Gibson Start: 03-28-2014 End: 03-28-2014 Follow Up Appt 6 months Tanisha Gibson Start: 03-28-2014 End: 11-17-2014 Lipid 1996 panel - Serum or Plasma Ángel Sweeney MD Start: 03-28-2014 End: 03-28-2014 MMM Ángel Sweeney MD Start: 03-28-2014 End: 11-17-2014 *Hepatic Function Panel Tanisha Gibson Start: 03-28-2014 End: 03-28-2014 Follow Up Appt 6 months Tanisha Gibson Start: 03-28-2014 End: 11-17-2014 Lipid panel [AGGREGATE] Tanisha Gibson Start: 03-28-2014 End: 03-28-2014 MM Ángel Sweeney MD Start: 12-31-2013 End: 09-21-2014 *Hepatic Function Panel Tanisha Gibson Start: 12-31-2013 End: 09-21-2014 Lipid 1996 panel - Serum or Plasma Ángel Sweeney MD Start: 12-31-2013 End: 09-21-2014 *Hepatic Function Panel Tanisha Gibson Start: 12-31-2013 End: 09-21-2014 Lipid panel [AGGREGATE] Tanisha Gibson Start: 09-20-2013 End: 09-20-2013 MRI ASSISTANT Yee Shea PA-C Work Phone: Start: 09-20-2013 End: 09-20-2013 Ecg routine ecg w/least 12 lds w/i&r Yee Shea PA-C Work Phone: Start: 09-20-2013 End: 09-20-2013 eRx Transmitted during this visit (Medicare only) Yee Shea PA-C Work Phone: Start: 09-20-2013 End: 09-20-2013 Follow Up Appt 6 months Yee fitzgerald PA-C Work Phone: Start: 09-20-2013 End: 09-20-2013 MRI ASSISTANT Yee Shea PA-C Work Phone: Start: 09-20-2013 End: 09-20-2013 eRx Transmitted during this visit (Medicare only) Yee Shea PA-C Work Phone: Start: 09-20-2013 End: 09-20-2013 Follow Up Appt 6 months Yee fitzgerald PA-C Work Phone: Start: 09-20-2013 End: 09-20-2013 Lipid panel [AGGREGATE] Yee fitzgerald PA-C Work Phone: Start: 03-17-2013 End: 07-11-2013 *Hepatic Function Panel Tanisha Gibson Start: 03-17-2013 End: 03-17-2013 Follow Up Appt 6 months Tanisha Gibson Start: 03-17-2013 End: 07-11-2013 Lipid 1996 panel - Serum or Plasma Ángel Sweeney MD Start: 03-17-2013 End: 03-17-2013 MMM Ángel Sweeney MD Start: 03-17-2013 End: 07-11-2013 *Hepatic Function Panel Tanisha Gibson Start: 03-17-2013 End: 03-17-2013 Follow Up Appt 6 months Tanisha Gibson Start: 03-17-2013 End: 07-11-2013 Lipid panel [AGGREGATE] Tanisha Gibson Start: 03-17-2013 End: 03-17-2013 MMM Ángel Sweeney MD Start: 04-30-2012 End: 07-11-2013 *Hepatic Function Panel Tanisha Gibson Start: 04-30-2012 End: 07-11-2013 Lipid 1996 panel - Serum or Plasma Ángel Sweeney MD Start: 04-30-2012 End: 07-11-2013 *Hepatic Function Panel Tanisha Gibson Start: 04-30-2012 End: 07-11-2013 Lipid panel [AGGREGATE] Tanisha Gibson Start: 02-24-2012 End: 02-24-2012 Follow Up Appt 6 months Tanisha Gibson Start: 02-24-2012 End: 02-24-2012 Follow Up Appt 6 months Tanisha Gibson Plan of Treatment Date Care Activity Detail Author Start: 02-20-2023 BP CONTROLLED (<130/80) BP CONTROLLED (<130/80) [facility] Start: 11-30-2021 ADVANCE DIRECTIVE DISCUSSION ADVANCE DIRECTIVE DISCUSSION [facility] Start: 10-23-2021 Colonoscopy COLONOSCOPY [facility] Start: 10-23-2021 COLORECTAL CANCER SCREENING COLORECTAL CANCER SCREENING [facility] Start: 02-23-2018 End: 02-23-2018 Appointment Appointment [facility] Work Phone: Start: 08-24-2017 End: 08-24-2017 *Hepatic Function Panel *Hepatic Function Panel [facility] Work Phone: Start: 08-24-2017 End: 08-24-2017 MRI ASSISTANT MRI ASSISTANT [facility] Work Phone: Start: 08-24-2017 End: 08-24-2017 Follow Up Appt 6 months Follow Up Appt 6 months [facility] Work Phone: Start: 08-24-2017 End: 08-24-2017 Lipid panel [AGGREGATE] *Lipid Profile CC PCP [facility] Work Phone: Start: 08-24-2017 End: 08-24-2017 Venous doppler Venous doppler [facility] Work Phone: Start: 08-24-2017 End: 08-24-2017 Appointment Appointment [facility] Work Phone: Start: 08-24-2017 End: 08-24-2017 *Hepatic Function Panel *Hepatic Function Panel [facility] Work Phone: Start: 08-24-2017 End: 08-24-2017 [facility] Work Phone: Start: 08-24-2017 End: 08-24-2017 Follow Up Appt 6 months Follow Up Appt 6 months [facility] Work Phone: Start: 08-24-2017 End: 08-24-2017 Lipid panel [AGGREGATE] *Lipid Profile CC PCP [facility] Work Phone: Start: 08-24-2017 End: 08-24-2017 Venous doppler Venous doppler [facility] Work Phone: Start: 02-20-2017 End: 02-20-2017 Follow Up Appt 6 months Follow Up Appt 6 months [facility] Work Phone: Start: 02-20-2017 End: 02-20-2017 MMM MMM [facility] Work Phone: Start: 02-20-2017 End: 02-20-2017 Follow Up Appt 6 months Follow Up Appt 6 months [facility] Work Phone: Start: 02-20-2017 End: 02-20-2017 MMM MMM [facility] Work Phone: Start: 08-14-2016 End: 08-14-2016 Follow Up Appt 6 months Follow Up Appt 6 months [facility] Work Phone: Start: 08-14-2016 End: 08-14-2016 MMM MMM [facility] Work Phone: Start: 08-14-2016 End: 08-14-2016 Follow Up Appt 6 months Follow Up Appt 6 months [facility] Work Phone: Start: 08-14-2016 End: 08-14-2016 MM MM [facility] Work Phone: Start: 05-08-2016 End: 02-06-2017 *Hepatic Function Panel *Hepatic Function Panel [facility] Work Phone: Start: 05-08-2016 End: 02-06-2017 Lipid panel [AGGREGATE] *Lipid Profile CC PCP [facility] Work Phone: Start: 05-08-2016 End: 02-06-2017 *Hepatic Function Panel *Hepatic Function Panel [facility] Work Phone: Start: 05-08-2016 End: 02-06-2017 Lipid panel [AGGREGATE] *Lipid Profile CC PCP [facility] Work Phone: Start: 02-05-2016 End: 02-06-2016 *Hepatic Function Panel *Hepatic Function Panel [facility] Work Phone: Start: 02-05-2016 End: 02-05-2016 MRI ASSISTANT MRI ASSISTANT [facility] Work Phone: Start: 02-05-2016 End: 02-05-2016 Ecg routine ecg w/least 12 lds w/i&r EKG (In office) [facility] Work Phone: Start: 02-05-2016 End: 02-05-2016 Follow Up Appt 6 months Follow Up Appt 6 months [facility] Work Phone: Start: 02-05-2016 End: 02-06-2017 Follow Up Appt Other Follow Up Appt Other [facility] Work Phone: Start: 02-05-2016 End: 02-06-2016 Lipid panel [AGGREGATE] *Lipid Profile CC PCP [facility] Work Phone: Start: 02-05-2016 End: 02-06-2016 *Hepatic Function Panel *Hepatic Function Panel [facility] Work Phone: Start: 02-05-2016 End: 02-05-2016 MRI ASSISTANT MRI ASSISTANT [facility] Work Phone: Start: 02-05-2016 End: 02-05-2016 Electrocardiogram, complete EKG (In office) [facility] Work Phone: Start: 02-05-2016 End: 02-05-2016 Follow Up Appt 6 months Follow Up Appt 6 months [facility] Work Phone: Start: 02-05-2016 End: 02-06-2017 Follow Up Appt Other Follow Up Appt Other [facility] Work Phone: Start: 02-05-2016 End: 02-06-2016 Lipid panel [AGGREGATE] *Lipid Profile CC PCP [facility] Work Phone: Start: 01-23-2016 End: 02-05-2016 *Hepatic Function Panel *Hepatic Function Panel [facility] Work Phone: Start: 01-23-2016 End: 02-05-2016 Lipid panel [AGGREGATE] *Lipid Profile CC PCP [facility] Work Phone: Start: 01-23-2016 End: 02-05-2016 *Hepatic Function Panel *Hepatic Function Panel [facility] Work Phone: Start: 01-23-2016 End: 02-05-2016 Lipid panel [AGGREGATE] *Lipid Profile CC PCP [facility] Work Phone: Start: 07-17-2015 End: 07-23-2015 *Hepatic Function Panel *Hepatic Function Panel [facility] Work Phone: Start: 07-17-2015 End: 07-17-2015 Follow Up Appt 6 months Follow Up Appt 6 months [facility] Work Phone: Start: 07-17-2015 End: 07-23-2015 Lipid panel [AGGREGATE] *Lipid Profile CC PCP [facility] Work Phone: Start: 07-17-2015 End: 07-17-2015 MMM MMM [facility] Work Phone: Start: 07-17-2015 End: 07-23-2015 *Hepatic Function Panel *Hepatic Function Panel [facility] Work Phone: Start: 07-17-2015 End: 07-17-2015 Follow Up Appt 6 months Follow Up Appt 6 months [facility] Work Phone: Start: 07-17-2015 End: 07-23-2015 Lipid panel [AGGREGATE] *Lipid Profile CC PCP [facility] Work Phone: Start: 07-17-2015 End: 07-17-2015 MMM MMM [facility] Work Phone: Start: 11-17-2014 End: 11-17-2014 MRI ASSISTANT MRI ASSISTANT [facility] Work Phone: Start: 11-17-2014 End: 11-17-2014 Ecg routine ecg w/least 12 lds w/i&r EKG (In office) [facility] Work Phone: Start: 11-17-2014 End: 11-17-2014 Follow Up Appt 6 months Follow Up Appt 6 months [facility] Work Phone: Start: 11-17-2014 End: 11-17-2014 MRI ASSISTANT MRI ASSISTANT [facility] Work Phone: Start: 11-17-2014 End: 11-17-2014 Electrocardiogram, complete EKG (In office) [facility] Work Phone: Start: 11-17-2014 End: 11-17-2014 Follow Up Appt 6 months Follow Up Appt 6 months [facility] Work Phone: Start: 03-28-2014 End: 11-17-2014 *Hepatic Function Panel *Hepatic Function Panel [facility] Work Phone: Start: 03-28-2014 End: 03-28-2014 Follow Up Appt 6 months Follow Up Appt 6 months [facility] Work Phone: Start: 03-28-2014 End: 11-17-2014 Lipid panel [AGGREGATE] *Lipid Profile CC PCP [facility] Work Phone: Start: 03-28-2014 End: 03-28-2014 MMM MMM [facility] Work Phone: Start: 03-28-2014 End: 11-17-2014 *Hepatic Function Panel *Hepatic Function Panel [facility] Work Phone: Start: 03-28-2014 End: 03-28-2014 Follow Up Appt 6 months Follow Up Appt 6 months [facility] Work Phone: Start: 03-28-2014 End: 11-17-2014 Lipid panel [AGGREGATE] *Lipid Profile CC PCP [facility] Work Phone: Start: 03-28-2014 End: 03-28-2014 MMM MMM [facility] Work Phone: Start: 12-31-2013 End: 09-21-2014 *Hepatic Function Panel *Hepatic Function Panel [facility] Work Phone: Start: 12-31-2013 End: 09-21-2014 Lipid panel [AGGREGATE] *Lipid Profile CC PCP [facility] Work Phone: Start: 12-31-2013 End: 09-21-2014 *Hepatic Function Panel *Hepatic Function Panel [facility] Work Phone: Start: 12-31-2013 End: 09-21-2014 Lipid panel [AGGREGATE] *Lipid Profile CC PCP [facility] Work Phone: Start: 09-20-2013 End: 09-20-2013 MRI ASSISTANT MRI ASSISTANT [facility] Work Phone: Start: 09-20-2013 End: 09-20-2013 Ecg routine ecg w/least 12 lds w/i&r EKG (In office) [facility] Work Phone: Start: 09-20-2013 End: 09-20-2013 Follow Up Appt 6 months Follow Up Appt 6 months [facility] Work Phone: Start: 09-20-2013 End: 09-20-2013 MRI ASSISTANT MRI ASSISTANT [facility] Work Phone: Start: 09-20-2013 End: 09-20-2013 Electrocardiogram, complete EKG (In office) [facility] Work Phone: Start: 09-20-2013 End: 09-20-2013 Follow Up Appt 6 months Follow Up Appt 6 months [facility] Work Phone: Start: 03-17-2013 End: 07-11-2013 *Hepatic Function Panel *Hepatic Function Panel [facility] Work Phone: Start: 03-17-2013 End: 03-17-2013 Follow Up Appt 6 months Follow Up Appt 6 months [facility] Work Phone: Start: 03-17-2013 End: 07-11-2013 Lipid panel [AGGREGATE] *Lipid Profile [facility] Work Phone: Start: 03-17-2013 End: 03-17-2013 MMM MMM [facility] Work Phone: Start: 03-17-2013 End: 07-11-2013 *Hepatic Function Panel *Hepatic Function Panel [facility] Work Phone: Start: 03-17-2013 End: 03-17-2013 Follow Up Appt 6 months Follow Up Appt 6 months [facility] Work Phone: Start: 03-17-2013 End: 07-11-2013 Lipid panel [AGGREGATE] *Lipid Profile [facility] Work Phone: Start: 03-17-2013 End: 03-17-2013 MMM MMM [facility] Work Phone: Start: 04-30-2012 End: 07-11-2013 *Hepatic Function Panel *Hepatic Function Panel [facility] Work Phone: Start: 04-30-2012 End: 07-11-2013 Lipid panel [AGGREGATE] *Lipid Profile [facility] Work Phone: Start: 04-30-2012 End: 07-11-2013 *Hepatic Function Panel *Hepatic Function Panel [facility] Work Phone: Start: 04-30-2012 End: 07-11-2013 Lipid panel [AGGREGATE] *Lipid Profile [facility] Work Phone: Start: 02-24-2012 End: 02-24-2012 Follow Up Appt 6 months Follow Up Appt 6 months [facility] Work Phone: Start: 02-24-2012 End: 02-24-2012 Follow Up Appt 6 months Follow Up Appt 6 months [facility] Work Phone: Start: 2011 PNEUMOCOCCAL: 65+ (1 - PCV) PNEUMOCOCCAL: 65+ (1 - PCV) [facility] Start: 2011 PNEUMOVAX AGE 65 AND OVER WITH 5YR LOOKBACK (#1) PNEUMOVAX AGE 65 AND OVER WITH 5YR LOOKBACK (#1) [facility] Start: 02-16-2003 DIABETES SCREEN DIABETES SCREEN [facility] Start: 1996 SHINGRIX VACCINE (1 of 2) SHINGRIX VACCINE (1 of 2) [facility] Start: 1991 COLOGUARD (FIT-DNA) COLOGUARD (FIT-DNA) [facility] Start: [address] COLONOGRAPHY [facility] Start: 1991 FECAL OCCULT BLOOD FECAL OCCULT BLOOD [facility] Start: 1991 SIGMOIDOSCOPY SIGMOIDOSCOPY [facility] Start: 1981 LIPID SCREEN LIPID SCREEN [facility] Start: 1965 Urine microalbumin profile DTAP,TDAP,TD (1 - Tdap) [facility] Start: 1964 ANNUAL PCP TEAM CHRONIC DISEASE VISIT ANNUAL PCP TEAM CHRONIC DISEASE VISIT [facility] Start: 1964 BP CONTROLLED (<130/80) BP CONTROLLED (<130/80) [facility] in Start: 1964 HEPATITIS C SCREENING HEPATITIS C SCREENING [facility] Start: 1958 Adult depression screening assessment DEPRESSION SCREENING [facility] Patient Education [employer] Work Phone: Payers Date Payer Category Payer Unknown [employer] [id number] 2018-Present [phone] [address] [place] [address] [facility] [id number] 2017 Medicare [id number] 1945 Unknown [id number] 1945 Unknown [id number] Medicare [id number] Medicare [id number] Social History Date Type Detail Facility Start: 11-26-2017 Tobacco smoking stat [facility] Never smoked tobacco [facility] Start: 11-26-2017 Tobacco use and exposure Smoke less tobacco non-user [facility] Start: 02-20-2022 End: 05-02-2022 Alcohol intake Current drinker of alcohol (finding) [facility] Start: 02-20-2022 History SDOH Alcohol Frequency 1 [facility] Start: 1945 Sex Assigned At Not on file [facility] Start: 02-10-2022 End: 05-02-2022 Exposure to SARS-CoV-2 (event) Not sure [facility] Progress note 05-02-2022 Note Date & Type Note Facility 05-02-2022 Note HNO ID: [id number] Author: Neema Huber APRN.[employer] Service: ? Author Type: Nurse Practitioner Type: Progress Notes Filed: 05/02/2022 5:23 PM Note Text: Subjective Patient came in with complaints of itching rash on arms torso and legs. Patient was recently on 2 rounds of antibiotics for a leg wound he is currently under treatment for with him PCP. Patient said the itching started shortly after the antibiotics were started. Denies any other symptoms at this time. The history is provided by the patient. No sign language translator was used. Musculoskeletal Problem Associated symptoms include a rash. Review of Systems Constitutional: Negative. Skin: Positive for itching and rash. Objective Physical Exam Constitutional: Appearance: Normal appearance. Pulmonary: Effort: Pulmonary effort is normal. Skin: Comments: Multiple hive like areas on body in spots marked above. Neurological: Mental Status: He is alert. PAST MEDICAL HISTORY Diagnosis Date - A-fib (HCC) - High cholesterol - History of open heart surgery - HTN (hypertension) - Stroke (HCC) No past surgical history on file. ALLERGIES Patient has no allergy information on record. MEDICATIONS metFORMIN (GLUCOPHAGE) 500 mg tablet Take by mouth. omeprazole (PRILOSEC) 20 mg capsule Take 20 mg by mouth once daily. ELIQUIS 5 mg tab(s) Take 1 tablet by mouth twice daily. furosemide (LASIX) 40 mg tablet Take 80 mg by mouth three times daily. potassium chloride 20 mEq TbER Take 1 tablet by mouth twice daily. pravastatin (PRAVACHOL) 80 mg tablet Take 1 tablet by mouth once daily. carvedilol (COREG) 25 mg tablet Take 1 tablet by mouth once daily. losartan (COZAAR) 100 mg tablet Take 1 tablet by mouth once daily. Nebulizer NEBULIZER FOR HOME USE. DX: predniSONE (DELTASONE) 20 mg tablet Take 1 tablet by mouth once daily for 5 days. albuterol (PROVENTIL) 5 mg/mL nebu Inhale 0.5 mL as instructed one time only for 1 dose. 1 DOSE NOW - BACK OFFICE. PLACE 0.5 ML PER DROPPER AND 2.5 ML OF NORMAL SALINE INTO RESERVOIR. albuterol (PROVENTIL) 2.5 mg /3 mL (0.083 %) nebulizer solution Use 3 mL via nebulizer every 4 hours as needed for Wheezing/Shortness of Breath. Use over 5-15minutes. guaiFENesin (MUCINEX) 600 mg 12 hr tablet Take 2 tablets by mouth twice daily. benzonatate (TESSALON PERLE) 100 mg capsule Take 1-2 capsules by mouth three times daily as needed. No family history on file. Social History Tobacco Use - Smoking status: Never Smoker - Smokeless tobacco: Never Used Substance Use Topics - Alcohol use: Yes - Drug use: Never ASSESSMENT/PLAN: 1. Hives - ICD9: 708.9, ICD10: L50.9 Prednisone 20mg daily for 5 days instructed to monitor blood sugars closely. Instructed to follow up with PCP for the leg wound and see if he thinks a wound care consult should be done. Patient was okay with this care plan. Neema Huber APRN.CAMACHO [facility] History of Present illness Narrative 05-02-2022 Neema Huber APRN.CAMACHO - 05/02/2022 5:05 PM EDT Note Date & Type Note Facility 05-02-2022 History of Presen t illness Narrative Images from the original note were not included. Subjective Patient came in with complaints of itching rash on arms torso and legs. Patient was recently on 2 rounds of antibiotics for a leg wound he is currently under treatment for with him PCP. Patient said the itching started shortly after the antibiotics were started. Denies any other symptoms at this time. The history is provided by the patient. No sign language translator was used. Musculoskeletal Problem Associated symptoms include a rash. Review of Systems Constitutional: Negative. Skin: Positive for itching and rash. Objective Physical Exam Constitutional: Appearance: Normal appearance. Pulmonary: Effort: Pulmonary effort is normal. Skin: Comments: Multiple hive like areas on body in spots marked above. Neurological: Mental Status: He is alert. PAST MEDICAL HISTORY Diagnosis Date A-fib (HCC) High cholesterol History of open heart surgery HTN (hypertension) Stroke (HCC) No past surgical history on file. ALLERGIES Patient has no allergy information on record. MEDICATIONS metFORMIN (GLUCOPHAGE) 500 mg tablet Take by mouth. omeprazole (PRILOSEC) 20 mg capsule Take 20 mg by mouth once daily. ELIQUIS 5 mg tab(s) Take 1 tablet by mouth twice daily. furosemide (LASIX) 40 mg tablet Take 80 mg by mouth three times daily. potassium chloride 20 mEq TbER Take 1 tablet by mouth twice daily. pravastatin (PRAVACHOL) 80 mg tablet Take 1 tablet by mouth once daily. carvedilol (COREG) 25 mg tablet Take 1 tablet by mouth once daily. losartan (COZAAR) 100 mg tablet Take 1 tablet by mouth once daily. Nebulizer NEBULIZER FOR HOME USE. DX: predniSONE (DELTASONE) 20 mg tablet Take 1 tablet by mouth once daily for 5 days. albuterol (PROVENTIL) 5 mg/mL nebu Inhale 0.5 mL as instructed one time only for 1 dose. 1 DOSE NOW - BACK OFFICE. PLACE 0.5 ML PER DROPPER AND 2.5 ML OF NORMAL SALINE INTO RESERVOIR. albuterol (PROVENTIL) 2.5 mg /3 mL (0.083 %) nebulizer solution Use 3 mL via nebulizer every 4 hours as needed for Wheezing/Shortness of Breath. Use over 5-15minutes. guaiFENesin (MUCINEX) 600 mg 12 hr tablet Take 2 tablets by mouth twice daily. benzonatate (TESSALON PERLE) 100 mg capsule Take 1-2 capsules by mouth three times daily as needed. No family history on file. Social History Tobacco Use Smoking status: Never Smoker Smokeless tobacco: Never Used Substance Use Topics Alcohol use: Yes Drug use: Never ASSESSMENT/PLAN: 1. Hives - ICD9: 708.9, ICD10: L50.9 Prednisone 20mg daily for 5 days instructed to monitor blood sugars closely. Instructed to follow up with PCP for the leg wound and see if he thinks a wound care consult should be done. Patient was okay with this care plan. Neema Huber APRN.CAMACHO documented in this encounter [facility] Instructions 05-02-2022 Patient Instructions Note Date & Type Note Facility 05-02-2022 Instructions Neema Huber APRN.CNP - 05/02/2022 5:01 PM EDT Diagnosis: Assessment WIDESPREAD RASH WITHOUT ITCHING UNKNOWN CAUSE Description: red or pink rash (erythema) smooth or slightly bumpy spots or solid red over most of body (widespread or generalized) not itchy. Similar condition: Fever over 103 or 104 degrees F (39.5 or 40 degrees C) can cause a pinkness of the skin. Sometimes it's blotchy. If it clears with fever reduction, it's normal. Causes: The possible causes of a nonitchy pink or red rash are many, and may be due to an infection, an underlying medical condition, or medications. Expected course depends on the diagnosis. Treatment: Treatment for a viral rash: widespread rashes can occur with viral illnesses. No treatment is necessary. These rashes are unimportant and usually disappear within 48 hours. Call Your Child's Physician Immediately If: The rash is purple or blood-colored spots or dots. Your child is acting very sick. Call Your Page Physician Within 24 hours If: Your child has a fever (over 100 degrees F, or 37.8 degrees C). Your child is taking a medicine. The rash has been present more than 48 hours. documented in this encounter [facility] Progress note 02-20-2022 Note Date & Type Note Facility 02-20-2022 Note HNO ID: [id number] Author: Dar Ceja APRN.CAMACHO Service: ? Author Type: Nurse Practitioner Type: Progress Notes Filed: 02/20/2022 6:11 PM Note Text: Subjective HPI Nontoxic-appearing male presents urgent care chief complaint possible cellulitis. Duration of symptoms 10 to 12 days. Associated symptoms leg redness warmth and swelling. Patient states first noticed this approximately 10 days ago. States symptoms are staying consistent not worsening. Presents today for evaluation. Denies any pain. No OTC medications. States symptoms worsen throughout the day and improve overnight. States when he wakes up in the morning redness has greatly dissipated. Denies any numbness no tingling. Denies any fever body aches chills nausea vomiting abdominal pain chest pain shortness of breath pleuritic pain hemoptysis trauma or change in bowel or bladder meds. Past medical history prescription medication use allergies reviewed. BP 126/78 Pulse 104 Temp 36.9 ?C (98.4 ?F) (Temporal) Resp 18 Wt 92.6 kg (204 lb 3.2 oz) SpO2 96% Hr 82 .Patient presents with: Swelling: (RT) leg swelling, warmth, redness, denied pain, SOB, chest pain PAST MEDICAL HISTORY Diagnosis Date - A-fib (HCC) - High cholesterol - History of open heart surgery - HTN (hypertension) - Stroke (HCC) History reviewed. No pertinent surgical history. ALLERGIES Patient has no allergy information on record. MEDICATIONS metFORMIN (GLUCOPHAGE) 500 mg tablet Take by mouth. ELIQUIS 5 mg tab(s) Take 1 tablet by mouth twice daily. furosemide (LASIX) 40 mg tablet Take 1 tablet by mouth three times daily. potassium chloride 20 mEq TbER Take 1 tablet by mouth twice daily. pravastatin (PRAVACHOL) 80 mg tablet Take 1 tablet by mouth once daily. carvedilol (COREG) 25 mg tablet Take 1 tablet by mouth once daily. losartan (COZAAR) 100 mg tablet Take 1 tablet by mouth once daily. Nebulizer NEBULIZER FOR HOME USE. DX: albuterol (PROVENTIL) 2.5 mg /3 mL (0.083 %) nebulizer solution Use 3 mL via nebulizer every 4 hours as needed for Wheezing/Shortness of Breath. Use over 5-15minutes. albuterol (PROVENTIL) 5 mg/mL nebu Inhale 0.5 mL as instructed one time only for 1 dose. 1 DOSE NOW - BACK OFFICE. PLACE 0.5 ML PER DROPPER AND 2.5 ML OF NORMAL SALINE INTO RESERVOIR. guaiFENesin (MUCINEX) 600 mg 12 hr tablet Take 2 tablets by mouth twice daily. benzonatate (TESSALON PERLE) 100 mg capsule Take 1-2 capsules by mouth three times daily as needed. History reviewed. No pertinent family history. Social History Tobacco Use - Smoking status: Never Smoker - Smokeless tobacco: Never Used Substance Use Topics - Alcohol use: Yes - Drug use: Never Review of Systems Constitutional: Negative for chills, fever and malaise/fatigue. HENT: Negative for congestion, ear discharge, ear pain, sinus pain and sore throat. Eyes: Negative for blurred vision, pain, discharge and redness. Respiratory: Negative for cough, hemoptysis, sputum production, shortness of breath, wheezing and stridor. Cardiovascular: Positive for leg swelling. Negative for chest pain. Gastrointestinal: Negative for abdominal pain, diarrhea, nausea and vomiting. Musculoskeletal: Negative for myalgias. Skin: Negative for itching and rash. Neurological: Negative for dizziness and headaches. Objective Physical Exam Constitutional: General: He is not in acute distress. Appearance: He is not diaphoretic. HENT: Head: Normocephalic. Mouth/Throat: Mouth: Mucous membranes are moist. Pharynx: Oropharynx is clear. No oropharyngeal exudate or posterior oropharyngeal erythema. Eyes: Conjunctiva/sclera: Conjunctivae normal. Pupils: Pupils are equal, round, and reactive to light. Cardiovascular: Rate and Rhythm: Normal rate and regular rhythm. Heart sounds: Normal heart sounds. Pulmonary: Effort: Pulmonary effort is normal. No tachypnea, accessory muscle usage or respiratory distress. Breath sounds: Normal breath sounds. No stridor. Abdominal: Palpations: Abdomen is soft. Tenderness: There is no abdominal tenderness. Musculoskeletal: Cervical back: Normal range of motion and neck supple. No rigidity or tenderness. Right lower leg: Swelling present. No tenderness or bony tenderness. 3+ Edema present. Left lower leg: Swelling present. Edema present. Right ankle: Swelling present. No deformity, ecchymosis or lacerations. No tenderness. Normal range of motion. Right foot: Normal range of motion. No swelling, deformity, tenderness or bony tenderness. Legs: Comments: Erythema noted anterior part right lower leg. Pitting edema noted. No breaks in skin. No remote redness. Negative Homans' sign. No pain. Neurovascular intact. Lymphadenopathy: Cervical: No cervical adenopathy. Skin: General: Skin is warm and dry. Neurological: Mental Status: He is alert and oriented to person, place, and time. ASSESSMENT/PLAN: 1. Cellul (more content not included)... [facility] History of Present illness Narrative 02-20-2022 Dar Ceja APRN.[facility] - 02/20/2022 5:43 PM EDT Note Date & Type Note Facility 02-20-2022 History of Presen t illness Narrative Images from the original note were not included. Subjective HPI Nontoxic-appearing male presents urgent care chief complaint possible cellulitis. Duration of symptoms 10 to 12 days. Associated symptoms leg redness warmth and swelling. Patient states first noticed this approximately 10 days ago. States symptoms are staying consistent not worsening. Presents today for evaluation. Denies any pain. No OTC medications. States symptoms worsen throughout the day and improve overnight. States when he wakes up in the morning redness has greatly dissipated. Denies any numbness no tingling. Denies any fever body aches chills nausea vomiting abdominal pain chest pain shortness of breath pleuritic pain hemoptysis trauma or change in bowel or bladder meds. Past medical history prescription medication use allergies reviewed. BP 126/78 Pulse 104 Temp 36.9 C (98.4 F) (Temporal) Resp 18 Wt 92.6 kg (204 lb 3.2 oz) SpO2 96% Hr 82 .Patient presents with: Swelling: (RT) leg swelling, warmth, redness, denied pain, SOB, chest pain PAST MEDICAL HISTORY Diagnosis Date A-fib (HCC) High cholesterol History of open heart surgery HTN (hypertension) Stroke (HCC) History reviewed. No pertinent surgical history. ALLERGIES Patient has no allergy information on record. MEDICATIONS metFORMIN (GLUCOPHAGE) 500 mg tablet Take by mouth. ELIQUIS 5 mg tab(s) Take 1 tablet by mouth twice daily. furosemide (LASIX) 40 mg tablet Take 1 tablet by mouth three times daily. potassium chloride 20 mEq TbER Take 1 tablet by mouth twice daily. pravastatin (PRAVACHOL) 80 mg tablet Take 1 tablet by mouth once daily. carvedilol (COREG) 25 mg tablet Take 1 tablet by mouth once daily. losartan (COZAAR) 100 mg tablet Take 1 tablet by mouth once daily. Nebulizer NEBULIZER FOR HOME USE. DX: albuterol (PROVENTIL) 2.5 mg /3 mL (0.083 %) nebulizer solution Use 3 mL via nebulizer every 4 hours as needed for Wheezing/Shortness of Breath. Use over 5-15minutes. albuterol (PROVENTIL) 5 mg/mL nebu Inhale 0.5 mL as instructed one time only for 1 dose. 1 DOSE NOW - BACK OFFICE. PLACE 0.5 ML PER DROPPER AND 2.5 ML OF NORMAL SALINE INTO RESERVOIR. guaiFENesin (MUCINEX) 600 mg 12 hr tablet Take 2 tablets by mouth twice daily. benzonatate (TESSALON PERLE) 100 mg capsule Take 1-2 capsules by mouth three times daily as needed. History reviewed. No pertinent family history. Social History Tobacco Use Smoking status: Never Smoker Smokeless tobacco: Never Used Substance Use Topics Alcohol use: Yes Drug use: Never Review of Systems Constitutional: Negative for chills, fever and malaise/fatigue. HENT: Negative for congestion, ear discharge, ear pain, sinus pain and sore throat. Eyes: Negative for blurred vision, pain, discharge and redness. Respiratory: Negative for cough, hemoptysis, sputum production, shortness of breath, wheezing and stridor. Cardiovascular: Positive for leg swelling. Negative for chest pain. Gastrointestinal: Negative for abdominal pain, diarrhea, nausea and vomiting. Musculoskeletal: Negative for myalgias. Skin: Negative for itching and rash. Neurological: Negative for dizziness and headaches. Objective Physical Exam Constitutional: General: He is not in acute distress. Appearance: He is not diaphoretic. HENT: Head: Normocephalic. Mouth/Throat: Mouth: Mucous membranes are moist. Pharynx: Oropharynx is clear. No oropharyngeal exudate or posterior oropharyngeal erythema. Eyes: Conjunctiva/sclera: Conjunctivae normal. Pupils: Pupils are equal, round, and reactive to light. Cardiovascular: Rate and Rhythm: Normal rate and regular rhythm. Heart sounds: Normal heart sounds. Pulmonary: Effort: Pulmonary effort is normal. No tachypnea, accessory muscle usage or respiratory distress. Breath sounds: Normal breath sounds. No stridor. Abdominal: Palpations: Abdomen is soft. Tenderness: There is no abdominal tenderness. Musculoskeletal: Cervical back: Normal range of motion and neck supple. No rigidity or tenderness. Right lower leg: Swelling present. No tenderness or bony tenderness. 3+ Edema present. Left lower leg: Swelling present. Edema present. Right ankle: Swelling present. No deformity, ecchymosis or lacerations. No tenderness. Normal range of motion. Right foot: Normal range of motion. No swelling, deformity, tenderness or bony tenderness. Legs: Comments: Erythema noted anterior part right lower leg. Pitting edema noted. No breaks in skin. No remote redness. Negative Homans' sign. No pain. Neurovascular intact. Lymphadenopathy: Cervical: No cervical adenopathy. Skin: General: Skin is warm and dry. Neurological: Mental Status: He is alert and oriented to person, place, and time. ASSESSMENT/PLAN: 1. Cellulitis of right lower extremity - ICD9: 682.6, ICD10: L03.115 Vital signs within normal limits. No pain. Negative Homans' sign. Low suspicion for clots. Patient is currently taking Eliquis no missed doses. Venous stasis versus cellulitis. Patiently placed on doxycycline. Will follow up with PCP 2 to 3 days for reevaluation. Patient was educated on supportive therapies. Patient was instructed to immediately proceed to emergency room for any new, worsening, or symptoms lasting longer than anticipated. The patient's clinical presentation is otherwise unremarkable at this time. Based on exam and clinical finding, the patient is stable for discharge. Plan of care was discussed with patient. Patient verbalizes understanding and agrees to plan of care. This note was generated using [employer] software. It may contain errors in wording, punctuation, or spelling. Dar Ceja APRN.CAMACHO documented in this encounter [facility] Progress note 06-24-2021 Note Date & Type Note Facility 06-24-2021 Note HNO ID: [id number] Author: Denis Mclean APRN.CNP Service: ? Author Type: Nurse Practitioner Type: Progress Notes Filed: 06/24/2021 7:42 PM Note Text: Patient triaged at [facility]. Here today with cough, fever, trouble breathing. Patient respirs near 40, audible crackles while breathing. I will refer to ER. Declines squad. to drive pov to [facility] [place] [facility]. Passport sent. [facility] Evaluation note Note Date & Type Note Facility documented in this encounter [facility] Evaluation note Note Date & Type Note Facility documented in this encounter [facility] Summary Purpose Family History No Family History Records FoundNo Family History Records FoundNo Family History Records Found Advance Directives No Advanced Directives Records FoundNo Advanced Directives Records FoundNo Advanced Directives Records Found Additional Source Comments (unrecognized sect ion and content) No Status Records FoundNo Status Records FoundNo Status Records Found INFORMATION SOURCE (unrecogn ized section and content) DATE CREATED AUTHOR AUTHOR'S ORGANIZ ATION 01/29/2021 [facility] DATE CREATED AUTHOR AUTHOR'S ORGANIZ ATION 05/03/2022 [facility] Source Comments (unrecognize d section and content) In the event this informatio n is protected by the Federal Confidentiality of Alcohol and Drug Abuse Patient Records regulations: The Federal rules restrict any use of the information to criminally investigate or prosecute any alcohol or drug abuse patient.[facility] ClinicIn the event this information is protected by the Federal Confidentiality of Alcohol and Drug Abuse Patient Records regulations: The Federal rules restrict any use of the information to criminally investigate or prosecute any alcohol or drug abuse patient.[facility] Reason for Visit (unrecogniz ed section and content) Reason Comments Musculoskeletal Problem (RT) lower leg p ain rated 6, warmth, swelling rash on chest, back, stomach, legs Follow Up recent [facility] Rx [facility] Care Teams (unrecognized sec tion and content) FOR RECORDS PERTAINING TO PATIENTS WHO ARE OR HAVE BEEN ENROLLED IN A CHEMICAL DEPENDENCY/SUBSTANCEABUSE PROGRAM, SOME INFORMATION MAY BE OMITTED. This clinical summary was aggregated from multiple sources. Caution should be exercised in using it in the provision of clinical care. This summary normalizes information from multiple sources, and as a consequence, information in this document may materially change the coding, format and clinical context of patient data. In addition, data may be omitted in some cases. CLINICAL DECISIONS SHOULD BE BASED ON THE PRIMARY CLINICAL RECORDS. [employer] [facility]. provides no warranty or guarantee of the accuracy or completeness of information in this document.
[2023-12-11 10:39] LABS: Anion Gap 4 (5-15); BUN 60 mg/dL (7-18); Calcium,Total 10.2 mg/dL (8.5-10.1); Chloride 112 mmol/L (98-107); Creatinine, Serum 1.58 mg/dL (0.70-1.30); EST Glomerular Filtration Rate 45 mL/min (>60); Est Glom Filt Rate - Afr Amer 55 mL/min (>60); Glucose 132 mg/dL (74-106); Potassium 5.6 mmol/L (3.5-5.1); Sodium Level 141 mmol/L (136-145)
== END | disposition home or self-care (01) ==
LOC: LAB 09:36
PROVIDERS: PCP Family Medicine; Referring Provider Physician Assistant Medical; Visit Provider Physician Assistant Medical
DX: I50.22 Chronic systolic (congestive) heart failure (principal)
CPT/HCPCS: 36415; 80048

== ENCOUNTER → 2023-12-14 | Outpatient (CLI) | payer MEDICARE, SELFPAY ==
--- OUTSIDE RECORDS SUMMARY | 2023-12-14 16:20 | XMS RPT_ITS | CCD ---
Author Name Unknown Address [address] [place] [address] Organization [facility] Care Team Providers Care Golf Ball Molder Name Role Phone Clair SIMS, Yee Huertas Unavailable Janessa Paulino Unavailable Unavailable Clair SIMS, Yee Huertas Unavailable Nimo Ferro Unavailable Unavailable Herson Terrell Unavailable Unavailable Nimo Ferro Unavailable Unavailable No Family Physician given Unavailable JuleevaSANDEEP Matamoros Attending Unavailable SANDEEP NOBLE Primary Care Unavailable SANDEEP NOBLE Admitting Unavailable SANDEEP NOBLE Attending Unavailable SANDEEP NOBLE Primary Care Unavailable SANDEEP NOBLE Admitting Unavailable Giuseppe DOAnali Primary Care Provider Allergies Allergy Classification Reported Allergen(s) Allergy Type Date of Onset Reaction(s) Facility (3 sources) atorvastatin drug allergy 04-18-2011 Myalgias [facility] Work Phone: (3 sources) rosuvastatin drug allergy 04-18-2011 Myalgias [facility] Work Phone: Medications Current Medications [...] disease (12 sources) Atherosclerotic heart disease of [place] coronary artery without angina pectoris; Translations: [Coronary [...] (1 source) Long-term drug therapy; Translations: [Other intermediate (current) drug therapy] Onset: 04-18-2011 04-18-2011 Unclassified (1 source) Unknown / UNK(Unknown) Onset: 07-23-2018 Past or Other Problems Problem Classification Problem Date Documented Da te Episodic/Chronic Coronary atherosclerosis and other heart disease (6 sources) Presence of aortocoronary bypass graft; Translations: [Presence of aortocoronary bypass graft] Onset: 04-18-2011 02-20-2017 Episodic Other aftercare (2 sources) Other intermediate (current) drug therapy; Translations: [Other intermediate (current) drug therapy] Onset: 04-18-2011 04-18-2011 Episodic Unclassified (3 sources) Edema of lower extremity; Translations: [Localized edema] Onset: 08-24-2017 08-24-2017 Episodic Unclassified (1 source) CVA Onset: 07-23-2018 Results Test Name Value Interpretation Reference Range Facil ity Vital Signs Date Time Vital Sign Value Performing Clinician Facility 05-02-2022 16:38-0400 Body temperature 97.81 [degF] Neema Huber APRN.PRINCIPAL WEB DEVELOPER Work Phone: [facility] 05-02-2022 16:38-0400 Body weight 87.73 kg Neema Huber APRN.PRINCIPAL WEB DEVELOPER Work Phone: [facility] 05-02-2022 16:38-0400 Diastolic blood pressure 78 mm[Hg] Neema Huber APRN.PRINCIPAL WEB DEVELOPER Work Phone: [facility] 05-02-2022 16:38-0400 Heart rate 64 /min Neema Huber APRN.PRINCIPAL WEB DEVELOPER Work Phone: [facility] 05-02-2022 16:38-0400 Respiratory rate 20 /min Neema Huber APRN.PRINCIPAL WEB DEVELOPER Work Phone: [facility] 05-02-2022 16:38-0400 SaO2% (BldA) [Mass fraction] 99 % Neema Huber APRN.PRINCIPAL WEB DEVELOPER Work Phone: [facility] 05-02-2022 16:38-0400 Systolic blood pressure 136 mm[Hg] Neema Huber APRN.PRINCIPAL WEB DEVELOPER Work Phone: [facility] 02-20-2022 17:42-0400 Body temperature 98.4 [degF] [facility] CLEAN UP PERSON.PRINCIPAL WEB DEVELOPER Work Phone: [facility] 02-20-2022 17:42-0400 Body weight 92.63 kg [facility] CLEAN UP PERSON.PRINCIPAL WEB DEVELOPER Work Phone: [facility] 02-20-2022 17:42-0400 Diastolic blood pressure 78 mm[Hg] [facility] CLEAN UP PERSON.PRINCIPAL WEB DEVELOPER Work Phone: [facility] 02-20-2022 17:42-0400 Heart rate 104 /min [facility] CLEAN UP PERSON.PRINCIPAL WEB DEVELOPER Work Phone: [facility] 02-20-2022 17:42-0400 Respiratory rate 18 /min [facility] CLEAN UP PERSON.PRINCIPAL WEB DEVELOPER Work Phone: [facility] 02-20-2022 17:42-0400 SaO2% (BldA) [Mass fraction] 96 % [facility] CLEAN UP PERSON.PRINCIPAL WEB DEVELOPER Work Phone: [facility] 02-20-2022 17:42-0400 Systolic blood pressure 126 mm[Hg] [facility] CLEAN UP PERSON.PRINCIPAL WEB DEVELOPER Work Phone: [facility] 08-24-2017 13:11-0400 BMI (Body Mass Index) [...] End: 05-02-2022 Patient encounter procedure Neema Huber CLEAN UP PERSON.PRINCIPAL WEB DEVELOPER Work Phone: [facility] Procedures Date Procedure Procedure Detail Performing Clinician Start: 10-23-2020 Colonoscopy Dar mohan CLEAN UP PERSON.PRINCIPAL WEB DEVELOPER Work Phone: Start: 08-24-2017 End: 08-24-2017 JULIO Shea PA-C Work Phone: Start: 08-24-2017 End: 08-24-2017 Follow Up Appt 6 months Yee fitzgerald PA-C Work Phone: Start: 08-24-2017 End: 08-24-2017 JULIO Shea PA-C Work Phone: Start: 08-24-2017 End: 08-24-2017 Follow Up Appt 6 months Yee fitzgerald PA-C Work Phone: Start: 02-20-2017 End: 02-20-2017 Follow Up Appt 6 months Tanisha Gibson Start: 02-20-2017 End: 02-20-2017 HBARATI Sweeney MD Start: 02-20-2017 End: 02-20-2017 Follow [...] PA-C Work Phone: Start: 02-05-2016 End: 02-05-2016 LANDSCAPE ARTIST Yee Shea PA-C Work Phone: Start: 02-05-2016 [...] PA-C Work Phone: Start: 02-05-2016 End: 02-05-2016 LANDSCAPE ARTIST Yee Shea PA-C Work Phone: Start: 02-05-2016 [...] Ecg routine ecg w/least 12 lds w/i&r eYe Shea PA-C Work Phone: Start: 11-17-2014 End: [...] [AGGREGATE] Tanisha Gibson Start: 09-20-2013 End: 09-20-2013 LANDSCAPE ARTIST Yee Shea PA-C Work Phone: Start: 09-20-2013 End: 09-20-2013 Ecg routine ecg w/least 12 lds w/i&r Yee Shea PA-C Work Phone: Start: 09-20-2013 End: 09-20-2013 eRx Transmitted during this visit (Medicare only) Yee Shea PA-C Work Phone: Start: 09-20-2013 End: 09-20-2013 Follow Up Appt 6 months Yee fitzgerald PA-C Work Phone: Start: 09-20-2013 End: 09-20-2013 LANDSCAPE ARTIST Yee Shea PA-C Work Phone: Start: 09-20-2013 [...] 03-17-2013 End: 07-11-2013 Lipid panel [AGGREGATE] Tanisha Gibsno Start: 03-17-2013 End: 03-17-2013 MMM Ángel Sweeney [...] 02-20-2023 BP CONTROLLED (<130/80) BP CONTROLLED (<130/80) [facility] Start: 11-30-2021 ADVANCE DIRECTIVE DISCUSSION ADVANCE DIRECTIVE DISCUSSION [facility] Start: 10-23-2021 Colonoscopy COLONOSCOPY [facility] Start: 10-23-2021 COLORECTAL CANCER SCREENING COLORECTAL CANCER SCREENING [facility] Start: 02-23-2018 End: 02-23-2018 Appointment Appointment [facility] Work Phone: Start: 08-24-2017 End: 08-24-2017 *Hepatic Function Panel *Hepatic Function Panel [facility] Work Phone: Start: 08-24-2017 End: 08-24-2017 LANDSCAPE ARTIST LANDSCAPE ARTIST [facility] Work Phone: Start: 08-24-2017 End: 08-24-2017 Follow Up Appt 6 months Follow Up Appt 6 months [facility] Work Phone: Start: 08-24-2017 End: 08-24-2017 Lipid panel [AGGREGATE] *Lipid Profile CC PCP [facility] Work Phone: Start: 08-24-2017 End: 08-24-2017 Venous doppler Venous doppler [facility] Work Phone: Start: 08-24-2017 End: 08-24-2017 Appointment Appointment [facility] Work Phone: Start: 08-24-2017 End: 08-24-2017 *Hepatic Function Panel *Hepatic Function Panel [facility] Work Phone: Start: 08-24-2017 End: 08-24-2017 [facility] Work Phone: Start: 08-24-2017 End: 08-24-2017 Follow Up Appt 6 months Follow Up Appt 6 months [facility] Work Phone: Start: 08-24-2017 End: 08-24-2017 Lipid panel [AGGREGATE] *Lipid Profile CC PCP [facility] Work Phone: Start: 08-24-2017 End: 08-24-2017 Venous doppler Venous doppler [facility] Work Phone: Start: 02-20-2017 End: 02-20-2017 Follow Up Appt 6 months Follow Up Appt 6 months [facility] Work Phone: Start: 02-20-2017 End: 02-20-2017 MMM MMM [facility] Work Phone: Start: 02-20-2017 End: [...] 6 months Follow Up Appt 6 months [facility] Work Phone: Start: 08-14-2016 End: 08-14-2016 MM MM [facility] Work Phone: Start: 05-08-2016 End: 02-06-2017 *Hepatic Function Panel *Hepatic Function Panel [facility] Work Phone: Start: 05-08-2016 End: 02-06-2017 Lipid panel [AGGREGATE] *Lipid Profile CC PCP [facility] Work Phone: Start: 05-08-2016 End: 02-06-2017 *Hepatic Function Panel *Hepatic Function Panel [facility] Work Phone: Start: 05-08-2016 End: 02-06-2017 Lipid panel [AGGREGATE] *Lipid Profile CC PCP [facility] Work Phone: Start: 02-05-2016 End: 02-06-2016 *Hepatic Function Panel *Hepatic Function Panel [facility] Work Phone: Start: 02-05-2016 End: 02-05-2016 LANDSCAPE ARTIST LANDSCAPE ARTIST [facility] Work Phone: Start: 02-05-2016 End: 02-05-2016 Ecg routine ecg w/least 12 lds w/i&r EKG (In office) [facility] Work Phone: Start: 02-05-2016 End: 02-05-2016 Follow Up Appt 6 months Follow Up Appt 6 months [facility] Work Phone: Start: 02-05-2016 End: 02-06-2017 Follow Up Appt Other Follow Up Appt Other [facility] Work Phone: Start: 02-05-2016 End: 02-06-2016 Lipid panel [AGGREGATE] *Lipid Profile CC PCP [facility] Work Phone: Start: 02-05-2016 End: 02-06-2016 *Hepatic Function Panel *Hepatic Function Panel [facility] Work Phone: Start: 02-05-2016 End: 02-05-2016 LANDSCAPE ARTIST LANDSCAPE ARTIST [facility] Work Phone: Start: 02-05-2016 End: 02-05-2016 Electrocardiogram, complete EKG (In office) [facility] Work Phone: Start: 02-05-2016 End: 02-05-2016 Follow Up Appt 6 months Follow Up Appt 6 months [facility] Work Phone: Start: 02-05-2016 End: 02-06-2017 Follow Up Appt Other Follow Up Appt Other [facility] Work Phone: Start: 02-05-2016 End: 02-06-2016 Lipid panel [AGGREGATE] *Lipid Profile CC PCP [facility] Work Phone: Start: 01-23-2016 End: 02-05-2016 *Hepatic Function Panel *Hepatic Function Panel [facility] Work Phone: Start: 01-23-2016 End: 02-05-2016 Lipid panel [AGGREGATE] *Lipid Profile CC PCP [facility] Work Phone: Start: 01-23-2016 End: [...] 6 months Follow Up Appt 6 months [facility] Work Phone: Start: 07-17-2015 End: 07-23-2015 Lipid panel [AGGREGATE] *Lipid Profile CC PCP [facility] Work Phone: Start: 07-17-2015 End: 07-17-2015 MMM MMM [facility] Work Phone: Start: 07-17-2015 End: 07-23-2015 *Hepatic Function Panel *Hepatic Function Panel [facility] Work Phone: Start: 07-17-2015 End: 07-17-2015 Follow Up Appt 6 months Follow Up Appt 6 months [facility] Work Phone: Start: 07-17-2015 End: 07-23-2015 Lipid panel [AGGREGATE] *Lipid Profile CC PCP [facility] Work Phone: Start: 07-17-2015 End: 07-17-2015 MMM MMM [facility] Work Phone: Start: 11-17-2014 End: 11-17-2014 LANDSCAPE ARTIST LANDSCAPE ARTIST [facility] Work Phone: Start: 11-17-2014 End: 11-17-2014 Ecg routine ecg w/least 12 lds w/i&r EKG (In office) [facility] Work Phone: Start: 11-17-2014 End: 11-17-2014 Follow Up Appt 6 months Follow Up Appt 6 months [facility] Work Phone: Start: 11-17-2014 End: 11-17-2014 LANDSCAPE ARTIST LANDSCAPE ARTIST [facility] Work Phone: Start: 11-17-2014 End: 11-17-2014 Electrocardiogram, complete EKG (In office) [facility] Work Phone: Start: 11-17-2014 End: 11-17-2014 Follow Up Appt 6 months Follow Up Appt 6 months [facility] Work Phone: Start: 03-28-2014 [...] Lipid panel [AGGREGATE] *Lipid Profile CC PCP [facility] Work Phone: Start: 03-28-2014 End: 03-28-2014 MMM MMM [facility] Work Phone: Start: 12-31-2013 End: 09-21-2014 *Hepatic Function Panel *Hepatic Function Panel [facility] Work Phone: Start: 12-31-2013 End: 09-21-2014 Lipid panel [AGGREGATE] *Lipid Profile CC PCP [facility] Work Phone: Start: 12-31-2013 End: 09-21-2014 *Hepatic Function Panel *Hepatic Function Panel [facility] Work Phone: Start: 12-31-2013 End: 09-21-2014 Lipid panel [AGGREGATE] *Lipid Profile CC PCP [facility] Work Phone: Start: 09-20-2013 End: 09-20-2013 LANDSCAPE ARTIST LANDSCAPE ARTIST [facility] Work Phone: Start: 09-20-2013 End: 09-20-2013 Ecg routine ecg w/least 12 lds w/i&r EKG (In office) [facility] Work Phone: Start: 09-20-2013 End: 09-20-2013 Follow Up Appt 6 months Follow Up Appt 6 months [facility] Work Phone: Start: 09-20-2013 End: 09-20-2013 LANDSCAPE ARTIST LANDSCAPE ARTIST [facility] Work Phone: Start: 09-20-2013 End: 09-20-2013 Electrocardiogram, complete EKG (In office) [facility] Work Phone: Start: 09-20-2013 End: [...] End: 07-11-2013 Lipid panel [AGGREGATE] *Lipid Profile [facility] Work Phone: Start: 03-17-2013 End: 03-17-2013 MMM MMM [facility] Work Phone: Start: 03-17-2013 End: 07-11-2013 *Hepatic Function Panel *Hepatic Function Panel [facility] Work Phone: Start: 03-17-2013 End: 03-17-2013 Follow Up Appt 6 months Follow Up Appt 6 months [facility] Work Phone: Start: 03-17-2013 End: 07-11-2013 Lipid panel [AGGREGATE] *Lipid Profile [facility] Work Phone: Start: 03-17-2013 End: 03-17-2013 MMM MMM [facility] Work Phone: Start: 04-30-2012 End: [...] Follow Up Appt 6 months [facility] Work Phone: Start: 02-24-2012 End: 02-24-2012 Follow Up Appt 6 months Follow Up Appt 6 months [facility] Work Phone: Start: 2011 PNEUMOCOCCAL: 65+ (1 - PCV) PNEUMOCOCCAL: 65+ (1 - PCV) [facility] Start: 2011 PNEUMOVAX AGE 65 AND OVER WITH 5YR LOOKBACK (#1) PNEUMOVAX AGE 65 AND OVER WITH 5YR LOOKBACK (#1) [facility] Start: 02-16-2003 DIABETES SCREEN DIABETES SCREEN [facility] Start: 1996 SHINGRIX VACCINE (1 of 2) SHINGRIX VACCINE (1 of 2) [facility] Start: 1991 COLOGUARD (FIT-DNA) COLOGUARD (FIT-DNA) [facility] Start: [address] COLONOGRAPHY [facility] Start: 1991 FECAL OCCULT BLOOD FECAL OCCULT BLOOD [facility] Start: 1991 SIGMOIDOSCOPY SIGMOIDOSCOPY [facility] Start: 1981 LIPID SCREEN LIPID SCREEN [facility] Start: 1965 Urine microalbumin profile DTAP,TDAP,TD (1 - Tdap) [facility] Start: 1964 ANNUAL PCP TEAM CHRONIC DISEASE VISIT ANNUAL PCP TEAM CHRONIC DISEASE VISIT [facility] Start: 1964 BP CONTROLLED (<130/80) BP CONTROLLED (<130/80) [facility] Start: 1964 HEPATITIS C SCREENING HEPATITIS C SCREENING [facility] Start: 1958 Adult depression screening assessment DEPRESSION SCREENING [facility] Patient Education [facility] Work Phone: Payers Date Payer Category Payer Unknown [employer] O [id number] 2018-Present [phone] [address] [place] [address] [facility] [id number] 2017 Medicare [id number] 1945 Unknown [id number] 1945 Unknown [id number] Medicare [id number] Medicare [id number] Social History Date Type Detail Facility Start: 11-26-2017 Tobacco smoking stat [facility] Never smoked tobacco [facility] Start: 11-26-2017 Tobacco use and exposure Smoke less tobacco non-user [facility] Start: 02-20-2022 End: 05-02-2022 Alcohol intake Current drinker of alcohol (finding) [facility] Start: 02-20-2022 History SDOH Alcohol Frequency 1 [facility] Start: 1945 Sex Assigned At Not on file [facility] Start: 02-10-2022 End: 05-02-2022 Exposure to SARS-CoV-2 (event) Not sure [facility] Progress note 05-02-2022 Note Date & Type Note Facility 05-02-2022 Note HNO ID: [id number] Author: Neema Huber APRN.PRINCIPAL WEB DEVELOPER Service: ? Author Type: Nurse Practitioner Type: [...] history is provided by the patient. No language instructor was used. Musculoskeletal Problem Associated symptoms include [...] with this care plan. Neema Huber APRN.CAMACHO [facility] History of Present illness Narrative 05-02-2022 Neema [...] history is provided by the patient. No language instructor was used. Musculoskeletal Problem Associated symptoms include [...] Neema Huber APRN.CAMACHO documented in this encounter [facility] Instructions 05-02-2022 Patient Instructions Note Date [...] than 48 hours. documented in this encounter [facility] Progress note 02-20-2022 Note Date & Type Note Facility 02-20-2022 Note HNO ID: [id number] Author: Dar Ceja APRN.CAMACHO Service: ? Author [...] ASSESSMENT/PLAN: 1. Cellul (more content not included)... [facility] History of Present illness Narrative 02-20-2022 Dar Ceja APRN.[facility] - 02/20/2022 5:43 PM EDT Note [...] of care. This note was generated using [employer] software. It may contain errors in wording, punctuation, or spelling. Dar Ceja APRN.CAMACHO documented in this encounter [facility] Progress note 06-24-2021 Note Date & Type Note Facility 06-24-2021 Note HNO ID: [id number] Author: Denis Mclean APRN.CNP Service: ? Author Type: Nurse Practitioner Type: Progress Notes Filed: 06/24/2021 7:42 PM Note Text: Patient triaged at [facility]. Here today with cough, fever, trouble breathing. Patient respirs near 40, audible crackles while breathing. I will refer to ER. Declines squad. to drive pov to [facility] ER. Passport sent. [facility] Evaluation note Note Date & Type Note Facility documented in this encounter [facility] Evaluation note Note Date & Type Note Facility documented in this encounter [facility] Summary Purpose Family History No Family [...] DATE CREATED AUTHOR AUTHOR'S ORGANIZ ATION 01/29/2021 [facility] DATE CREATED AUTHOR AUTHOR'S ORGANIZ ATION 05/03/2022 [facility] Source Comments (unrecognize d section and content) In the event this informatio n is protected by the Federal Confidentiality of Alcohol and Drug Abuse Patient Records regulations: The Federal rules restrict any use of the information to criminally investigate or prosecute any alcohol or drug abuse patient.[facility] ClinicIn the event this information is protected by the Federal Confidentiality of Alcohol and Drug Abuse Patient Records regulations: The Federal rules restrict any use of the information to criminally investigate or prosecute any alcohol or drug abuse patient.[facility] Reason for Visit (unrecogniz ed section [...] BE BASED ON THE PRIMARY CLINICAL RECORDS. [employer] [facility]. provides no warranty or guarantee of the accuracy or completeness of information in this document.
[2023-12-14 18:03] LABS: Anion Gap 6 (5-15); BUN 70 mg/dL (7-18); BUN/Creat Ratio 31.7 RATIO (10-20); Calcium,Total 10.3 mg/dL (8.5-10.1); Chloride 108 mmol/L (98-107); Creatinine, Serum 2.21 mg/dL (0.70-1.30); EST Glomerular Filtration Rate 31 mL/min (>60); Est Glom Filt Rate - Afr Amer 37 mL/min (>60); Glucose 108 mg/dL (74-106); Potassium 4.6 mmol/L (3.5-5.1); Sodium Level 140 mmol/L (136-145)
[2023-12-17 09:08] LABS: KEPPRA (LEVETIRACETAM) 29.2 ug/mL (10.0-40.0)
== END | disposition home or self-care (01) ==
LOC: MTLAB 16:01
PROVIDERS: Psychiatry & Neurology Neurology; PCP Family Medicine; Referring Provider Physician Assistant Medical; Visit Provider Physician Assistant Medical
DX: G40.909 Epilepsy, unspecified, not intractable, without status epilepticus (principal); I50.22 Chronic systolic (congestive) heart failure; E87.5 Hyperkalemia
CPT/HCPCS: 36415; 80048; 80177; 82140

== ENCOUNTER 2024-01-06 15:27 | Outpatient (CLI) | payer MEDICARE, SELFPAY ==
[2024-01-06 17:20] LABS: Anion Gap 2 (5-15); BUN 21 mg/dL (7-18); BUN/Creat Ratio 17.2 RATIO (10-20); Calcium,Total 9.4 mg/dL (8.5-10.1); Chloride 110 mmol/L (98-107); Creatinine, Serum 1.22 mg/dL (0.70-1.30); EST Glomerular Filtration Rate 61 mL/min (>60); Est Glom Filt Rate - Afr Amer 74 mL/min (>60); Glucose 110 mg/dL (74-106); Potassium 3.9 mmol/L (3.5-5.1); Sodium Level 141 mmol/L (136-145)
--- OUTSIDE RECORDS SUMMARY | 2024-01-06 19:07 | XMS RPT_ITS | CCD ---
Author Name Unknown Address [address] [place] [address] Organization [facility] Care Team Providers Care Housekeeper Home Name Role Phone Clair SIMS, Yee Huertas Unavailable [phone] Janessa Paulino Unavailable Unavailable Clair SIMS, Yee Huertas Unavailable Nimo Ferro Unavailable Unavailable Herson Terrell Unavailable Unavailable Nimo Frero Unavailable Unavailable No Family Physician given Unavailable JuleevaSANDEEP Matamoros Attending Unavailable SANDEEP NOBLE Primary Care Unavailable SANDEEP NOBLE Admitting Unavailable SANDEEP NOBLE Attending Unavailable SANDEEP NOBLE Primary Care Unavailable SANDEEP NOBLE Admitting Unavailable Giuseppe DOAnali Primary Care Provider Allergies Allergy Classification Reported Allergen(s) Allergy Type Date of Onset Reaction(s) Facility (3 sources) atorvastatin drug allergy 04-18-2011 Myalgias [facility] Work Phone: (3 sources) rosuvastatin drug allergy 04-18-2011 Myalgias [facility] Work Phone: Medications Current Medications [...] disease (12 sources) Atherosclerotic heart disease of [place] coronary artery without angina pectoris; Translations: [Coronary [...] (1 source) Long-term drug therapy; Translations: [Other custodial (current) drug therapy] Onset: 04-18-2011 04-18-2011 Unclassified (1 source) Unknown / UNK(Unknown) Onset: 07-23-2018 Past or Other Problems Problem Classification Problem Date Documented Da te Episodic/Chronic Coronary atherosclerosis and other heart disease (6 sources) Presence of aortocoronary bypass graft; Translations: [Presence of aortocoronary bypass graft] Onset: 04-18-2011 02-20-2017 Episodic Other aftercare (2 sources) Other custodial (current) drug therapy; Translations: [Other custodial (current) drug therapy] Onset: 04-18-2011 04-18-2011 Episodic Unclassified (3 sources) Edema of lower extremity; Translations: [Localized edema] Onset: 08-24-2017 08-24-2017 Episodic Unclassified (1 source) CVA Onset: 07-23-2018 Results Test Name Value Interpretation Reference Range Facil ity Vital Signs Date Time Vital Sign Value Performing Clinician Facility 05-02-2022 16:38-0400 Body temperature 97.81 [degF] Neema Huber APRN.RACKING MACHINE OPERATOR Work Phone: [facility] 05-02-2022 16:38-0400 Body weight 87.73 kg eNema Huber APRN.RACKING MACHINE OPERATOR Work Phone: [facility] 05-02-2022 16:38-0400 Diastolic blood pressure 78 mm[Hg] Neema Huber APRN.RACKING MACHINE OPERATOR Work Phone: [facility] 05-02-2022 16:38-0400 Heart rate 64 /min Neema Huber APRN.RACKING MACHINE OPERATOR Work Phone: [facility] 05-02-2022 16:38-0400 Respiratory rate 20 /min Neema Huber APRN.RACKING MACHINE OPERATOR Work Phone: [facility] 05-02-2022 16:38-0400 SaO2% (BldA) [Mass fraction] 99 % Neema Huber APRN.RACKING MACHINE OPERATOR Work Phone: [facility] 05-02-2022 16:38-0400 Systolic blood pressure 136 mm[Hg] Neema Huber APRN.RACKING MACHINE OPERATOR Work Phone: [facility] 02-20-2022 17:42-0400 Body temperature 98.4 [degF] [facility] [employer]OE[employer]ANT MECHANICAL ENGINEER.RACKING MACHINE OPERATOR Work Phone: [facility] 02-20-2022 17:42-0400 Body weight 92.63 [facility] HYDROE[employer]ANT MECHANICAL ENGINEER.RACKING MACHINE OPERATOR Work Phone: [facility] 02-20-2022 17:42-0400 Diastolic blood pressure 78 mm[Hg] [facility] HYDROE[employer] PLANT MECHANICAL ENGINEER.RACKING MACHINE OPERATOR Work Phone: [facility] 02-20-2022 17:42-0400 Heart rate 104 /min [facility] HYDROE[employer]ANT MECHANICAL ENGINEER.RACKING MACHINE OPERATOR Work Phone: [facility] 02-20-2022 17:42-0400 Respiratory rate 18 /min [facility] HY[employer]OE[employer] MECHANICAL ENGINEER.RACKING MACHINE OPERATOR Work Phone: [facility] 02-20-2022 17:42-0400 SaO2% (BldA) [Mass fraction] 96 % [facility] HYDROE[employer] PLANT MECHANICAL ENGINEER.RACKING MACHINE OPERATOR Work Phone: [facility] 02-20-2022 17:42-0400 Systolic blood pressure 126 mm[Hg] [facility] [employer] MECHANICAL ENGINEER.RACKING MACHINE OPERATOR Work Phone: [facility] 08-24-2017 13:11-0400 BMI (Body Mass Index) [...] End: 05-02-2022 Patient encounter procedure Neema Huber HY[employer] MECHANICAL ENGINEER.RACKING MACHINE OPERATOR Work Phone: [facility] Procedures Date Procedure Procedure Detail Performing Clinician Start: 10-23-2020 Colonoscopy Dar mohan [employer] MECHANICAL ENGINEER.RACKING MACHINE OPERATOR Work Phone: Start: 08-24-2017 End: 08-24-2017 JULIO [...] PA-C Work Phone: Start: 02-05-2016 End: 02-05-2016 PLASTER TENDER Yee Shea PA-C Work Phone: Start: 02-05-2016 [...] PA-C Work Phone: Start: 02-05-2016 End: 02-05-2016 PLASTER TENDER Yee Shea PA-C Work Phone: Start: 02-05-2016 [...] [AGGREGATE] Tanisha Gibson Start: 09-20-2013 End: 09-20-2013 PLASTER TENDER Yee Shea PA-C Work Phone: Start: 09-20-2013 End: 09-20-2013 Ecg routine ecg w/least 12 lds w/i&r Yee Shea PA-C Work Phone: Start: 09-20-2013 End: 09-20-2013 eRx Transmitted during this visit (Medicare only) Yee Shea PA-C Work Phone: Start: 09-20-2013 End: 09-20-2013 Follow Up Appt 6 months Yee fitzgerald PA-C Work Phone: Start: 09-20-2013 End: 09-20-2013 PLASTER TENDER Yee Shea PA-C Work Phone: Start: 09-20-2013 [...] 02-20-2023 BP CONTROLLED (<130/80) BP CONTROLLED (<130/80) [facility] Start: 11-30-2021 ADVANCE DIRECTIVE DISCUSSION ADVANCE DIRECTIVE DISCUSSION [facility] Start: 10-23-2021 Colonoscopy COLONOSCOPY [facility] Start: 10-23-2021 COLORECTAL CANCER SCREENING COLORECTAL CANCER SCREENING [facility] Start: 02-23-2018 End: 02-23-2018 Appointment Appointment [facility] Work Phone: Start: 08-24-2017 End: 08-24-2017 *Hepatic Function Panel *Hepatic Function Panel [facility] Work Phone: Start: 08-24-2017 End: 08-24-2017 PLASTER TENDER PLASTER TENDER [facility] Work Phone: Start: 08-24-2017 End: 08-24-2017 Follow Up Appt 6 months Follow Up Appt 6 months [facility] Work Phone: Start: 08-24-2017 End: 08-24-2017 Lipid panel [AGGREGATE] *Lipid Profile CC PCP [facility] Work Phone: Start: 08-24-2017 End: 08-24-2017 Venous doppler Venous doppler [facility] Work Phone: Start: 08-24-2017 End: 08-24-2017 Appointment Appointment [facility] Work Phone: Start: 08-24-2017 End: 08-24-2017 *Hepatic Function Panel *Hepatic Function Panel [facility] Work Phone: Start: 08-24-2017 End: 08-24-2017 [facility] Work Phone: Start: 08-24-2017 End: 08-24-2017 Follow Up Appt 6 months Follow Up Appt 6 months [facility] Work Phone: Start: 08-24-2017 End: 08-24-2017 Lipid panel [AGGREGATE] *Lipid Profile CC PCP [facility] Work Phone: Start: 08-24-2017 End: 08-24-2017 Venous doppler Venous doppler [facility] Work Phone: Start: 02-20-2017 End: 02-20-2017 Follow Up Appt 6 months Follow Up Appt 6 months [facility] Work Phone: Start: 02-20-2017 End: 02-20-2017 MMM MMM [facility] Work Phone: Start: 02-20-2017 End: [...] 6 months Follow Up Appt 6 months [facility] Work Phone: Start: 08-14-2016 End: 08-14-2016 MM MM [facility] Work Phone: Start: 05-08-2016 End: 02-06-2017 *Hepatic Function Panel *Hepatic Function Panel [facility] Work Phone: Start: 05-08-2016 End: 02-06-2017 Lipid panel [AGGREGATE] *Lipid Profile CC PCP [facility] Work Phone: Start: 05-08-2016 End: 02-06-2017 *Hepatic Function Panel *Hepatic Function Panel [facility] Work Phone: Start: 05-08-2016 End: 02-06-2017 Lipid panel [AGGREGATE] *Lipid Profile CC PCP [facility] Work Phone: Start: 02-05-2016 End: 02-06-2016 *Hepatic Function Panel *Hepatic Function Panel [facility] Work Phone: Start: 02-05-2016 End: 02-05-2016 PLASTER TENDER PLASTER TENDER [facility] Work Phone: Start: 02-05-2016 End: 02-05-2016 Ecg routine ecg w/least 12 lds w/i&r EKG (In office) [facility] Work Phone: Start: 02-05-2016 End: 02-05-2016 Follow Up Appt 6 months Follow Up Appt 6 months [facility] Work Phone: Start: 02-05-2016 End: 02-06-2017 Follow Up Appt Other Follow Up Appt Other [facility] Work Phone: Start: 02-05-2016 End: 02-06-2016 Lipid panel [AGGREGATE] *Lipid Profile CC PCP [facility] Work Phone: Start: 02-05-2016 End: 02-06-2016 *Hepatic Function Panel *Hepatic Function Panel [facility] Work Phone: Start: 02-05-2016 End: 02-05-2016 PLASTER TENDER PLASTER TENDER [facility] Work Phone: Start: 02-05-2016 End: 02-05-2016 Electrocardiogram, complete EKG (In office) [facility] Work Phone: Start: 02-05-2016 End: 02-05-2016 Follow Up Appt 6 months Follow Up Appt 6 months [facility] Work Phone: Start: 02-05-2016 End: 02-06-2017 Follow Up Appt Other Follow Up Appt Other [facility] Work Phone: Start: 02-05-2016 End: 02-06-2016 Lipid panel [AGGREGATE] *Lipid Profile CC PCP [facility] Work Phone: Start: 01-23-2016 End: 02-05-2016 *Hepatic Function Panel *Hepatic Function Panel [facility] Work Phone: Start: 01-23-2016 End: 02-05-2016 Lipid panel [AGGREGATE] *Lipid Profile CC PCP [facility] Work Phone: Start: 01-23-2016 End: [...] 6 months Follow Up Appt 6 months [facility] Work Phone: Start: 07-17-2015 End: 07-23-2015 Lipid panel [AGGREGATE] *Lipid Profile CC PCP [facility] Work Phone: Start: 07-17-2015 End: 07-17-2015 MMM MMM [facility] Work Phone: Start: 07-17-2015 End: 07-23-2015 *Hepatic Function Panel *Hepatic Function Panel [facility] Work Phone: Start: 07-17-2015 End: 07-17-2015 Follow Up Appt 6 months Follow Up Appt 6 months [facility] Work Phone: Start: 07-17-2015 End: 07-23-2015 Lipid panel [AGGREGATE] *Lipid Profile CC PCP [facility] Work Phone: Start: 07-17-2015 End: 07-17-2015 MMM MMM [facility] Work Phone: Start: 11-17-2014 End: 11-17-2014 PLASTER TENDER PLASTER TENDER [facility] Work Phone: Start: 11-17-2014 End: 11-17-2014 Ecg routine ecg w/least 12 lds w/i&r EKG (In office) [facility] Work Phone: Start: 11-17-2014 End: 11-17-2014 Follow Up Appt 6 months Follow Up Appt 6 months [facility] Work Phone: Start: 11-17-2014 End: 11-17-2014 PLASTER TENDER PLASTER TENDER [facility] Work Phone: Start: 11-17-2014 End: 11-17-2014 Electrocardiogram, complete EKG (In office) [facility] Work Phone: Start: 11-17-2014 End: 11-17-2014 Follow Up Appt 6 months Follow Up Appt 6 months [facility] Work Phone: Start: 03-28-2014 [...] Lipid panel [AGGREGATE] *Lipid Profile CC PCP [facility] Work Phone: Start: 03-28-2014 End: 03-28-2014 MMM MMM [facility] Work Phone: Start: 12-31-2013 End: 09-21-2014 *Hepatic Function Panel *Hepatic Function Panel [facility] Work Phone: Start: 12-31-2013 End: 09-21-2014 Lipid panel [AGGREGATE] *Lipid Profile CC PCP [facility] Work Phone: Start: 12-31-2013 End: 09-21-2014 *Hepatic Function Panel *Hepatic Function Panel [facility] Work Phone: Start: 12-31-2013 End: 09-21-2014 Lipid panel [AGGREGATE] *Lipid Profile CC PCP [facility] Work Phone: Start: 09-20-2013 End: 09-20-2013 PLASTER TENDER PLASTER TENDER [facility] Work Phone: Start: 09-20-2013 End: 09-20-2013 Ecg routine ecg w/least 12 lds w/i&r EKG (In office) [facility] Work Phone: Start: 09-20-2013 End: 09-20-2013 Follow Up Appt 6 months Follow Up Appt 6 months [facility] Work Phone: Start: 09-20-2013 End: 09-20-2013 PLASTER TENDER PLASTER TENDER [facility] Work Phone: Start: 09-20-2013 End: 09-20-2013 Electrocardiogram, complete EKG (In office) [facility] Work Phone: Start: 09-20-2013 End: [...] End: 07-11-2013 Lipid panel [AGGREGATE] *Lipid Profile [facility] Work Phone: Start: 03-17-2013 End: 03-17-2013 MMM MMM [facility] Work Phone: Start: 03-17-2013 End: 07-11-2013 *Hepatic Function Panel *Hepatic Function Panel [facility] Work Phone: Start: 03-17-2013 End: 03-17-2013 Follow Up Appt 6 months Follow Up Appt 6 months [facility] Work Phone: Start: 03-17-2013 End: 07-11-2013 Lipid panel [AGGREGATE] *Lipid Profile [facility] Work Phone: Start: 03-17-2013 End: 03-17-2013 MMM MMM [facility] Work Phone: Start: 04-30-2012 End: [...] Follow Up Appt 6 months [facility] [employer] Work Phone: Start: 02-24-2012 End: 02-24-2012 Follow Up Appt 6 months Follow Up Appt 6 months [facility] Work Phone: Start: 2011 PNEUMOCOCCAL: 65+ (1 - PCV) PNEUMOCOCCAL: 65+ (1 - PCV) [facility] Start: 2011 PNEUMOVAX AGE 65 AND OVER WITH 5YR LOOKBACK (#1) PNEUMOVAX AGE 65 AND OVER WITH 5YR LOOKBACK (#1) [facility] Start: 02-16-2003 DIABETES SCREEN DIABETES SCREEN [facility] Start: 1996 SHINGRIX VACCINE (1 of 2) SHINGRIX VACCINE (1 of 2) [facility] Start: 1991 COLOGUARD (FIT-DNA) COLOGUARD (FIT-DNA) [facility] Start: [address] COLONOGRAPHY [facility] Start: 1991 FECAL OCCULT BLOOD FECAL OCCULT BLOOD [facility] Start: 1991 SIGMOIDOSCOPY SIGMOIDOSCOPY [facility] Start: 1981 LIPID SCREEN LIPID SCREEN [facility] Start: 1965 Urine microalbumin profile DTAP,TDAP,TD (1 - Tdap) [facility] Start: 1964 ANNUAL PCP TEAM CHRONIC DISEASE VISIT ANNUAL PCP TEAM CHRONIC DISEASE VISIT [facility] Start: 1964 BP CONTROLLED (<130/80) BP CONTROLLED (<130/80) [facility] in Start: 1964 HEPATITIS C SCREENING HEPATITIS C SCREENING [facility] Start: 1958 Adult depression screening assessment DEPRESSION SCREENING [facility] Patient Education [facility] [employer] Work Phone: Payers Date Payer Category Payer Unknown [employer] [id number] 2018-Present [phone] [address] [place] [address] [facility] [id number] 2017 Medicare [id number] 1945 Unknown [id number] 1945 Unknown [id number] Medicare [id number] Medicare [id number] Social History Date Type Detail Facility Start: 11-26-2017 Tobacco smoking stat [facility] Never smoked tobacco [facility] Start: 11-26-2017 Tobacco use and exposure Smoke less tobacco non-user [facility] Start: 02-20-2022 End: 05-02-2022 Alcohol intake Current drinker of alcohol (finding) [facility] Start: 02-20-2022 History SDOH Alcohol Frequency 1 [facility] Start: 1945 Sex Assigned At Not on file [facility] Start: 02-10-2022 End: 05-02-2022 Exposure to SARS-CoV-2 (event) Not sure [facility] Progress note 05-02-2022 Note Date & Type Note Facility 05-02-2022 Note HNO ID: [id number] Author: Neema Huber APRN.RACKING MACHINE OPERATOR Service: ? Author Type: Nurse Practitioner Type: [...] history is provided by the patient. No interpreter deaf was used. Musculoskeletal Problem Associated symptoms include [...] with this care plan. Neema Huber APRN.CAMACHO [facility] History of Present illness [...] history is provided by the patient. No interpreter deaf was used. Musculoskeletal Problem Associated symptoms include [...] Neema Huber APRN.CAMACHO documented in this encounter [facility] Instructions 05-02-2022 Patient Instructions Note Date [...] child is acting very sick. Call Your Apge Physician Within 24 hours If: Your child has a fever (over 100 degrees F, or 37.8 degrees C). Your child is taking a medicine. The rash has been present more than 48 hours. documented in this encounter [facility] Progress note 02-20-2022 Note Date & Type Note Facility 02-20-2022 Note HNO ID: [id number] Author: Dar Ceja APRN.CAMACHO Service: ? Author [...] ASSESSMENT/PLAN: 1. Cellul (more content not included)... [facility] History of Present illness Narrative 02-20-2022 Dar Ceja APRN.[facility] - 02/20/2022 5:43 PM EDT Note Date [...] of care. This note was generated using [employer] software. It may contain errors in wording, punctuation, or spelling. Dar Ceja APRN.CAMACHO documented in this encounter [facility] Progress note 06-24-2021 Note Date & Type Note Facility 06-24-2021 Note HNO ID: [id number] Author: Denis Mclean APRN.CNP Service: ? Author Type: Nurse Practitioner Type: Progress Notes Filed: 06/24/2021 7:42 PM Note Text: Patient triaged at [facility]. Here today with cough, fever, trouble breathing. Patient respirs near 40, audible crackles while breathing. I will refer to ER. Declines squad. to drive pov to [facility] ER. Passport sent. [facility] Evaluation note Note Date & Type Note Facility documented in this encounter [facility] Evaluation note Note Date & Type Note Facility documented in this encounter [facility] Summary Purpose Family History No Family [...] DATE CREATED AUTHOR AUTHOR'S ORGANIZ ATION 01/29/2021 [facility] DATE CREATED AUTHOR AUTHOR'S ORGANIZ ATION 05/03/2022 [facility] Source Comments (unrecognize d [...] or prosecute any alcohol or drug abuse patient.[facility] Reason for Visit (unrecogniz ed section [...] BE BASED ON THE PRIMARY CLINICAL RECORDS. [facility]. provides no warranty or guarantee of the accuracy or completeness of information in this document.
== END 2024-01-06 23:59 | disposition home or self-care (01) ==
LOC: LAB 15:28
PROVIDERS: PCP Family Medicine; Visit Provider Physician Assistant Medical
DX: I50.22 Chronic systolic (congestive) heart failure (principal)
CPT/HCPCS: 36415; 80048

== ENCOUNTER → 2024-07-01 | Outpatient (CLI) | payer MEDICARE, SELFPAY ==
[2024-07-01 16:57] LABS: Anion Gap 5 (5-15); BUN 22 mg/dL (7-18); BUN/Creat Ratio 17.7 RATIO (10-20); Calcium,Total 9.8 mg/dL (8.5-10.1); Chloride 107 mmol/L (98-107); Creatinine, Serum 1.24 mg/dL (0.70-1.30); EST Glomerular Filtration Rate 60 mL/min (>60); Est Glom Filt Rate - Afr Amer 73 mL/min (>60); Glucose 125 mg/dL (74-106); Potassium 4.1 mmol/L (3.5-5.1); Sodium Level 140 mmol/L (136-145)
== END | disposition home or self-care (01) ==
LOC: LAB 15:05
PROVIDERS: PCP Family Medicine; Referring Provider Nurse Practitioner Family; Visit Provider Nurse Practitioner Family
DX: I48.11 Longstanding persistent atrial fibrillation (principal); I50.22 Chronic systolic (congestive) heart failure; I25.10 Atherosclerotic heart disease of native coronary artery without angina pectoris
CPT/HCPCS: 36415; 80048

== ENCOUNTER → 2024-09-23 | Outpatient (CLI) | payer MEDICARE, SELFPAY ==
--- OUTSIDE RECORDS SUMMARY | 2024-09-23 10:53 | XMS RPT_ITS | CCD ---
Author Organization [facility] Inform ion Partnership [facility] Care Team Providers Care Roll Reclaimer Name Role Phone Clair SIMS, Yee Huertas Unavailable Janessa Paulino Unavailable Unavailable Clair SIMS, Yee Huertas Unavailable [phone] Nimo Ferro Unavailable Unavailable Herson Terrell Unavailable Unavailable Nimo Ferro Unavailable Unavailable No Family Physician given Unavailable SANDEEP Langford Attending Unavailable SANDEEP NOBLE Primary Care Unavailable SANDEEP NOBLE Admitting Unavailable SANDEEP NOBLE Attending Unavailable SANDEEP NOBLE Primary Care Unavailable SANDEEP NOBLE Admitting Unavailable Fast DO, Anali A Primary Care Provider [phone] Allergies Allergy Classification Reported Allergen(s) Allergy Type Date of Onset Reaction(s) Facility (3 sources) atorvastatin drug allergy 04-18-2011 Myalg[facility] Work Phone: (3 sources) rosuvastatin drug allergy 04-18-2011 Myalg[facility] Work Phone: Medications Current Medications Medication Drug Class(es) Dates Sig (Normalized) Sig (Original) doxycycline hyclate 100 mg oral tablet (1 source) Tetracycline-clas s Drug Start: 02-20-2022 End: 02-27-2022 take 1 tablet by mouth twice daily doxycycline (VIBRA-TABS) 100 mg tablet Take 1 tablet by mouth twice daily for 7 days. 14 tablet 0 02/20/2022 02/27/2022 Active Comment on above: Take 1 tablet by marlo twice daily for 7 days. predniSONE 20 mg oral tablet (1 source) Start: 05-02-2022 End: 05-07-2022 take 1 tablet by mouth once daily predniSONE (DELTASONE) 20 mg tablet Take 1 tablet by mouth once daily for 5 days. 5 tablet 0 05/02/2022 05/07/2022 Active Comment on above: Take 1 tablet by marlo th once daily for 5 days. Completed/Discontinued Medications Medication Drug Class(es) Dates Sig (Normalized) Sig (Original) albuterol 5 mg/ml inhalation solution (4 sources) beta2-Adrenergic Agonist Start: 11-26-2017 albuterol (PROVENTIL) 5 mg/mL nebu Inhale 0.5 mL as instructed one time only for 1 dose. 1 DOSE NOW - BACK OFFICE. PLACE 0.5 ML PER DROPPER AND 2.5 ML OF NORMAL SALINE INTO RESERVOIR. 0.5 mL 0 11/26/2017 Active Start: 11-26-2017 albuterol (PRO VENTIL) 2.5 mg /3 mL (0.083 %) nebulizer solution Indications: Bronchitis, not specified as acute or chronic Use 3 mL via nebulizer every 4 hours as needed for Wheezing/Shortness of Breath. Use over 5-15minutes. 1 Package 0 11/26/2017 Active Comment on above: Inhale 0.5 mL as ins tructed one time only for 1 dose. 1 DOSE NOW - BACK OFFICE. PLACE 0.5 ML PER DROPPER AND 2.5 ML OF NORMAL SALINE INTO RESERVOIR. Use 3 mL via nebuliz er every 4 hours as needed for Wheezing/Shortness of Breath. Use over 5-15minutes. amLODIPine 10 mg / benazepril hydrochloride 20 mg oral capsule (9 sources) Dihydropyridine Calcium Channel Obdulio, Angiotensin Converting Enzyme Inhibitor Start: 02-24-20 take 1 tablet by mouth once daily LOTREL 10-20 MG CAPS One tablet by mouth daily AMLODIPINE BESY-BENAZEPRIL HCL [id number] Irving Adamson NP Start: 02-24-2012 take 1 tablet by marlo th once daily LOTREL 10-20 MG CAPS One tablet by mouth daily AMLODIPINE BESY-BENAZEPRIL HCL [id number] Yee Shea PA-C Start: 04-18-2011 take 1 tablet by marlo th once daily LOTREL 10-20 MG CAPS One tablet by mouth daily AMLODIPINE BESY-BENAZEPRIL HCL [id number] Yee Shea PA-C Start: 04-18-2011 take 1 tablet by marlo th once daily LOTREL 10-20 MG CAPS One tablet by mouth daily AMLODIPINE BESY-BENAZEPRIL HCL [id number] Cristy Schneider apixaban 5 mg oral tablet (2 sources) Factor Xa Inhibitor Start: 03-31-2019 take 1 tablet by mouth twice daily ELIQUIS 5 mg tab(s) Take 1 tablet by mouth twice daily. 0 03/31/2019 Active Comment on above: Take 1 tablet by mouth twice daily. aspirin 81 mg oral tablet (6 sources) Nonsteroidal Anti-inflammatory Drug Start: 04-18-2011 take 1 tablet by mouth once daily ASPIRIN 81 MG TABS One tablet by mouth daily ASPIRIN [id number] Cristy Schneider Start: 04-18-2011 take 1 tablet by marlo th once daily ASPIRIN 81 MG TABS One tablet by mouth daily ASPIRIN [id number] Cristy Schneider Start: 04-18-2011 take 1 tablet by marlo th once daily ASPIRIN EC 81 MG TBEC One tablet by mouth daily ASPIRIN [id number] Lillian Durand, LEVI atenolol 50 mg oral tablet (9 sources) beta-Adrenergic Obdulio Start: 04-18-2011 take 1-0.5 tablets by mouth twice daily ATENOLOL 50 MG TABS 1-1/2 tablets by mouth twice daily ATENOLOL [id number] Cristy Vasquezward benzonatate 100 mg oral capsule (2 sources) Non-narcotic Antitussive Start: 11-26-2017 take 1 capsule by mouth three times daily as needed benzonatate (TESSALON PERLE) 100 mg capsule Indications: Bronchitis, not specified as acute or chronic Take 1-2 capsules by mouth three times daily as needed. 30 capsule 0 11/26/2017 Active Comment on above: Take 1-2 capsules by mouth three times daily as needed. carvedilol 25 mg oral tablet (2 sources) alpha-Adrenergic Obdulio, beta-Adrenergic Obdulio Start: 02-23-2019 take 1 tablet by mouth once daily carvedilol (COREG) 25 mg tablet Take 1 tablet by mouth once daily. 0 02/23/2019 Active Comment on above: Take 1 tablet by marlo th once daily. cephalexin 500 mg oral capsule (3 sources) Cephalosporin Antibacterial Start: 02-20-2022 End: 02-20-2022 take 1 capsule by mouth three times daily cephALEXin (KEFLEX) 500 mg capsule Take 1 capsule by mouth three times daily for 5 days. 15 capsule 0 02/20/2022 02/20/2022 Discontinued Start: 2017 take 1 tablet by marlo th twice daily KEFLEX 500 MG CAPS One tablet by mouth twice daily for 10 days CEPHALEXIN [id number] Yee Shea PA-C Start: 2017 take 1 tablet by marlo th twice daily KEFLEX 500 MG CAPS One tablet by mouth twice daily for 10 days CEPHALEXIN [id number] Yee Shea PA-C Comment on above: Take 1 capsule by mo [facility] three times daily for 5 days. ezetimibe 10 mg / simvastatin 80 mg oral tablet (9 sources) HMG-CoA Reductase Inhibitor, Dietary Cholesterol Absorption Inhibitor Start: 2 take 1 tablet by mouth once daily VYTORIN 10-80 MG TABS One tablet by mouth daily EZETIMIBE-SIMVASTATI N [id number] Ángel Sweeney MD Start: 02-24-2012 End: 04-30-2012 take 1 tablet by mouth once daily VYTORIN 10-80 MG TABS One tablet by mout h daily EZETIMIBE-SIMVASTATIN [id number] Soraida Kramer RN Start: 04-18-2011 End: 04-30-2012 take 1 tablet by mouth once daily VYTORIN 10-80 MG TABS One tablet by mout h daily EZETIMIBE-SIMVASTATIN [id number] Ángel Sweeney MD Start: 04-18-2011 take 1 tablet by marlo th once daily VYTORIN 10-80 MG TABS One tablet by mout h daily EZETIMIBE-SIMVASTATIN [id number] Cristy Schneider furosemide 40 mg oral tablet (2 sources) Loop Diuretic Start: 03-14-2019 take 2 tablets by mouth three times daily furosemide (LASIX) 40 mg tablet Take 80 mg by mouth three times daily. 0 03/14/2019 Active Start: 03-14-2019 take 1 tablet by marlo th three times daily furosemide (LASIX) 40 mg tablet Take 1 tablet by mouth three times daily. 0 03/14/2019 Active Comment on above: Take 1 tablet by marlo th three times daily. Take 80 mg by mouth three times daily. 12 hr guaiFENesin 600 mg extended release oral tablet (2 sources) Start: 7 take 2 tablets by mouth twice daily guaiFENesin (MUCINEX) 600 mg 12 hr tablet Indications: Bronchitis, not specified as acute or chronic Take 2 tablets by mouth twice daily. 30 tablet 0 11/26/2017 Active Comment on above: Take 2 tablets by mo [facility] twice daily. losartan potassium 100 mg oral tablet (11 sources) Angiotensin 2 Receptor Obdulio Start: 9 take 1 tablet by mouth once daily losartan (COZAAR) 100 mg tablet Take 1 tablet by mouth once daily. 0 02/04/2019 Active Start: 04-12-2013 take 1 tablet by marlo once daily LOSARTAN POTASSIUM 100 MG TABS One tablet by mouth daily LOSARTAN POTASSIUM [id number] Ángel Sweeney MD Comment on above: Take 1 tablet by marlo once daily. metFORMIN hydrochloride 500 mg oral tablet (2 sources) Biguanide Start: 0 metFORMIN (GLUCOPHAGE) 500 mg tablet Take by mouth. 0 12/16/2019 Active Comment on above: Take by mouth. Nebulizer (2 sources) Start: 7 Nebulizer Indications: Bronchitis, not specified as acute or chronic NEBULIZER FOR HOME USE. DX: 1 Kit 0 11/26/2017 Active Comment on above: NEBULIZER FOR HOME U SE. DX: omeprazole 20 mg delayed release oral capsule (2 sources) Proton Pump Inhibitor Start: 2 take 1 capsule by mouth once daily omeprazole (PRILOSEC) 20 mg capsule Take 20 mg by mouth once daily. 0 12/23/2021 Active Comment on above: Take 20 mg by mouth once daily. potassium chloride 20 meq extended release oral tablet (2 sources) Start: 9 take 1 tablet by mouth twice daily potassium chloride 20 mEq TbER Take 1 tablet by mouth twice daily. 0 04/01/2019 Active Comment on above: Take 1 tablet by marlo th twice daily. pravastatin sodium 80 mg oral tablet (8 sources) HMG-CoA Reductase Inhibitor Start: 9 take 1 tablet by mouth once daily pravastatin (PRAVACHOL) 80 mg tablet Take 1 tablet by mouth once daily. 0 03/14/2019 Active Start: 04-30-2012 take 1 tablet by marlo th at bedtime PRAVASTATIN SODIUM 80 MG TABS One tablet by mouth at bedtime. PRAVASTATIN SODIUM [id number] Hao Felix MD Comment on above: Take 1 tablet by marlo th once daily. valsartan 160 mg oral tablet (6 sources) Angiotensin 2 Receptor Obdulio Start: 04-18-2011 take 1 tablet by mouth once daily DIOVAN 160 MG TABS One tablet by mouth daily VALSARTAN [id number] Ángel Sweeney MD Problems Active Problems Problem Classification Problem Date Documented Date Episodic/Chronic Acute cerebrovascular disease (2 sources) Cerebrovascular accident; Translations: [Cerebral infarction, unspecified] 04-03-2019 Chronic Allergic reactions (1 source) Urticaria; Translations: [Urticaria, unspecified] Episodic Cardiac dysrhythmias (2 sources) Atrial fibrillation; Translations: [Unspecified atrial fibrillation] 04-03-2019 Chronic Coronary atherosclerosis and other heart disease (12 sources) Atherosclerotic heart disease of [place] coronary artery without angina pectoris; Translations: [Coronary [...] (1 source) Long-term drug therapy; Translations: [Other superintendent container terminal (current) drug therapy] Onset: 04-18-2011 04-18-2011 Unclassified (1 source) Unknown / UNK(Unknown) Onset: 07-23-2018 Past or Other Problems Problem Classification Problem Date Documented Da te Episodic/Chronic Coronary atherosclerosis and other heart disease (6 sources) Presence of aortocoronary bypass graft; Translations: [Presence of aortocoronary bypass graft] Onset: 04-18-2011 02-20-2017 Episodic Other aftercare (2 sources) Other assisted (current) drug therapy; Translations: [Other superintendent container terminal (current) drug therapy] Onset: 04-18-2011 04-18-2011 Episodic Unclassified (3 sources) Edema of lower extremity; Translations: [Localized edema] Onset: 08-24-2017 08-24-2017 Episodic Unclassified (1 source) CVA Onset: 07-23-2018 Results Test Name Value Interpretation Reference Range Facility [facility] 05-02-2022 CNOV Office Visit (UCWSTR ) HOLLIE ODEN ([id number]) 1945 M Date Time Provider Department 05/02/22 4:30 PM NEEMA WILSON [facility] During your visit today, we recorded the following information about you: Temperature Pulse Respiration Blood pressure 97.8 degrees 64/minute 20/minute 136/78 Weight 87.7 kg Neema Wilson APRN.CAMACHO 05/02/2022 5:01 PM Signed Diagnosis: Assessment WIDESPREAD RASH WITHOUT ITCHING UNKNOWN [...] has been present more than 48 hours. Neema Wilson APRN.CADDY MASTER 05/02/2022 5:23 PM Signed Subjective Patient came in with complaints of itching rash on arms torso and legs. Patient was recently on 2 rounds of antibiotics for a leg wound he is currently under treatment for with him PCP. Patient said the itching started shortly after the antibiotics were started. Denies any other symptoms at this time. The history is provided by the patient. No russian language professor was used. Musculoskeletal Problem Associated symptoms include [...] was okay with this care plan. Neema Wilson APRN.CADDY MASTER Referring Provider: SELF [200] Allergies As of Date: 05/02/2022 (Not on File) Date Reviewed: 05/02/2022 Reviewed by: Shana Marin LPN - Fully Assessed Reason for Visit: Musculoskeletal Problem [69] Cmt: (RT) lower leg pain rated 6, warmth, swelling rash on chest, back, stomach, legs Follow Up [171] Cmt: recent ATB Rx swelling Primary Visit Diagnosis:Hives [L50.9] Order(s):predniSONE (DELTASONE) 20 mg tabletTake 1 tablet by mouth once daily for 5 days.Disp: 5 tabletRfl: 0 Prescriptions as of 05/02/2022 - predniSONE (DELTASONE) 20 mg tablet (more content not included)... [facility] CNOVon 02-20-2022 CNOV Office Visit (UCWSTR ) HOLLIE ODEN ([id number]) 1945 M Date Time Provider Department 02/20/22 5:30 PM CHERYL CEJA [facility] During your visit today, we recorded the following information about you: Temperature Pulse Respiration Blood pressure 98.4 degrees 104/minute 18/minute 126/78 Weight 92.6 kg Cheryl Ceja APRN.CADDY MASTER 02/20/2022 6:11 PM Signed Subjective HPI Nontoxic-appearing male presents urgent care [...] leg. Pitting edema noted. No breaks in s (more content not included)... [facility] CNOVon 06-24-2021 CNOV Office Visit (UCWSTR ) HOLLIE ODEN ([id number]) 1945 M Date Time Provider Department 06/24/21 7:30 PM AICHA MCLEAN [facility] During your visit today, we recorded the following information about you: Aicha Mclean APRN.CNP 06/24/2021 7:42 PM Signed Patient triaged at [facility]. Here today with cough, fever, trouble breathing. Patient respirs near 40, audible crackles while breathing. I will refer to ER. Declines squad. to drive pov to [facility] ER. Passport sent. Referring Provider: SELF [200] Allergies As of Date: 06/24/2021 (No Known Allergies) Date Reviewed: 06/24/2021 Reviewed by: Estrellita Baez MA - Fully Assessed Reason for Visit: Primary Visit Diagnosis:Trouble breathing [R06.89] Prescriptions as of 06/24/2021 - ELIQUIS 5 mg tab(s) Take 1 tablet by mouth twice daily. - furosemide (LASIX) 40 mg tablet Take 1 tablet by mouth three times daily. - potassium chloride 20 mEq TbER Take 1 tablet by mouth twice daily. - pravastatin (PRAVACHOL) 80 mg tablet Take 1 tablet by mouth once daily. - carvedilol (COREG) 25 mg tablet Take 1 tablet by mouth once daily. - losartan (COZAAR) 100 mg tablet Take 1 tablet by mouth once daily. - albuterol (PROVENTIL) 5 mg/mL nebu Inhale 0.5 mL as instructed one time only for 1 dose. 1 DOSE NOW - BACK OFFICE. PLACE 0.5 ML PER DROPPER AND 2.5 ML OF NORMAL SALINE INTO RESERVOIR. - Nebulizer NEBULIZER FOR HOME USE. DX: - albuterol (PROVENTIL) 2.5 mg /3 mL (0.083 %) nebulizer solution Use 3 mL via nebulizer every 4 hours as needed for Wheezing/Shortness of Breath. Use over 5-15minutes. - guaiFENesin (MUCINEX) 600 mg 12 hr tablet Take 2 tablets by mouth twice daily. - benzonatate (TESSALON PERLE) 100 mg capsule Take 1-2 capsules by mouth three times daily as needed. Problem List As Of Date 06/24/2021 Noted Resolved Stroke (HCC) [I63.9] High cholesterol [E78.00] HTN (hypertension) [I10] History of open heart surgery [Z98.890] A-fib (HCC) [I48.91] Encounter Status:Closed by AICHA MCLEAN on 06/24/21 [facility] OTAShawn 07-23-2018 OT Assessment Report [facility] ANDREAS Occupational Therapy On the Road Driving AssessmentTherapy Diagnosis:Rank Code Description Date of Onset1 I63.9 Cerebral infarction, unspecified 07/28/2018Initial Evaluation Date: 07/23/18Evaluators: Claribel Scott, OT/L, CDRS, CDI/PDType of Vehicle: 2011 Renzo Kowalski.Assistive Equipment: noneRoute: Wet Sander Eval Route. Patient drove a total of 10.7 miles [address] on [address]of [address]ways including interstate highway.Road Conditions: clearWeather Conditions: sunnyMedical Diagnosis: CVADemographics:Age: 72YGender: MaleOBJECTIVE / OCCUPATIONAL PERFORMANCEStationary Assessment - Driving RangeRatingsSkillsTransfer In and Out AverageLoad Mobility Device Not testedFasten Seatbelt AverageSecondary Controls AveragePrimary Controls AverageAccel/Decelerate AverageBraking AverageBacking up AverageSerpentine Curves AverageFigure 8 Not testedManeuverability Not testedno problems orienting to tank truck driver evaluation vehicleLight (25mph) - Moderate Traffic(35mph)RatingsSkillsS traight Aways AverageRight Turns AverageLeft Turns AverageUses Turn Signals AverageStopsigns/Right away Average *[facility] PATIENT NAME: RANI ODEN[address] MEDICAL REC #: [id number], [place] [address] DATE:SERVICE DATE: 07/23/18Occupational Therapy Assessment ATTENDING PHY: Nimo Ferro CNPSpeed Control Average3 Point Turn/Backing AverageSigns/Markings AverageCurves/[place] AverageUn/ProtectedTraffic Lights LTurn AverageOn Red LightsTraffic Lights RTurn AverageFollowing Distance AverageYielding R Away AverageVisualScan/Mirrors AverageDriving/ParkingShoppi ng Parking Lot AveragePulling into Traffic Averageno problems observed during light traffic driving despite him not being familiarwith the areaHeavy Traffic (40 - 45 mph Multi-lanes)RatingsSkillsSpe ed Control AverageLane Usage AverageChanging Lanes AverageChecking Blind Spots AverageSpace Cushion AverageL TurnsAbove Challenge Aver[place]o issues observed with increased traffic or speedsHighway (55 mph)RatingsSkillsMerging Acceleration AverageFollowing Distance AverageSpeed Control AverageLane Use/Change AverageBlind Spots AverageSignaling AverageBlending/Yeilding AverageExit/Deceleration A[place]o problems with highway driving while he appeared to be comfortable driving onsameGeneral AnalysisRatingsSkills [facility] PATIENT NAME: KATE ODEN [address] [facility] [address] MEDICAL REC #: [id number], [place] [address] DATE:SERVICE DATE: 07/23/18Occupational Therapy Assessment ATTENDING PHY: Nimo Ferro CNPFollow Directions AverageAtten/Concentration AverageAnticipation AverageRoad Courtesy AverageSafety Awareness AverageJudgment AverageConfidence Averagehe was able to follow verbal directions throughout the drive while alsodemonstrating use of defensive driving skillsPerception of Driving Performance: he indicated that he felt comfortable drivingagainPsychosocial: Within normal limitsInterventions:Wet Sander Training: refer to details in this reportEducation:The patient's preferred learning method is: ExplanationBarriers to Learning: Hearing deficitsLearning Needs: Safety.Functional activities/mobility.Educatio n Provided: Safety issues and interventions. Safety. Driving. Homeexercise/activity plan.Audience: Patient and significant other., daughterMode: Explanation. Printed material provided.Response: Applied knowledge. Verbalized understanding. Demonstrated skill.ASSESSMENTSupport Structure: Support structure is good. Family member willing to assistpatient.Response to Evaluation: The session was tolerated well, as evidenced by: nocomplaints or concerns indicatedPLANNecessity: Patient does not require outpatient therapy in order to return topremorbid environment (or reside in new living environment). Patient does notrequire outpatient therapy in order to reduce Activities of Daily Living orInstrumental Activities of Daily Living assistance to a premorbid level.Recommended Consults: Opthamology.The patient has been instructed to contact the clinic if any questions orproblems should arise. [facility] PATIENT NAME: RYLAND [id number] MEDICAL REC #: [id number], [place] [address] DATE:SERVICE DATE: 07/23/18Occupational Therapy Assessment ATTENDING PHY: Nimo Ferro CNPVisit Number: Today's visit is number 1Services:Total Billed: 60 minutes (Timed: 60, Untimed: 0)60.00 Timed: [25888] Wet Sander Training EA 15 min.0.00 Untimed: [78570] OT-EVALUATION MOD COMPLEXSigned by: CLARIBEL SCOTT, OT/L, CDRS, CDI/PD 07/28/2018 20:54:34 [facility] PATIENT NAME: RYLAND [id number] MEDICAL REC #: [id number], [place] [address] DATE:SERVICE DATE: 07/23/18Occupational Therapy Assessment ATTENDING PHY: Nimo Ferro CADDY MASTER [facility] OT Assessment Report [facility] OTAR Occupational TherapyPerformance Skills EvaluationTherapy Diagnosis:Rank Code Description Date of Onset1 I63.9 Cerebral infarction, unspecified 07/28/2018Initial Evaluation Date: 07/23/18Referring Clinician: Attila Ferro Diagnosis: CVADate of Onset: 01/17Past Medical History: CABG 2000, HTN, elevated cholesterol, bleeding ulcersCurrent Medications: Eliquis, Potassium, Metoprolol, Pravastatin, Lasix, EcotrinDemographics:Age: 72YGender: MalePrimary Language: EnglishPreferred Language: EnglishOCCUPATIONAL PROFILE AND HISTORYBasic ADLs: he completes all self care on his ownInstrumental ADLs: he lives with his and adult daughter who is a nurse; heassists with some cleaning while his daughter does much of the cooking, wifedoes bills, others do the outside work, with patient doing own medicationsWork/Leisure/Educ ation: he completed 12 years of formal school and retired fromworking less than 2 years ago; enjoys traveling with and daughter while noother leisure discussedDriving History:Driving for: 55 years.Time Since Last Driven: 01/17Driver's License Expiration Date: 08/25/21ate of: [place]; corrective lenses required for drivingType of Vehicle: Bassam Platt (daughter's vehicle while his currentlynot running)Type of Insurance: GrangeType of Driving Anticipated: LocalWakeMed Cary HospitaltwayReason for Driving is: IndependenceSocial/LeisureHo ga managementHistory of Accidents: Patient does not have a history of accidents.Traffic Violations: Patient does not have any traffic violations.Patient Report: He indicated that he often will drive both his daughter and hiswife to their jobs so that he keeps vehicle at home which he expects he mightreturn to doing currently. [facility] PATIENT NAME: RANI ODEN[address] MEDICAL REC #: [id number], [place] [address] DATE:SERVICE DATE: 07/23/18Occupational Therapy Assessment ATTENDING PHY: Nimo Ferro CNPPatient/Caregiver Goals: Patient's functional goals: to be able to return todrivingPain: Patient currently without complaints of pain.Social History: Marital Status: marriedChildren: 1 daughterReside: lives with patientEmployment Status: retired less than 2 years agoRecreational Activities/Hobbies: travelingSelf-reported Quality of Life: At present time, patient reports having anexcellent quality of life/health status.OBJECTIVE / OCCUPATIONAL PERFORMANCEGeneral Observation: Juan Jose was pleasant and cooperative throughout session whilewife and daughter also present. This therapist observed Juan Jose to be ratherdependent on his and daughter with regards to relying on them to do varioustasks around the house.Visual/Perceptual Screening:Correctve Lenses: Patient wears corrective lenses.Date of Last Eye Exam: 6 years with glasses that same age; did discuss need forhim to go to eye doctor in near future which he and family indicated planning todoReading Skills: Grade school level.Stereo - Optical Test:Far Acuity: 20/ 20-1Glare far acuity R-20/30, L-20/40-1; functional for B contrast sensitivity,color and stereo depth perception, B peripheral/nasal visual fieldsOculomotor Skills:LEFT EYE RANGE OF MOTION: Left eye has full range of motionRIGHT EYE RANGE OF MOTION: Right eye has full range of motionBOTH EYE RANGE OF MOTION: Both eyes have full range of motionDIPLOPIA ON GAZE TO: SuperiorCONVERGENCE: Reduced as follows: decreased movement for L eye .LEFT FIELD SACCADES: SearchingRIGHT FIELD SACCADES: Direct FixationPURSUITS: Sustained FixationVISUAL SCANNING: Double eye movements for saccades to the left .Motor Free Visual Perception Test:Raw Score: 30 /36.Processing Time: 5.6 seconds.Norms: 70 - 80, 4.5 - 7.1 sec.COGNITION ScreeningOrientation: No impairment detected (5/5 correct orientation reponses).Attention: he attempted Trailmaking B for alternating visual attention howeverunable to complete the same within 3 minutes while multiple errors and v/c'sneeded for completion; instead he completed Trailmaking A in 89 sec with 1 error M [facility] PATIENT NAME: RANI ODEN320 Mima Adan MEDICAL REC #: [id number], [place] [address] DATE:SERVICE DATE: 07/23/18Occupational Therapy Assessment ATTENDING PHY: Nimo Ferro CNPwhile average performance on the same is 45 sec; appears to have somecomprehension difficultiesSafety/Judgment/ Problem Solving: No impairment detected (identifies 3/3appropriate solutions for emergency responses).Memory:score on Short Blessed Cognitive screen of 16 which is in moderate impairmentrange while decreased memory and concentrationAlso noted during the evaluation: Clock drawing score of 5/7 (normal >5/7); ONLYABLE TO RECALL 4 DIGITS FORWARD FOR AUDITORY ATTENTION while hearing impairmentdefinitely present; able to recall 4/4 recent past presidents without v/c'sPhysical AssessmentRange of Motion: Within functional limits.Strength: Within functional limits.Sensation: Within functional limits.Coordination: Within functional limits.Rapid Alternating Movement: Within functional limits.Sitting Balance: Within functional limits.Head/Neck Control: Impaired. Slight decrease in neck ROMEndurance: Within functional limits.Mobility: Within functional limits.Hand Dominance: Right.Handicap Placard: Patient does not have a handicap placard.Road Sign Recognition/Rules of Driving: Pass. 80% correctSimulated Reaction - Braking Distance (Norms 60 ft):Reaction Distance: Average = 48.8 ft.Above Average.R foot only methodFamily/Friend Interview/Survey:both and daughter indicated plans for ongoing monitoring of Juan Jose regardinghis level of function and driving status as that is appropriateProjected Adaptive Equipment Needs: N/APsychosocial: Within normal limitsInterventions: Evaluation HIGH ComplexitySelf Care/Home Management: refer to details in this reportPain Reassessment: No pain at onset or during treatment, which does not warrantreassessment.Educatio n:The patient's preferred learning method is: ExplanationBarriers to Learning: No barriersLearning Needs: Plan of care.Safety.Functional activities/mobility. [facility] PATIENT NAME: RYLAND [id number] [facility] [address] Adan MEDICAL REC #: [id number], [place] [address] DATE:SERVICE DATE: 07/23/18Occupational Therapy Assessment ATTENDING PHY: Nimo Ferro CNPEducation Provided: Plan of care. Safety issues and interventions. Driving.Safety.Audience: Patient and significant other., daughterMode: Explanation.Response: Applied knowledge. Verbalized understanding. Demonstrated skill.ASSESSMENTActivity/Par ticipation Problem List and Goals:Functional Impairment: Other PrimaryModifier: [id number] (at least 20%, but less than 40% impaired, limited, orrestricted)Goal: Patient will be assisted with increased independence with functionalcommunity mobiility skills as appropriate.Goal Modifier: O7284-RQ (at least 1%, but less than 20% impaired, limited orrestricted)Discharge Status for Other Primary Functional Limitation: ResolvedFunctional Impairment Discharge Modifier: G0653-[id number] (at least 1%, but less than20% impaired, limited or restricted)Support Structure: Support structure is good. Family member willing to assistpatient.Response to Evaluation: The session was tolerated well, as evidenced by: nocomplaints or concerns indicatedPLANNecessity: Patient requires outpatient therapy in order to reduce Activities ofDaily Living or Instrumental Activities of Daily Living assistance to apremorbid level. Patient requires occupational therapy plan in order to functionin community. In order to complete the functional task portion of thisassessment.Recommended Consults: Opthamology.The patient has been instructed to contact the clinic if any questions orproblems should arise.Visit Number: Today's visit is number 1Services:Total Billed: 120 minutes (Timed: 60, Untimed: 60)60.00 Timed: [07911] ADL-HOME MANAGEMENT EA 15 MIN60.00 Untimed: [99864] OT-EVALUATION HIGH COMPLEX0.00 Untimed: [G8990] OT-Other PT/OT Primary Functional Limitation-CJ [facility] PATIENT NAME: KATE ODEN Mima Adan MEDICAL REC #: [id number], [place] [address] DATE:SERVICE DATE: 07/23/18Occupational Therapy Assessment ATTENDING PHY: Nimo Ferro CNP0.00 Untimed: [G8991] QC-Fpgs-Mcekk PT/OT Primary Functional Limitation-CI0.00 Untimed: [G8992] OT-DC-Other PT/OT Primary Functional Limitation-CISigned by: CLARIBEL SCOTT, OT/L, CDRS, CDI/PD 07/28/2018 20:31:37 [facility] PATIENT NAME: KATE ODEN Mima Adan MEDICAL REC #: [id number], [place] [address] DATE:SERVICE DATE: 07/23/18Occupational Therapy Assessment ATTENDING PHY: Nimo Ferro CADDY MASTER [facility] Occupational Therapy Community Mobilityand IADL ReportPerformance Skills Evaluation Date: 07/23/18On the Road Driving Assessment: 07/23/18Demographics:Age: 72YGender: MaleSummary of Results: (see attached report(s) for details)Strengths: Juan Jose is able to complete all self care on his own as well as he hasreturned to assisting with tasks around the house as he previously did; he has asupportive and daughter (nurse) who have provided ongoing support andassist as needed; he has excellent driving record; clinically he demonstratedfunctional vision, visual preception, orientation/verbal problemsolving/retrieval, physical skills other than as noted below, knowledge of roadrules/signs, and above average simulated brake reaction distance; during thebehind the wheel portion, he demonstrated no concerns while driving in widevariety of road situations.Problem Areas: 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 with subsequent hospitalization andrehabilitation; currently he and his share their daughter's vehicle astheirs non operational so previously Juan Jose would take both daughter and towork then pick them up later so that he would have a vehicle during the day marivel is retired; he is limited with hobbies especially sedentary ones; he/familyreported that it has been 6 years since he had his eyes formally examined sooverdue to an appointment which they indicated they would be sure to makeappointment for in near future; clinically he demonstrated slight decrease for Leye glare far acuity, decreased convergence for L eye, double eye movementsobserved for saccades to the left, unable to complete Trailmaking B foralternating visual attention and slow on Trailmaking A for visual scanning,scored in moderate impairment range on Short Blessed Cognitive screen whiledecreased memory and concentration, decreased auditory attention skills whilehearing impairment also present, slight decrease of neck ROM for rotation inboth directions; no problems observed during the behind the wheel portion ofassessment.Recommendations :Patient may resume driving with the following recommendations:Physician approval. Nimo Ferro along with [facility] physicians should monitorhis overall medical status and assure that he maintains his current level offunction for ongoing pursuit of safe operation of motor vehicle. If futureconcerns arise, recommend that he be seen at that time for reassessment of hisskills. Restrictions. 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 This therapist will provide Hollie and family with information regardingsafe driving skills, crash avoidance, tips for monitoring driving, and when tostop driving for his reference.Vehicle and Equipment Needs: N/AAdditional Comments: Based on Juan Jose's overall performance throughout thisassessment, this therapist feels confident that he is capable of returning tosafe operation of a motor vehicle while following the restrictions indicated inthis report. This therapist expects that Juan Jose poses minimal risk of beinginvolved in a crash which is consistent with the majority of all drivers on theroad and with this therapist feeling comfortable sharing the roads with Juan Jose atthis time. Date: 07/30/18Occupational Therapist/Wet Sander Carpenter Rough signaturePlease Note: The results and recommendations included in the Wet Sander EvaluationReport are based on the patient'sperformance during the period of the evaluation and should not be relied on asabsolute predictors of futureperformance. The conclusions and recommendations in this report are based, inpart, upon the medical information available at the time. 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 Beyond that time, a re - evaluation may be necessary.Signed by: CLARIBEL SCOTT, OT/L, CDRS, CDI/PD 08/03/2018 09:29:18 [facility] PATIENT NAME: RYLAND [id number] [facility] [address] Adan MEDICAL REC #: [id number], [place] [address] DATE:SERVICE DATE: 07/23/18Occupational Therapy Assessment ATTENDING PHY: Nimo Ferro CNP [facility] [place] Office Visit: [facility] 08-24-20 17 Fall risk assessment No Invalid Interpretation Code [employer] Work Phone: Office Visiton 02-20-2017 Dietary management education, guidance, and counseling (procedure) yes Invalid Interpretation Code [employer] Work Phone: [phone] Documentation of current medications (procedure) Done Invalid Interpretation Code [employer] Work Phone: [phone] Lab Report: Lipid Profileon 02-05-2016 Cholesterol 197 mg/dL Invalid Interpretation Code 200 [employer] Work Phone: [phone] HDL Cholesterol 53 mg/dL Invalid Interpretation Code [employer] Work Phone: [phone] LDL Cholesterol 128 mg/dL Invalid Interpretation Code 0-130 [employer] Work Phone: [phone] Triglyceride 78 mg/dL Invalid Interpretation Code [employer] Work Phone: [phone] very low density lipoproteins 16 mg/dL Invalid Interpretation Code 5-40 [employer] Work Phone: [phone] Lab Report: Liver Profileon 02-05-2016 Alanine aminotransferase (ALT) 38 U/L Invalid Interpretation Code 12-78 [employer] Work Phone: [phone] Albumin 3.9 g/dL Invalid Interpretation Code 3.4-5.0 [employer] Work Phone: [phone] Alkaline phosphatase (ALP) 97 U/L Invalid Interpretation Code 50-136 [employer] Work Phone: [phone] Aspartate aminotransferase (AST) 30 U/L Invalid Interpretation Code 15-37 [employer] Phone: [phone] Bilirubin (direct) 0.12 mg/dL Invalid Interpretation Code 0.00-0.30 [employer] Work Phone: [phone] Bilirubin (total) 0.80 mg/dL Invalid Interpretation Code 0.20-1.00 [employer] Phone: [phone] Globulin 3.4 g/dL Invalid Interpretation Code 2.3-3.5 [employer] Phone: [phone] Protein 7.3 g/dL Invalid Interpretation Code 6.4-8.2 [employer] Phone: [phone] Office Visit: [facility] 02-05-20 16 Fall risk assessment Invalid Interpretation Code [employer] Phone: [phone] Tobacco use CPHS Never smoker Invalid Interpretation Code [employer] Phone: [phone] Replaced Document: Angelita Vásquezon 02-05-2016 EKG QRS axis 30 deg Invalid Interpretation Code [employer] Phone: [phone] electrocardiogram interpretation Sinus Rhythm -consider old anterior infarct. - Nonspecific T-abnormality. ABNORMAL Invalid Interpretation Code [employer] Phone: [phone] GE use only - for [employer] import when terms are not otherwise specified 393 ms Invalid Interpretation Code [employer] Phone: [phone] Interpretation Sinus Rhythm -consid er old anterior infarct. - Nonspecific T-abnormality. ABNORMAL Invalid Interpretation Code [employer] Phone: [phone] P O[place] 44 deg Invalid Interpretation Code [employer] Phone: [phone] P wave axis, electrocardiogram 44 deg Invalid Interpretation Code [employer] Phone: [phone] MN Interval 186 ms Invalid Interpretation Code [employer] Phone: [phone] MN interval, electrocardiogram 186 ms Invalid Interpretation Code [employer] Phone: [phone] Pulse (Heart Rate) 63 /min Invalid Interpretation Code [facility] Work Phone: [phone] QRS axis, electrocardiogram 30 deg Invalid Interpretation Code [facility] [employer] Work Phone: [phone] QRS Duration 93 ms Invalid Interpretation Code [facility] [employer] Work Phone: [phone] QRS duration, electrocardiogram 93 ms Invalid Interpretation Code [facility] [employer] Work Phone: [phone] QT Interval new path ms Invalid Interpretation Code [facility] [employer] Work Phone: [phone] QT interval, electrocardiogram new path ms Invalid Interpretation Code [facility] [employer] Work Phone: [phone] QTc Hahn 393 ms Invalid Interpretation Code [facility] [employer] Work Phone: [phone] T O'[place] 90 deg Invalid Interpretation Code [facility] [employer] Work Phone: [phone] T wave axis, electrocardiogram 90 deg Invalid Interpretation Code [facility] [employer] Work Phone: [phone] Office Visit: [facility] 11-17-20 14 cardiac risk group C Invalid Interpretation Code [facility] [employer] Work Phone: [phone] General cardiovascular disease 10Y risk [#] [place] no N/A Invalid Interpretation Code [facility] [employer] Work Phone: [phone] Tobacco smoking status NHIS Never Invalid Interpretation Code [facility] [employer] Work Phone: [phone] Replaced Document: Angelita [facility] 09-20-2013 Pulse (Heart Rate) 409 ms Invalid Interpretation Code [facility] [employer] Work Phone: [phone] Vital Signs Date Time Vital Sign Value Performing Clinician Facility 05-02-2022 16:38-0400 Body temperature 97.81 [degF] Neema Wilson APRN.CADDY MASTER Work Phone: [facility] 05-02-2022 16:38-0400 Body weight 87.73 kg Neema Wilson APRN.CADDY MASTER Work Phone: [facility] 05-02-2022 16:38-0400 Diastolic blood pressure 78 mm[Hg] Neema Wilson APRN.CADDY MASTER Work Phone: [facility] 05-02-2022 16:38-0400 Heart rate 64 /min Neema Wilson GANG VIBRATOR OPERATOR.CADDY MASTER Work Phone: [facility] 05-02-2022 16:38-0400 Respiratory rate 20 /min Neema Wilson GANG VIBRATOR OPERATOR.CADDY MASTER Work Phone: [facility] 05-02-2022 16:38-0400 SaO2% (BldA) [Mass fraction] 99 % Neema Wilson GANG VIBRATOR OPERATOR.CADDY MASTER Work Phone: [facility] 05-02-2022 16:38-0400 Systolic blood pressure 136 mm[Hg] Neema Wilson GANG VIBRATOR OPERATOR.CADDY MASTER Work Phone: [facility] 02-20-2022 17:42-0400 Body temperature 98.4 [degF] Cheryl Rustylesu GANG VIBRATOR OPERATOR.CADDY MASTER Work Phone: [facility] 02-20-2022 17:42-0400 Body weight 92.63 kg Cheryl Ceja GANG VIBRATOR OPERATOR.CADDY MASTER Work Phone: [facility] 02-20-2022 17:42-0400 Diastolic blood pressure 78 mm[Hg] Cheryl Ceja GANG VIBRATOR OPERATOR.CADDY MASTER Work Phone: [facility] 02-20-2022 17:42-0400 Heart rate 104 /min Cheryl Ceja GANG VIBRATOR OPERATOR.CADDY MASTER Work Phone: [facility] 02-20-2022 17:42-0400 Respiratory rate 18 /min Cheryl Ceja GANG VIBRATOR OPERATOR.CADDY MASTER Work Phone: [facility] 02-20-2022 17:42-0400 SaO2% (BldA) [Mass fraction] 96 % Cheryl Ceja GANG VIBRATOR OPERATOR.CADDY MASTER Work Phone: [facility] 02-20-2022 17:42-0400 Systolic blood pressure 126 mm[Hg] Cheryl Pendlebury GANG VIBRATOR OPERATOR.CADDY MASTER Work Phone: [facility] 08-24-2017 13:110400 BMI (Body Mass Index) 34.78 kg/m2 Janessa Jernigan [facility] Work Phone: 08-24-2017 13:110400 BP Diastolic 80 mm[Hg] Janessa [facility] Work Phone: 08-24-2017 13:040 BP Systolic 160 mm[Hg] Janessa [facility] Work Phone: 08-24-2017 13:040 Height 165.1 cm Janessa [facility] Work Phone: 08-24-2017 13:040 Pulse (Heart Rate) 58 /min Jan[facility] Work Phone: 08-24-2017 13:040 Respiratory Rate 20 /min [facility] Work Phone: 08-24-2017 13:040 Weight 94.8 kg Janessa [facility] Work Phone: 08-14-2016 09:040 BSA (Body Surface Area) 1.95 m2 Janessa [facility] Work Phone: Encounters Encounter Date Encounter Type Care Provider Facility Start: 05-02-2022 End: 05-02-2022 Patient encounter procedure Neema Wilson APRN.CADDY MASTER Work Phone: [facility] Comment on above: Hives (Primary Dx) Start: 02-20-2022 End: 02-20-2022 Patient encounter procedure Cheryl Ceja APRN.CADDY MASTER Work Phone: [facility] Comment on above: Cellulitis of right lower extremity (Primary Dx) Start: 01-23-2021 End: 01-23-2021 Patient encounter procedure [facility] Start: 12-28-2020 End: 12-28-2020 Patient encounter procedure [facility] Start: 07-23-2018 Patient encounter Nimo Alaniz Pillo Facil ity:[facility] Start: 07-23-2018 Patient encounter Nimo Alaniz Pillo Facil ity:[facility] Procedures Date Procedure Procedure Detail Performing Clinician Start: 10-23-2020 Colonoscopy Cheryl mohan GANG VIBRATOR OPERATOR.CADDY MASTER Work Phone: Start: 08-24-2017 End: 08-24-2017 JULIO Shea PA-C Work Phone: Start: 08-24-2017 End: 08-24-2017 Follow Up Appt 6 months Yee fitzgerald PA-C Work Phone: Start: 08-24-2017 End: 08-24-2017 OPERATION MANAGER Yee Shea PA-C Work Phone: Start: 08-24-2017 End: [...] PA-C Work Phone: Start: 02-05-2016 End: 02-05-2016 OPERATION MANAGER Yee Shea PA-C Work Phone: Start: 02-05-2016 [...] PA-C Work Phone: Start: 02-05-2016 End: 02-05-2016 OPERATION MANAGER Yee Shea PA-C Work Phone: Start: 02-05-2016 [...] [AGGREGATE] Tanisha Gibson Start: 07-17-2015 End: 07-17-2015 BHARATI Sweeney MD Start: 11-17-2014 End: 11-17-2014 OPERATION MANAGER Yee Shea PA-C Work Phone: Start: 11-17-2014 End: 11-17-2014 Ecg routine ecg w/least 12 lds w/i&r Yee Shea PA-C Work Phone: Start: 11-17-2014 End: 11-17-2014 Follow Up Appt 6 months Yee fitzgerald PA-C Work Phone: Start: 11-17-2014 End: 11-17-2014 OPERATION MANAGER Yee Shea PA-C Work Phone: Start: 11-17-2014 [...] Ángel Sweeney MD Start: 03-28-2014 End: 03-28-2014 BHARATI Sweeney MD Start: 03-28-2014 End: 11-17-2014 *Hepatic Function Panel Tanisha Gibson Start: 03-28-2014 End: 03-28-2014 Follow Up Appt 6 months Tanisha Gibson Start: 03-28-2014 End: 11-17-2014 Lipid panel [AGGREGATE] Tanisha Gibson Start: 03-28-2014 End: 03-28-2014 MMM Ángel Sweeney MD Start: 12-31-2013 End: 09-21-2014 *Hepatic Function Panel Tanisha Gibson Start: 12-31-2013 End: 09-21-2014 Lipid 1996 panel - Serum or Plasma Ángel Sweeney MD Start: 12-31-2013 End: 09-21-2014 *Hepatic Function Panel Tanisha Gibson Start: 12-31-2013 End: 09-21-2014 Lipid panel [AGGREGATE] Tanisha Gibson Start: 09-20-2013 End: 09-20-2013 OPERATION MANAGER Yee Shea PA-C Work Phone: Start: 09-20-2013 End: 09-20-2013 Ecg routine ecg w/least 12 lds w/i&r Yee Shea PA-C Work Phone: Start: 09-20-2013 End: 09-20-2013 eRx Transmitted during this visit (Medicare only) Yee Shea PA-C Work Phone: Start: 09-20-2013 End: 09-20-2013 Follow Up Appt 6 months Yee fitzgerald PA-C Work Phone: Start: 09-20-2013 End: 09-20-2013 OPERATION MANAGER Yee Shea PA-C Work Phone: Start: 09-20-2013 [...] Ángel Sweeney MD Start: 03-17-2013 End: 03-17-2013 MMTanisha Sweeney MD Start: 03-17-2013 End: 07-11-2013 *Hepatic Function Panel Tanisha Gibson Start: 03-17-2013 End: 03-17-2013 Follow Up Appt 6 months Tanisha Gibson Start: 03-17-2013 End: 07-11-2013 Lipid panel [AGGREGATE] Tanisha Gibson Start: 03-17-2013 End: 03-17-2013 MMTanisha Sweeney MD Start: 04-30-2012 End: 07-11-2013 *Hepatic [...] 02-20-2023 BP CONTROLLED (<130/80) BP CONTROLLED (<130/80) [facility] Start: 11-30-2021 ADVANCE DIRECTIVE DISCUSSION ADVANCE DIRECTIVE DISCUSSION [facility] Start: 10-23-2021 Colonoscopy COLONOSCOPY [facility] Start: 10-23-2021 COLORECTAL CANCER SCREENING COLORECTAL CANCER SCREENING [facility] Start: 02-23-2018 End: 02-23-2018 Appointment Appointment [facility] Work Phone: Start: 08-24-2017 End: 08-24-2017 *Hepatic Function Panel *Hepatic Function Panel [facility] Work Phone: Start: 08-24-2017 End: 08-24-2017 OPERATION MANAGER OPERATION MANAGER [facility] Work Phone: Start: 08-24-2017 End: 08-24-2017 Follow Up Appt 6 months Follow Up Appt 6 months [facility] Work Phone: Start: 08-24-2017 End: 08-24-2017 Lipid panel [AGGREGATE] *Lipid Profile CC PCP [facility] Work Phone: Start: 08-24-2017 End: 08-24-2017 Venous doppler Venous doppler [facility] Phone: Start: 08-24-2017 End: 08-24-2017 Appointment Appointment [facility] Phone: Start: 08-24-2017 End: 08-24-2017 *Hepatic Function Panel *Hepatic Function Panel [facility] Work Phone: Start: 08-24-2017 End: 08-24-2017 OPERATION MANAGER OPERATION MANAGER [facility] Work Phone: Start: 08-24-2017 End: 08-24-2017 Follow Up Appt 6 months Follow Up Appt 6 months [facility] Work Phone: Start: 08-24-2017 End: 08-24-2017 Lipid panel [AGGREGATE] *Lipid Profile CC PCP [facility] Work Phone: Start: 08-24-2017 End: 08-24-2017 Venous doppler Venous doppler [facility] Work Phone: Start: 02-20-2017 End: 02-20-2017 Follow Up Appt 6 months Follow Up Appt 6 months [facility] Work Phone: Start: 02-20-2017 End: 02-20-2017 MMM MMM [facility] Work Phone: Start: 02-20-2017 End: 02-20-2017 Follow Up Appt 6 months Follow Up Appt 6 months [facility] Work Phone: Start: 02-20-2017 End: 02-20-2017 MMM MMM [facility] Work Phone: Start: 08-14-2016 End: 08-14-2016 Follow Up Appt 6 months Follow Up Appt 6 months [facility] Work Phone: Start: 08-14-2016 End: 08-14-2016 MMM MMM [facility] Work Phone: Start: 08-14-2016 End: 08-14-2016 Follow Up Appt 6 months Follow Up Appt 6 months [facility] Work Phone: Start: 08-14-2016 End: 08-14-2016 MMM MMM [facility] Work Phone: Start: 05-08-2016 End: 02-06-2017 *Hepatic Function Panel *Hepatic Function Panel [facility] Work Phone: Start: 05-08-2016 End: 02-06-2017 Lipid panel [AGGREGATE] *Lipid Profile CC PCP [facility] Work Phone: Start: 05-08-2016 End: 02-06-2017 *Hepatic Function Panel *Hepatic Function Panel [facility] Work Phone: Start: 05-08-2016 End: 02-06-2017 Lipid panel [AGGREGATE] *Lipid Profile CC PCP [facility] Work Phone: Start: 02-05-2016 End: 02-06-2016 *Hepatic Function Panel *Hepatic Function Panel [facility] Work Phone: Start: 02-05-2016 End: 02-05-2016 OPERATION MANAGER OPERATION MANAGER [facility] Work Phone: Start: 02-05-2016 End: 02-05-2016 Ecg routine ecg w/least 12 lds w/i&r EKG (In office) [facility] Work Phone: Start: 02-05-2016 End: 02-05-2016 Follow Up Appt 6 months Follow Up Appt 6 months [facility] Work Phone: Start: 02-05-2016 End: 02-06-2017 Follow Up Appt Other Follow Up Appt Other [facility] Work Phone: Start: 02-05-2016 End: 02-06-2016 Lipid panel [AGGREGATE] *Lipid Profile CC PCP [facility] Work Phone: Start: 02-05-2016 End: 02-06-2016 *Hepatic Function Panel *Hepatic Function Panel [facility] Work Phone: Start: 02-05-2016 End: 02-05-2016 OPERATION MANAGER OPERATION MANAGER [facility] Work Phone: Start: 02-05-2016 End: 02-05-2016 Electrocardiogram, complete EKG (In office) [facility] Work Phone: Start: 02-05-2016 End: 02-05-2016 Follow Up Appt 6 months Follow Up Appt 6 months [facility] Work Phone: Start: 02-05-2016 End: 02-06-2017 Follow Up Appt Other Follow Up Appt Other [facility] Work Phone: Start: 02-05-2016 End: 02-06-2016 Lipid panel [AGGREGATE] *Lipid Profile CC PCP [facility] Work Phone: Start: 01-23-2016 End: 02-05-2016 *Hepatic Function Panel *Hepatic Function Panel [facility] Work Phone: Start: 01-23-2016 End: 02-05-2016 Lipid panel [AGGREGATE] *Lipid Profile CC PCP [facility] Work Phone: Start: 01-23-2016 End: [...] 6 months Follow Up Appt 6 months [facility] Work Phone: Start: 07-17-2015 End: 07-23-2015 Lipid panel [AGGREGATE] *Lipid Profile CC PCP [facility] Work Phone: Start: 07-17-2015 End: 07-17-2015 MMM MMM [facility] Work Phone: Start: 07-17-2015 End: 07-23-2015 *Hepatic Function Panel *Hepatic Function Panel [facility] Work Phone: Start: 07-17-2015 End: 07-17-2015 Follow Up Appt 6 months Follow Up Appt 6 months [facility] Work Phone: Start: 07-17-2015 End: 07-23-2015 Lipid panel [AGGREGATE] *Lipid Profile CC PCP [facility] Work Phone: Start: 07-17-2015 End: 07-17-2015 MMM MMM [facility] Work Phone: Start: 11-17-2014 End: 11-17-2014 OPERATION MANAGER OPERATION MANAGER [facility] Work Phone: Start: 11-17-2014 End: 11-17-2014 Ecg routine ecg w/least 12 lds w/i&r EKG (In office) [facility] Work Phone: Start: 11-17-2014 End: 11-17-2014 Follow Up Appt 6 months Follow Up Appt 6 months [facility] Work Phone: Start: 11-17-2014 End: 11-17-2014 OPERATION MANAGER OPERATION MANAGER [facility] Work Phone: Start: 11-17-2014 End: 11-17-2014 Electrocardiogram, complete EKG (In office) [facility] Work Phone: Start: 11-17-2014 End: 11-17-2014 Follow Up Appt 6 months Follow Up Appt 6 months [facility] Work Phone: Start: 03-28-2014 End: 11-17-2014 *Hepatic Function Panel *Hepatic Function Panel [facility] Work Phone: Start: 03-28-2014 End: 03-28-2014 Follow Up Appt 6 months Follow Up Appt 6 months [facility] Work Phone: Start: 03-28-2014 End: 11-17-2014 Lipid panel [AGGREGATE] *Lipid Profile CC PCP [facility] Work Phone: Start: 03-28-2014 End: 03-28-2014 MMM MMM [facility] Work Phone: Start: 03-28-2014 End: 11-17-2014 *Hepatic Function Panel *Hepatic Function Panel [facility] Work Phone: Start: 03-28-2014 End: 03-28-2014 Follow Up Appt 6 months Follow Up Appt 6 months [facility] Work Phone: Start: 03-28-2014 End: 11-17-2014 Lipid panel [AGGREGATE] *Lipid Profile CC PCP [facility] Work Phone: Start: 03-28-2014 End: 03-28-2014 MMM MMM [facility] Work Phone: Start: 12-31-2013 End: 09-21-2014 *Hepatic Function Panel *Hepatic Function Panel [facility] Work Phone: Start: 12-31-2013 End: 09-21-2014 Lipid panel [AGGREGATE] *Lipid Profile CC PCP [facility] Work Phone: Start: 12-31-2013 End: 09-21-2014 *Hepatic Function Panel *Hepatic Function Panel [facility] Work Phone: Start: 12-31-2013 End: 09-21-2014 Lipid panel [AGGREGATE] *Lipid Profile CC PCP [facility] Work Phone: Start: 09-20-2013 End: 09-20-2013 OPERATION MANAGER OPERATION MANAGER [facility] Work Phone: Start: 09-20-2013 End: 09-20-2013 Ecg routine ecg w/least 12 lds w/i&r EKG (In office) [facility] Work Phone: Start: 09-20-2013 End: 09-20-2013 Follow Up Appt 6 months Follow Up Appt 6 months [facility] Work Phone: Start: 09-20-2013 End: 09-20-2013 OPERATION MANAGER OPERATION MANAGER [facility] Work Phone: Start: 09-20-2013 End: 09-20-2013 Electrocardiogram, complete EKG (In office) [facility] Work Phone: Start: 09-20-2013 End: 09-20-2013 Follow Up Appt 6 months Follow Up Appt 6 months [facility] Work Phone: Start: 03-17-2013 End: 07-11-2013 *Hepatic Function Panel *Hepatic Function Panel [facility] Work Phone: Start: 03-17-2013 End: 03-17-2013 Follow Up Appt 6 months Follow Up Appt 6 months [facility] Work Phone: Start: 03-17-2013 End: 07-11-2013 Lipid panel [AGGREGATE] *Lipid Profile [facility] Work Phone: Start: 03-17-2013 End: 03-17-2013 MMM MMM [facility] Work Phone: Start: 03-17-2013 End: 07-11-2013 *Hepatic Function Panel *Hepatic Function Panel [facility] Work Phone: Start: 03-17-2013 End: 03-17-2013 Follow Up Appt 6 months Follow Up Appt 6 months [facility] Work Phone: Start: 03-17-2013 End: 07-11-2013 Lipid panel [AGGREGATE] *Lipid Profile [facility] Work Phone: Start: 03-17-2013 End: 03-17-2013 MMM MMM [facility] Work Phone: Start: 04-30-2012 End: 07-11-2013 *Hepatic Function Panel *Hepatic Function Panel [facility] Work Phone: Start: 04-30-2012 End: 07-11-2013 Lipid panel [AGGREGATE] *Lipid Profile [facility] Work Phone: Start: 04-30-2012 End: 07-11-2013 *Hepatic Function Panel *Hepatic Function Panel [facility] Work Phone: Start: 04-30-2012 End: 07-11-2013 Lipid panel [AGGREGATE] *Lipid Profile [facility] Work Phone: Start: 02-24-2012 End: 02-24-2012 Follow Up Appt 6 months Follow Up Appt 6 months [facility] Work Phone: Start: 02-24-2012 End: 02-24-2012 Follow Up Appt 6 months Follow Up Appt 6 months [facility] Work Phone: Start: 2011 PNEUMOCOCCAL: 65+ (1 - PCV) PNEUMOCOCCAL: 65+ (1 - PCV) [facility] Start: 2011 PNEUMOVAX AGE 65 AND OVER WITH 5YR LOOKBACK (#1) PNEUMOVAX AGE 65 AND OVER WITH 5YR LOOKBACK (#1) [facility] Start: 02-16-2003 DIABETES SCREEN DIABETES SCREEN [facility] Start: 1996 SHINGRIX VACCINE (1 of 2) SHINGRIX VACCINE (1 of 2) [facility] Start: 1991 COLOGUARD (FIT-DNA) COLOGUARD (FIT-DNA) [facility] Start: [address] COLONOGRAPHY [facility] Start: 1991 FECAL OCCULT BLOOD FECAL OCCULT BLOOD [facility] Start: 1991 SIGMOIDOSCOPY SIGMOIDOSCOPY [facility] Start: 1981 LIPID SCREEN LIPID SCREEN [facility] Start: 1965 Urine microalbumin profile DTAP,TDAP,TD (1 - Tdap) [facility] Start: 1964 ANNUAL PCP TEAM CHRONIC DISEASE VISIT ANNUAL PCP TEAM CHRONIC DISEASE VISIT [facility] Start: 1964 BP CONTROLLED (<130/80) BP CONTROLLED (<130/80) [facility] Start: 1964 HEPATITIS C SCREENING HEPATITIS C SCREENING [facility] Start: 1958 Adult depression screening assessment DEPRESSION SCREENING [facility] Patient Education [facility] Work Phone: Payers Date Payer Category Payer Unknown [employer]TH[employer]BI [employer]UE [employer] S AND BLUE [employer] ANTHEM MEDIBL[employer] O [id number] 2018-Present [phone] [address] [place] [address] O [id number] 2017 Medicare [id number] 1945 Unknown [id number] 1945 Unknown [id number] Medicare [id number] Medicare [id number] Social History Date Type Detail Facility Start: 11-26-2017 Tobacco smoking stat us AKIS Never smoked tobacco [facility] Start: 11-26-2017 Tobacco use and exposure Smoke less tobacco non-user [facility] Start: 02-20-2022 End: 05-02-2022 Alcohol intake Current drinker of alcohol (finding) [facility] Start: 02-20-2022 History SDOH Alcohol Frequency 1 [facility] Start: 1945 Sex Assigned At Not on file C [facility] Start: 02-10-2022 End: 05-02-2022 Exposure to SARS-CoV-2 (event) Not sure [facility] Progress note 05-02-2022 Note Date & Type Note Facility 05-02-2022 Note HNO ID: [id number] Author: Neema Wilson APRN.CADDY MASTER Service: ? Author Type: Nurse Practitioner Type: [...] history is provided by the patient. No russian language professor was used. Musculoskeletal Problem Associated symptoms include [...] was okay with this care plan. Neema Wilson APRN.CAMACHO [facility] History of Present illness Narrative 05-02-2022 Neema Wilson APRN.CAMACHO - 05/02/2022 5:05 PM EDT Note [...] history is provided by the patient. No russian language professor was used. Musculoskeletal Problem Associated symptoms include [...] was okay with this care plan. Neema Wilson APRN.CNP documented in this encounter [facility] Instructions 05-02-2022 Patient Instructions Note Date & Type Note Facility 05-02-2022 Instructions Neema Wilson APRN.CNP - 05/02/2022 5:01 PM EDT Diagnosis: [...] than 48 hours. documented in this encounter [facility] Progress note 02-20-2022 Note Date & Type Note Facility 02-20-2022 Note HNO ID: [id number] Author: hCeryl Ceja APRN.CNP Service: ? Author Type: Nurse Practitioner [...] ASSESSMENT/PLAN: 1. Cellul (more content not included)... [facility] History of Present illness Narrative 02-20-2022 Cheryl MAALIA Ceja.[facility] - 02/20/2022 5:43 PM EDT Note [...] of care. This note was generated using InSequent software. It may contain errors in wording, punctuation, or spelling. Cheryl Ceja APRN.CAMACHO documented in this encounter [facility] Progress note 06-24-2021 Note Date & Type Note Facility 06-24-2021 Note HNO ID: [id number] Author: Aicha Mclean APRN.CAMACHO Service: ? Author Type: Nurse Practitioner Type: Progress Notes Filed: 06/24/2021 7:42 PM Note Text: Patient triaged at [facility]. Here today with cough, fever, trouble breathing. Patient respirs near 40, audible crackles while breathing. I will refer to ER. Declines squad. to drive pov to [facility] ER. Passport sent. [facility] Evaluation note Note Date & Type Note Facility Evaluation note Diagnosis Cellulitis of right lower extremity- Primary Cellulitis and abscess of leg, except foot documented in this encounter [facility] Evaluation note Note Date & Type Note Facility Evaluation note Diagnosis Hives- Primary Urticaria, unspecified documented in this encounter [facility] Summary Purpose Family History No Family History Records FoundNo Family History Records FoundNo Family History Records Found Advance Directives No Advanced Directives Records FoundNo Advanced Directives Records FoundNo Advanced Directives Records Found Additional Source Comments (unrecognized sect ion and content) No Status Records FoundNo Status Records FoundNo Status Records Found INFORMATION SOURCE (unrecogn ized section and content) DATE CREATED AUTHOR 09/08/2018 [facility] DATE CREATED AUTHOR AUTHOR'S ORGANIZ ATION 01/29/2021 [facility] DATE CREATED AUTHOR AUTHOR'S ORGANIZ ATION 05/03/2022 [facility] Source Comments (unrecognize d section and content) In the event this informatio n is protected by the Federal Confidentiality of Alcohol and Drug Abuse Patient Records regulations: The Federal rules restrict any use of the information to criminally investigate or prosecute any alcohol or drug abuse patient.[facility] the event this information is protected by the Federal Confidentiality of Alcohol and Drug Abuse Patient Records regulations: The Federal rules restrict any use of the information to criminally investigate or prosecute any alcohol or drug abuse patient.[facility] Reason for Visit (unrecogniz ed section and content) Reason Comments Swelling (RT) leg swelling, w armth, redness, denied pain, SOB, chest pain Reason Comments Musculoskeletal Problem (RT) lower leg p ain rated 6, warmth, swelling rash on chest, back, stomach, legs Follow Up recent ATB Rx mikel Care Teams (unrecognized sec tion and content) Roll Reclaimer Relationship Specialty Start Date End Date Christie Chinyared Blount, [address] [facility] [address] [place], [place] [address] PCP - General 03/11/01 FOR RECORDS PERTAINING TO PATIENTS WHO ARE [...] BE BASED ON THE PRIMARY CLINICAL RECORDS. [facility] [facility]. provides no warranty or guarantee of the accuracy or completeness of information in this document.
[2024-09-23 13:04] LABS: AST(SGOT) 23 U/L (15-37); Alanine Aminotransfer ALT/SGPT 20 U/L (16-61); Albumin, Serum 3.8 g/dL (3.2-5.0); Alkaline Phosphatase 99 U/L (45-117); Ammonia < 10.0 umol/L (11-32); Bilirubin, Direct 0.52 mg/dL (0.00-0.30); Cholesterol 140 mg/dL (200); Globulin 3.5 g/dL (2.2-4.2); High Density Lipoprotein 45 mg/dL; Protein, Total 7.3 g/dL (6.4-8.2); Triglycerides 57 mg/dL; Very Low Density Lipoprotein 11 mg/dL (5-40)
== END | disposition home or self-care (01) ==
LOC: MTLAB 10:32
PROVIDERS: PCP Family Medicine; Referring Provider Psychiatry & Neurology Neurology; Visit Provider Psychiatry & Neurology Neurology
DX: G40.909 Epilepsy, unspecified, not intractable, without status epilepticus (principal); I65.22 Occlusion and stenosis of left carotid artery; E78.5 Hyperlipidemia, unspecified
CPT/HCPCS: 36415; 80061; 80076; 80177; 82140

== ENCOUNTER 2024-11-04 07:26 | Day surgery (SDC) | payer MEDICARE, SELFPAY ==
[2024-11-04] VITALS (7 sets, daily range): BP systolic 97–145; BP diastolic 47–55; PULSE 49–73; RESP 14–16; TEMP 36–36.6; O2SAT 97–100; BMI 28.8
--- NOTE | 2024-11-04 08:02 | PCM.HP.BLA ---
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 Is patient in pain?: No Allergies cephalexin Allergy (Mild, Verified 09/02/24 12:57) Rashatorvastatin (From Lipitor) Adverse Reaction (Severe, Verified 09/02/24 12:57) Myalgiasrosuvastatin (From Crestor) Adverse Reaction (Severe, Verified 09/02/24 12:57) Myalgias Medications ?Medication ?Instructions ?Recorded ?Confirmed ?Type metformin 500 mg tablet 500 mg PO DAILY diabetes 12/16/19 09/02/24 History omeprazole 20 mg capsule,delayed 20 mg PO DAILY 01/06/24 09/02/24 History release potassium chloride 20 mEq 40 meq PO DAILY 01/06/24 09/02/24 History tablet,extended release(part/cryst) (Klor-Con M) apixaban 5 mg tablet (Eliquis) 5 mg PO BID Inadvertently stopped: 01/29/24 09/02/24 Rx PLEASE FILL, pt almost out #60 tabs pravastatin 80 mg tablet 80 mg PO QHS cholesterol #90 tabs 03/14/24 09/02/24 Rx carvedilol 25 mg tablet 25 mg PO BID #180 TABLETS 06/13/24 09/02/24 Rx losartan 100 mg tablet 100 mg PO DAILY 07/01/24 09/02/24 History levetiracetam 500 mg tablet 500 mg PO BID #60 tabs 08/08/24 09/02/24 Rx amlodipine 5 mg tablet 5 mg .Route .COMPLEX 09/02/24 History triamcinolone acetonide 0.1 % 1 applic topical BID-TID 09/02/24 09/02/24 History topical cream Have you fallen in the past year?: No PFSH Medical History Vascular disease Seizures CVA (cerebral vascular accident) Brain TIA Wears dentures Wears glasses Diabetes High cholesterol Gastric reflux Shortness of breath on exertion Chronic cough History of edema History of echocardiogram Hypertension Cardiology follow-up encounter History of CHF (congestive heart failure) History of atrial fibrillation Cirrhosis Vomiting Abdominal pain Longstanding persistent atrial fibrillation Carotid artery stenosis Essential (primary) hypertension Positive colorectal cancer screening using Cologuard test Secondary pulmonary arterial hypertension Chronic systolic (congestive) heart failure CVA (cerebral vascular accident) (01/18/18) 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 Obesity (BMI 30.0-34.9) HLD (hyperlipidemia) Surgical History History of cardiac catheterization Hx of colonoscopy History of left-sided carotid endarterectomy (04/02/20) H/O coronary artery bypass surgery (02/13/00) History of right-sided carotid endarterectomy (2000) Hx of tonsillectomy History of left heart catheterization (06/14/18) Family History Mother Breast cancer Hypertension DementiaGrandmother Heart diseaseFather Heart disease Hypertension Social History household members: spouse Smoking Status: Never smoker second hand exposure: No alcohol intake: current alcohol intake frequency: holidays/special occasions only details: occasionally substance use type: does not use caffeine: Yes Type: coffee Number of servings: 3 frequency: other 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 He has Garzon's esophagus and his last EGD was 3 years ago. Patient is also due for colonoscopy as his last colonoscopy was 4 years ago and he has increased risk due to family history. He denies abdominal pain or blood in the stool. He denies reflux. He has had Farheen fundoplication. ROS General General: No weight change, appetite, fatigue, colon cancer, breast cancer or weakness HEENT HEENT: No difficulty swallowing, eye injury, eye surgery, swollen glands or hoarseness Endo Endocrine: No thyroid disease, diabetes mellitus, thyroid cancer, Hair loss, heat intolerance or cold intolerance Skin Skin: No rash or changing moles Breast Breast: No left breast lump, right breast lump, nipple discharge, breast pain, abnormal mammogram, abnormal US or breast enlargement Musc Musculoskeletal: No back problems, arthritis, rheumatoid arthritis, gout or joint pain Cardio Cardiovascular: Yes heart attack; No murmur, pacemaker, heart disease, atrial fibrillation, high blood pressure, heart stent, palpitations, shortness of breat with exertion or chest pain Psych Psychiatric: No depression, anxiety or hearing voices Resp Respiratory: No shortness of breath, No sleep apnea, No cough, No COPD, No asthma, No emphysema and No wheezing Gastro Gastrointestinal: No abdominal pain, No nausea or vomiting, No diarrhea, No constipation, No blood in stool, No acid reflux, No hemorrhoids, No ulcers, No gallbladder problem and No black,tarry stools Kashif Hematologic: No blood thinners, No blood disorders, No bleeding, No anemia and No blood clots Neuro Neurologic: No system reviewed and no additional complaints, except as documented, No as per HPI, No abnormal gait, No abnormal hearing, No abnormal movements, No abnormal speech, No behavioral changes, No burning sensations, No confusion, No convulsions, No disequilibrium, No dizziness, No localized weakness, No frequent falls, No headache(s), No lack of coordination, No loss of vision, No memory loss, No numbness, No other visual disturbances, No radicular pain, No restless legs, No sensory deficit, No syncope, No tingling, No tremor(s), No weakness and No other Exam Const General: cooperative Orientation: alert and oriented x3 HENMT Head: normal to inspection Neck Neck: normal visual inspection and full ROM Chest Chest palpation & inspection: normal inspection of the chest Resp Effort & Inspection: normal respiratory effort Auscultation: clear to auscultation bilaterally Cardio Rate: regular rate Rhythm: regular rhythm GI Inspection: non-distended Palpation: soft and nontender Skin General: no rashes or lesions noted Neuro General: patient alert and patient oriented x3 Extrem General: full ROM Psych Appearance: grossly normal Mental Status: mental status grossly normal Assessment and Plan Plan The patient had history of colon polyps and then he requires surveillance colonoscopy for that. He would hold his Eliquis for 2 days prior to the procedure. Bill Jackson MD Pager: [facility] [address] [place] [address], [address] [place] [address] Office: I have examined the patient and the H&P has been reviewed. There are no clinical changes since date of exam.
--- NOTE | 2024-11-04 08:04 | PCM.PRE.AN2 ---
ASA Classification* ASA Classification ASA Classification: 3 Assessment & Plan Anesthesia* Anesthesia Assessment Anesthesia Assessment: Discussed sedation and/or anesthesia options, risks, benefits, and alternatives with patient/parents/legal guardian/POA. Questions invited. The patient/parents/legal guardian/POA seems to understand and agrees to proceed with anesthesia plan. Reviewed the physical assessment, medical history, allergy history and patient home medications list prior to surgery/procedure/anesthetic and documented any changes. Performed airway and anesthesia risk assessments. Anesthesia Type Anesthesia Type: MAC Anesthesia Focused Assessment* Temperature: 97.2 F Pulse Rate: 49 Blood Pressure: 145/53 Respiratory Rate: 16 Pulse Ox: 100 Airway Assessment Mouth opens: >3 cm Mallampati Score: II Focused Labs Anesthesia Preop lab: CBC WBC 4.2 K/mm3 (4.4-11.0) L 04/02/23 11:43 RBC 4.26 M/mm3 (4.6-6.2) L 04/02/23 11:43 Hgb 14.1 g/dL (13.0-16.5) 04/02/23 11:43 Hct 43.3 % (40-54) 04/02/23 11:43 Plt Count 123 K/mm3 (150-450) L 04/02/23 11:43 CHEMISTRY Potassium 4.1 mmol/L (3.5-5.1) 07/01/24 15:07 Sodium 140 mmol/L (136-145) 07/01/24 15:07 Magnesium 1.6 mg/dL (1.6-2.6) 07/08/22 13:40 Phosphorus 3.0 mg/dL (2.5-4.9) 01/22/18 05:20 BUN 22 mg/dL (7-18) H 07/01/24 15:07 Creatinine 1.24 mg/dL (0.70-1.30) 07/01/24 15:07 Glucose 125 mg/dL (74-106) H 07/01/24 15:07 POC Glucose 115 mg/dL (74-106) H 07/10/22 11:12 TSH 3.36 uIU/mL (0.358-3.74) 02/20/23 09:36 COAG PT 19.6 SECONDS (11.7-14.9) H 07/08/22 13:40 Pre-Assessment Diagnosis/Proposed Procedure Planned Operative Procedure(s): colonoscopy Anesthesia History 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 When Was Last Pacemaker Check QUESTION #4 FULL TEXT: You/Your Family Experience fever (hyperthermia) with Anesthesia Last Oral Intake Last Oral intake: Last Oral Intake NPO since 05:00 11/04/24 07:44 Meds taken in AM with sips of Yes 11/04/24 07:44 water? Meds patient instructed to take am of surgery PONV PONV - security chief museum: PONV - security chief museum Female No 11/03/24 09:04 HX of Motion Sickness No 11/03/24 09:04 HX of N/V After Surgery No 11/03/24 09:04 Non-Smoker Yes 11/03/24 09:04 Duration of Surgery greater No 11/03/24 09:04 than 60 minutes Number of Risk Factors 1 11/03/24 09:04 PONV Score Low Risk 11/03/24 09:04 Height & Weight Height & Weight: Anesthesia: Height & Weight Height 5 ft 6 in 11/04/24 07:44 Weight: 80.9 kg 11/04/24 07:44 Body Mass Index (BMI) 28.8 11/04/24 07:44 Respiratory Assessment Respiratory Assessment - security chief [employer]: Respiratory Tract Infection Hx - security chief [employer] Hx Respiratory Tract Infection No 11/03/24 09:04 STOP Sleep Apnea STOP Sleep Apnea - security chief [employer]: STOP Sleep Apnea - security chief [employer] Hx Hypertension Yes 11/03/24 09:04 Hx Sleep Apnea No 11/03/24 09:04 CPAP BIPAP Do you snore loudly (louder No 11/03/24 09:04 than talking or can be heard Do you often feel tired/ No 11/03/24 09:04 fatigued/ sleepy during daytime? Has anyone observed you stop No 11/03/24 09:04 breathing during sleep? STOP Results Negative 11/03/24 09:04 QUESTION #5 FULL TEXT : Do you snore loudly (louder than talking or can be heard through closed doors)? 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 Specify any problems Hx of Preganancy in last 3 N/A 11/03/24 09:04 Months Nurse Filling Out Transfusion [email or web address] 11/03/24 09:04 & Questions: Date: 11/03/24 11/03/24 09:04 Time: 09:07 11/03/24 09:04 Patient unable to answer at this time (ie. confused, unrespo /Reproduction History /Reproductive History - security chief [employer]: /Reproductive Hx- security chief [employer] Hx Now Gestational Age (in weeks): EDC: Hx Hx Para Hx Section SAB PFSH Medical History Redness of skin History of ulceration Non-smoker History of stress test Vascular disease Seizures CVA (cerebral vascular accident) Brain TIA Wears dentures Wears glasses Diabetes High cholesterol Gastric reflux Shortness of breath on exertion Chronic cough History of edema History of echocardiogram Hypertension Cardiology follow-up encounter History of CHF (congestive heart failure) History of atrial fibrillation Cirrhosis Vomiting Abdominal pain Longstanding persistent atrial fibrillation Carotid artery stenosis Essential (primary) hypertension Positive colorectal cancer screening using Cologuard test Secondary pulmonary arterial hypertension Chronic systolic (congestive) heart failure CVA (cerebral vascular accident) (01/18/18) Atherosclerotic heart disease of [place] coronary artery without angina pectoris Right sided weakness Obesity (BMI 30.0-34.9) HLD (hyperlipidemia) Home Medications ?Medication ?Instructions ?Recorded ?Last Taken ?Type metformin 500 mg tablet 500 mg PO DAILY diabetes 12/16/19 07/08/22 History omeprazole 20 mg capsule,delayed 20 mg PO DAILY 01/06/24 Unknown History release potassium chloride 20 mEq 40 meq PO DAILY 01/06/24 Unknown History tablet,extended release(part/cryst) (Klor-Con M) apixaban 5 mg tablet (Eliquis) 5 mg PO BID Inadvertently stopped: 01/29/24 11/02/24 Rx PLEASE FILL, pt almost out #60 tabs pravastatin 80 mg tablet 80 mg PO QHS cholesterol #90 tabs 03/14/24 Unknown Rx carvedilol 25 mg tablet 25 mg PO BID #180 TABLETS 06/13/24 11/04/24 05:00 Rx losartan 100 mg tablet 100 mg PO DAILY 07/01/24 11/04/24 05:00 History levetiracetam 500 mg tablet 500 mg PO BID #60 tabs 08/08/24 Unknown Rx amlodipine 5 mg tablet 5 mg PO DAILY 09/02/24 Unknown History triamcinolone acetonide 0.1 % 1 applic topical BID-TID 09/02/24 Unknown History topical cream furosemide 40 mg tablet 40 mg PO DAILY 11/03/24 Unknown History Allergy/AdvReac Type Severity Reaction Status Date / Time cephalexin Allergy Mild Rash Verified 11/04/24 07:41 atorvastatin (From Lipitor) AdvReac Severe Myalgias Verified 11/04/24 07:41 rosuvastatin (From Crestor) AdvReac Severe Myalgias Verified 11/04/24 07:41 Family History Mother Breast cancer Hypertension Dementia Grandmother Heart disease Father Heart disease Hypertension Surgical History History of cardiac catheterization Hx of colonoscopy History of left-sided carotid endarterectomy (04/02/20) H/O coronary artery bypass surgery (02/13/00) History of right-sided carotid endarterectomy (2000) Hx of tonsillectomy History of left heart catheterization (06/14/18) Social History household members: spouse Smoking Status: Never smoker second hand exposure: No alcohol intake: current alcohol intake frequency: holidays/special occasions only details: occasionally substance use type: does not use caffeine: Yes Type: coffee Number of servings: 3 frequency: other 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
[2024-11-04 08:46] LABS: Bedside Glucose 110 mg/dL (74-106)
--- NOTE | 2024-11-04 08:56 | OP.CCLET_ITS ---
11/04/2024 Herson Terrell MD [address] [phone] Re : Colonoscopy procedure for Jaspreet Bee Dear Dr. Terrell This procedure was performed on Monday, November 04, 2024. My impressions and recommendations are as follows: Impressions : - The entire examined colon is normal on direct and retroflexion views. - Diverticulosis in the entire examined colon. - No specimens collected. Recommendations : - Discharge patient to home. - Resume previous diet. - Continue present medications. - Resume Eliquis (apixaban) at prior dose tomorrow. - Repeat colonoscopy is not recommended due to current age (66 years or older) for screening purposes. My findings are described in the full procedure note, which is enclosed. If I can be of further assistance, please feel free to contact me at Doctor phone number(s): , Work: . Sincerely, Bill Jackson MD 11/04/2024 8:55:24 AM This report has been signed electronically.
--- NOTE | 2024-11-04 08:56 | OP.COLON_ITS ---
Patient Name: Jaspreet Bee Procedure Date: 11/04/2024 8:33 AM Date of : 1945 Age: 79 Procedure: Colonoscopy Indications: High risk colon cancer surveillance: Personal history of colonic polyps Providers: Bill Jackson MD Referring MD: Herson Terrell MD Medicines: Propofol per Anesthesia Patient Profile: This is a 79 year old male. Refer to note in patient chart for documentation of history and physical. Last Colonoscopy: 5 years ago. Complications: No immediate complications. Estimated blood loss: Minimal. Procedure: Pre-Anesthesia Assessment: - Prior to the procedure, a History and Physical was performed, and patient medications and allergies were reviewed. The patient's tolerance of previous anesthesia was also reviewed. The risks and benefits of the procedure and the sedation options and risks were discussed with the patient. All questions were answered, and informed consent was obtained. Prior Anticoagulants: The patient has taken no anticoagulant or antiplatelet agents. After reviewing the risks and benefits, the patient was deemed in satisfactory condition to undergo the procedure. After I obtained informed consent, the scope was passed under direct vision. Throughout the procedure, the patient's blood pressure, pulse, and oxygen saturations were monitored continuously. The colonoscope was introduced through the anus and advanced to the cecum, identified by appendiceal orifice and ileocecal valve. The colonoscopy was performed without difficulty. The patient tolerated the procedure well. The quality of the bowel preparation was good. The ileocecal valve, appendiceal orifice, and rectum were photographed. Findings: The entire examined colon appeared normal on direct and retroflexion views. Multiple large-mouthed diverticula were found in the entire colon. Impression: - The entire examined colon is normal on direct and retroflexion views. - Diverticulosis in the entire examined colon. - No specimens collected. Recommendation: - Discharge patient to home. - Resume previous diet. - Continue present medications. - Resume Eliquis (apixaban) at prior dose tomorrow. - Repeat colonoscopy is not recommended due to current age (66 years or older) for screening purposes. Procedure Code(s): --- Professional --- 23687, Colonoscopy, flexible; diagnostic, including collection of specimen(s) by brushing or washing, when performed (separate procedure) Diagnosis Code(s): --- Professional --- Z86.010, Personal history of colonic polyps K57.30, Diverticulosis of large intestine without perforation or abscess without bleeding CPT copyright 2021 [employer]. All rights reserved. The codes documented in this report are preliminary and upon sales review clerk review may be revised to meet current compliance requirements. Bill Jackson MD 11/04/2024 8:55:24 AM This report has been signed electronically. Number of Addenda: 0 Note Initiated On: 11/04/2024 8:33 AM
--- NOTE | 2024-11-04 09:02 | PCM.POST.ANE ---
Anesthesia: Postop Eval I Current Vital Signs Temperature: 97.8 F Pulse Rate: 54 Blood Pressure: 105/47 Respiratory Rate: 14 Pulse Ox: 98 Oxygen Delivery Method: Room Air Assessment Airway patent: Yes Spontaneous unlabored respirations: Yes Mental status: Asleep nausea: No Vomiting: No Anesthesia Complication: No Fluid Hydration Crystalloid volume administer (ml): 30 Total IV fluid infused: 30 Progress Note Anesthesia document: Postop Eval 1 completed: Yes
--- NOTE | 2024-11-04 09:20 | PCM.POSTANE2 ---
Anesthesia Postop Eval I Sum Postop Eval Completion status Anesthesia document: Postop Eval 1 completed: Yes Anesthesia Postop Eval I Summary Anesthesia Postop Eval I Summary: Anesthesia Postop Eval I: Assessment Summary Airway patent Yes 11/04/24 09:03 [email or web address] Spontaneous unlabored Yes 11/04/24 09:03 [email or web address] respirations Mental status Asleep 11/04/24 09:03 [email or web address] nausea No 11/04/24 09:03 [email or web address] Vomiting No 11/04/24 09:03 [email or web address] Anesthesia Postop Eval I: Fluid Summary Crystalloid volume administer 30 11/04/24 09:03 [email or web address] (ml) Colloids volume administered ( ml) Blood Product volume administered (ml) Total IV fluid infused 30 11/04/24 09:03 [email or web address] Anesthesia Postop Eval I: Summary Notes Anesthesia Complication No 11/04/24 09:03 [email or web address] Anesthesia Complication Comment: Post-operative progress note Anesthesia: Postop Eval II Evaluation Mental status: Awake Pain Level: 0 nausea: No Vomiting: No
== END 2024-11-04 09:37 | disposition home or self-care (01) ==
LOC: EN 07:26 → AC 07:27
PROVIDERS: PCP Family Medicine; Referring Provider Family Medicine; Visit Provider Surgery
PROC: 0DJD8ZZ Inspection of Lower Intestinal Tract, Via Natural or Artificial Opening Endoscopic (ICD-10-PCS; CPT 45378; principal; 2024-11-04 08:25)
DX: Z12.11 Encounter for screening for malignant neoplasm of colon (principal); I11.0 Hypertensive heart disease with heart failure; I50.22 Chronic systolic (congestive) heart failure; I48.11 Longstanding persistent atrial fibrillation; E11.9 Type 2 diabetes mellitus without complications; I25.10 Atherosclerotic heart disease of native coronary artery without angina pectoris; Z86.0100 Personal history of colon polyps, unspecified; K57.30 Diverticulosis of large intestine without perforation or abscess without bleeding; Z79.84 Long term (current) use of oral hypoglycemic drugs; E78.00 Pure hypercholesterolemia, unspecified; Z86.73 Personal history of transient ischemic attack (TIA), and cerebral infarction without residual deficits; Z79.01 Long term (current) use of anticoagulants; Z79.899 Other long term (current) drug therapy; K21.9 Gastro-esophageal reflux disease without esophagitis; Z80.0 Family history of malignant neoplasm of digestive organs
CPT/HCPCS: 45378; 82962; A4216; J2405

== ENCOUNTER 2024-12-02 14:44 | Inpatient (IN) | payer MEDICARE, SELFPAY ==
[2024-12-02] VITALS (8 sets, daily range): BP systolic 124–136; BP diastolic 67–77; PULSE 62–76; RESP 18–28; TEMP 36.4–37.1; O2SAT 87–97; BMI 29.0; BMI 28.6
--- NOTE | 2024-12-02 18:26 | EKG12_ITS ---
Test Reason : DYSRHYTHMIA Blood Pressure : */* mmHG Vent. Rate : 67 BPM Atrial Rate : * BPM P-R Int : * ms QRS Dur : 94 ms QT Int : 388 ms P-R-T Axes : * 47 144 degrees QTcB Int : [address] & T wave abnormality, consider lateral ischemia Abnormal ECG Confirmed by ETELVINA WILSON, TUCKER ([id number]), general expeditor NIXON VASQUEZ ([id number]) on 12/05/2024 8:02:32 AM Referred By: Confirmed By: TUCKER MAIN MD
--- NOTE | 2024-12-02 18:29 | EX.ED.DYSGE1 ---
HPI <KASH Rhoades - Last Filed: 12/02/24 20:10> History of Present Illness Chief Complaint: Cold Sx Narrative Narrative: 79-year-old male with past medical history of HTN, HLD, CABG, CHF, A-fib on Eliquis, CVA presents with upper respiratory symptoms that started around 's Gisselle. He has had subjective fever and chills and productive cough. His family member brought him in today because he seemed more short of breath with wheezing. He denies history of COPD but does have an inhaler to use as needed. He denies chest pain or GI symptoms. [facility] <KASH Rhoades - Last Filed: 12/02/24 20:10> [facility] Medical History Redness of skin History of ulceration Non-smoker History of stress test Vascular disease Seizures CVA (cerebral vascular accident) Brain TIA Wears dentures Wears glasses Diabetes High cholesterol Gastric reflux Shortness of breath on exertion Chronic cough History of edema History of echocardiogram Hypertension Cardiology follow-up encounter History of CHF (congestive heart failure) History of atrial fibrillation Cirrhosis Vomiting Abdominal pain Longstanding persistent atrial fibrillation Carotid artery stenosis Essential (primary) hypertension Positive colorectal cancer screening using Cologuard test Secondary pulmonary arterial hypertension Chronic systolic (congestive) heart failure CVA (cerebral vascular accident) (01/18/18) Atherosclerotic heart disease of [place] coronary artery without angina pectoris Right sided weakness Obesity (BMI 30.0-34.9) HLD (hyperlipidemia) Home Medications ?Medication ?Instructions ?Recorded ?Last Taken ?Type metformin 500 mg tablet 500 mg PO DAILY diabetes 12/16/19 07/08/22 History omeprazole 20 mg capsule,delayed 20 mg PO DAILY 01/06/24 Unknown History release potassium chloride 20 mEq 40 meq PO DAILY 01/06/24 Unknown History tablet,extended release(part/cryst) (Klor-Con M) apixaban 5 mg tablet (Eliquis) 5 mg PO BID Inadvertently stopped: 01/29/24 11/02/24 Rx PLEASE FILL, pt almost out #60 tabs pravastatin 80 mg tablet 80 mg PO QHS cholesterol #90 tabs 03/14/24 Unknown Rx carvedilol 25 mg tablet 25 mg PO BID #180 TABLETS 06/13/24 11/04/24 05:00 Rx losartan 100 mg tablet 100 mg PO DAILY 07/01/24 11/04/24 05:00 History levetiracetam 500 mg tablet 500 mg PO BID #60 tabs 08/08/24 Unknown Rx amlodipine 5 mg tablet 5 mg PO DAILY 09/02/24 Unknown History triamcinolone acetonide 0.1 % 1 applic topical BID-TID 09/02/24 Unknown History topical cream furosemide 40 mg tablet 40 mg PO DAILY 11/03/24 Unknown History Allergy/AdvReac Type Severity Reaction Status Date / Time cephalexin Allergy Mild Rash Verified 12/02/24 14:51 atorvastatin (From Lipitor) AdvReac Severe Myalgias Verified 12/02/24 14:51 rosuvastatin (From Crestor) AdvReac Severe Myalgias Verified 12/02/24 14:51 Family History Mother Breast cancer Hypertension Dementia Grandmother Heart disease Father Heart disease Hypertension Surgical History History of cardiac catheterization Hx of colonoscopy History of left-sided carotid endarterectomy (04/02/20) H/O coronary artery bypass surgery (02/13/00) History of right-sided carotid endarterectomy (2000) Hx of tonsillectomy History of left heart catheterization (06/14/18) Social History household members: spouse Smoking Status: Never smoker second hand exposure: No alcohol intake: current alcohol intake frequency: holidays/special occasions only details: occasionally substance use type: does not use caffeine: Yes Type: coffee Number of servings: 3 frequency: other details: 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 CVS: Negative for chest pain. Respiratory: Positive for shortness of breath, cough. GI: Negative for abdominal pain, nausea, vomiting, diarrhea. Neuro: Negative for headache. EXAM <KASH Rhoades - Last Filed: 12/02/24 20:10> Physical Exam Narrative Exam Narrative: CONST: Patient sitting in no acute distress. EYES: Normal inspection. NECK: Normal inspection. RESP: Mildly tachypneic, diffuse expiratory wheezing. No retractions. CVS: Irregularly irregular rhythm with click, no murmur, no gallop. ABD: Soft and nontender, no guarding or rebound, nondistended. SKIN: Color normal, no rash, warm, dry, intact. EXTREMITIES: Normal appearance, no pedal edema. NEURO: Alert and answering questions appropriately. PSYCH: Normal affect. Const Vital Signs: 12/02/24 14:51 12/02/24 18:25 12/02/24 18:27 Temperature 97.9 F Temperature Source Oral Pulse Rate 76 67 Respiratory Rate 18 22 H Respiratory Effort Short of Breath Respiratory Pattern Tachypnea Blood Pressure 128/77 H 125/76 H Blood Pressure Mean 94 92 Pulse Ox 94 87 Oxygen Delivery Method Room Air Room Air 12/02/24 18:39 Temperature Temperature Source Pulse Rate 67 Respiratory Rate 24 H Respiratory Effort Respiratory Pattern Tachypnea Blood Pressure Blood Pressure Mean Pulse Ox Oxygen Delivery Method <Dr. Hao Rodriguez DO - Last Filed: 12/02/24 19:47> Physical Exam Const Vital Signs: 12/02/24 14:51 12/02/24 18:25 12/02/24 18:27 Temperature 97.9 F Temperature Source Oral Pulse Rate 76 67 Respiratory Rate 18 22 H Respiratory Effort Short of Breath Respiratory Pattern Tachypnea Blood Pressure 128/77 H 125/76 H Blood Pressure Mean 94 92 Pulse Ox 94 87 Oxygen Delivery Method Room Air Room Air 12/02/24 18:39 Temperature Temperature Source Pulse Rate 67 Respiratory Rate 24 H Respiratory Effort Respiratory Pattern Tachypnea Blood Pressure Blood Pressure Mean Pulse Ox Oxygen Delivery Method [facility] <KASH Rhoades - Last Filed: 12/02/24 20:10> [facility] Narrative Medical decision making narrative: History gathered from: Patient, family Differential: Viral URI, bronchospasm, pneumonia 79-year-old male has had about 4 days of URI symptoms. Today became more short of breath with wheezing. He appears well and nontoxic. He dropped to 87% on room air and was placed on 2 L nasal cannula. He has diffuse expiratory wheezing and rhonchorous lung sounds so I ordered IV Solu-Medrol and aerosols. Labs show normal white count of 5.3 and mild anemia at 12.5. Normal electrolytes, creatinine 1.32. EKG shows chronic rate controlled A-fib. CXR shows no significant findings and viral swab is positive for RSV. After aerosol he was 89% on room air, since he is still requiring oxygen I feel he needs admission to the hospital. Case was discussed with the hospitalist. Lab Data Labs: Laboratory Results - last 24 hr 12/02/24 19:00 WBC 5.3 RBC 3.69 L Hgb 12.5 L Hct 37.0 L MCV 100.3 H MCH 33.9 H MCHC 33.8 RDW Std Deviation 49.6 H RDW Coeff of Natasha 13.4 Plt Count 125 L MPV 10.6 Immature Gran % (Auto) 0.600 Neut % (Auto) 78.8 H Lymph % (Auto) 15.0 L [place] % (Auto) 5.4 Eos % (Auto) 0.0 Baso % (Auto) 0.2 Absolute Neuts (auto) 4.2 Absolute Lymphs (auto) 0.80 L Nucleated RBC % 0 Sodium 136 Potassium 3.7 Chloride 106 Carbon Dioxide 21.0 Anion Gap 9 BUN 29 H Creatinine 1.32 H Estim Creat Clear Calc 46.22 Est GFR (MDRD) Af Amer 67 Est GFR (MDRD) Non-Af 56 L BUN/Creatinine Ratio 22.0 H Glucose 143 H Calcium 9.2 Radiography Diagnostic Testing: Clinical Impression(s) from Imaging Studies Chest X-Ray 12/02/24 18:30 IMPRESSION: Central pulmonary vascular prominence. Electronically Signed: Khang Freeman DO at 19:10 EST Reading Location ID and State: [facility] / [place] Tel [phone], Service support , EKG Initial EKG: Attestation: I personally reviewed and interpreted this EKG as follows: Comments: Atrial fibrillation at 67 bpm No STEMI <Dr. Hao Rodriguez DO - Last Filed: 12/02/24 19:47> MDM History & Record Review Discussion w/independent historian: Patient Lab Data Attestation: I reviewed the patient's lab results. Labs: Laboratory Results - last 24 hr 12/02/24 19:00 WBC 5.3 RBC 3.69 L Hgb 12.5 L Hct 37.0 L MCV 100.3 H MCH 33.9 H MCHC 33.8 RDW Std Deviation 49.6 H RDW Coeff of Natasha 13.4 Plt Count 125 L MPV 10.6 Immature Gran % (Auto) 0.600 Neut % (Auto) 78.8 H Lymph % (Auto) 15.0 L [place] % (Auto) 5.4 Eos % (Auto) 0.0 Baso % (Auto) 0.2 Absolute Neuts (auto) 4.2 Absolute Lymphs (auto) 0.80 L Nucleated RBC % 0 Sodium 136 Potassium 3.7 Chloride 106 Carbon Dioxide 21.0 Anion Gap 9 BUN 29 H Creatinine 1.32 H Estim Creat Clear Calc 46.22 Est GFR (MDRD) Af Amer 67 Est GFR (MDRD) Non-Af 56 L BUN/Creatinine Ratio 22.0 H Glucose 143 H Calcium 9.2 Radiography Diagnostic Testing: Clinical Impression(s) from Imaging Studies Chest X-Ray 12/02/24 18:30 IMPRESSION: Central pulmonary vascular prominence. Electronically Signed: Khang Freeman DO at 19:10 EST Reading Location ID and State: [facility] / [place] Tel [phone], Service support , Treatment and Re-Evaluation :: I have personally performed a face to face assessment of the patient and have reviewed the ANASTASIYA Note. I performed a substantive portion of the visit including all aspects of the following. My jimenez findings include: History is 79-year-old male presenting to the emergency room with cough shortness of breath rhinorrhea patient has been sick for several days. Noted to be hypoxic. Does not wear oxygen at home. He has a history of coronary disease status post coronary artery bypass. He is anticoagulated on apixaban for atrial fibrillation. Exam is patient with bilateral wheezing and slight tachypnea. He is not hypoxic. Normal tensive. Medical Decison Making-interpretation of the chest x-ray is no acute infiltrates no significant pleural effusions. He is RSV positive. He was given breathing treatments and steroids. He continues after the breathing treatment to have a pulse ox around 89. Additional will be ordered. We will speak with the hospitalist regarding admission. Discharge Plan Dx/Rx/DC Orders Clinical Impression: Acute bronchiolitis due to respiratory syncytial virus, Atherosclerotic heart disease of [place] coronary artery without angina pectoris, Acute hypoxemic respiratory failure Disposition Disposition: Acute Care Hospital [facility]
--- NOTE | 2024-12-02 18:30 | RAD_ITS ---
INDICATION: cough EXAMINATION/TECHNIQUE: X-RAY - XR Chest 2 Views COMPARISON: October 10, 2022 FINDINGS: LINES/DEVICES: Stable sternotomy wires. LUNGS: No consolidation, edema or effusion. No pneumothorax. MEDIASTINUM AND CARDIOVASCULAR STRUCTURES: Cardiac silhouette not enlarged. Central pulmonary vascular prominence. Central airways and mediastinal contour are unremarkable. BONES AND SOFT TISSUES: Unremarkable. RAD/Chest PA and Lateral IMPRESSION: Central pulmonary vascular prominence. Electronically Signed: Khang Freeman DO at 19:10 EST ,
[2024-12-02] MEDS: Ipratropium/Albuterol Sulfate 3 ML AMPUL.NEB INHALATION ×3 (18:39→22:39)
[2024-12-02] MEDS: MethylPREDNISolone 125 MG/2 ML Vial 60 MG IV (19:17)
[2024-12-02 19:21] LABS: Absolute Neutrophil Count 4.2 X10^3/uL (2.0-7.7); Basophil# 0.01 X10^3/uL; Basophil% 0.2 % (0-1); Hemoglobin 12.5 g/dL (13.0-16.5); Mean Corp Hgb Conc 33.8 g/dL (32-36); Mean Corpuscular Hgb 33.9 pg (27.0-32.0); Mean Corpuscular Volume 100.3 fL (80-94); Mean Platelet Vol. 10.6 fl (6.2-12.0); Monocyte# 0.29 X10^3/uL; Monocyte% 5.4 % (0-10); NRBC Flagged by Analyzer 0 % (0-5); Neutrophil % 78.8 % (47-70); Platelet Count 125 K/mm3 (150-450); RBC Distribution Width CV 13.4 % (11.6-14.6); RBC Distribution Width SD 49.6 fl (35.1-43.9); Red Blood Count 3.69 M/mm3 (4.6-6.2); White Blood Count 5.3 K/mm3 (4.4-11.0)
[2024-12-02 19:33] LABS: Anion Gap 9 (5-15); BUN 29 mg/dL (7-18); Calcium,Total 9.2 mg/dL (8.5-10.1); Chloride 106 mmol/L (98-107); Creatinine, Serum 1.32 mg/dL (0.70-1.30); EST Glomerular Filtration Rate 56 mL/min (>60); Est Glom Filt Rate - Afr Amer 67 mL/min (>60); Estimated Creatinine Clearance 46.22 ml/min; Glucose 143 mg/dL (74-106); Potassium 3.7 mmol/L (3.5-5.1); Sodium Level 136 mmol/L (136-145)
--- NOTE | 2024-12-02 20:41 | PCM.HP.STD ---
HPI - General General Date of Admission: 12/02/24 Date of Service: 12/02/24 Chief Complaint: Cough/shortness of breath/nasal drainage HPI Narrative HOLLIE ODEN, is a 79 M who presented to the emergency department [facility] on 12/02/2024 with a chief complaint of cold symptoms including body aches, nasal congestion and drainage, cough, fevers and chills and shortness of breath. His family tried to get him to go to urgent care yesterday however he refused but was willing to go to day. Family reports that they have noticed more shortness of breath and wheezing today however subjectively he is not report this. He does not have a history of tobacco abuse but has had some potential sick contacts over the holidays. Family reports that his appetite has been not as robust over the last couple days as well. He has had no nausea vomiting or diarrhea and denies any chest pain. Vital signs on presentation demonstrated temperature of 97.9, heart rate 76, respiratory was 18-20, blood pressure was 128/77 and pulse ox was initially 94% on room air but he desatted to 87% on room air was placed on 2 L nasal cannula with improvement to his oxygen saturation to 96% on room air. CBC shows a chronic stable anemia with a hemoglobin of 12.5 and a stable thrombocytopenia with a platelet count of 125,000. He does have a left shift and a lymphopenia. Chemistry panel shows normal electrolytes with stable CKD. EKG was with no acute changes. Chest x-ray shows some mild central pulmonary vascular prominence but no acute pathology noted. COVID/flu/RSV PCR panel was positive for RSV. Given his hypoxia at rest admission was felt to be necessary at this time for supportive care. [facility] Medical History Redness of skin History of ulceration Non-smoker History of stress test Vascular disease Seizures CVA (cerebral vascular accident) Brain TIA Wears dentures Wears glasses Diabetes High cholesterol Gastric reflux Shortness of breath on exertion Chronic cough History of edema History of echocardiogram Hypertension Cardiology follow-up encounter History of CHF (congestive heart failure) History of atrial fibrillation Cirrhosis Vomiting Abdominal pain Longstanding persistent atrial fibrillation Carotid artery stenosis Essential (primary) hypertension Positive colorectal cancer screening using Cologuard test Secondary pulmonary arterial hypertension Chronic systolic (congestive) heart failure CVA (cerebral vascular accident) (01/18/18) Atherosclerotic heart disease of [place] coronary artery without angina pectoris Right sided weakness Obesity (BMI 30.0-34.9) HLD (hyperlipidemia) Home Medications ?Medication ?Instructions ?Recorded ?Last Taken ?Type metformin 500 mg tablet 500 mg PO DAILY diabetes 12/16/19 07/08/22 History apixaban 5 mg tablet (Eliquis) 5 mg PO BID Inadvertently stopped: 01/29/24 11/02/24 Rx PLEASE FILL, pt almost out #60 tabs pravastatin 80 mg tablet 80 mg PO QHS cholesterol #90 tabs 03/14/24 Unknown Rx carvedilol 25 mg tablet 25 mg PO BID HTN #180 TABLETS 06/13/24 11/04/24 05:00 Rx levetiracetam 500 mg tablet 500 mg PO BID SEIZURES #60 tabs 08/08/24 Unknown Rx amlodipine 5 mg tablet 5 mg PO DAILY HTN 09/02/24 Unknown History triamcinolone acetonide 0.1 % 1 applic topical BID-TID SKIN 09/02/24 Unknown History topical cream furosemide 40 mg tablet 40 mg PO DAILY DIURETIC 11/03/24 Unknown History albuterol 90 mcg/actuation aerosol 180 mcg inhalation Q4H PRN WHEEZING 12/02/24 Unknown History inhaler losartan 50 mg tablet 50 mg PO DAILY HTN 12/02/24 Unknown History spironolactone 25 mg tablet 25 mg PO DAILY DIURETIC 12/02/24 Unknown History Allergy/AdvReac Type Severity Reaction Status Date / Time cephalexin Allergy Mild Rash Verified 12/02/24 14:51 atorvastatin (From Lipitor) AdvReac Severe Myalgias Verified 12/02/24 14:51 rosuvastatin (From Crestor) AdvReac Severe Myalgias Verified 12/02/24 14:51 Family History Mother Breast cancer Hypertension Dementia Grandmother Heart disease Father Heart disease Hypertension Surgical History History of cardiac catheterization Hx of colonoscopy History of left-sided carotid endarterectomy (04/02/20) H/O coronary artery bypass surgery (02/13/00) History of right-sided carotid endarterectomy (2000) Hx of tonsillectomy History of left heart catheterization (06/14/18) Social History household members: spouse Smoking Status: Never smoker second hand exposure: No alcohol intake: current alcohol intake frequency: holidays/special occasions only details: occasionally substance use type: does not use caffeine: Yes Type: coffee Number of servings: 3 frequency: other details: 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: [employer] seatbelt use: always ROS Constitutional Constitutional: Reports chills, fatigue, malaise and weakness; Denies anorexia, change in weight, fever(s), night sweats or other Eyes Eyes: Denies blurry vision, change in eye color, change in vision, discharge from eye(s), double vision, erythema, eye pain, loss of vision or other ENT HEENT: Reports abnormal hearing, headache(s), nasal congestion, nasal discharge, post nasal drip and sore throat; Denies dysphagia, ear pain, epistaxis, hearing loss, sinus pressure or other Cardiovascular Cardiovascular: Denies chest pain, claudication, dyspnea on exertion, edema, lightheadedness, orthopnea, palpitations, paroxysmal nocturnal dyspnea, rapid heart rate, syncope or other Respiratory/Chest Respiratory/Chest: Reports cough, shortness of breath with exertion and wheezing; Denies dyspnea, excessive phlegm production, hemoptysis, productive cough, shortness of breath at rest or other Gastrointestinal Gastrointestinal: Denies abdominal pain, coffee ground emesis, constipation, diarrhea, dyspepsia, hematemesis, hematochezia, loose stools, melena, nausea, vomiting or other Genitourinary Genitourinary: Denies burning urination, difficulty urinating, dysuria, hematuria, nocturia, urinary frequency, urinary hesitancy, urinary incontinence, urinary urgency or other Musculoskeletal Musculoskeletal: Denies arthralgias, back pain, joint pain, joint stiffness, joint swelling, myalgias, neck pain or other Neurologic Neurologic: Denies abnormal gait, abnormal speech, confusion, disequilibrium, dizziness, focal weakness, headache(s), numbness, paresthesias, seizure-like activity, seizures, syncope, tingling, tremor(s) or other Psychiatric Psychiatric: Denies anxiety, depression, homicidal ideation, suicidal ideation or other Endocrine Endocrinology: Denies change in body appearance, cold intolerance, excessive sweating, heat intolerance, polydipsia, polyuria or other Hematologic/Lymphatic Hematologic/Lymphatic: Denies anemia, easy bleeding, easy bruising, lymphadenopathy or other Allergic/Immunologic Allergic/Immunologic: Denies rhinitis, hives, eczemia, asthma or other Vital Signs Vital Signs Vital Signs: 12/02/24 14:51 12/02/24 18:25 12/02/24 18:27 Temperature 97.9 F Temperature Source Oral Pulse Rate 76 67 Respiratory Rate 18 22 H Respiratory Effort Short of Breath Respiratory Pattern Tachypnea Blood Pressure 128/77 H 125/76 H Blood Pressure Mean 94 92 Pulse Ox 94 87 Oxygen Delivery Method Room Air Room Air Oxygen Flow Rate (L/min) 12/02/24 18:39 12/02/24 19:50 12/02/24 19:50 Temperature Temperature Source Pulse Rate 67 69 Respiratory Rate 24 H 28 H Respiratory Effort Respiratory Pattern Tachypnea Tachypnea Blood Pressure Blood Pressure Mean Pulse Ox 95 Oxygen Delivery Method Nasal Cannula Oxygen Flow Rate (L/min) 2 12/02/24 19:58 12/02/24 20:00 Temperature 97.6 F L Temperature Source Pulse Rate 65 64 Respiratory Rate 18 18 Respiratory Effort Respiratory Pattern Blood Pressure 136/67 H 136/72 H Blood Pressure Mean 90 93 Pulse Ox 96 96 Oxygen Delivery Method Room Air Oxygen Flow Rate (L/min) Weight Weight: 81.42 kg Body Mass Index (BMI) 29.0 Physical Exam Const alert, oriented x3, no apparent distress and well nourished; Negative for average body habitus Constitutional Narrative: Overweight, older, white male, sitting up in bed, appears comfortable currently, family at bedside, not toxic appearing General Appearance: cooperative HEENT normocephalic, head/scalp atraumatic and moist oral mucous membranes; Negative for hearing grossly normal bilaterally HEENT Narrative: Mallampati is 3, no thrush, mild hearing loss Eyes conjunctivae normal Eyes Narrative: No scleral icterus Neck no lymphadenopathy and supple Neck Narrative: Trachea midline, no thyroid enlargement Resp no retractions, no use of accessory muscles and No clear to auscultation bilaterally Resp Narrative: Mild tachypnea, coarse breath sounds throughout with scattered inspiratory and expiratory wheezes Auscultation: wheezes; Negative for rales or rhonchi Cardio regular rate, S1 normal heart sound, S2 normal heart sound, no murmurs, no rub, no gallops and no clicks Cardio Narrative: Irregular irregular rhythm with prominent P2 GI normal to inspection, nondistended, normoactive bowel sounds, soft to palpation and non-tender Extremity Extremity Narrative: Trace bilateral lower extremity pitting edema, no cyanosis or clubbing Neuro oriented x3, moves all extremities and no focal motor deficits Neuro Narrative: Generalized weakness noted Speech: speech normal Psych affect normal Psych Narrative: Very pleasant, eye contact is good and patient interacts appropriately Results Lab / Micro Data 12/02/24 19:00 12/02/24 19:00 Labs: Laboratory Results - last 24 hr 12/02/24 19:00: WBC 5.3, RBC 3.69 L, Hgb 12.5 L, Hct 37.0 L, MCV 100.3 H, MCH 33.9 H, MCHC 33.8, RDW Std Deviation 49.6 H, RDW Coeff of Natasha 13.4, Plt Count 125 L, MPV 10.6, Immature Gran % (Auto) 0.600, Neut % (Auto) 78.8 H, Lymph % (Auto) 15.0 L, [place] % (Auto) 5.4, Eos % (Auto) 0.0, Baso % (Auto) 0.2, Absolute Neuts (auto) 4.2, Absolute Lymphs (auto) 0.80 L, Nucleated RBC % 0, Sodium 136, Potassium 3.7, Chloride 106, Carbon Dioxide 21.0, Anion Gap 9, BUN 29 H, Creatinine 1.32 H, Estim Creat Clear Calc 46.22, Est GFR (MDRD) Af Amer 67, Est GFR (MDRD) Non-Af 56 L, BUN/Creatinine Ratio 22.0 H, Glucose 143 H, Calcium 9.2 Micro: Microbiology 12/02/24 15:02 Mucosa - Nose SARS-CoV-2, Influenza & RSV (PCR) - Final RSV Imaging Radiology Impression Chest X-Ray 12/02/24 18:30 IMPRESSION: Central pulmonary vascular prominence. Electronically Signed: Khang Freeman DO at 19:10 EST Reading Location ID and State: [facility] / [place] Tel [phone], Service support , Assessment & Plan Assessment/Plan (1) Hypoxia: (2) Acute bronchiolitis due to respiratory syncytial virus: PLAN: Plan Hypoxia secondary to acute bronchiolitis from RSV pneumonia -Will check sputum if able to produce for superimposed pneumonia but low suspicion at this time for bacterial infection -Solu-Medrol 40 every 8 -Aggressive pulmonary toilet with scheduled and as needed nebulizers -Incentive spirometry -Acapella 10 times every 2 hours while awake -Mucinex 1200 twice daily -Continue supplemental oxygen with 2 L and wean as able -Will need ambulatory pulse ox prior to discharge Persistent atrial fibrillation -Continue home beta-manuelito -Continue home apixaban Chronic HFrEF secondary to ischemic cardiomyopathy -Last echocardiogram was on 09/11/2023 at which time his EF was found to be 30% with global severe hypokinesis of the LV and mild to moderate eccentric mitral valve insufficiency -Continue home Lasix -Continue home carvedilol -Continue home losartan -Continue home Aldactone CAD/essential HTN/HPL -History of CABG -Continue home statin -Continue home antihypertensives to include Lasix, Aldactone, losartan, carvedilol, amlodipine Bilateral carotid artery stenosis -Status post bilateral carotid endarterectomies -Continue aggressive management of secondary risk factors History of seizures -Continue home Keppra Chronic thrombocytopenia -Patient with previous CT of the chest in 2020 that does call his liver cirrhotic -Suspect thrombocytopenia is related to this -No current issues and counts are stable -Continue to monitor History of TIA/stroke -Continue Eliquis -Patient with chronic right-sided weakness Garzon's esophagus/GERD -Patient not currently on any therapy DVT prophylaxis -Continue apixaban CODE STATUS -Full code is verified Charges/Coding Visit Charges Inpatient E&M: 23039 Init Hosp L2
[2024-12-02] MEDS: 0.9% Saline Lock 10 ML Syringe IV (21:58)
[2024-12-02] MEDS: Furosemide 40 MG/4 ML Vial IV (21:59)
[2024-12-02] MEDS: Triamcinolone Acetonide 0.1% Cream 15 gm 1 APPLIC TOPICAL (22:00)
[2024-12-02] MEDS: APIXABAN 5 MG TABLET PO (22:01)
[2024-12-02] MEDS: Carvedilol 25 MG Tablet PO (22:01)
[2024-12-02] MEDS: Pravastatin 80 MG Tablet PO (22:01)
[2024-12-02] MEDS: levETIRAcetam 500 MG Tablet PO (22:01)
[2024-12-02] MEDS: Insulin Lispro 100 UNIT/ML INSULN.PEN SC (22:05)
[2024-12-02 23:54] LABS: Bedside Glucose 156 mg/dL (74-106)
[2024-12-03] VITALS (10 sets, daily range): BP systolic 106–132; BP diastolic 47–69; PULSE 59–96; RESP 16–24; TEMP 36.4–36.6; O2SAT 94–100; BMI 28.6
[2024-12-03 05:06] LABS: Absolute Neutrophil Count 3.6 X10^3/uL (2.0-7.7); Hematocrit 37.8 % (40-54); Hemoglobin 12.4 g/dL (13.0-16.5); Lymphocyte % 9.9 % (19-41); Mean Corp Hgb Conc 32.8 g/dL (32-36); Mean Corpuscular Hgb 32.9 pg (27.0-32.0); Mean Corpuscular Volume 100.3 fL (80-94); Mean Platelet Vol. 10.4 fl (6.2-12.0); Monocyte# 0.06 X10^3/uL; Monocyte% 1.5 % (0-10); NRBC Flagged by Analyzer 0 % (0-5); Neutrophil # 3.55 X10^3/uL (2.7-7.7); Neutrophil % 88.1 % (47-70); POSITIVE DIFFERENTIAL YES; Platelet Count 121 K/mm3 (150-450); RBC Distribution Width CV 13.4 % (11.6-14.6); RBC Distribution Width SD 49.6 fl (35.1-43.9); Red Blood Count 3.77 M/mm3 (4.6-6.2)
[2024-12-03 05:38] LABS: AST(SGOT) 37 U/L (15-37); Alanine Aminotransfer ALT/SGPT 22 U/L (16-61); Albumin, Serum 3.3 g/dL (3.2-5.0); Alkaline Phosphatase 90 U/L (45-117); Anion Gap 7 (5-15); BUN 34 mg/dL (7-18); BUN/Creat Ratio 24.5 RATIO (10-20); Calcium,Total 9.1 mg/dL (8.5-10.1); Chloride 103 mmol/L (98-107); Creatinine, Serum 1.39 mg/dL (0.70-1.30); EST Glomerular Filtration Rate 53 mL/min (>60); Est Glom Filt Rate - Afr Amer 64 mL/min (>60); Estimated Creatinine Clearance 42.19 ml/min; Globulin 3.3 g/dL (2.2-4.2); Glucose 175 mg/dL (74-106); Magnesium 2.4 mg/dL (1.6-2.6); Potassium 3.6 mmol/L (3.5-5.1); Protein, Total 6.6 g/dL (6.4-8.2); Sodium Level 134 mmol/L (136-145)
[2024-12-03] MEDS: Insulin Lispro 100 UNIT/ML INSULN.PEN SC ×4 (06:50→21:40)
[2024-12-03] MEDS: Triamcinolone Acetonide 0.1% Cream 15 gm 1 APPLIC TOPICAL ×3 (06:50→21:41)
[2024-12-03] MEDS: Ipratropium/Albuterol Sulfate 3 ML AMPUL.NEB INHALATION ×5 (07:11→23:10)
[2024-12-03 07:16] LABS: Bedside Glucose 162 mg/dL (74-106)
[2024-12-03] MEDS: APIXABAN 5 MG TABLET PO ×2 (09:22→21:40)
[2024-12-03] MEDS: levETIRAcetam 500 MG Tablet PO ×2 (09:22→21:40)
--- NOTE | 2024-12-03 11:27 | PN_ITS ---
Subjective Subjective Patient seen and examined. He had no active complaints. HE denied any fever, chills but admitted to occasional cough. He denied any shortness of breath. On 2L of oxygen. Objective Data Objective Data Vital Signs: Vital Signs Temp Pulse Resp BP Pulse Ox O2 Del Method O2 Flow Rate 97.6 F L 61 20 H 106/47 L 98 Nasal Cannula 2 12/03/24 08:55 12/03/24 10:57 12/03/24 10:57 12/03/24 08:55 12/03/24 08:55 12/03/24 09:01 12/03/24 09:01 Oxygen Flow Rate (L/min) 2 Oxygen Delivery Method Nasal Cannula Weight: 171 lb 15.369 oz Body Mass Index (BMI) 28.6 Intake & Output: Intake and Output for Last 24 Hours 12/01/24 12/02/24 12/03/24 23:59 23:59 23:59 Intake Total 350 / 350 Balance 350 / 350 Medical Nutrition Assessment Dietitian: Malnutrition Criteria Met Start: 12/03/24 09:22 Freq: Status: Active Protocol: Document 12/03/24 09:22 SLA (Rec: 12/03/24 09:22 SLA [id number]) Nutrition Malnutrition Evidence of Malnutrition Exists Yes Malnutrition (severe): Acute Illness/Injury Evidenced By Suboptimal Energy Intake ( Severe),Weight Loss (Severe) Clinical Problem Acute Disease or Injury Related Malnutrition Etiology related to acute illness and inadequate energy intake Signs/Symptoms as evidenced by po intake meeting <75% of estimated nutritional needs and 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 Lab / Micro Data 12/03/24 04:35 12/03/24 04:35 Labs: Laboratory Results - last 24 hr 12/02/24 19:00: WBC 5.3, RBC 3.69 L, Hgb 12.5 L, Hct 37.0 L, MCV 100.3 H, MCH 33.9 H, MCHC 33.8, RDW Std Deviation 49.6 H, RDW Coeff of Natasha 13.4, Plt Count 125 L, MPV 10.6, Immature Gran % (Auto) 0.600, Neut % (Auto) 78.8 H, Lymph % (Auto) 15.0 L, [place] % (Auto) 5.4, Eos % (Auto) 0.0, Baso % (Auto) 0.2, Absolute Neuts (auto) 4.2, Absolute Lymphs (auto) 0.80 L, Nucleated RBC % 0, Sodium 136, Potassium 3.7, Chloride 106, Carbon Dioxide 21.0, Anion Gap 9, BUN 29 H, C reatinine 1.32 H, Estim Creat Clear Calc 46.22, Est GFR (MDRD) Af Amer 67, Est GFR (MDRD) Non-Af 56 L, BUN/Creatinine Ratio 22.0 H, Glucose 143 H, Calcium 9.2 12/02/24 22:05: POC Glucose 156 H 12/03/24 04:35: WBC 4.0 L, RBC 3.77 L, Hgb 12.4 L, Hct 37.8 L, MCV 100.3 H, MCH 32.9 H, MCHC 32.8, RDW Std Deviation 49.6 H, RDW Coeff of Natasha 13.4, Plt Count 121 L, MPV 10.4, Immature Gran % (Auto) 0.500, Neut % (Auto) 88.1 H, Lymph % (Auto) 9.9 L, [place] % (Auto) 1.5, Eos % (Auto) 0.0, Baso % (Auto) 0.0, Absolute Neuts (auto) 3.6, Absolute Lymphs (auto) 0.40 L, Nucleated RBC % 0, Sodium 134 L , Potassium 3.6, Chloride 103, Carbon Dioxide 24.0, Anion Gap 7, BUN 34 H, C reatinine 1.39 H, Estim Creat Clear Calc 42.19, Est GFR (MDRD) Af Amer 64, Est GFR (MDRD) Non-Af 53 L, BUN/Creatinine Ratio 24.5 H, Glucose 175 H, Calcium 9.1, Phosphorus 4.0, Magnesium 2.4, Total Bilirubin 1.70 H, AST 37, ALT 22, Alkaline Phosphatase 90, Total Protein 6.6, Albumin 3.3, Globulin 3.3, Albumin/Globulin Ratio 1.0 12/03/24 06:49: POC Glucose 162 H Micro: Microbiology 12/02/24 15:02 Mucosa - Nose SARS-CoV-2, Influenza & RSV (PCR) - Final RSV Radiography Diagnostic Testing: Radiology Impression Chest X-Ray 12/02/24 18:30 IMPRESSION: Central pulmonary vascular prominence. Electronically Signed: Khang Freeman DO at 19:10 EST Reading Location ID and State: [facility] / [place] Tel [phone], Service support , Physical Exam Const alert, oriented x3, no apparent distress and well nourished General Appearance: cooperative and well developed HEENT normocephalic, head/scalp atraumatic, moist oral mucous membranes and oropharynx normal Eyes PERRL and EOMs intact bilaterally Neck no lymphadenopathy and supple Lymph Lymphatic: no lymphadenopathy noted and no lymphedema noted Resp Resp Narrative: moderately diminished breath sounds bibasally, no wheezes, few crackles bilaterally. On 2L of oxygen. Cardio regular rate, regular rhythm, S1 normal heart sound, S2 normal heart sound and no murmurs GI normal to inspection, nondistended, normoactive bowel sounds, soft to palpation, non-tender and non-distended Extremity normal capillary refill, no clubbing, cyanosis or edema and no calf tenderness General Extremity: no tenderness to palpation of joints or extremities Skin General Skin Exam: no breakdown Neuro CN's II-XII intact bilaterally, no focal motor deficits and no sensory deficits noted Motor Exam: strength 5/5 throughout and general weakness Psych thought process normal Appearance: appropriate Assessment & Plan Assessment/Plan (1) Hypoxia: (2) Acute bronchiolitis due to respiratory syncytial virus: PLAN: Plan #Hypoxia due to acute bronchiolitis from RSV pneumonia * Currently on 2 L of oxygen. On IV Solu-Medrol 40 mg every 8 hourly. * On Mucinex. Breathing treatments bronchodilators. * Titrate oxygen to maintain saturation above 90%. * CXR showed central vascular prominence #Persistent atrial fibrillation: * on metoprolol and eliquis #HFrEF * has known EF of 30% from 2D echo in August 2024 which showed severe global hypokinesia of the LV and mild to moderate mitral valve insufficiency. * on lasix, carvedilol, losartan and aldactone. * #CAD: s/p CABG: on statin, carvedilol, losartan and amlodipine. #Hypertension: on carvedilol and losartan #Hyperlipidemia: on statin. #Bilateral carotid stenosis: s/p bilateral carotid endarterectomies. On statin. #Chronic thrombocytopenia * this is chronic. Will monitor. * #History of seizures: on keppra * #History of TIA and stroke: on eliquis. Has chronic right sided wakness. DVT prophylaxis: on eliquis already. Charges/Coding Visit Charges Inpatient E&M: 27816 Subs Hosp L2
--- NOTE | 2024-12-03 12:15 | CASEMGMT ---
LEVI BUSTILLOS Assessment: Face to Face with pt for initial transition planning/care coordination assessment. LEVI BUSTILLOS introduced self and role at [facility], pt voices understanding and consents to assessment. Pt is A&O x4 and answers all questions appropriately at this time. Pt lying in bed in no distress. Care providers, pharmacy, and demographics verified/updated. Strata: 2 Admitting Dx: Hypoxia, RSV, Pneumonia PCP: Jacques Specialists: MARILYNN Preferred Pharmacy: [facility] Insurance: [facility] Prescription Benefit: yes LNOK: , Yu; Daughter, Vanessa Living Arrangements: Pt lives with and daughter in a 1 story home with 2 steps to enter. ADLs: Pt I at baseline Transportation: Pt drives self and denies concerns with transportation. DME: cane HHC/SNF: Denies Hx of. Pt states no concerns with going home at time of dc. Pt does not use O2 at baseline, LEVI BUSTILLOS discussed if Pt would require O2 at time of DC. Provided Pt with verbal list of O2 providers, Pt chose [facility]. Pt states no further concerns/needs. CM to follow. Advised pt to ask CM if any further question/concerns/needs arise, voices understanding. Pt Goal: Home Plan: Home with family support, follow for O2 needs. Dalia SIMS CM
[2024-12-03 12:21] LABS: Bedside Glucose 256 mg/dL (74-106)
[2024-12-03] MEDS: 0.9% Saline Lock 10 ML Syringe IV ×2 (15:12→21:40)
[2024-12-03 16:56] LABS: Bedside Glucose 186 mg/dL (74-106)
[2024-12-03] MEDS: Carvedilol 25 MG Tablet PO (21:40)
[2024-12-03] MEDS: Pravastatin 80 MG Tablet PO (21:41)
[2024-12-03 22:04] LABS: Bedside Glucose 205 mg/dL (74-106)
[2024-12-04] VITALS (7 sets, daily range): BP systolic 112–130; BP diastolic 51–67; PULSE 67–95; RESP 16–20; TEMP 36.3–36.6; O2SAT 93–98; BMI 29.2
[2024-12-04] MEDS: Ipratropium/Albuterol Sulfate 3 ML AMPUL.NEB INHALATION ×3 (02:59→10:37)
[2024-12-04] MEDS: Insulin Lispro 100 UNIT/ML INSULN.PEN SC ×2 (06:11→11:52)
[2024-12-04] MEDS: Triamcinolone Acetonide 0.1% Cream 15 gm 1 APPLIC TOPICAL (06:11)
[2024-12-04] MEDS: 0.9% Saline Lock 10 ML Syringe IV ×2 (06:12→13:27)
[2024-12-04 06:35] LABS: Absolute Lymphocyte Count 0.63 X10^3/uL (0.83-4.51); Absolute Neutrophil Count 6.3 X10^3/uL (2.0-7.7); Hematocrit 37.4 % (40-54); Hemoglobin 12.4 g/dL (13.0-16.5); Lymphocyte # 0.63 X10^3/ul (0.83-4.51); Lymphocyte % 8.8 % (19-41); Mean Corp Hgb Conc 33.2 g/dL (32-36); Mean Corpuscular Volume 99.5 fL (80-94); Mean Platelet Vol. 10.6 fl (6.2-12.0); Monocyte# 0.14 X10^3/uL; NRBC Flagged by Analyzer 0 % (0-5); Neutrophil # 6.33 X10^3/uL (2.7-7.7); Neutrophil % 88.9 % (47-70); Platelet Count 141 K/mm3 (150-450); RBC Distribution Width CV 13.1 % (11.6-14.6); RBC Distribution Width SD 48.6 fl (35.1-43.9); Red Blood Count 3.76 M/mm3 (4.6-6.2); White Blood Count 7.1 K/mm3 (4.4-11.0)
[2024-12-04 06:49] LABS: Bedside Glucose 182 mg/dL (74-106)
[2024-12-04 07:22] LABS: Anion Gap 5 (5-15); BUN 41 mg/dL (7-18); Chloride 106 mmol/L (98-107); Creatinine, Serum 1.14 mg/dL (0.70-1.30); EST Glomerular Filtration Rate 66 mL/min (>60); Est Glom Filt Rate - Afr Amer 80 mL/min (>60); Estimated Creatinine Clearance 51.89 ml/min; Glucose 179 mg/dL (74-106); Sodium Level 135 mmol/L (136-145)
[2024-12-04] MEDS: APIXABAN 5 MG TABLET PO (09:51)
[2024-12-04] MEDS: levETIRAcetam 500 MG Tablet PO (09:51)
[2024-12-04 12:11] LABS: Bedside Glucose 200 mg/dL (74-106)
--- NOTE | 2024-12-04 14:27 | DS.PCM_ITS ---
Providers Date of Admission: 12/02/24 Date of Discharge: 12/04/24 Primary Care Physician: Dr. Herson Terrell MD Reason For Visit: HYPOXIA / RSV PNEUMONIA Diagnosis Discharge Diagnosis (1) Hypoxia: Status: Acute Code(s): R09.02 - Hypoxemia (2) Acute bronchiolitis due to respiratory syncytial virus: Status: Acute Code(s): J21.0 - Acute bronchiolitis due to respiratory syncytial virus Plan #Hypoxia due to acute bronchiolitis from RSV pneumonia * Currently on 2 L of oxygen. On IV Solu-Medrol 40 mg every 8 hourly. * On Mucinex. Breathing treatments bronchodilators. * Titrate oxygen to maintain saturation above 90%. * CXR showed central vascular prominence #Persistent atrial fibrillation: * on metoprolol and eliquis #HFrEF * has known EF of 30% from 2D echo in August 2024 which showed severe global hypokinesia of the LV and mild to moderate mitral valve insufficiency. * on lasix, carvedilol, losartan and aldactone. * #CAD: s/p CABG: on statin, carvedilol, losartan and amlodipine. #Hypertension: on carvedilol and losartan #Hyperlipidemia: on statin. #Bilateral carotid stenosis: s/p bilateral carotid endarterectomies. On statin. #Chronic thrombocytopenia * this is chronic. Will monitor. * #History of seizures: on keppra * #History of TIA and stroke: on eliquis. Has chronic right sided wakness. DVT prophylaxis: on eliquis already. Medications at Discharge Home Medications metformin 500 mg tablet 500 mg PO DAILY diabetes 12/16/19 apixaban 5 mg tablet (Eliquis) 5 mg PO BID Inadvertently stopped: PLEASE FILL, pt almost out #60 tabs 01/29/24 pravastatin 80 mg tablet 80 mg PO QHS cholesterol #90 tabs 03/14/24 carvedilol 25 mg tablet 25 mg PO BID HTN #180 TABLETS 06/13/24 levetiracetam 500 mg tablet 500 mg PO BID SEIZURES #60 tabs 08/08/24 amlodipine 5 mg tablet 5 mg PO DAILY HTN 09/02/24 triamcinolone acetonide 0.1 % topical cream 1 applic topical BID-TID SKIN 09/02/24 furosemide 40 mg tablet 40 mg PO DAILY DIURETIC 11/03/24 albuterol 90 mcg/actuation aerosol inhaler 180 mcg inhalation Q4H PRN WHEEZING 12/02/24 losartan 50 mg tablet 50 mg PO DAILY HTN 12/02/24 spironolactone 25 mg tablet 25 mg PO DAILY DIURETIC 12/02/24 prednisone 20 mg tablet 40 mg (2 x 20 mg) PO DAILY #10 tabs 12/04/24 Hospital Course Operations None Procedures None Summary of Care Provided Minutes Spent on Discharge: 45 Hospital Course: Patient is a 79-year-old male with a past medical history as outlined was admitted through the ED on 12/02/2024 with complaint of cough and shortness of breath as well as nasal congestion, fever and chills. He had also had poor appetite but denied any nausea vomiting or diarrhea. On admission in the ED he was hypoxic at 87% on room air and he required 2 L of oxygen. EKG showed no acute ST changes. Chest x-ray showed some mild central pulmonary vascular prominence but no acute pathology noted. COVID and flu were negative but RSV was positive. He was admitted and managed for hypoxia due to RSV infection. He was placed on breathing treatment with bronchodilators and IV Solu-Medrol. His shortness of breath gradually improved and he felt better. He was weaned down to oxygen. He remained stable and was discharged on 12/04/2024. He was discharged with p.o. prednisone 40 mg daily for 5 days. He had a walking pulse ox on the day of discharge and did not require any oxygen. He is follow-up with his primary care doctor within 1 to 2 weeks. Patient seen and examined prior to discharge. He had no active complaints and had an uneventful night. Review of systems otherwise negative. Labs and vitals reviewed. Medication reviewed and reconciled. Physical Exam Const alert, oriented x3, no apparent distress and well nourished; Negative for average body habitus General Appearance: cooperative, comfortable, well kempt and well developed Orientation / Consciousness: awake Exam Limitations: no limitations HEENT normocephalic, head/scalp atraumatic, moist oral mucous membranes and oropharynx normal; Negative for hearing grossly normal bilaterally Mouth: oral and palatal mucosa normal Eyes PERRL, EOMs intact bilaterally and conjunctivae normal Eyes Narrative: No scleral icterus Neck no lymphadenopathy and supple Neck Narrative: Trachea midline, no thyroid enlargement Lymph Lymphatic: no lymphadenopathy noted and no lymphedema noted Resp normal respiratory effort, no retractions, no use of accessory muscles and clear to auscultation bilaterally Resp Narrative: on room air. Cardio regular rate, regular rhythm, S1 normal heart sound, S2 normal heart sound, no murmurs, no rub, no gallops and no clicks GI normal to inspection, nondistended, normoactive bowel sounds, soft to palpation, non-tender and non-distended Extremity normal to inspection, full ROM, normal capillary refill, no clubbing, cyanosis or edema and no calf tenderness General Extremity: no tenderness to palpation of joints or extremities Skin no rashes or lesions noted General Skin Exam: no breakdown Neuro oriented x3, CN's II-XII intact bilaterally, moves all extremities, no focal motor deficits and no sensory deficits noted Sensorium / Orientation: awake and alert Speech: speech normal Motor Exam: strength 5/5 throughout and general weakness Psych thought process normal and affect normal Appearance: appropriate Medical Records Data Medical Nutrition Assessment Dietitian: Malnutrition Criteria Met Start: 12/03/24 09:22 Freq: Status: Active Protocol: Document 12/03/24 09:22 SLA (Rec: 12/03/24 09:22 SLA [id number]) Nutrition Malnutrition Evidence of Malnutrition Exists Yes Malnutrition (severe): Acute Illness/Injury Evidenced By Suboptimal Energy Intake ( Severe),Weight Loss (Severe) Clinical Problem Acute Disease or Injury Related Malnutrition Etiology related to acute illness and inadequate energy intake Signs/Symptoms as evidenced by po intake meeting <75% of estimated nutritional needs and 6.1% unplanned wt loss x 2 wks [employer] Status Active Problem Recommendation Dietitian Recommendations/Changes D/t signs and symptoms of malnutrition, will liberalize diet to CHO Controlled, No Added Salt Will order 4 oz glucerna shake w/ meals (vanilla per pt preference) Continue to follow and monitor for changes in pt nutritional status and make additional rec as indicated. Weight / BMI Weight Weight: 175 lb 4.28 oz Body Mass Index (BMI) 29.2 ABG / Lab / Microbiology Data 12/04/24 06:03 12/04/24 06:03 Laboratory: Laboratory Results - last 24 hr 12/03/24 16:37: POC Glucose 186 H 12/03/24 21:39: POC Glucose 205 H 12/04/24 06:03: WBC 7.1, RBC 3.76 L, Hgb 12.4 L, Hct 37.4 L, MCV 99.5 H, MCH 33.0 H, MCHC 33.2, RDW Std Deviation 48.6 H, RDW Coeff of Natasha 13.1, Plt Count 141 L, MPV 10.6, Immature Gran % (Auto) 0.300, Neut % (Auto) 88.9 H, Lymph % (Auto) 8.8 L, [place] % (Auto) 2.0, Eos % (Auto) 0.0, Baso % (Auto) 0.0, Absolute Neuts (auto) 6.3, Absolute Lymphs (auto) 0.63 L, Nucleated RBC % 0, Sodium 135 L , Potassium 4.0, Chloride 106, Carbon Dioxide 24.0, Anion Gap 5, BUN 41 H, Creatinine 1.14, Estim Creat Clear Calc 51.89, Est GFR (MDRD) Af Amer 80, Est GFR (MDRD) Non-Af 66, BUN/Creatinine Ratio 36.0 H, Glucose 179 H, Calcium 9.0 12/04/24 06:10: POC Glucose 182 H 12/04/24 11:51: POC Glucose 200 H Microbiology: Microbiology 12/02/24 15:02 Mucosa - Nose SARS-CoV-2, Influenza & RSV (PCR) - Final RSV D/C Instructions Discharge Diet: Low fat / Low cholesterol Discharge Activity: Return to Normal Activity Weight Bearing Status: Weight bearing as tolerated Call your doctor if you observe: Fever of 101 or Higher, Shortness of breath, Dizziness, Swelling in the ankles and Chest pain DC O2, CPAP, BIPAP Needs RN Home O2 Qualification: Home O2 Qualification: Is the patient on home oxygen No 12/04/24 09:46 Home O2 Qualification: AT REST 1- Pulse Ox at rest 95 12/04/24 09:46 Home O2 Qualification: WITH AMBULATION 1- Pulse Ox with ambulation 93 12/04/24 09:46 1- Oxygen Flow Rate with 0 12/04/24 09:46 ambulation Home O2 Discharge instructions: No DC home with Oxygen: No Meaningful Use Info Meaningful Use Meaningful Use Diagnoses (Choose all that apply): None applicable Ischemic Stroke Statin Dosing Therapy Reference: STATIN DOSE THERAPY REFERENCE: * Patients > 75 years receive moderate or high dose statin therapy. * Patients 75 years or YOUNGER should receive HIGH intensity statin dose unless contraindicated. You will be required to document reason for non-treatment if statin daily dose does not meet guidelines. HIGH DOSE STATIN THERAPY DAILY Atorvastatin > than or = to 40 mg Rosuvastatin > than or = to 20 mg Amlodipine + Atorvastatin > than or = to 2.5/40 mg Ezetimibe + Simvastatin 10/80 mg Simvastatin 80mg Discharge Plan Admission Admit Date/Time: 12/02/24 19:48 Primary Reason for Your Visit: RSV pneumonia Attending Provider: Annie Martinez Primary Care Provider: Herson Terrell Consulting Providers: Aislinn Molina Instructions Patient Instructions: RSV (Respiratory Syncytial Virus) Discharge Orders/Prescriptions Prescriptions: New prednisone 20 mg tablet 40 mg PO DAILY Qty: 10 0RF Continued metformin 500 mg tablet 500 mg PO DAILY levetiracetam 500 mg tablet 500 mg PO BID Qty: 60 11RF triamcinolone acetonide 0.1 % cream 1 applic topical BID-TID amlodipine 5 mg tablet 5 mg PO DAILY albuterol 90 mcg/actuation aerosol 180 mcg inhalation Q4H PRN spironolactone 25 mg tablet 25 mg PO DAILY losartan 50 mg tablet 50 mg PO DAILY furosemide 40 mg tablet 40 mg PO DAILY Eliquis 5 mg tablet 5 mg PO BID Qty: 60 11RF pravastatin 80 mg tablet 80 mg PO QHS Qty: 90 3RF carvedilol 25 mg tablet 25 mg PO BID Qty: 180 3RF Referrals / Follow Up: Herson Terrell MD [Primary Care Provider] - Within 1 Week Disposition Disposition (needs filled in before D/C Order can be placed): Home, Self Care Charges/Coding Visit Charges Inpatient E&M: 78792 Disch Hosp >30min
--- NOTE | 2024-12-04 14:27 | DCINST_ITS ---
Discharge Instructions Diet Discharge Diet: Low fat / Low cholesterol DC O2, CPAP, BIPAP needs RN Home O2 Qualification: Home O2 Qualification: Is the patient on home oxygen No 12/04/24 09:46 Home O2 Qualification: AT REST 1- Pulse Ox at rest 95 12/04/24 09:46 Home O2 Qualification: WITH AMBULATION 1- Pulse Ox with ambulation 93 12/04/24 09:46 1- Oxygen Flow Rate with 0 12/04/24 09:46 ambulation Home O2 Discharge instructions: No Dressing / Incision Discharge Activity: Return to Normal Activity Weight Bearing Status: Weight bearing as tolerated Dressing / Incision Call your doctor if you observe: Fever of 101 or Higher, Shortness of breath, Dizziness, Swelling in the ankles and Chest pain Follow Up Care Test Results: Test results from this visit will be discussed in further detail at your follow- up appointment, if applicable. Discharge Plan Admission Admit Date/Time: 12/02/24 19:48 Primary Reason for Your Visit: RSV pneumonia Attending Provider: Annie Martinez Primary Care Provider: Herson Terrell Consulting Providers: Aislinn Molina Instructions Patient Instructions: RSV (Respiratory Syncytial Virus) Discharge Orders/Prescriptions Prescriptions: New prednisone 20 mg tablet 40 mg PO DAILY Qty: 10 0RF Continued metformin 500 mg tablet 500 mg PO DAILY levetiracetam 500 mg tablet 500 mg PO BID Qty: 60 11RF triamcinolone acetonide 0.1 % cream 1 applic topical BID-TID amlodipine 5 mg tablet 5 mg PO DAILY albuterol 90 mcg/actuation aerosol 180 mcg inhalation Q4H PRN spironolactone 25 mg tablet 25 mg PO DAILY losartan 50 mg tablet 50 mg PO DAILY furosemide 40 mg tablet 40 mg PO DAILY Eliquis 5 mg tablet 5 mg PO BID Qty: 60 11RF pravastatin 80 mg tablet 80 mg PO QHS Qty: 90 3RF carvedilol 25 mg tablet 25 mg PO BID Qty: 180 3RF Referrals / Follow Up: Herson Terrell MD [Primary Care Provider] - Within 1 Week Disposition Disposition (needs filled in before D/C Order can be placed): Home, Self Care
== END 2024-12-04 15:27 | disposition home or self-care (01) | DRG 202 ==
LOC: ED 19:55 → MS3 20:02
PROVIDERS: Physician Assistant; Admitting Provider Internal Medicine; Emergency Provider Emergency Medicine; PCP Family Medicine; Visit Provider Student in an Organized Health Care Education/Training Program
DX: J21.0 Acute bronchiolitis due to respiratory syncytial virus (principal); J12.1 Respiratory syncytial virus pneumonia; I48.19 Other persistent atrial fibrillation; I50.22 Chronic systolic (congestive) heart failure; I11.0 Hypertensive heart disease with heart failure; D69.6 Thrombocytopenia, unspecified; E11.22 Type 2 diabetes mellitus with diabetic chronic kidney disease; G40.909 Epilepsy, unspecified, not intractable, without status epilepticus; K74.60 Unspecified cirrhosis of liver; I65.23 Occlusion and stenosis of bilateral carotid arteries; I34.0 Nonrheumatic mitral (valve) insufficiency; I25.5 Ischemic cardiomyopathy; I25.10 Atherosclerotic heart disease of native coronary artery without angina pectoris; K22.70 Barrett's esophagus without dysplasia; E78.5 Hyperlipidemia, unspecified; Z79.01 Long term (current) use of anticoagulants; Z79.84 Long term (current) use of oral hypoglycemic drugs; Z86.73 Personal history of transient ischemic attack (TIA), and cerebral infarction without residual deficits; Z95.1 Presence of aortocoronary bypass graft
CPT/HCPCS: 36415; 71046; 80048; 80053; 82962; 83735; 84100; 85025; 87631; 93005; 94640; 94668; 97802; 99284; A4216; J1940